=== PATIENT | female | born 1965 | race Caucasian/White ===

== ENCOUNTER 2016-07-17 13:00 | Inpatient (IN) | payer OTHER, MEDICAID ==
[~2016-07-17] VITALS: Ht 152.4 cm; Wt 67.9 kg
[~2016-07-17 13:00] MED LIST: DEXA6TAB PO; FOLI1TAB4 PO; HYDR-3111 PO; PRIL10CA PO
[2016-07-17 13:02] VITALS: BP 146/76; PULSE 90; RESP 18; TEMP 98.2; O2SAT 98
--- NOTE | 2016-07-17 14:09 | PD ---
HPI Chief Complaint: Respiratory Symptoms Time Seen by Provider: 14:06 Travel History International Travel<30 days: No Contact w/Intl Traveler<30days: No Traveled to known affect area: No History of Present Illness HPI Patient's 50-year-old female presenting to the emergency department on the advice of her oncologist Dr. Lomas due to an abnormal chest x-ray done as an outpatient. Per patient's report she's had increasing shortness of breath and more of a pleuritic chest pain for the last 10 weeks, getting progressively worse. She was diagnosed with lung cancer in May 2015. She states the chest pain is worse with breathing, yawning, she can't sleep on her left side. Her last chemotherapy treatment was 3 weeks ago. 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 Her primary doctor is Dr. Mckinney. Patient also reports neck and upper back pain. She denies any current fevers, chills, nausea, vomiting. She denies any other significant past medical history. PFSH Past Medical History Arthritis: Yes (hands) Asthma: No Autoimmune Disease: No Cancer: Yes (LUNG METS TO BRAIN) Cardiovascular Problems: No Chemotherapy: Yes COPD: No Cerebrovascular Accident: No Diabetes: No Diminished Hearing: No Endocrine: No GERD: No Genitourinary: No Hepatitis: No Hiatal Hernia: No Heparin Induced Thrombocytopen: No Immune Disorder: No Implanted Vascular Access Dvce: No Kidney Stones: Yes (2 years ago) Musculoskeletal: No Neurologic: No Psychiatric: Yes (SUICIDAL ATTEMPT , ) Reproductive: No Respiratory: Yes (LUNG CA) Migraines: No Radiation Therapy: Yes Renal Failure: No Seizures: No Sickle Cell Disease: No Sleep Apnea: No Thyroid Disease: No Ulcer: No ?: Not Past Surgical History Abdominal Surgery: No AICD: No Arteriovenous Shunt: No Cardiac Surgery: No Section: Yes Ear Surgery: No Endocrine Surgery: No Eye Surgery: No Genitourinary Surgery: No Gynecologic Surgery: Yes () Insulin Pump: No Joint Replacement: No Oral Surgery: No Pacemaker: No Thoracic Surgery: No Other Surgery: Yes (1989 WRIST REPAIR LFT ARM SUICIDE ATTEMPT, PORT TO L SUBCLAVIAN ) Social History Alcohol Use: No Tobacco Use: No (QUIT 06/01/2015) Substance Use: No Allergies-Medications (Allergen,Severity, Reaction): Coded Allergies: Lomotil (Verified Allergy, Severe, swollen lips, rash, 07/17/16) Reported Meds & Prescriptions Reported Meds & Active Scripts Active Reported Advil (Ibuprofen) 200 Mg Cap 200 Mg PO Q4H PRN Folate (Folic Acid) 1 Mg Tab 1 Mg PO DAILY Prilosec (Omeprazole) 20 Mg Cap 20 Mg PO DAILY Review of Systems Except as stated in HPI: all other systems reviewed are Neg General / Constitutional: No: Fever, Chills HENT: No: Headaches Cardiovascular: Positive: Chest Pain or Discomfort Respiratory: Positive: Shortness of Breath, Pleuritic Pain Gastrointestinal: No: Nausea, Vomiting, Abdominal Pain Musculoskeletal: Positive: Myalgias, Pain Physical Exam Narrative GENERAL: Well-developed, well-nourished, alert female. Resting comfortably in no acute distress. SKIN: Warm and dry. HEAD: Atraumatic. Normocephalic. EYES: Pupils equal and round. No scleral icterus. No injection or drainage. ENT: No nasal bleeding or discharge. Mucous membranes pink and moist. NECK: Trachea midline. No JVD. CARDIOVASCULAR: Regular rate and rhythm. No murmur appreciated. RESPIRATORY: No accessory muscle use. Significantly diminished/almost absent breath sounds in the left lobe. No wheezing, rhonchi, rales noted. GASTROINTESTINAL: Abdomen soft, non-tender, nondistended. Hepatic and splenic margins not palpable. MUSCULOSKELETAL: No obvious deformities. No clubbing. No cyanosis. No edema. NEUROLOGICAL: Awake and alert. No obvious cranial nerve deficits. Motor grossly within normal limits. Normal speech. PSYCHIATRIC: Appropriate mood and affect; insight and judgment normal. Data Data Last Documented VS Vital Signs Date Time Temp Pulse Resp B/P Pulse Ox O2 Delivery O2 Flow Rate FiO2 07/17/16 16:31 78 18 140/80 99 Room Air 07/17/16 13:02 98.2 Orders Complete Blood Count With Diff (07/17/16 14:04) Comprehensive Metabolic Panel (07/17/16 14:04) D-Dimer (07/17/16 14:04) Act Partial Throm Time (Ptt) (07/17/16 14:04) Prothrombin Time / Inr (Pt) (07/17/16 14:04) Magnesium (Mg) (07/17/16 14:04) Ckmb (Isoenzyme) Profile (07/17/16 14:04) Troponin I (07/17/16 14:04) Chest, Pa & Lat (07/17/16 14:04) Morphine Inj (Morphine Inj) (07/17/16 16:30) Ct Pulmonary Angiogram (07/17/16 ) Admit Order (Ed Use Only) (07/17/16 16:43) Vital Signs (Adult) Q4H (07/17/16 16:42) Activity Oob With Assistance (07/17/16 16:42) Fire Sprinkler Installer / Telemetry .CONTINUOUS (07/17/16 16:42) Intake + Output MEHNAZ.QSHIFT (07/17/16 16:42) Diet Heart Healthy (07/17/16 Dinner) Sodium Chloride 0.9% Flush (Ns Flush) (07/17/16 16:45) Sodium Chloride 0.9% Flush (Ns Flush) (07/17/16 21:00) Acetaminophen (Tylenol) (07/17/16 16:45) Ondansetron Inj (Zofran Inj) (07/17/16 16:45) Prochlorperazine Supp (Compazine Supp) (07/17/16 16:45) Bisacodyl Supp (Dulcolax Supp) (07/17/16 16:45) Magnesium Hydroxide Liq (Milk Of Magnesi (07/17/16 16:45) Sennosides (Senokot) (07/17/16 16:45) Temazepam (Restoril) (07/17/16 16:45) Basic Metabolic Panel (Bmp) (07/18/16 06:00) Comprehensive Metabolic Panel (07/18/16 06:00) Resp Oxygen Brandon C Titrat 1-4 L (07/17/16 ) Pt Request For Service (07/17/16 16:42) Ot Request For Service (07/17/16 16:42) Case Management Consult (07/17/16 16:42) Scd Bilateral/Knee High MEHNAZ.BID (07/17/16 16:42) Shaheen Bilateral/Knee High MEHNAZ.QSHIFT (07/17/16 16:42) Consult Medical Oncology (07/17/16 ) Labs Laboratory Tests Test 07/17/16 14:32 White Blood Count 4.7 TH/MM3 Red Blood Count 3.22 MIL/MM3 Hemoglobin 9.5 GM/DL Hematocrit 28.1 % Mean Corpuscular Volume 87.1 FL Mean Corpuscular Hemoglobin 29.6 PG Mean Corpuscular Hemoglobin 34.0 % Concent Red Cell Distribution Width 15.7 % Platelet Count 556 TH/MM3 Mean Platelet Volume 7.2 FL Neutrophils (%) (Auto) 65.3 % Lymphocytes (%) (Auto) 19.8 % Monocytes (%) (Auto) 11.9 % Eosinophils (%) (Auto) 2.1 % Basophils (%) (Auto) 0.9 % Neutrophils # (Auto) 3.0 TH/MM3 Lymphocytes # (Auto) 0.9 TH/MM3 Monocytes # (Auto) 0.6 TH/MM3 Eosinophils # (Auto) 0.1 TH/MM3 Basophils # (Auto) 0.0 TH/MM3 CBC Comment DIFF FINAL Differential Comment Prothrombin Time 10.9 SEC Prothromb Time International 1.0 RATIO Ratio Activated Partial 30.7 SEC Thromboplast Time D-Dimer Quantitative (PE/DVT) 7.63 MG/L FEU Sodium Level 140 MEQ/L Potassium Level 3.6 MEQ/L Chloride Level 107 MEQ/L Carbon Dioxide Level 23.9 MEQ/L Anion Gap 9 MEQ/L Blood Urea Nitrogen 8 MG/DL Creatinine 0.90 MG/DL Estimat Glomerular Filtration 66 ML/MIN Rate Random Glucose 82 MG/DL Calcium Level 9.3 MG/DL Magnesium Level 2.0 MG/DL Total Bilirubin 0.3 MG/DL Aspartate Amino Transf 14 U/L (AST/SGOT) Alanine Aminotransferase 11 U/L (ALT/SGPT) Alkaline Phosphatase 85 U/L Total Creatine Kinase 55 U/L Troponin I LESS THAN 0.02 NG/ML Total Protein 7.9 GM/DL Albumin 2.9 GM/DL MDM Medical Decision Making Medical Screen Exam Complete: Yes Emergency Medical Condition: Yes Interpretation(s) Vital Signs Date Time Temp Pulse Resp B/P Pulse Ox O2 Delivery O2 Flow Rate FiO2 07/17/16 13:02 98.2 90 18 146/76 98 Differential Diagnosis Pneumonia versus pneumothorax versus mass versus other Narrative Course Patient's 50-year-old female presenting to the emergency department on the advice of her oncologist due to an abnormal chest x-ray as outpatient. Patient has significantly diminished/absent breath sounds on the left. Workup initiated triage, care patient be transferred to provide her with a medical bed is available. Ashley Calderon Jul 17, 2016 14:09
[2016-07-17 14:26] VITALS: BP 121/71; PULSE 73; RESP 18; O2SAT 96
[2016-07-17] MEDS ORDERED: PRIL20CA9 PO (14:31)
[2016-07-17] MEDS ORDERED: FOLI1TAB4 PO (14:31)
[2016-07-17] MEDS ORDERED: ADVI200C5 PO (14:31)
--- NOTE | 2016-07-17 14:44 | PD ---
HPI Chief Complaint: Respiratory Symptoms Time Seen by Provider: 14:30 Travel History International Travel<30 days: No Contact w/Intl Traveler<30days: No Traveled to known affect area: No History of Present Illness HPI 50-year-old female came to the emergency room with history of shortness of breath and chest pain is progressively worsening over past 1 week to 10 days. Patient has history of lung cancer and was seen by her oncologist this morning. She had a CAT scan of her lungs done on June 26, 2016 which showed her left lung collapsed. She has cancer in her left lung. Her oncologist sent her to the emergency room to be evaluated. Vital signs were stable here. No history of fever or chills. Oxygen saturation was relatively good and no room air. [facility] Past Medical History Narrative Medical List of her past medical, surgical, social and family history is reviewed from the nursing note. Arthritis: Yes (hands) Asthma: No Autoimmune Disease: No Cancer: Yes (lung) Cardiovascular Problems: No Chemotherapy: Yes COPD: No Cerebrovascular Accident: No Diabetes: No Diminished Hearing: No Endocrine: No GERD: No Genitourinary: No Hepatitis: No Hiatal Hernia: No Heparin Induced Thrombocytopen: No Immune Disorder: No Implanted Vascular Access Dvce: No Kidney Stones: Yes (2 years ago) Musculoskeletal: No Neurologic: No Psychiatric: Yes (SUICIDAL ATTEMPT , ) Reproductive: No Respiratory: Yes (LUNG CA) Migraines: No Radiation Therapy: Yes Renal Failure: No Seizures: No Sickle Cell Disease: No Sleep Apnea: No Thyroid Disease: No Ulcer: No ?: Not Past Surgical History Abdominal Surgery: No AICD: No Arteriovenous Shunt: No Cardiac Surgery: No Section: Yes Ear Surgery: No Endocrine Surgery: No Eye Surgery: No Genitourinary Surgery: No Gynecologic Surgery: Yes () Insulin Pump: No Joint Replacement: No Oral Surgery: No Pacemaker: No Thoracic Surgery: No Other Surgery: Yes (1989 WRIST REPAIR LFT ARM SUICIDE ATTEMPT, PORT TO L SUBCLAVIAN ) Social History Alcohol Use: No Tobacco Use: No Substance Use: No Allergies-Medications (Allergen,Severity, Reaction): Coded Allergies: Lomotil (Verified Allergy, Severe, swollen lips, rash, 07/17/16) Comments List of her allergies reviewed from the nursing note. Reported Meds & Prescriptions Reported Meds & Active Scripts Active Reported Folate (Folic Acid) 1 Mg Tab 1 Mg PO DAILY Prilosec (Omeprazole) 20 Mg Cap 20 Mg PO DAILY Narrative Medication List of her home medications reviewed from the nursing note. Review of Systems Except as stated in HPI: all other systems reviewed are Neg Physical Exam Narrative GENERAL: Awake, alert, mild distress, he should SKIN: Warm and dry. HEAD: Atraumatic. Normocephalic. EYES: Pupils equal and round. No scleral icterus. No injection or drainage. ENT: No nasal bleeding or discharge. Mucous membranes pink and moist. NECK: Trachea midline. No JVD. CARDIOVASCULAR: Regular rate and rhythm. No murmur appreciated. RESPIRATORY: No accessory muscle use. Diminished air entry on the left base up to the middle of the lung field. Right side good air entry and no crackles GASTROINTESTINAL: Abdomen soft, non-tender, nondistended. Hepatic and splenic margins not palpable. MUSCULOSKELETAL: No obvious deformities. No clubbing. No cyanosis. No edema. NEUROLOGICAL: Awake and alert. No obvious cranial nerve deficits. Motor grossly within normal limits. Normal speech. PSYCHIATRIC: Appropriate mood and affect; insight and judgment normal. Data Data Last Documented VS Vital Signs Date Time Temp Pulse Resp B/P Pulse Ox O2 Delivery O2 Flow Rate FiO2 07/17/16 16:31 78 18 140/80 99 Room Air 07/17/16 13:02 98.2 Orders Complete Blood Count With Diff (07/17/16 14:04) Comprehensive Metabolic Panel (07/17/16 14:04) D-Dimer (07/17/16 14:04) Act Partial Throm Time (Ptt) (07/17/16 14:04) Prothrombin Time / Inr (Pt) (07/17/16 14:04) Magnesium (Mg) (07/17/16 14:04) Ckmb (Isoenzyme) Profile (07/17/16 14:04) Troponin I (07/17/16 14:04) Chest, Pa & Lat (07/17/16 14:04) Morphine Inj (Morphine Inj) (07/17/16 16:30) Ct Pulmonary Angiogram (07/17/16 ) Admit Order (Ed Use Only) (07/17/16 16:43) Vital Signs (Adult) Q4H (07/17/16 16:42) Activity Oob With Assistance (07/17/16 16:42) Hat Stock Laminating Machine Operator / Telemetry .CONTINUOUS (07/17/16 16:42) Intake + Output MEHNAZ.QSHIFT (07/17/16 16:42) Diet Heart Healthy (07/17/16 Dinner) Sodium Chloride 0.9% Flush (Ns Flush) (07/17/16 16:45) Sodium Chloride 0.9% Flush (Ns Flush) (07/17/16 21:00) Acetaminophen (Tylenol) (07/17/16 16:45) Ondansetron Inj (Zofran Inj) (07/17/16 16:45) Prochlorperazine Supp (Compazine Supp) (07/17/16 16:45) Bisacodyl Supp (Dulcolax Supp) (07/17/16 16:45) Magnesium Hydroxide Liq (Milk Of Magnesi (07/17/16 16:45) Sennosides (Senokot) (07/17/16 16:45) Temazepam (Restoril) (07/17/16 16:45) Basic Metabolic Panel (Bmp) (07/18/16 06:00) Comprehensive Metabolic Panel (07/18/16 06:00) Resp Oxygen Brandon C Titrat 1-4 L (07/17/16 ) Pt Request For Service (07/17/16 16:42) Ot Request For Service (07/17/16 16:42) Case Management Consult (07/17/16 16:42) Scd Bilateral/Knee High MEHNAZ.BID (07/17/16 16:42) Shaheen Bilateral/Knee High MEHNAZ.QSHIFT (07/17/16 16:42) Consult Medical Oncology (07/17/16 ) Labs Laboratory Tests Test 07/17/16 14:32 White Blood Count 4.7 TH/MM3 Red Blood Count 3.22 MIL/MM3 Hemoglobin 9.5 GM/DL Hematocrit 28.1 % Mean Corpuscular Volume 87.1 FL Mean Corpuscular Hemoglobin 29.6 PG Mean Corpuscular Hemoglobin 34.0 % Concent Red Cell Distribution Width 15.7 % Platelet Count 556 TH/MM3 Mean Platelet Volume 7.2 FL Neutrophils (%) (Auto) 65.3 % Lymphocytes (%) (Auto) 19.8 % Monocytes (%) (Auto) 11.9 % Eosinophils (%) (Auto) 2.1 % Basophils (%) (Auto) 0.9 % Neutrophils # (Auto) 3.0 TH/MM3 Lymphocytes # (Auto) 0.9 TH/MM3 Monocytes # (Auto) 0.6 TH/MM3 Eosinophils # (Auto) 0.1 TH/MM3 Basophils # (Auto) 0.0 TH/MM3 CBC Comment DIFF FINAL Differential Comment Prothrombin Time 10.9 SEC Prothromb Time International 1.0 RATIO Ratio Activated Partial 30.7 SEC Thromboplast Time D-Dimer Quantitative (PE/DVT) 7.63 MG/L FEU Sodium Level 140 MEQ/L Potassium Level 3.6 MEQ/L Chloride Level 107 MEQ/L Carbon Dioxide Level 23.9 MEQ/L Anion Gap 9 MEQ/L Blood Urea Nitrogen 8 MG/DL Creatinine 0.90 MG/DL Estimat Glomerular Filtration 66 ML/MIN Rate Random Glucose 82 MG/DL Calcium Level 9.3 MG/DL Magnesium Level 2.0 MG/DL Total Bilirubin 0.3 MG/DL Aspartate Amino Transf 14 U/L (AST/SGOT) Alanine Aminotransferase 11 U/L (ALT/SGPT) Alkaline Phosphatase 85 U/L Total Creatine Kinase 55 U/L Troponin I LESS THAN 0.02 NG/ML Total Protein 7.9 GM/DL Albumin 2.9 GM/DL MDM Medical Decision Making Medical Screen Exam Complete: Yes Emergency Medical Condition: Yes Medical Record Reviewed: Yes Differential Diagnosis Pneumonia, PE, lung mass, pleural effusion Narrative Course 4:49 PM blood test results are back and are within normal limits except for the d-dimer which is elevated. Chest x-ray shows moderate pleural effusion. I've ordered a pulmonary angiogram. Patient will require admission and I have admitted her to the hospitalist who has accepted the case. Patient requested something for pain which has been ordered. Procedures EKG Prior to Arrival: No Diagnosis Primary Impression: Respiratory distress Additional Impressions: Pleural effusion Lung mass Admitting Information Admitting Physician Requests: Admit Scripts Albuterol 18 GM Inh (Ventolin Hfa 18 GM Inh)90 Mcg/Act Aer2 Puff INH Q4-6H PRN ( SHORTNESS OF BREATH) #1 INHALER Ref 0 Prov:Brigitte Castaneda MD 07/19/16 Docusate Sodium (Colace)100 Mg [id number] Mg PO BID #60 CAP Ref 0 Prov:Brigitte Castaneda MD 07/19/16 Hydrocodone-Acetaminophen ([place])5-325 mg Tab1 Tab PO Q4H PRN (PAIN) #30 TAB Ref 0 Prov:Brigitte Castaneda MD 07/19/16 Mignon Yap MD Jul 17, 2016 14:44
[2016-07-17 14:59] LABS: BASOPHIL % 0.9 % (0.0-2.0); EOSINOPHIL # 0.1 TH/MM3 (0-0.4); EOSINOPHIL % 2.1 % (0.0-4.0); HEMATOCRIT 28.1 % (35.0-46.0); HEMO FLAGS DIFF FINAL; LYMPH % 19.8 % (9.0-44.0); LYMPHOCYTE # 0.9 TH/MM3 (1.0-4.8); MEAN CELL VOLUME 87.1 FL (80.0-100.0); MEAN CORPUSCULAR HEMOGLOBIN 29.6 PG (27.0-34.0); MONO % 11.9 % (0.0-8.0); NEUT % 65.3 % (16.0-70.0); PLATELET COUNT 556 TH/MM3 (150-450); RED BLOOD COUNT 3.22 MIL/MM3 (4.00-5.30); RED CELL DISTRIBUTION WIDTH 15.7 % (11.6-17.2); WHITE BLOOD COUNT 4.7 TH/MM3 (4.0-11.0)
--- NOTE | 2016-07-17 15:06 | RADRPT ---
EXAM DATE/TIME: 07/17/2016 14:58 [facility] COMPARISON: CT NEEDLE BIOPSY LUNG, LEFT, December 13, 2015, 8:36. CT THORAX W CONTRAST, June 26, 2016, 13:39. CHEST PA & LAT, June 02, 2015, 10:01. INDICATIONS : Patient has been short of breath. MEDICAL HISTORY : Carcinoma, lung. SURGICAL HISTORY : None. ENCOUNTER: Initial ACUITY: 1 day PAIN SCORE: 8/10 LOCATION: Left lung region. FINDINGS: There is a moderate left pleural effusion. [id number] is in good position on the right. Right celina ng is clear. Heart and pulmonary vascularity are normal. CONCLUSION: Moderate right consolidation and effusion. CT scan on 06/2016 had shown significant interval obstruct ion. The left lung may not re-expand following thoracentesis. Nain Bhatia MD FACR on July 17, 2016 at 15:00 Board Certified Radiologist. This report was verified electronically.
[2016-07-17 15:20] LABS: APTT (PATIENT) 30.7 SEC (24.3-30.1); PROTHROMBIN TIME - PATIENT 10.9 SEC (9.8-11.6)
[2016-07-17 15:23] LABS: ANION GAP 9 MEQ/L (5-15); AST (GOT) 14 U/L (15-37); BICARBONATE 23.9 MEQ/L (21.0-32.0); BLOOD UREA NITROGEN 8 MG/DL (7-18); CHLORIDE 107 MEQ/L (98-107); GLOMERULAR FILTRATION RATE 66 ML/MIN (>89); POTASSIUM 3.6 MEQ/L (3.5-5.1); SODIUM (NA) 140 MEQ/L (136-145)
[2016-07-17 15:28] LABS: ALKALINE PHOSPHATASE 85 U/L (45-117); ALT (GPT) 11 U/L (10-53); TOTAL BILIRUBIN ADULT 0.3 MG/DL (0.2-1.0)
[2016-07-17 15:40] LABS: CREATINE KINASE 55 U/L (26-192)
[2016-07-17] MEDS ORDERED: MORPHINE SULFATE 4 MG/ML INJ IV PUSH ONE (16:30)
[2016-07-17 16:31] VITALS: BP 140/80; PULSE 78; RESP 18; O2SAT 99
[2016-07-17] MEDS ORDERED: ACETAMINOPHEN 325 MG TAB PO PRN (16:45)
[2016-07-17] MEDS ORDERED: BISACODYL 10 MG SUPP PR PRN (16:45)
[2016-07-17] MEDS ORDERED: SODIUM CHLORIDE 0.9% FLUSH 5 ML FLUSH FLUSH PRN (16:45)
[2016-07-17] MEDS ORDERED: MAGNESIUM HYDROXIDE SUSP 30 ML CUP PO PRN (16:45)
[2016-07-17] MEDS ORDERED: SENNOSIDES 8.6 MG TAB PO PRN (16:45)
[2016-07-17] MEDS ORDERED: PROCHLORPERAZINE 25 MG SUPP PR PRN (16:45)
[2016-07-17] MEDS ORDERED: TEMAZEPAM 15 MG CAP PO PRN (16:45)
[2016-07-17] MEDS ORDERED: IOHEXOL 350 MG/ML 10 ML VIAL (for RAD DIAG) IV ONE (17:50)
--- NOTE | 2016-07-17 18:03 | RADRPT ---
EXAM DATE/TIME: 07/17/2016 17:49 [facility] COMPARISON: CHEST PA & LAT, July 17, 2016, 14:58. CT PULMONARY ANGIOGRAM, March 02, 2016, 8:16. INDICATIONS : Evaluate for embolism. IV CONTRAST: 74 cc Omnipaque 350 (iohexol) IV RADIATION DOSE: 23.17 CTDIvol (mGy) MEDICAL HISTORY : Carcinoma, lung. SURGICAL HISTORY : None. ENCOUNTER: Initial ACUITY: 1 day PAIN SCALE: 5/10 LOCATION: Bilateral chest TECHNIQUE: Volumetric scanning of the chest was performed using a pulmonary embolism protocol MIP images were re constructed. Using automated exposure control and adjustment of the mA and/or kV according to patien t size, radiation dose was kept as low as reasonably achievable to obtain optimal diagnostic quality images. FINDINGS: PULMONARY ARTERIES: No filling defects are seen in the pulmonary arteries through the segmental level. LUNGS: There continues to be parenchymal consolidation/mass in the left infrahilar area. This is mildly incr eased compared to prior study. The right lung remains clear and well-aerated. There is central lobar emphysema. There is evidence of previous granulomatous disease.. PLEURAE: There is a moderate left effusion. MEDIASTINUM: Few nonspecific lymph nodes are again seen. MUSCULOSKELETAL: Within normal limits for patient age. Stable MISCELLANEOUS: The visualized upper abdominal organs demonstrate no acute abnormality. CONCLUSION: 1. No evidence of pulmonary embolism. 2. Increasing consolidation/mass in the left infrahilar area. 3. Moderate left pleural effusion. Oliver Esquivel MD on July 17, 2016 at 17:57 Board Certified Radiologist. This report was verified electronically.
--- NOTE | 2016-07-17 18:39 | RADRPT ---
EXAM DATE/TIME: 07/17/2016 18:04 [facility] COMPARISON: No previous studies available for comparison. INDICATIONS : Plueral effusion. MEDICAL HISTORY : Renal calculi. Carcinoma, lung. Arthritis. Suicide attempt. SURGICAL HISTORY : section. Left wrist repair. Left subclavian port placement. ENCOUNTER: Initial ACUITY: 1 day PAIN SCORE: 3/10 LOCATION: Left chest MEASUREMENTS: SKIN TO PARIETAL PLEURA: 1.8 cm SKIN TO MAX SAFE DEPTH: 4.5 cm ESTIMATED FLUID VOLUME: 1052 cc FLUID COMPOSITION: simple FINDINGS: Pleural effusion as above. A dwayne was placed on the skin surface superficial to the pleural fluid col lection. CONCLUSION: Large Left-sided pleural effusion. Oliver Esquivel MD on July 17, 2016 at 18:38 Board Certified Radiologist. This report was verified electronically.
[2016-07-17 18:55] VITALS: BP 115/75; PULSE 80; RESP 20; TEMP 97.2; O2SAT 98
--- NOTE | 2016-07-17 19:22 | HHI.HP ---
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 Elizondo due to an abnormal chest x-ray done as an outpatient. Per patient' s report she's had increasing shortness of breath and more of a pleuritic chest pain for the last 10 weeks, getting progressively worse. She was diagnosed with lung cancer in May 2015. She states the chest pain is worse with breathing, yawning, she can't sleep on her left side. Her last chemotherapy treatment was 3 weeks ago. 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 Her primary doctor is Dr. Mckinney. Patient also reports neck and upper back pain. She denies any current fevers, chills, nausea, vomiting. She denies any other significant past medical history. 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 Oliver Esquivel MD Allergies: Coded Allergies: Lomotil (Verified Allergy, Severe, swollen lips, rash, 07/17/16) Family History Mother: Brain cancer Father: Prostate cancer Social History Quit smoking 05/2015 , used to smoke for 35 years 1PPD Denies EtOH use or illicit drug use Physical Exam Vital Signs Vital Signs Date Time Temp Pulse Resp B/P Pulse Ox O2 Delivery O2 Flow Rate FiO2 07/17/16 18:55 97.2 80 20 115/75 98 07/17/16 16:31 78 18 140/80 99 Room Air 07/17/16 14:26 73 18 121/71 96 Room Air 07/17/16 13:02 98.2 90 18 146/76 98 Physical Exam GENERAL: This is a pleasant 50 yo female, well-nourished, well-developed patient , in no apparent distress. SKIN: No rashes, ecchymoses or lesions. Cool and dry. HEAD: Atraumatic. Normocephalic. No temporal or scalp tenderness. EYES: Pupils equal round and reactive. Extraocular motions intact. No scleral icterus. No injection or drainage. ENT: Nose without bleeding, purulent drainage or septal hematoma. Throat without erythema, tonsillar hypertrophy or exudate. Uvula midline. Airway patent. NECK: Trachea midline. No JVD or lymphadenopathy. Supple, nontender, no meningeal signs. CARDIOVASCULAR: Regular rate and rhythm without murmurs, gallops, or rubs. RESPIRATORY: Clear to auscultation. Breath sounds equal bilaterally. No wheezes , rales, or rhonchi. GASTROINTESTINAL: Abdomen soft, non-tender, nondistended. No hepato-splenomegaly , or palpable masses. No guarding. MUSCULOSKELETAL: Extremities without clubbing, cyanosis, or edema. No joint tenderness, effusion, or edema noted. No calf tenderness. Negative Homans sign bilaterally. NEUROLOGICAL: Awake and alert. Cranial nerves II through XII intact. Motor and sensory grossly within normal limits. Five out of 5 muscle strength in all muscle groups. Normal speech. Laboratory Laboratory Tests Test 07/17/16 14:32 White Blood Count 4.7 Red Blood Count 3.22 Hemoglobin 9.5 Hematocrit 28.1 Mean Corpuscular Volume 87.1 Mean Corpuscular Hemoglobin 29.6 Mean Corpuscular Hemoglobin 34.0 Concent Red Cell Distribution Width 15.7 Platelet Count 556 Mean Platelet Volume 7.2 Neutrophils (%) (Auto) 65.3 Lymphocytes (%) (Auto) 19.8 Monocytes (%) (Auto) 11.9 Eosinophils (%) (Auto) 2.1 Basophils (%) (Auto) 0.9 Neutrophils # (Auto) 3.0 Lymphocytes # (Auto) 0.9 Monocytes # (Auto) 0.6 Eosinophils # (Auto) 0.1 Basophils # (Auto) 0.0 CBC Comment DIFF FINAL Differential Comment Prothrombin Time 10.9 Prothromb Time International 1.0 Ratio Activated Partial 30.7 Thromboplast Time D-Dimer Quantitative (PE/DVT) 7.63 Sodium Level 140 Potassium Level 3.6 Chloride Level 107 Carbon Dioxide Level 23.9 Anion Gap 9 Blood Urea Nitrogen 8 Creatinine 0.90 Estimat Glomerular Filtration 66 Rate Random Glucose 82 Calcium Level 9.3 Magnesium Level 2.0 Total Bilirubin 0.3 Aspartate Amino Transf 14 (AST/SGOT) Alanine Aminotransferase 11 (ALT/SGPT) Alkaline Phosphatase 85 Total Creatine Kinase 55 Troponin I LESS THAN 0.02 Total Protein 7.9 Albumin 2.9 Result Diagram: 07/17/16 1432 07/17/16 1432 Imaging Last Impressions Chest Ultrasound 07/17/16 0000 Signed Impressions: Service Date/Time: Sunday, July 17, 2016 18:04 - CONCLUSION: Large Left- sided pleural effusion. Oliver Esquivel MD Assessment and Plan Assessment and Plan Patient's 50-year-old female presenting to the emergency department on the advice of her oncologist due to an abnormal chest x-ray as outpatient. Patient has significantly diminished/absent breath sounds on the left. Small cell CA of lung stage IV with brain mets following with Dr Elizondo as OP. Received radiation and currently on chemo Left pleural effusion associated with pleuritic chest pain and sob Satting well on room air currently, use O2 supplement if need keep O2 sat > 94% US of left chest with large Left-sided pleural effusion. Plan for US guided thoracenthesis Consult pulm Consult Dr Elizondo DVT ppx with lovenox Discussed Condition With patient, family at bedside, ED physician Brigitte Castaneda MD Jul 17, 2016 19:21
[2016-07-17] MEDS: ACETAMINOPHEN/HYDROcodone 325 MG/10 MG TAB PO PRN (20:52)
[2016-07-17] MEDS: SODIUM CHLORIDE 0.9% FLUSH 5 ML FLUSH FLUSH SCH (21:00)
[2016-07-17 22:00] VITALS: BP 122/80; PULSE 85; RESP 18; TEMP 97.9; O2SAT 97
[2016-07-18] VITALS (11 sets, daily range): BP systolic 105–135; BP diastolic 63–85; PULSE 64–106; RESP 16–22; TEMP 96.6–99.2; O2SAT 94–100
[2016-07-18] MEDS: ACETAMINOPHEN/HYDROcodone 325 MG/5 MG TAB PO PRN ×2 (04:06→19:53)
[2016-07-18] MEDS: ONDANSETRON HCL 4 MG/2 ML VIAL IVP PRN ×2 (04:06→15:19)
--- NOTE | 2016-07-18 07:02 | MB ---
cc: LÓPEZ COWART MD, ABDUL J. M.D. DATE OF CONSULTATION 07/17/2016 REASON FOR CONSULTATION Consultation was requested by [facility] physician for evaluation of lung cancer. HISTORY OF PRESENT ILLNESS Juanita is a 50-year-old female. She was diagnosed with non-small cell lung cancer adenocarcinoma in May of last year when she presented with hemoptysis and a dry cough. The CT scan of the chest showed a 6 cm left perihilar mass encasing the left pulmonary artery and left main stem bronchus. She had a bronchoscopy which showed non-small cell lung cancer poorly differentiated adenocarcinoma. The MRI of the brain shows a solitary brain metastasis. She was treated with carboplatin and Taxol chemotherapy and stereotactic radiosurgery to the brain solitary metastasis. Subsequently, she had combined concurrent radiation and chemotherapy, carboplatin and Taxol completed in September of last year. The patient then had consolidative carboplatin and Taxol chemotherapy with excellent response. She was placed on maintenance Alimta last year in December. The patient was continued on maintenance Alimta. The patient recently had a restaging CT scan of the chest which showed progressive consolidation and volume loss and collapse of the left lower lobe with increasing left pleural effusion. The patient came to the clinic today for followup. The patient was complaining of shortness of breath and chest pains. She was also complaining of back pain especially in the neck and the upper back. I have advised her to go to the emergency room for further evaluation. In the emergency room, the patient had a chest x-ray which showed a left pleural effusion. The patient is now admitted to the hospital for further evaluation. I have been asked to see her. The patient is still having shortness of breath. Her GC just came back from CT angiogram of the chest which failed to reveal any pulmonary embolism. It showed the patient has a large left pleural effusion, as well as consolidation in the left lower lobe which is probably due to obstruction in the left hilar area. She is still complaining of pleuritic chest pain, as well as upper back pain. She denies any fevers. She has anxiety. The rest of the review of systems is negative. PAST MEDICAL HISTORY Non-small cell lung cancer diagnosed May 2015. PAST SURGICAL HISTORY 1. 2. [id number] placement 3. Breast augmentation 4. Lung biopsy ALLERGIES None MEDICATIONS Please see EMR. FAMILY HISTORY Noncontributory SOCIAL HISTORY The patient does not smoke cigarettes and does not drink alcohol. PHYSICAL EXAM This is a well-developed, well-nourished white female in no apparent distress in mild respiratory distress. VITAL SIGNS: Temperature 97.9, heart rate is 85, blood pressure 122/80. HEENT: PERRLA, EOMI, anicteric. No oral lesions noted. NECK: Supple. There is no cervical, supraclavicular or axillary lymphadenopathy noted. LUNGS: Decreased breath sounds on the left side, right side is clear. ABDOMEN: Soft, nontender. No hepatosplenomegaly. EXTREMITIES: No pedal edema. NEUROLOGIC: Awake, alert, and oriented times three. SKIN: No significant lesions noted. ASSESSMENT 1. Non-small cell lung cancer adenocarcinoma with brain metastasis status post brain radiation therapy, chemotherapy and currently she was on Alimta maintenance. 2. Large left pleural effusion with increasing left lower lobe consolidation, most likely due to progressive endobronchial lesion in the left hilar area. 3. Anxiety disorder. PLAN I have reviewed her available records and I have discussed with the patient regarding the recent CT scan findings. The patient was found to have progressive left lower lobe consolidation which I believe is due to the endobronchial lesion. She also has enlarging left pleural effusion. I will order the ultrasound of the chest to evaluate for the pleural effusion. If the patient has significant pleural effusion, then she will benefit from therapeutic thoracentesis. I will also consult pulmonary for bronchoscopy. The patient could have endobronchial lesion or mucus plug which could be causing the increased left lower lobe consolidation. If the patient is found to have progressive disease which clinically appears to be, then I will change her chemotherapy from Alimta to Opdivo. I will also get the bone scan to evaluate for the upper back pain which the patient has been complaining of. This patient has been getting narcotics while she is in the hospital. Further recommendations based on the hospital stay. Thank you for asking my opinion. MD GREG Varner/ARIANA /9:18 PM /5:49 AM FLORECITA
--- NOTE | 2016-07-18 08:08 | HHI.PR ---
Subjective Remarks Patient in bed, she is sattign well on room air. Pain is controlled by meds. She was nauseated, did not vomit. No fever or chills. No cough. Objective Vitals Vital Signs Date Time Temp Pulse Resp B/P Pulse Ox O2 Delivery O2 Flow Rate FiO2 07/18/16 06:06 16 07/18/16 04:12 97.8 84 16 120/77 94 07/18/16 01:15 97.5 76 16 118/67 97 07/17/16 22:21 16 07/17/16 22:00 97.9 85 18 122/80 97 07/17/16 18:55 97.2 80 20 115/75 98 07/17/16 16:31 78 18 140/80 99 Room Air 07/17/16 14:26 73 18 121/71 96 Room Air 07/17/16 13:02 98.2 90 18 146/76 98 Result Diagram: 07/17/16 1432 07/17/16 1432 Imaging Last Impressions Chest Ultrasound 07/17/16 0000 Signed Impressions: Service Date/Time: Sunday, July 17, 2016 18:04 - CONCLUSION: Large Left- sided pleural effusion. Oliver Esquivel MD Objective Remarks GENERAL: This is a pleasant 50 yo female, well-nourished, well-developed patient , in no apparent distress. SKIN: No rashes, ecchymoses or lesions. Cool and dry. HEAD: Atraumatic. Normocephalic. No temporal or scalp tenderness. EYES: Pupils equal round and reactive. Extraocular motions intact. No scleral icterus. No injection or drainage. ENT: Nose without bleeding, purulent drainage or septal hematoma. Throat without erythema, tonsillar hypertrophy or exudate. Uvula midline. Airway patent. NECK: Trachea midline. No JVD or lymphadenopathy. Supple, nontender, no meningeal signs. CARDIOVASCULAR: Regular rate and rhythm without murmurs, gallops, or rubs. RESPIRATORY: Clear to auscultation. decreased breath sounds left side. No wheezes, rales, or rhonchi. GASTROINTESTINAL: Abdomen soft, non-tender, nondistended. No hepato-splenomegaly , or palpable masses. No guarding. MUSCULOSKELETAL: Extremities without clubbing, cyanosis, or edema. No joint tenderness, effusion, or edema noted. No calf tenderness. Negative Homans sign bilaterally. NEUROLOGICAL: Awake and alert. Cranial nerves II through XII intact. Motor and sensory grossly within normal limits. Five out of 5 muscle strength in all muscle groups. Normal speech. A/P Assessment and Plan Patient's 50-year-old female presenting to the emergency department on the advice of her oncologist due to an abnormal chest x-ray as outpatient. Patient has significantly diminished/absent breath sounds on the left. Small cell CA of lung stage IV with brain mets following with Dr Elizondo as OP. Received radiation and currently on chemo. Poss patient has progressive disease. Left pleural effusion associated with pleuritic chest pain and sob Satting well on room air currently, use O2 supplement if need keep O2 sat > 94% US of left chest with large Left-sided pleural effusion. Plan for US guided thoracenthesis 07/18 Consult pulm for possible bronch Consult Dr Elizondo DVT ppx with lovenox Discussed Condition With patient, family at bedside, ED physician Brigitte Castaneda MD Jul 18, 2016 08:08
--- NOTE | 2016-07-18 08:10 | MB ---
cc: AURELIA IQBAL MD DATE OF CONSULTATION 07/17/[address] Laurie Mckinney REASON FOR CONSULTATION Evaluate for shortness breath and collapse of the lung. HISTORY OF PRESENT ILLNESS Ms. Lombardi is a 50-year-old female with metastatic non-small cell carcinoma of the lung. She has been treated with chemotherapy and radiation therapy and she is taking maintenance Alimta treatment by Dr. Elizondo. She recently had a CT scan of the chest done which shows left infrahilar mass with increasing collapse of the lung. Because of the worsening of the shortness of breath, she was advised to come to the hospital. She had a CTA of the chest done; it does not show any pulmonary embolism, it shows increasing consolidation or mass in the left infrahilar area, moderate left pleural effusion. Her CBC showed WBC count of 4.7, hemoglobin 9.5, hematocrit 28.1, MCV 87, platelet count 556. Her sodium is 140, potassium 3.6, chloride 107, CO2 24, BUN 8, creatinine 0.90. INR is 1.0. PAST MEDICAL HISTORY 1. History of non-small cell carcinoma of the lung status post chemotherapy and radiation therapy. Currently she is on Alimta. 2. History of breast augmentation. 3. . CURRENT MEDICATIONS 1. [place] for pain. 2. Temazepam 15 mg as needed. 3. Senokot p.r.n. ALLERGIES SHE IS ALLERGIC TO LOMOTIL. SOCIAL HISTORY She lives with her significant other. She was before. She worked as a soda fountain operator. She smoked for 35 years which she quit last year. No alcohol use. FAMILY HISTORY She has four children. REVIEW OF SYSTEMS Normally she is up all night. Denies any weight loss. No headache or dizziness. No DVT or pulmonary embolism. PHYSICAL EXAMINATION GENERAL: A well-built, well-nourished female, not in acute distress. VITAL SIGNS: Blood pressure 115/75, heart rate 80, respirations 20, temperature 98. HEENT EXAMINATION: Pupils are equal and reactive to light. Oral mucosa and nasal mucosa normal. NECK: Supple. JVP not raised. CHEST: She is dull to percussion. Decreased breath sounds at the left base. CV: S1 and S2 normal. ABDOMEN: Benign. EXTREMITIES: No edema. IMPRESSION 1. Left pleural effusion, moderate in size. 2. Mild dyspnea. 3. Neck pain. 4. Left infrahilar mass increasing in size. 5. Metastatic lung cancer. PLAN 1. I discussed with the patient that she will need thoracentesis which will be sent for protein, glucose, LDH, cultures and cytology. 2. After the thoracentesis we will review the studies to see if there is any concern for collapse of the lung and to consider bronchoscopy. 3. Further treatment will depend on her course in the hospital. Thank you Dr. Elizondo for this consult. MD ALESSANDRO Dixon/SSB /7:40 PM /6:59 AM
[2016-07-18] MEDS: SODIUM CHLORIDE 0.9% FLUSH 5 ML FLUSH FLUSH SCH ×2 (09:00→21:00)
[2016-07-18] MEDS: ACETAMINOPHEN/HYDROcodone 325 MG/10 MG TAB PO PRN (09:54)
--- NOTE | 2016-07-18 10:39 | PD.ONC.PN ---
Subjective Subjective Remarks Afebrile overnight. Had some pain in neck this AM, improved with [place]. Had 1 episode of vomiting this AM, which is typical for her. Objective Data Date Time Temp Pulse Resp B/P Pulse Ox O2 Delivery O2 Flow Rate FiO2 07/18/16 08:00 96.9 64 18 107/63 99 07/18/16 06:06 16 07/18/16 04:12 97.8 84 16 120/77 94 07/18/16 01:15 97.5 76 16 118/67 97 07/17/16 22:21 16 07/17/16 22:00 97.9 85 18 122/80 97 07/17/16 18:55 97.2 80 20 115/75 98 07/17/16 16:31 78 18 140/80 99 Room Air 07/17/16 14:26 73 18 121/71 96 Room Air 07/17/16 13:02 98.2 90 18 146/76 98 Result Diagram: 07/17/16 1432 07/17/16 1432 Laboratory Results Laboratory Tests Test 07/17/16 14:32 White Blood Count 4.7 TH/MM3 Red Blood Count 3.22 MIL/MM3 Hemoglobin 9.5 GM/DL Hematocrit 28.1 % Mean Corpuscular Volume 87.1 FL Mean Corpuscular Hemoglobin 29.6 PG Mean Corpuscular Hemoglobin 34.0 % Concent Red Cell Distribution Width 15.7 % Platelet Count 556 TH/MM3 Mean Platelet Volume 7.2 FL Neutrophils (%) (Auto) 65.3 % Lymphocytes (%) (Auto) 19.8 % Monocytes (%) (Auto) 11.9 % Eosinophils (%) (Auto) 2.1 % Basophils (%) (Auto) 0.9 % Neutrophils # (Auto) 3.0 TH/MM3 Lymphocytes # (Auto) 0.9 TH/MM3 Monocytes # (Auto) 0.6 TH/MM3 Eosinophils # (Auto) 0.1 TH/MM3 Basophils # (Auto) 0.0 TH/MM3 CBC Comment DIFF FINAL Differential Comment Prothrombin Time 10.9 SEC Prothromb Time International 1.0 RATIO Ratio Activated Partial 30.7 SEC Thromboplast Time D-Dimer Quantitative (PE/DVT) 7.63 MG/L FEU Sodium Level 140 MEQ/L Potassium Level 3.6 MEQ/L Chloride Level 107 MEQ/L Carbon Dioxide Level 23.9 MEQ/L Anion Gap 9 MEQ/L Blood Urea Nitrogen 8 MG/DL Creatinine 0.90 MG/DL Estimat Glomerular Filtration 66 ML/MIN Rate Random Glucose 82 MG/DL Calcium Level 9.3 MG/DL Magnesium Level 2.0 MG/DL Total Bilirubin 0.3 MG/DL Aspartate Amino Transf 14 U/L (AST/SGOT) Alanine Aminotransferase 11 U/L (ALT/SGPT) Alkaline Phosphatase 85 U/L Total Creatine Kinase 55 U/L Troponin I LESS THAN 0.02 NG/ML Total Protein 7.9 GM/DL Albumin 2.9 GM/DL Imaging Studies Last Impressions Chest Ultrasound 07/17/16 0000 Signed Impressions: Service Date/Time: Sunday, July 17, 2016 18:04 - CONCLUSION: Large Left- sided pleural effusion. Oliver Esquivel MD Administered Medications Medications (Trade) Dose Ordered Sig/Benji Route PRN Reason Start Time Stop Time Status Last Admin Dose Admin IV Flush (NS Flush) 2 ml BID FLUSH 07/17/16 21:00 07/18/16 09:00 Ondansetron HCl (Zofran Inj) 4 mg Q6H PRN IVP NAUSEA OR VOMITING 07/17/16 16:45 07/18/16 04:06 Acetaminophen/ Hydrocodone Bitart ([place] 5-325 Mg) 1 tab Q4H PRN PO PAIN SCALE 3 TO 6 07/17/16 19:45 07/18/16 04:06 Acetaminophen/ Hydrocodone Bitart ([place] 10-325 Mg) 1 tab Q4H PRN PO PAIN SCALE 7 TO 10 07/17/16 19:45 07/18/16 09:54 Objective Remarks GENERAL: Middle aged female, sitting up in bed in [facility]. SKIN: Warm and dry. HEAD: Normocephalic. EYES: No injection or drainage. NECK: Supple, trachea midline. CARDIOVASCULAR: +S1/S2 RESPIRATORY: diminished along left base. GASTROINTESTINAL: Abdomen soft, non-tender, nondistended. EXTREMITIES: No cyanosis, or edema. MUSCULOSKELETAL: Adequate muscle tone. NEUROLOGICAL: awake and alert, normal speech. Assessment/Plan Problem List: (1) Pleural effusion Status: Acute Plan: 07/18: consult IR for therapeutic thoracentesis. --Large left pleural effusion with increasing left lower lobe consolidation, --most likely due to progressive endobronchial lesion in the left hilar area. --patient could have endobronchial lesion or mucus plug which could be causing the increased left lower lobe consolidation. --bone scan pending --pulmonology following and will consider bronchoscopy after thoracentesis. (2) Non-small cell carcinoma of lung Status: Chronic Plan: 07/18: will add morphine for severe breakthrough pain. add Compazine for nausea. --If the patient is found to have progressive disease--will change her chemotherapy from Alimta to Opdivo. History: --diagnosed in 2015--presented with hemoptysis and dry cough --CT chest showed 6cm left perihilar mass encasing the left pulmonary artery left main stem bronchus. --MRI brain--shows solitary brain met. --had carbo/taxol chemotherapy and stereotactic radiosurgery to the brain met then combined concurrent radiation and chemotherapy and then consolidative carbo /taxol. --started on maintenance Alimta December 2015 --restaging CT chest showed progressive consolidation and volume loss and collapse of LLL with increasing left pleural effusion. Assessment 50y/o female with NSCLC admitted with dyspnea. Attending Statement c/o back pain and sob with anxiety. s/p Thoracentesis, 500 ML clear fliud removed. Bone scan is negative. Pt will need bronch to evaluate for mucous plug vs endobronchial lesion. Will d/ w Dr Rendon. The exam, history, and the medical decision-making described in the above note were completed with the assistance of the mid-level provider. I reviewed and agree with the findings presented. I attest that I had a [id number] encounter with the patient on the same day, and personally performed and documented my assessment and findings in the medical record. Namrata Rene Jul 18, 2016 10:38 Ita Elizondo MD Jul 18, 2016 18:01
[2016-07-18] MEDS ORDERED: PROCHLORPERAZINE MALEATE 5 MG TAB PO PRN ×2 (11:00→16:00)
[2016-07-18] MEDS ORDERED: MORPHINE SULFATE 4 MG/ML INJ IV PUSH PRN (11:00)
[2016-07-18 11:11] LABS: ANION GAP 9 MEQ/L (5-15); AST (GOT) 14 U/L (15-37); BICARBONATE 29.2 MEQ/L (21.0-32.0); BLOOD UREA NITROGEN 7 MG/DL (7-18); CHLORIDE 104 MEQ/L (98-107); GLOMERULAR FILTRATION RATE 49 ML/MIN (>89); SODIUM (NA) 142 MEQ/L (136-145)
[2016-07-18 11:14] LABS: ALKALINE PHOSPHATASE 89 U/L (45-117); ALT (GPT) 9 U/L (10-53); TOTAL BILIRUBIN ADULT 0.2 MG/DL (0.2-1.0)
--- NOTE | 2016-07-18 12:59 | RADRPT ---
EXAM DATE/TIME: 07/18/2016 12:06 [facility] COMPARISON: CT THORAX W CONTRAST, June 26, 2016, 13:39. PRIOR BONE SCANS: No correlative bone scan available for comparison. INDICATIONS : Non-small cell lung cancer for 1 year. Mass in left side of lung. DOSE: 31 mCi Tc99m MDP IV MEDICAL HISTORY : Hypertension. SURGICAL HISTORY : section. Breast augmentation, infuse a port and lung biopsy. ENCOUNTER: Initial ACUITY: 1 yr PAIN SCALE: 3/10 LOCATION: Left chest TECHNIQUE: Three hours post intravenous administration of radiotracer, whole body bone scan imaging was performe d. FINDINGS: Blood pool images demonstrate a homogeneous pattern of uptake in the soft tissues. No hyperemic area s are identified. Planar bone scan demonstrates a normal pattern of uptake. No intense focal areas of increased or decreased uptake are seen. There is a mild uptake within the lower thoracic spine whi ch corresponds with degenerative changes on CT chest. Minimal uptake is also seen at the lumbosacral junction and lower lumbar spine likely due to degenerative changes. CONCLUSION: 1. No evidence for metastatic disease. 2. Degenerative uptake within the lower thoracic spine 3. Minimal uptake in the lower lumbar spine/lumbosacral junction also likely degenerative. Moe Moon MD on July 18, 2016 at 12:53 Board Certified Radiologist. This report was verified electronically.
--- NOTE | 2016-07-18 14:04 | RADRPT ---
EXAM DATE/TIME: 07/18/2016 12:53 [facility] COMPARISON: No previous studies available for comparison. INDICATIONS : Post thoracentesis. MEDICAL HISTORY : None. SURGICAL HISTORY : Port placment. ENCOUNTER: Initial ACUITY: 1 day PAIN SCORE: 8/10 LOCATION: Left chest FINDINGS: A single frontal expiratory view of the chest was performed. Left basilar parenchymal density/mass. No evidence of pneumothorax. Mediastinal structures are in the midline. The cardio-mediastinal contours and bronchopulmonary markings are unremarkable for an expiratory exam . Osseous structures are intact. CONCLUSION: No pneumothorax status post thoracentesis. Moe Moon MD on July 18, 2016 at 14:02 Board Certified Radiologist. This report was verified electronically.
[2016-07-18 15:52] LABS: TOTAL PROTEIN,PLEURAL FLUID 4.5 GM/DL
--- NOTE | 2016-07-18 16:15 | RADRPT ---
EXAM DATE/TIME: 07/18/2016 13:09 [facility] COMPARISON: No previous studies available for comparison. INDICATIONS : Left pleural effusion. MEDICAL HISTORY : Arthritis. Renal calculi. Lung cancer. Dyspnea. SURGICAL HISTORY : section. Left wrist repair after suicide attempt. Left port placement. ENCOUNTER: Initial ACUITY: 1 day PAIN SCORE: 5/10 LOCATION: Left chest FLUID: Total volume of 500 cc of clear, yellow fluid was removed. Fluid was sent to lab for ordered studies. TECHNIQUE: 1. Ultrasound guidance for thoracentesis. 2. Thoracentesis. The risks, benefits, and alternatives to ultrasound guided thoracentesis were explained to the patien t in lay simple terms, including the risk of bleeding and infection. Written and verbal informed con sent was obtained. Appropriate area for thoracentesis was marked under ultrasound guidance with the patient in the uprig ht position. Overlying skin was prepped and draped in the usual sterile fashion and with local anest hetic, a dermatotomy was made with an 11 blade scalpel. A 6 Israeli thoracentesis catheter was placed in the pleural space and fluid was removed. Catheter was then removed and a sterile dressing applie d. There were no immediate complications. The patient tolerated the procedure well and the left the ultrasound suite in stable condition. Chest radiograph is to be obtained. CONCLUSION: Uncomplicated ultrasound guided thoracentesis. Moe Moon MD on July 18, 2016 at 16:11 Board Certified Radiologist. This report was verified electronically.
--- NOTE | 2016-07-18 16:52 | OTSOAPIP ---
TIME SESSION COMPLETED: 1623 TREATMENT TIME: 5 MINS. CHART REVIEWED. RECEIVED OCCUPATIONAL THERAPY ORDERS FROM DR. COWART, REVIEWED ELECTRONIC MEDICAL RECORD. ATTEMPTED INITIAL EVALUATION, HOWEVER PATIENT REPORTS SHE HAD A BUSY DAY AND US GUIDED THORACENTHESIS IN WHICH SHE RETURNED APPROXIMATELY 1 HOUR PRIOR. PATIENT STATES SHE IS TIRED AND IN PAIN, RECENTLY MEDICATED. PATIENT POLITELY REQUESTS TO COME BACK NEXT DAY TO COMPLETE EVALUATION SHE WANTS TO PERFORM WELL. WILL FOLLOW UP WITH PATIENT NEXT DAY. INTERDISCIPLINARY COMMUNICATION: REVIEWED ELECTRONIC MEDICAL RECORD Therapist: Asha Wood, OTR/L Signature on file
--- NOTE | 2016-07-18 19:55 | HHI.PR ---
Subjective Remarks 50 YOWF with metastatic lung ca, Pl effusion, neck pain had TC Feels much better Can take a deep breath Bone scan Neg Objective Vital Signs Vital Signs Date Time Temp Pulse Resp B/P Pulse Ox O2 Delivery O2 Flow Rate FiO2 07/18/16 16:00 99.2 103 18 116/85 98 07/18/16 14:40 96 07/18/16 14:20 98 07/18/16 14:01 98.0 91 18 129/85 100 07/18/16 13:46 98.0 104 22 123/80 100 07/18/16 13:18 98.2 96 16 105/75 96 07/18/16 09:30 98 21 07/18/16 08:00 96.9 64 18 107/63 99 07/18/16 06:06 16 07/18/16 04:12 97.8 84 16 120/77 94 07/18/16 01:15 97.5 76 16 118/67 97 07/17/16 22:21 16 07/17/16 22:00 97.9 85 18 122/80 97 I/O 07/17/16 07/17/16 07/17/16 07/18/16 07/18/16 07/18/16 07:00 15:00 23:00 07:00 15:00 23:00 Intake Total 480 ml 240 ml Balance 480 ml 240 ml Intake Oral 480 ml 240 ml # Voids 1 4 1 Result Diagram: 07/17/16 1432 07/18/16 1000 Objective Remarks GENERAL: WBWN WF,NAD SKIN: Warm and dry. HEAD: Normocephalic. EYES: No scleral icterus. No injection or drainage. NECK: Supple, trachea midline. No JVD or lymphadenopathy. CARDIOVASCULAR: Regular rate and rhythm without murmurs, gallops, or rubs. RESPIRATORY: Breath sounds equal bilaterally. No accessory muscle use. GASTROINTESTINAL: Abdomen soft, non-tender, nondistended. MUSCULOSKELETAL: No cyanosis, or edema. BACK: Nontender without obvious deformity. No CVA tenderness. A/P Assessment and Plan Pleural effusion, s/p TC Infrahilar lung mass Metastatic lung ca Dysnoea improved PLAN: Check pl fluid results Ambulate Stable on Dm Rosas MD Jul 18, 2016 19:55
[2016-07-19] VITALS: BP 109/68; PULSE 108; RESP 17; TEMP 97.8; O2SAT 98
[2016-07-19 04:00] VITALS: BP 105/47; PULSE 105; RESP 17; TEMP 98.9; O2SAT 96
[2016-07-19 05:29] VITALS: O2SAT 100
[2016-07-19] MEDS: ACETAMINOPHEN/HYDROcodone 325 MG/10 MG TAB PO PRN ×2 (07:22→16:18)
[2016-07-19 08:00] VITALS: BP 106/74; PULSE 101; RESP 18; TEMP 98.5; O2SAT 94
[2016-07-19] MEDS: SODIUM CHLORIDE 0.9% FLUSH 5 ML FLUSH FLUSH SCH (09:00)
[2016-07-19] MEDS ORDERED: NORC5TAB PO (09:16)
[2016-07-19] MEDS ORDERED: COLA100C3 PO (09:16)
[2016-07-19] MEDS ORDERED: VENTAER INH (09:16)
--- NOTE | 2016-07-19 09:17 | HHI.DCPOC ---
Discharge Care Plan Goals to Promote Your Health * To prevent worsening of your condition and complications * To maintain your health at the optimal level Directions to Meet Your Goals Take your medications as prescribed Follow your dietary instruction Follow activity as directed Keep your appointments as scheduled Take your immunizations and boosters as scheduled If your symptoms worsen call your PCP, if no PCP go to Urgent Care Center or Emergency Room Smoking is Dangerous to Your Health. Avoid second hand smoke Call the 24-hour hour crisis hotline for domestic abuse at Brigitte Castaneda MD Jul 19, 2016 09:17
--- NOTE | 2016-07-19 09:20 | HHI.DS ---
Discharge Summary Admission Date Jul 18, 2016 at 13:38 Discharge Date: Jul 19, 2016 Admitting Diagnosis shortness of breath, pleural effusion, lung cancer (1) Pleural effusion ICD Code: J90 Diagnosis: Principal (2) Brain metastases ICD Code: C79.31 Diagnosis: Secondary (3) Metastatic primary lung cancer ICD Code: C34.90 Diagnosis: Secondary (4) Non-small cell carcinoma of lung ICD Code: C34.90 Diagnosis: Secondary (5) Weight loss, unintentional ICD Code: R63.4 Diagnosis: Secondary (6) Bilateral hemianopia ICD Code: G25.3 Diagnosis: Secondary Procedures thoracentesis 07/18/16 Brief History - From Admission 50-year-old female with PMH of 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 Elizondo due to an abnormal chest x-ray done as an outpatient. Per patient' s report she's had increasing shortness of breath and more of a pleuritic chest pain for the last 10 weeks, getting progressively worse. She was diagnosed with lung cancer in May 2015. She states the chest pain is worse with breathing, yawning, she can't sleep on her left side. Her last chemotherapy treatment was 3 weeks ago. 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 Her primary doctor is Dr. Mckinney. Patient also reports neck and upper back pain. She denies any current fevers, chills, nausea, vomiting. She denies any other significant past medical history. CBC/BMP: 07/17/16 1432 07/18/16 1000 Significant Findings Laboratory Tests Test 07/17/16 07/18/16 14:32 10:00 Red Blood Count 3.22 MIL/MM3 (4.00-5.30) Hemoglobin 9.5 GM/DL (11.6-15.3) Hematocrit 28.1 % (35.0-46.0) Platelet Count 556 TH/MM3 (150-450) Monocytes (%) (Auto) 11.9 % (0.0-8.0) Lymphocytes # (Auto) 0.9 TH/MM3 (1.0-4.8) Activated Partial 30.7 SEC Thromboplast Time (24.3-30.1) D-Dimer Quantitative (PE/DVT) 7.63 MG/L FEU (0.00-0.50) Estimat Glomerular Filtration 66 ML/MIN (>89) 49 ML/MIN (>89) Rate Aspartate Amino Transf 14 U/L (15-37) 14 U/L (15-37) (AST/SGOT) Troponin I LESS THAN 0.02 NG/ML (0.02-0.05) Albumin 2.9 GM/DL 2.7 GM/DL (3.4-5.0) (3.4-5.0) Creatinine 1.16 MG/DL (0.50-1.00) Random Glucose 119 MG/DL (74-106) Alanine Aminotransferase 9 U/L (10-53) (ALT/SGPT) Imaging Last Impressions Thoracentesis Ultrasound 07/18/16 0000 Signed Impressions: Service Date/Time: Monday, July 18, 2016 13:09 - CONCLUSION: Uncomplicated ultrasound guided thoracentesis. Moe Moon MD Chest X-Ray 07/18/16 0000 Signed Impressions: Service Date/Time: Monday, July 18, 2016 12:53 - CONCLUSION: No pneumothorax status post thoracentesis. Moe Moon MD Bone Scan Nuclear Medicine 07/18/16 0000 Signed Impressions: Service Date/Time: Monday, July 18, 2016 12:06 - CONCLUSION: 1. No evidence for metastatic disease. 2. Degenerative uptake within the lower thoracic spine 3. Minimal uptake in the lower lumbar spine/lumbosacral junction also likely degenerative. Moe Moon MD Chest Ultrasound 07/17/16 0000 Signed Impressions: Service Date/Time: Sunday, July 17, 2016 18:04 - CONCLUSION: Large Left- sided pleural effusion. Oliver Esquivel MD CT Angiography 07/17/16 0000 Signed Impressions: Service Date/Time: Sunday, July 17, 2016 17:49 - CONCLUSION: 1. No evidence of pulmonary embolism. 2. Increasing consolidation/mass in the left infrahilar area. 3. Moderate left pleural effusion. Oliver Esquivel MD PE at Discharge GENERAL: This is a pleasant 50 yo female, well-nourished, well-developed patient , in no apparent distress. SKIN: No rashes, ecchymoses or lesions. Cool and dry. HEAD: Atraumatic. Normocephalic. No temporal or scalp tenderness. EYES: Pupils equal round and reactive. Extraocular motions intact. No scleral icterus. No injection or drainage. ENT: Nose without bleeding, purulent drainage or septal hematoma. Throat without erythema, tonsillar hypertrophy or exudate. Uvula midline. Airway patent. NECK: Trachea midline. No JVD or lymphadenopathy. Supple, nontender, no meningeal signs. CARDIOVASCULAR: Regular rate and rhythm without murmurs, gallops, or rubs. RESPIRATORY: Clear to auscultation. decreased breath sounds left side. No wheezes, rales, or rhonchi. GASTROINTESTINAL: Abdomen soft, non-tender, nondistended. No hepato-splenomegaly , or palpable masses. No guarding. MUSCULOSKELETAL: Extremities without clubbing, cyanosis, or edema. No joint tenderness, effusion, or edema noted. No calf tenderness. Negative Homans sign bilaterally. NEUROLOGICAL: Awake and alert. Cranial nerves II through XII intact. Motor and sensory grossly within normal limits. Five out of 5 muscle strength in all muscle groups. Normal speech. Pt update on day of discharge Patient in nad. Pain is controlled nby medications. No n/v/d/c. No efevr or chills. No sob, passed walking O2 test. Hospital Course Patient's 50-year-old female presenting to the emergency department on the advice of her oncologist due to an abnormal chest x-ray as outpatient. Patient has significantly diminished/absent breath sounds on the left. Small cell CA of lung stage IV with brain mets following with Dr Elizondo as OP. Received radiation and currently on chemo. Poss patient has progressive disease. Left pleural effusion associated with pleuritic chest pain and sob Satting well on room air currently, use O2 supplement if need keep O2 sat > 94% US of left chest with large Left-sided pleural effusion. S/P US guided thoracenthesis 07/18 Consult pulm for possible bronch. Patient s/p thoracentesis 07/18, sattign well on room air,. passed walking test. Discussed with Dr Rendon will hold on bronch , to foolow up as Op with Dr Rendon Consult Dr Elizondo, recommends scan neck, imageing reviewed and findings discused with the patient, there is no metastatic disease to the neck, patient has degenerative changes. To follow up with Dr Elizondo. Improved, discharged home in failry stable condition, to follow up as OP with PCP and consultants. Pt Condition on Discharge: Stable Discharge Disposition: Disch w/ Home Health Serv Discharge Time: > 30 minutes Discharge Instructions DIET: Follow Instructions for: As Tolerated, No Restrictions Activities you can perform: Regular-No Restrictions Follow up Referrals: Oncology - 3-5 Days with Ita Elizondo MD PCP Follow-up - 3-5 Days Pulmonology - 1 Week with Dm Rendon MD New Medications: Albuterol 18 GM Inh (Ventolin Hfa 18 GM Inh) 90 Mcg/Act Aer 2 PUFF INH Q4-6H PRN SHORTNESS OF BREATH #1 Ref 0 INHALER Docusate Sodium (Colace) 100 Mg Cap 100 MG PO BID Constipation #60 Ref 0 CAP Hydrocodone-Acetaminophen ([place]enac) 5-325 mg Tab 1 TAB PO Q4H PRN PAIN #30 Ref 0 TAB Continued Medications: Folic Acid (Folate) 1 Mg Tab 1 MG PO DAILY Nutritional Supplement Ref 0 TAB Omeprazole (Prilosec) 20 Mg Cap 20 MG PO DAILY #30 Ref 0 CAP Discontinued Medications: Ibuprofen (Advil) 200 Mg Cap 200 MG PO Q4H PRN Ref 0 CAP Brigitte Castaneda MD Jul 19, 2016 09:20
--- NOTE | 2016-07-19 09:20 | HHI.FF ---
Face to Face Verification Diagnosis: (1) Weight loss, unintentional (2) Tobacco abuse (3) Mass of left lung (4) Pleural effusion (5) Chest pain (6) Brain metastases (7) Metastatic primary lung cancer (8) Non-small cell carcinoma of lung (9) Bilateral hemianopia Physical Therapy Order: Evaluate and Treat Home Health Nursing Order: Medical education Signs/symptoms of disease process Medication education-adverse effect Nursing assessment with vital signs I have seen patient Juanita Lombardi on 07/19/16. My clinical findings support the need for the requested home health care services because: Ltd mobility - disease progression Patient has SOB I certify that my clinical findings support that this patient is homebound because: Post-op weakness Brigitte Castaneda MD Jul 19, 2016 09:20
[2016-07-19 12:00] VITALS: BP 98/61; PULSE 88; RESP 18; TEMP 97.6; O2SAT 97
--- NOTE | 2016-07-19 17:49 | PD.ONC.PN ---
Subjective Subjective Remarks less SOB anxious to go home Objective Data Date Time Temp Pulse Resp B/P Pulse Ox O2 Delivery O2 Flow Rate FiO2 07/19/16 12:00 97.6 88 18 98/61 97 07/19/16 08:00 98.5 101 18 106/74 94 07/19/16 05:29 100 07/19/16 04:00 98.9 105 17 105/47 96 07/19/16 00:00 97.8 108 17 109/68 98 07/18/16 20:00 97.7 106 18 114/71 95 07/19/16 07/19/16 07/19/16 07:00 15:00 23:00 Intake Total 240 ml 2640 ml 500 ml Balance 240 ml 2640 ml 500 ml Result Diagram: 07/17/16 1432 07/18/16 1000 Culture Results Microbiology Date/Time Procedure Status Source Growth 07/18/16 13:33 Gram Stain - Final Resulted Fluid Pleural Fluid 07/18/16 13:33 Body Fluid Culture - Preliminary Resulted Fluid Pleural Fluid NO GROWTH IN 24 HOURS. Objective Remarks GENERAL: Well-nourished, well-developed patient. SKIN: Warm and dry. HEAD: Normocephalic. EYES: No scleral icterus. No injection or drainage. NECK: Supple, trachea midline. No JVD or lymphadenopathy. LYMPHATIC: No adenopathy. CARDIOVASCULAR: Regular rate and rhythm without murmurs. RESPIRATORY: Breath sounds equal bilaterally. GASTROINTESTINAL: Abdomen soft, non-tender, nondistended. EXTREMITIES: No cyanosis, or edema. NEUROLOGICAL: No obvious focal deficit. Awake, alert, and oriented x3. PSYCHIATRIC: Appropriate mood and affect; insight and judgment normal. Assessment/Plan Problem List: (1) Pleural effusion Status: Acute Plan: 07/19 : s/p thoracentesis. pt improves. Dr Rendon input noted. Ok to d/c , fu as outpt 07/18: consult IR for therapeutic thoracentesis. --Large left pleural effusion with increasing left lower lobe consolidation, --most likely due to progressive endobronchial lesion in the left hilar area. --patient could have endobronchial lesion or mucus plug which could be causing the increased left lower lobe consolidation. --bone scan pending --pulmonology following and will consider bronchoscopy after thoracentesis. (2) Non-small cell carcinoma of lung Status: Chronic Plan: 07/18: will add morphine for severe breakthrough pain. add Compazine for nausea. --If the patient is found to have progressive disease--will change her chemotherapy from Alimta to Opdivo. History: --diagnosed in 2015--presented with hemoptysis and dry cough --CT chest showed 6cm left perihilar mass encasing the left pulmonary artery left main stem bronchus. --MRI brain--shows solitary brain met. --had carbo/taxol chemotherapy and stereotactic radiosurgery to the brain met then combined concurrent radiation and chemotherapy and then consolidative carbo /taxol. --started on maintenance Alimta December 2015 --restaging CT chest showed progressive consolidation and volume loss and collapse of LLL with increasing left pleural effusion. Assessment 50y/o female with NSCLC admitted with dyspnea. Ita Elizondo MD Jul 19, 2016 17:49
== END 2016-07-19 17:06 | disposition home or self-care (01) | DRG 181 ==
LOC: NEPA 13:00 → INTOOBSV 16:44 → NEDA 16:44 → HOCB 18:32 → OBSVTOIN 07-18 13:38
PROVIDERS: ADMIT Hospitalist; ATTEND Hospitalist
PROC: 0W9B3ZX Drainage of Left Pleural Cavity, Percutaneous Approach, Diagnostic (ICD-10-PCS; principal; 2016-07-18)
DX: C34.92 Malignant neoplasm of unspecified part of left bronchus or lung (principal); J91.8 Pleural effusion in other conditions classified elsewhere; C79.31 Secondary malignant neoplasm of brain; M19.042 Primary osteoarthritis, left hand; Z87.891 Personal history of nicotine dependence; M19.041 Primary osteoarthritis, right hand; F41.9 Anxiety disorder, unspecified
CPT/HCPCS: 32555; 71010; 71020; 71275; 76604; 78306; 80053; 82550; 82945; 83615; 83735; 84157; 84484; 85025; 85379; 85610; 85730; 87070; 87205; 88112; 88305; 96374; A9503; C1729; G0378; J2270; J2405; Q9967

== ENCOUNTER 2016-08-01 08:36 | Emergency (ER) | payer OTHER, MEDICAID ==
[~2016-08-01] VITALS: Ht 152.4 cm; Wt 68.0 kg
[~2016-08-01 08:36] MED LIST changes: +COLA100C3 PO; -DEXA6TAB PO; -HYDR-3111 PO; +NORC5TAB PO; -PRIL10CA PO; +PRIL20CA9 PO; +VENTAER INH
[2016-08-01 09:02] VITALS: BP 119/80; PULSE 87; RESP 18; TEMP 98.8; O2SAT 100
[2016-08-01] MEDS ORDERED: SODIUM CHLOR 0.9% 1000 ML INJ 1,000 ML IV SCH (09:02)
[2016-08-01 09:06] VITALS: O2SAT 100
[2016-08-01] MEDS ORDERED: ONDA1TAB17 PO (09:10)
[2016-08-01] MEDS ORDERED: PROC10TA PO (09:10)
[2016-08-01] MEDS ORDERED: NIVO4INJ IV (09:10)
[2016-08-01] MEDS ORDERED: OMEP40CA2 PO (09:10)
[2016-08-01] MEDS ORDERED: SODIUM CHLORIDE 0.9% FLUSH 10 ML FLUSH IVF PRN (09:15)
[2016-08-01] MEDS ORDERED: MORPHINE SULFATE 4 MG/ML INJ IV PUSH ONE (09:15)
[2016-08-01] MEDS ORDERED: ONDANSETRON HCL 4 MG/2 ML VIAL IVP ONE (09:15)
--- NOTE | 2016-08-01 09:39 | RADHPO ---
EXAM DATE/TIME: 08/01/2016 09:10 [facility] COMPARISON: CHEST PA & LAT, July 17, 2016, 14:58. INDICATIONS : Chest pain. MEDICAL HISTORY : Carcinoma, lung. chemo SURGICAL HISTORY : infusaport ENCOUNTER: Initial ACUITY: 2 weeks PAIN SCORE: 6/10 LOCATION: Bilateral chest FINDINGS: PA and lateral views of the chest. Right-sided [id number] remains in place. Moderate-sized left pl eural effusion and pulmonary consolidation unchanged. Right sided calcified granuloma in the midlung unchanged. Right lung otherwise clear. No evidence of pneumothorax. CONCLUSION: No change in moderate sized left pleural effusion and lower lung zone consolidation. Gordon Reinoso MD on August 01, 2016 at 9:36 Board Certified Radiologist. This report was verified electronically.
[2016-08-01 09:42] LABS: AUTOMATED NEUTROPHIL # 3.8 TH/MM3 (1.8-7.7); BASOPHIL % 0.7 % (0.0-2.0); EOSINOPHIL # 0.1 TH/MM3 (0-0.4); EOSINOPHIL % 2.5 % (0.0-4.0); HEMATOCRIT 29.7 % (35.0-46.0); HEMO FLAGS DIFF FINAL; LYMPH % 14.7 % (9.0-44.0); LYMPHOCYTE # 0.7 TH/MM3 (1.0-4.8); MEAN CELL VOLUME 85.3 FL (80.0-100.0); MEAN CORPUSCULAR HGB CONC 32.9 % (32.0-36.0); MONO % 10.5 % (0.0-8.0); NEUT % 71.6 % (16.0-70.0); PLATELET COUNT 625 TH/MM3 (150-450); RED BLOOD COUNT 3.48 MIL/MM3 (4.00-5.30); RED CELL DISTRIBUTION WIDTH 14.4 % (11.6-17.2); WHITE BLOOD COUNT 5.1 TH/MM3 (4.0-11.0)
[2016-08-01 09:43] LABS: BLOOD, URINE NEG (NEG); GLUCOSE,URINE NEG (NEG); KETONE, URINE NEG (NEG); NITRITE,URINE NEG (NEG)
[2016-08-01 09:45] LABS: METHOD OF COLLECTION CLEAN CATCH; URINE COLOR STRAW (YELLW/STRAW)
[2016-08-01 09:51] LABS: RBC, URINE 0-3 /hpf (0-3)
[2016-08-01 09:52] LABS: BACTERIA, URINE RARE /hpf; COMMENT (UR) CULTURE INDICATED; CULTURE IF INDICATED CULTURE INDICATED
[2016-08-01 09:54] LABS: CHLORIDE 103 MEQ/L (98-107); POTASSIUM 4.1 MEQ/L (3.5-5.1); SODIUM (NA) 142 MEQ/L (136-145)
[2016-08-01 09:55] LABS: ANION GAP 11 MEQ/L (5-15); BICARBONATE 28.4 MEQ/L (21.0-32.0); BLOOD UREA NITROGEN 13 MG/DL (7-18); MAGNESIUM 2.2 MG/DL (1.5-2.5)
[2016-08-01 09:56] LABS: APTT (PATIENT) 29.7 SEC (24.3-30.1); PROTHROMBIN TIME - PATIENT 10.8 SEC (9.8-11.6)
[2016-08-01 09:58] LABS: ALT (GPT) 10 U/L (10-53); AST (GOT) 20 U/L (15-37); GLOMERULAR FILTRATION RATE 47 ML/MIN (>89)
[2016-08-01 09:59] LABS: TOTAL BILIRUBIN ADULT 0.2 MG/DL (0.2-1.0)
[2016-08-01 10:01] LABS: ALKALINE PHOSPHATASE 85 U/L (45-117)
[2016-08-01 10:03] VITALS: BP 128/71; PULSE 85; RESP 16; O2SAT 96
--- NOTE | 2016-08-01 10:03 | PD ---
HPI Chief Complaint: Pain: Acute or Chronic Time Seen by Provider: 08:48 Travel History International Travel<30 days: No Contact w/Intl Traveler<30days: No Traveled to known affect area: No History of Present Illness HPI Patient is a 50-year-old female with history of stage IV non-small cell lung cancer with metastatic disease to brain, who returns to emergency room for evaluation of shortness of breath. Patient reports that she does see Dr. Elizondo as her oncologist in the office and reports that she has been feeling very short of breath for a while now. Patient reports that she was admitted to the hospital earlier this month (07/17/16) for evaluation of shortness of breath. Reports that she was admitted to the hospital at the request of her oncologist for workup by pulmonology including a bronchoscopy. Patient reports that she never had a bronchoscopy her lungs as the bellmaker did not believe this was medically necessary. Reports that she was admitted to the hospital as she had of pleural effusion on her CAT scan as well as collapsed lung versus increased consolidation to the left infrahilar area. Ultimately, patient did have a thoracentesis on July 18, 2016 by and was discharged to home on July 19, 2016. Patient reports that since she was discharged home, she has continued to feel short of breath and has continued to have pleuritic chest pain. Patient reports that she has pain throughout her chest with sharp and stabbing in nature , reports pain to her back and pain to her neck. Reports that she is short of breath at rest as well as short of breath on exertion. Patient reports that her symptoms have not gone any better since she was discharged the last time. Reports that her symptoms feel exactly the same as when she was last admitted to the hospital. She is currently on Opdivo and had her last treatment on Sunday of last week. Overall, reports decreased by mouth intake with nausea and vomiting. Reports that she is prescribed Zofran which does not help with her symptoms. Denies fevers or chills, denies abdominal pain at this time. PFSH Past Medical History Arthritis: Yes (hands) Asthma: No Autoimmune Disease: No Cancer: Yes (lung) Cardiovascular Problems: No Chemotherapy: Yes COPD: No Cerebrovascular Accident: No Diabetes: No Diminished Hearing: No Endocrine: No Gastrointestinal Disorders: No GERD: No Genitourinary: No Headaches: No Hepatitis: No Hiatal Hernia: No Heparin Induced Thrombocytopen: No Immune Disorder: No Implanted Vascular Access Dvce: No Kidney Stones: Yes (2 years ago) Medical other: No Musculoskeletal: No Neurologic: No Psychiatric: Yes (SUICIDAL ATTEMPT , ) Reproductive: No Respiratory: Yes (LUNG CA) Migraines: No Radiation Therapy: Yes Renal Failure: No Seizures: No Sickle Cell Disease: No Sleep Apnea: No Thyroid Disease: No Ulcer: No ?: Not Past Surgical History Abdominal Surgery: No AICD: No Arteriovenous Shunt: No Cardiac Surgery: No Section: Yes Ear Surgery: No Endocrine Surgery: No Eye Surgery: No Genitourinary Surgery: No Gynecologic Surgery: Yes () Insulin Pump: No Joint Replacement: No Neurologic Surgery: No Oral Surgery: No Pacemaker: No Thoracic Surgery: No Other Surgery: Yes (1989 WRIST REPAIR LFT ARM SUICIDE ATTEMPT, PORT TO L SUBCLAVIAN ) Social History Alcohol Use: No Tobacco Use: No Substance Use: No Allergies-Medications (Allergen,Severity, Reaction): Coded Allergies: Lomotil (Verified Allergy, Severe, swollen lips, rash, 07/17/16) Reported Meds & Prescriptions Reported Meds & Active Scripts Active Zofran Odt (Ondansetron Odt) 8 Mg Tab 8 Mg SL Q8H PRN Percocet (Oxycodone-Acetaminophen) 5-325 mg Tab 1-2 Tab PO Q6H PRN Macrobid (Nitrofurantoin Monoh/Nitrofur Macro) 100 Mg Cap 100 Mg PO BID 10 Days Reported Ondansetron (Ondansetron HCl) 8 Mg Tab 8 Mg PO TID Prochlorperazine Maleate 10 Mg Tab 10 Mg PO Q6H PRN Omeprazole 40 Mg Cap 40 Mg PO DAILY Opdivo (Nivolumab) 100 Mg/10 Ml Inj 1 Injection IV EVERY OTHER WED Review of Systems General / Constitutional: No: Fever, Chills Eyes: No: Visual changes HENT: No: Headaches Cardiovascular: Positive: Chest Pain or Discomfort, Palpitations, Dyspnea on exertion, No: Diaphoresis, Syncope Respiratory: Positive: Shortness of Breath Gastrointestinal: Positive: Nausea, Vomiting, No: Diarrhea, Abdominal Pain Genitourinary: No: Dysuria Musculoskeletal: No: Pain Skin: No Rash Neurologic: No: Weakness Psychiatric: No: Depression Endocrine: No: Polydipsia Hematologic/Lymphatic: No: Easy Bruising Physical Exam Narrative GENERAL: No acute distress, nontoxic SKIN: Warm and dry. HEAD: Atraumatic. Normocephalic. EYES: Pupils equal and round. No scleral icterus. No injection or drainage. ENT: No nasal bleeding or discharge. Mucous membranes pink and moist. NECK: Trachea midline. No JVD. CARDIOVASCULAR: Regular rate and rhythm. No murmur appreciated. RESPIRATORY: No accessory muscle use. Clear to auscultation. Breath sounds equal bilaterally. GASTROINTESTINAL: Abdomen soft, non-tender, nondistended. Hepatic and splenic margins not palpable. MUSCULOSKELETAL: No obvious deformities. No clubbing. No cyanosis. No edema. NEUROLOGICAL: Awake and alert. No obvious cranial nerve deficits. Motor grossly within normal limits. Normal speech. PSYCHIATRIC: Appropriate mood and affect; insight and judgment normal. Data Data Last Documented VS Vital Signs Date Time Temp Pulse Resp B/P Pulse Ox O2 Delivery O2 Flow Rate FiO2 08/01/16 10:03 85 16 128/71 96 Room Air 08/01/16 09:02 98.8 Orders Complete Blood Count With Diff (08/01/16 09:02) Comprehensive Metabolic Panel (08/01/16 09:02) B-Type Natriuretic Peptide (08/01/16 09:02) Act Partial Throm Time (Ptt) (08/01/16 09:02) Prothrombin Time / Inr (Pt) (08/01/16 09:02) Magnesium (Mg) (08/01/16 09:02) Ckmb (Isoenzyme) Profile (08/01/16 09:02) Troponin I (08/01/16 09:02) Urinalysis - C+S If Indicated (08/01/16 09:02) Iv Access Insert/Monitor (08/01/16 09:02) Ecg Monitoring (08/01/16 09:02) Oximetry (08/01/16 09:02) Chest, Pa & Lat (08/01/16 09:02) Ct Pulmonary Angiogram (08/01/16 09:02) Sodium Chloride 0.9% Flush (Ns Flush) (08/01/16 09:15) Morphine Inj (Morphine Inj) (08/01/16 09:15) Ondansetron Inj (Zofran Inj) (08/01/16 09:15) Sodium Chlor 0.9% 1000 Ml Inj (Ns 1000 M (08/01/16 09:02) Urine Culture (08/01/16 09:30) Ceftriaxone Inj (Rocephin Inj) (08/01/16 10:15) Iohexol 350 Inj (Omnipaque 350 Inj) (08/01/16 10:31) Diazepam (Valium) (08/01/16 11:00) Labs Laboratory Tests Test 08/01/16 08/01/16 09:30 09:33 Urine Collection Type CLEAN CATCH Urine Color STRAW Urine Turbidity CLEAR Urine pH 6.0 Urine Specific [place] 1.005 Urine Protein NEG mg/dL Urine Glucose (UA) NEG mg/dL Urine Ketones NEG mg/dL Urine Occult Blood NEG Urine Nitrite NEG Urine Bilirubin NEG Urine Leukocyte Esterase MOD Urine RBC 0-3 /hpf Urine WBC 9-14 /hpf Urine WBC Clumps FEW Urine Squamous Epithelial 6-8 /hpf Cells Urine Bacteria RARE /hpf Microscopic Urinalysis Comment CULTURE INDICATED White Blood Count 5.1 TH/MM3 Red Blood Count 3.48 MIL/MM3 Hemoglobin 9.8 GM/DL Hematocrit 29.7 % Mean Corpuscular Volume 85.3 FL Mean Corpuscular Hemoglobin 28.0 PG Mean Corpuscular Hemoglobin 32.9 % Concent Red Cell Distribution Width 14.4 % Platelet Count 625 TH/MM3 Mean Platelet Volume 7.5 FL Neutrophils (%) (Auto) 71.6 % Lymphocytes (%) (Auto) 14.7 % Monocytes (%) (Auto) 10.5 % Eosinophils (%) (Auto) 2.5 % Basophils (%) (Auto) 0.7 % Neutrophils # (Auto) 3.8 TH/MM3 Lymphocytes # (Auto) 0.7 TH/MM3 Monocytes # (Auto) 0.5 TH/MM3 Eosinophils # (Auto) 0.1 TH/MM3 Basophils # (Auto) 0.0 TH/MM3 CBC Comment DIFF FINAL Differential Comment Prothrombin Time 10.8 SEC Prothromb Time International 1.0 RATIO Ratio Activated Partial 29.7 SEC Thromboplast Time Sodium Level 142 MEQ/L Potassium Level 4.1 MEQ/L Chloride Level 103 MEQ/L Carbon Dioxide Level 28.4 MEQ/L Anion Gap 11 MEQ/L Blood Urea Nitrogen 13 MG/DL Creatinine 1.20 MG/DL Estimat Glomerular Filtration 47 ML/MIN Rate Random Glucose 87 MG/DL Calcium Level 10.2 MG/DL Magnesium Level 2.2 MG/DL Total Bilirubin 0.2 MG/DL Aspartate Amino Transf 20 U/L (AST/SGOT) Alanine Aminotransferase 10 U/L (ALT/SGPT) Alkaline Phosphatase 85 U/L Total Creatine Kinase 61 U/L Troponin I LESS THAN 0.02 NG/ML B-Type Natriuretic Peptide 49 PG/ML Total Protein 8.6 GM/DL Albumin 2.9 GM/DL MDM Medical Decision Making Medical Screen Exam Complete: Yes Emergency Medical Condition: Yes Interpretation(s) EKG at 0844: Normal sinus rhythm at 88 bpm, QT/QTc 366/415, no acute ST changes , nonspecific T-wave changes, EKG similar when compared to previous EKG Vital Signs Date Time Temp Pulse Resp B/P Pulse Ox O2 Delivery O2 Flow Rate FiO2 08/01/16 09:06 100 Room Air 08/01/16 09:04 87 16 08/01/16 09:02 98.8 87 18 119/80 100 Differential Diagnosis Pneumothorax, metastatic lung disease, ACS, pleural effusion, pneumonia, arrhythmia, chemotherapy reaction Narrative Course Patient is a 50-year-old female with history of metastatic stage IV non-small cell lung cancer who presents to emergency room for evaluation of shortness of breath. Patient has been having increased shortness of breath that she was less limited to the hospital earlier this month on July 18, 2016. Patient reports that she was hoping that she would have a bronchoscopy during her admission, reports that her bellmaker did not think it was medically necessary and instead had a thoracentesis for treatment of pleural effusion. Patient reports that the thoracentesis did not help with her shortness of breath at all, reports that she still felt shortness of breath after her discharge from hospital. Reports that she did recently start Opdivo last week and had a treatment on last Sunday. Overall, patient does appear nontoxic. Vital signs are stable. EKG obtained, patient was placed on a athletic monitor. Labs as well as x-ray of the chest ordered. CT angiogram of the lungs ordered to rule out pulmonary embolism. We'll give patient medications for pain control, will give her medications for antinausea as well as IV fluids at this patient reports that she cannot tolerate fluids at this time. 1006: patient re-evaluated, patient reports that she is feeling much better at this time and pain is controlled with morphine Last Impressions Chest X-Ray 08/01/16 0902 Signed Impressions: Service Date/Time: Monday, August 01, 2016 09:10 - CONCLUSION: No change in moderate sized left pleural effusion and lower lung zone consolidation. Gordon Reinoso MD CT of the chest shows no evidence of pulmonary loss, no change in left perihilar pulmonary consolidation and left pleural effusion, old granulomatous disease, pulmonary emphysema call made to Dr. Elizondo to review case Patient did report relief of symptoms with morphine 4mg, she did report return of symptoms as the morphine did "wear off." Will give oral dose of valium to see if this helps her muscle tightness. Case reviewed with Dr. Elizondo, reports that her symptoms are similar to previous episodes and reports that her shortness of breath is secondary to post obstruction and patient will require radiation treatment which she ultimately refused. He has also given her script for narcotics which patient did not tolerate. He is comfortable with patient receive script for percocet at this time. Reports that patient will need to see Dr. Douglass: radiation Oncologist for further workup for her symptoms as radiation will most likely help with her symptoms. Patient is to follow up with him in the office as scheduled. reviewed all labs and studies with patient in detail, discussed my conversation with her oncologist. Patient will follow up with her radiation oncologist as well as her oncologist as outpatient and return to emergency room as needed. A copy patient's labs as well as CT report was given to her at discharge. Patient was given a prescription for Percocet, understands that there is Tylenol in the Percocet. As per patient, she was not prescribed a prescription for narcotic pain medications by her oncologist. She did tolerate Percocet as this is what was prescribed to her after her last discharge from the hospital. Patient also given a prescription for Zofran ODTreports that sometimes she cannot swallow Zofran pills. Patient thankful for care. Patient will follow up with cultures from today Diagnosis Primary Impression: Shortness of breath Additional Impressions: Chest pain of uncertain etiology left perihilar pulmonary consolidation Recurrent left pleural effusion UTI (urinary tract infection) Qualified Code: N30.01 - Acute cystitis with hematuria Patient Instructions: General Instructions Additional Instructions: Please give patient a copy of her lab work at discharge Please follow-up with your primary care doctor as well as your oncologist and bellmaker Please follow-up with Dr. douglass in the office Return to the emergency room as needed Return to the emergency room if symptoms progress or worsen Please bring your test and studies from today to your doctor's office for follow up Please follow-up with cultures from today Scripts Ondansetron Odt (Zofran Odt)8 Mg Tab8 Mg SL Q8H PRN (NAUSEA OR VOMITING) #30 TAB Ref 0 Prov:Alka Haq DO 08/01/16 Oxycodone-Acetaminophen (Percocet)5-325 mg Tab1-2 Tab PO Q6H PRN (PAIN) #30 TAB Ref 0 Prov:Alka Haq DO 08/01/16 Nitrofurantoin Monohydrate Macrocrystals (Macrobid)100 Mg Umb495 Mg PO BID 10 Days Ref 0 Prov:Alka Haq DO 08/01/16 Disposition: 01 DISCHARGE HOME Condition: Stable Alka Haq DO Aug 01, 2016 10:03
[2016-08-01 10:04] LABS: CREATINE KINASE 61 U/L (26-192)
[2016-08-01] MEDS ORDERED: cefTRIAXone INJ 1,000 MG in SODIUM CHLORIDE 0.9% INJ 100 ML IV ONE (10:15)
[2016-08-01] MEDS ORDERED: IOHEXOL 350 MG/ML 10 ML VIAL (for RAD DIAG) IV ONE (10:31)
--- NOTE | 2016-08-01 10:56 | RADHPO ---
EXAM DATE/TIME: 08/01/2016 10:10 [facility] COMPARISON: CT PULMONARY ANGIOGRAM, July 17, 2016, 17:49. INDICATIONS : Back pain radiating anteriorly. IV CONTRAST: 75 cc Omnipaque 350 (iohexol) IV RADIATION DOSE: 9.30 CTDIvol (mGy) MEDICAL HISTORY : Carcinoma, lung. Chemotherapy. SURGICAL HISTORY : section. ENCOUNTER: Initial ACUITY: 1 day PAIN SCALE: 5/10 LOCATION: chest TECHNIQUE: Volumetric scanning of the chest was performed using a pulmonary embolism protocol MIP images were re constructed. Using automated exposure control and adjustment of the mA and/or kV according to patien t size, radiation dose was kept as low as reasonably achievable to obtain optimal diagnostic quality images. FINDINGS: PULMONARY ARTERIES: No filling defects are seen in the pulmonary arteries through the segmental level. LUNGS: Left lower lobe low density consolidation containing multiple calcifications and with associated volu me loss is again seen. Findings are unchanged from the prior study of 07/17/2016. Mild pulmonary paren chymal emphysema again seen. Scarring at the left lung apex again seen. PLEURAE: Left pleural effusion unchanged. MEDIASTINUM: No grossly enlarged lymph nodes. Thoracic aortic diameter within normal limits. MUSCULOSKELETAL: Within normal limits for patient age. MISCELLANEOUS: The visualized upper abdominal organs demonstrate no acute abnormality. CONCLUSION: 1. No evidence of pulmonary loss. 2. No change in left perihilar pulmonary consolidation and left pleural effusion. 3. Old granulomatous disease. 4. Pulmonary emphysema again seen. Gordon Reinoso MD on August 01, 2016 at 10:46 Board Certified Radiologist. This report was verified electronically.
[2016-08-01] MEDS ORDERED: DIAZEPAM 5 MG TAB PO ONE (11:00)
[2016-08-01] MEDS ORDERED: PERC5TAB12 PO (11:35)
[2016-08-01] MEDS ORDERED: ZOFR8TAB4 SL (11:35)
[2016-08-01] MEDS ORDERED: MACR100C2 PO (11:35)
[2016-08-01 11:44] VITALS: BP 137/72
--- NOTE | 2016-08-01 22:44 | EKG ---
Date Performed: 08/01/2016 Time Performed: 08:44:28 PTAGE: 50 years EKG: Sinus rhythm Poor R wave progression - probable normal variant Anterior T wave changes are nonspecific Borderline ECG PREVIOUS TRACING : 03/30/2016 17.06 Compared to prior tracing no significant change DOCTOR: Hannah Hernandez Interpretating Date/Time 08/01/2016 22:43:24
[2016-08-02] MEDS ORDERED: PROM25TA5 PO (13:55)
== END 2016-08-01 12:03 | disposition home or self-care (01) ==
LOC: PHED 08:36
DX: J90 Pleural effusion, not elsewhere classified (principal); R91.8 Other nonspecific abnormal finding of lung field; N39.0 Urinary tract infection, site not specified; C79.31 Secondary malignant neoplasm of brain; C34.90 Malignant neoplasm of unspecified part of unspecified bronchus or lung; B96.89 Other specified bacterial agents as the cause of diseases classified elsewhere; Z79.899 Other long term (current) drug therapy
CPT/HCPCS: 71020; 71275; 80053; 81001; 82550; 83735; 83880; 84484; 85025; 85610; 85730; 87086; 93005; 96361; 96365; 96375; 99285; J0696; J2270; J2405; J7030; Q9967

== ENCOUNTER 2016-08-02 10:50 | Emergency (ER) | payer OTHER, MEDICAID ==
[~2016-08-02] VITALS: Ht 154.9 cm; Wt 67.0 kg
[~2016-08-02 10:50] MED LIST changes: -COLA100C3 PO; -FOLI1TAB4 PO; +MACR100C2 PO; +NIVO4INJ IV; -NORC5TAB PO; +OMEP40CA2 PO; +ONDA1TAB17 PO; +PERC5TAB12 PO; -PRIL20CA9 PO; +PROC10TA PO; -VENTAER INH; +ZOFR8TAB4 SL
[2016-08-02 11:00] VITALS: BP 129/82; PULSE 99; RESP 15; TEMP 99; O2SAT 97
[2016-08-02] MEDS ORDERED: ONDANSETRON HCL 4 MG/2 ML VIAL IV PUSH ONE (12:00)
[2016-08-02] MEDS ORDERED: MORPHINE SULFATE 4 MG/ML INJ IV PUSH ONE ×2 (12:00→14:15)
[2016-08-02] MEDS ORDERED: SODIUM CHLOR 0.9% 1000 ML INJ 1,000 ML IV ONE (12:00)
--- NOTE | 2016-08-02 12:00 | PD ---
HPI Chief Complaint: GI Complaint Time Seen by Provider: 11:47 Travel History International Travel<30 days: No Contact w/Intl Traveler<30days: No Traveled to known affect area: No History of Present Illness HPI 50 y/o female notes nonbloody emesis and unable to keep meds down since he recently. She states she has been trying Zofran at home. She states she has had Phenergan in the past. She denies other concurrent complaints other than generalized pain from not keeping her pain medications down. Quality is nonbloody. Severity is multiple episodes. Duration is since discharge yesterday. PFSH Past Medical History Arthritis: Yes (hands) Asthma: No Autoimmune Disease: No Cancer: Yes (lung) Cardiovascular Problems: No Chemotherapy: Yes COPD: No Cerebrovascular Accident: No Diabetes: No Diminished Hearing: No Endocrine: No Gastrointestinal Disorders: No GERD: No Genitourinary: No Headaches: No Hepatitis: No Hiatal Hernia: No Heparin Induced Thrombocytopen: No Immune Disorder: No Implanted Vascular Access Dvce: No Kidney Stones: Yes (2 years ago) Musculoskeletal: No Neurologic: No Psychiatric: Yes (SUICIDAL ATTEMPT , ) Reproductive: No Respiratory: Yes (LUNG CA) Migraines: No Radiation Therapy: Yes Renal Failure: No Seizures: No Sickle Cell Disease: No Sleep Apnea: No Thyroid Disease: No Ulcer: No Past Surgical History Abdominal Surgery: No AICD: No Arteriovenous Shunt: No Cardiac Surgery: No Section: Yes Ear Surgery: No Endocrine Surgery: No Eye Surgery: No Genitourinary Surgery: No Gynecologic Surgery: Yes () Insulin Pump: No Joint Replacement: No Neurologic Surgery: No Oral Surgery: No Pacemaker: No Thoracic Surgery: No Other Surgery: Yes (1990 WRIST REPAIR LFT ARM SUICIDE ATTEMPT, PORT TO L SUBCLAVIAN ) Social History Alcohol Use: No Tobacco Use: No Substance Use: No Allergies-Medications (Allergen,Severity, Reaction): Coded Allergies: Lomotil (Verified Allergy, Severe, swollen lips, rash, 08/02/16) Reported Meds & Prescriptions Reported Meds & Active Scripts Active Phenergan (Promethazine HCl) 25 Mg Tab 25 Mg PO Q6H PRN Zofran Odt (Ondansetron Odt) 8 Mg Tab 8 Mg SL Q8H PRN Percocet (Oxycodone-Acetaminophen) 5-325 mg Tab 1-2 Tab PO Q6H PRN Macrobid (Nitrofurantoin Monoh/Nitrofur Macro) 100 Mg Cap 100 Mg PO BID 10 Days Reported Ondansetron (Ondansetron HCl) 8 Mg Tab 8 Mg PO TID Prochlorperazine Maleate 10 Mg Tab 10 Mg PO Q6H PRN Omeprazole 40 Mg Cap 40 Mg PO DAILY Opdivo (Nivolumab) 100 Mg/10 Ml Inj 1 Injection IV EVERY OTHER WED Review of Systems Except as stated in HPI: all other systems reviewed are Neg Physical Exam Narrative GENERAL: Well-nourished, well-developed patient.Well-appearing SKIN: Warm and dry. HEAD: Normocephalic and atraumatic. EYES: No injection or drainage. ENT: No nasal drainage noted. NECK: Supple, trachea midline. CARDIOVASCULAR: Regular rate and rhythm RESPIRATORY: Breath sounds equal bilaterally. No accessory muscle use. GASTROINTESTINAL: Abdomen soft, non-tender, nondistended. EXTREMITIES: No edema. NEUROLOGICAL: Awake and alert. Moves all extremities. Normal speech. Data Data Last Documented VS Vital Signs Date Time Temp Pulse Resp B/P Pulse Ox O2 Delivery O2 Flow Rate FiO2 08/02/16 14:29 94 18 129/79 98 Room Air 08/02/16 11:00 99.0 Orders Complete Blood Count With Diff (08/02/16 11:55) Basic Metabolic Panel (Bmp) (08/02/16 11:55) Iv Access Insert/Monitor (08/02/16 11:55) Ecg Monitoring (08/02/16 11:55) Oximetry (08/02/16 11:55) Ondansetron Inj (Zofran Inj) (08/02/16 12:00) Morphine Inj (Morphine Inj) (08/02/16 12:00) Sodium Chlor 0.9% 1000 Ml Inj (Ns 1000 M (08/02/16 12:00) Morphine Inj (Morphine Inj) (08/02/16 14:15) Heparin Central Flush (Heparin Central F (08/02/16 14:30) Sodium Chloride 0.9% Flush (Ns Flush) (08/02/16 14:30) Labs Laboratory Tests Test 08/02/16 12:28 White Blood Count 5.0 TH/MM3 Red Blood Count 3.25 MIL/MM3 Hemoglobin 9.4 GM/DL Hematocrit 27.6 % Mean Corpuscular Volume 85.0 FL Mean Corpuscular Hemoglobin 28.8 PG Mean Corpuscular Hemoglobin 33.8 % Concent Red Cell Distribution Width 14.5 % Platelet Count 627 TH/MM3 Mean Platelet Volume 6.9 FL Neutrophils (%) (Auto) 68.3 % Lymphocytes (%) (Auto) 14.1 % Monocytes (%) (Auto) 13.2 % Eosinophils (%) (Auto) 3.9 % Basophils (%) (Auto) 0.5 % Neutrophils # (Auto) 3.4 TH/MM3 Lymphocytes # (Auto) 0.7 TH/MM3 Monocytes # (Auto) 0.7 TH/MM3 Eosinophils # (Auto) 0.2 TH/MM3 Basophils # (Auto) 0.0 TH/MM3 CBC Comment DIFF FINAL Differential Comment Sodium Level 144 MEQ/L Potassium Level 3.6 MEQ/L Chloride Level 108 MEQ/L Carbon Dioxide Level 27.3 MEQ/L Anion Gap 9 MEQ/L Blood Urea Nitrogen 10 MG/DL Creatinine 1.30 MG/DL Estimat Glomerular Filtration 43 ML/MIN Rate Random Glucose 86 MG/DL Calcium Level 9.4 MG/DL MDM Medical Decision Making Medical Screen Exam Complete: Yes Emergency Medical Condition: Yes Medical Record Reviewed: Yes (past history confirmed, recent ER visit reviewed) Interpretation(s) CBC & BMP Diagram 08/02/16 12:28 Differential Diagnosis Renal failure, electrolyte abnormality, medication effect Narrative Course Will check blood work and dose with IV fluid and antiemetics no emesis here, Patient denies any new complaints, agreed to one more dose of pain medication before discharge and close outpatient follow up, all questions answered. Patient knows that follow up is incumbent on them and to return to the emergency room immediately if new or worsening symptoms develop. Patient given strict return precautions, vitals reviewed and are normal, agrees to further workup as an outpatient. Diagnosis Primary Impression: Vomiting Qualified Code: R11.2 - Non-intractable vomiting with nausea, unspecified vomiting type Additional Impression: Metastatic lung cancer (metastasis from lung to other site) Qualified Code: C34.90 - Metastatic lung cancer (metastasis from lung to other site), unspecified laterality Patient Instructions: General Instructions Additional Instructions: return as needed, zofran and phenergan as needed, follow with primary and oncologist this week Med/Other Pt SpecificInfo: Prescription(s) given Scripts Promethazine (Phenergan)25 Mg Tab25 Mg PO Q6H PRN (NAUSEA OR VOMITING) #15 TAB Prov:Lilly Tang MD 08/02/16 Disposition: 01 DISCHARGE HOME Condition: Stable Lilly Tang MD Aug 02, 2016 12:00
[2016-08-02 12:10] VITALS: BP 119/76; PULSE 92; RESP 18; O2SAT 98
[2016-08-02 12:35] LABS: AUTOMATED NEUTROPHIL # 3.4 TH/MM3 (1.8-7.7); BASOPHIL % 0.5 % (0.0-2.0); EOSINOPHIL # 0.2 TH/MM3 (0-0.4); EOSINOPHIL % 3.9 % (0.0-4.0); HEMATOCRIT 27.6 % (35.0-46.0); HEMO FLAGS DIFF FINAL; LYMPH % 14.1 % (9.0-44.0); LYMPHOCYTE # 0.7 TH/MM3 (1.0-4.8); MEAN CORPUSCULAR HEMOGLOBIN 28.8 PG (27.0-34.0); MEAN CORPUSCULAR HGB CONC 33.8 % (32.0-36.0); MONO % 13.2 % (0.0-8.0); NEUT % 68.3 % (16.0-70.0); PLATELET COUNT 627 TH/MM3 (150-450); RED BLOOD COUNT 3.25 MIL/MM3 (4.00-5.30); RED CELL DISTRIBUTION WIDTH 14.5 % (11.6-17.2)
[2016-08-02 12:40] VITALS: O2SAT 98
[2016-08-02 12:52] LABS: POTASSIUM 3.6 MEQ/L (3.5-5.1)
[2016-08-02 12:55] LABS: BICARBONATE 27.3 MEQ/L (21.0-32.0)
[2016-08-02 13:10] VITALS: BP 136/75; PULSE 88; RESP 18; O2SAT 98
[2016-08-02] MEDS ORDERED: PROM25TA5 PO (13:55)
[2016-08-02 14:29] VITALS: BP 129/79; PULSE 94; RESP 18; O2SAT 98
[2016-08-02] MEDS ORDERED: SODIUM CHLORIDE 0.9% FLUSH 10 ML FLUSH IVF PRN (14:30)
== END 2016-08-02 14:47 | disposition home or self-care (01) ==
LOC: PHED 10:50
DX: R11.2 Nausea with vomiting, unspecified (principal); C34.90 Malignant neoplasm of unspecified part of unspecified bronchus or lung; C79.9 Secondary malignant neoplasm of unspecified site; R52 Pain, unspecified; M19.042 Primary osteoarthritis, left hand; M19.041 Primary osteoarthritis, right hand; Z79.899 Other long term (current) drug therapy; Z88.8 Allergy status to other drugs, medicaments and biological substances
CPT/HCPCS: 80048; 85025; 96361; 96374; 96375; 96376; 99284; J1642; J2270; J2405; J7030

== ENCOUNTER 2016-08-09 08:32 | Inpatient (IN) | payer OTHER, MEDICAID ==
[2016-08-09] VITALS (7 sets, daily range): BP systolic 122–159; BP diastolic 73–96; PULSE 96–140; RESP 16–26; TEMP 98.1–99.4; O2SAT 97–100
[~2016-08-09] VITALS: Ht 152.4 cm; Wt 67.8 kg
[~2016-08-09 08:32] MED LIST changes: +PROM25TA5 PO
[2016-08-09] MEDS ORDERED: SODIUM CHLOR 0.9% 1000 ML INJ 1,000 ML IV ONE ×3 (09:15→12:15)
[2016-08-09] MEDS ORDERED: HYDROmorphone HCL PF 2 MG/ML VIAL IV PUSH ONE ×2 (09:15→14:00)
[2016-08-09] MEDS ORDERED: ONDANSETRON HCL 4 MG/2 ML VIAL IV PUSH ONE (09:15)
--- NOTE | 2016-08-09 10:06 | PD ---
HPI . Inability to eat or drink Chief Complaint: Chest Pain Time Seen by Provider: 09:10 Travel History International Travel<30 days: No Contact w/Intl Traveler<30days: No Traveled to known affect area: No History of Present Illness HPI This patient is a cancer patient. 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 She reports that she has basically not been able to eat or drink or keep down foods or medications for the last 3 weeks. She is also having chest pain. She states that her got feels like it's on fire. She reports decreased urinary output. She states that she has most recently been prescribed oxycodone for her pain that it does not really work so she is taking Tylenol. She states that she is currently undergoing chemotherapy only. She states that she has recently had radiation therapy to her brain. It has been a while since she had any radiation therapy done to the chest. Her cancer was not operable. She is followed by Dr. Elizondo. [facility] Past Medical History Arthritis: Yes (hands) Asthma: No Autoimmune Disease: No Cancer: Yes (lung) Cardiovascular Problems: No Chemotherapy: Yes COPD: No Cerebrovascular Accident: No Diabetes: No Diminished Hearing: No Endocrine: No Gastrointestinal Disorders: No GERD: No Genitourinary: No Headaches: No Hepatitis: No Hiatal Hernia: No Heparin Induced Thrombocytopen: No Immune Disorder: No Implanted Vascular Access Dvce: Yes (PORT RT CHEST ) Kidney Stones: Yes Musculoskeletal: No Neurologic: No Psychiatric: Yes (SUICIDAL ATTEMPT , ) Reproductive: No Respiratory: Yes (LUNG CA) Migraines: No Radiation Therapy: Yes Renal Failure: No Seizures: No Sickle Cell Disease: No Sleep Apnea: No Thyroid Disease: No Ulcer: No Tetanus Vaccination: > 5 Years Influenza Vaccination: No ?: Not LMP: 03/2015 : 5 Para: 4 Miscarriage: 1 : 0 Past Surgical History Abdominal Surgery: No AICD: No Arteriovenous Shunt: No Cardiac Surgery: No Section: Yes Ear Surgery: No Endocrine Surgery: No Eye Surgery: No Genitourinary Surgery: No Gynecologic Surgery: Yes () Insulin Pump: No Joint Replacement: No Neurologic Surgery: No Oral Surgery: No Pacemaker: No Thoracic Surgery: Yes (BREAST AUGMENTATION) Other Surgery: Yes (1989 WRIST REPAIR LFT ARM SUICIDE ATTEMPT, PORT TO R SUBCLAVIAN, ) Social History Alcohol Use: No Tobacco Use: No Substance Use: No Allergies-Medications (Allergen,Severity, Reaction): Coded Allergies: Lomotil (Verified Allergy, Severe, swollen lips, rash, 08/09/16) Reported Meds & Prescriptions Reported Meds & Active Scripts Active Phenergan (Promethazine HCl) 25 Mg Tab 25 Mg PO Q6H PRN Zofran Odt (Ondansetron Odt) 8 Mg Tab 8 Mg SL Q8H PRN Percocet (Oxycodone-Acetaminophen) 5-325 mg Tab 1-2 Tab PO Q6H PRN Macrobid (Nitrofurantoin Monoh/Nitrofur Macro) 100 Mg Cap 100 Mg PO BID 10 Days Reported Ondansetron (Ondansetron HCl) 8 Mg Tab 8 Mg PO TID Prochlorperazine Maleate 10 Mg Tab 10 Mg PO Q6H PRN Omeprazole 40 Mg Cap 40 Mg PO DAILY Opdivo (Nivolumab) 100 Mg/10 Ml Inj 1 Injection IV EVERY OTHER WED Review of Systems Except as stated in HPI: all other systems reviewed are Neg General / Constitutional: No: Fever, Chills HENT: Positive: Headaches Cardiovascular: Positive: Chest Pain or Discomfort Respiratory: Positive: Shortness of Breath Gastrointestinal: Positive: Nausea, Vomiting, Abdominal Pain Genitourinary: Positive: Decreased Urinary Output Psychiatric: Positive: Anxiety Physical Exam Narrative GENERAL: Anxious and tearful. SKIN: Warm and dry. HEAD: Atraumatic. Normocephalic. EYES: Pupils equal and round. She is making tears. ENT: No nasal bleeding or discharge. Mucous membranes pink and moist. NECK: Trachea midline. Neck is supple. CARDIOVASCULAR: Tachycardic rate, regular rhythm. RESPIRATORY: No accessory muscle use. She is tachypneic. Her lungs are clear with full air movement throughout. GASTROINTESTINAL: Abdomen soft, non-tender, nondistended. MUSCULOSKELETAL: No obvious deformities. No edema. NEUROLOGICAL: Awake and alert. No obvious cranial nerve deficits. Motor grossly within normal limits. Normal speech. PSYCHIATRIC: Tearful and frustrated; insight and judgment normal. Data Data Last Documented VS Vital Signs Date Time Temp Pulse Resp B/P Pulse Ox O2 Delivery O2 Flow Rate FiO2 08/09/16 14:49 20 08/09/16 12:47 96 149/91 100 Nasal Cannula 2 08/09/16 08:41 98.1 Orders Sodium Chlor 0.9% 1000 Ml Inj (Ns 1000 M (08/09/16 09:15) Hydromorphone Pf Inj (Dilaudid Pf Inj) (08/09/16 09:15) Ondansetron Inj (Zofran Inj) (08/09/16 09:15) Complete Blood Count With Diff (08/09/16 09:50) Comprehensive Metabolic Panel (08/09/16 09:50) Urinalysis - C+S If Indicated (08/09/16 09:50) Iv Access Insert/Monitor (08/09/16 09:50) Sodium Chlor 0.9% 1000 Ml Inj (Ns 1000 M (08/09/16 09:50) Sodium Chloride 0.9% Flush (Ns Flush) (08/09/16 10:00) Prochlorperazine Inj (Compazine Inj) (08/09/16 11:00) Diphenhydramine Inj (Benadryl Inj) (08/09/16 11:00) Electrocardiogram (08/09/16 08:42) Sodium Chlor 0.9% 1000 Ml Inj (Ns 1000 M (08/09/16 12:15) Cath For Specimen (08/09/16 12:52) Hydromorphone Pf Inj (Dilaudid Pf Inj) (08/09/16 14:00) Place In Observation (08/09/16 ) Diet Npo Except Meds (08/09/16 Dinner) Swallow Eval W/ St (08/09/16 14:46) Vital Signs (Adult) MEHNAZ.Q4H (08/09/16 14:46) Activity Oob With Assistance (08/09/16 14:46) Admit Order (Ed Use Only) (08/09/16 14:54) Labs Laboratory Tests Test 08/09/16 08/09/16 10:40 13:30 White Blood Count 9.6 TH/MM3 Red Blood Count 3.70 MIL/MM3 Hemoglobin 10.1 GM/DL Hematocrit 31.2 % Mean Corpuscular Volume 84.2 FL Mean Corpuscular Hemoglobin 27.3 PG Mean Corpuscular Hemoglobin 32.4 % Concent Red Cell Distribution Width 15.9 % Platelet Count 592 TH/MM3 Mean Platelet Volume 8.0 FL Neutrophils (%) (Auto) 75.1 % Lymphocytes (%) (Auto) 13.8 % Monocytes (%) (Auto) 8.0 % Eosinophils (%) (Auto) 2.2 % Basophils (%) (Auto) 0.9 % Neutrophils # (Auto) 7.2 TH/MM3 Lymphocytes # (Auto) 1.3 TH/MM3 Monocytes # (Auto) 0.8 TH/MM3 Eosinophils # (Auto) 0.2 TH/MM3 Basophils # (Auto) 0.1 TH/MM3 CBC Comment DIFF FINAL Differential Comment Sodium Level 135 MEQ/L Potassium Level 3.6 MEQ/L Chloride Level 101 MEQ/L Carbon Dioxide Level 20.8 MEQ/L Anion Gap 13 MEQ/L Blood Urea Nitrogen 12 MG/DL Creatinine 0.92 MG/DL Estimat Glomerular Filtration 64 ML/MIN Rate Random Glucose 85 MG/DL Calcium Level 9.6 MG/DL Total Bilirubin 0.2 MG/DL Aspartate Amino Transf 19 U/L (AST/SGOT) Alanine Aminotransferase 7 U/L (ALT/SGPT) Alkaline Phosphatase 111 U/L Total Protein 8.4 GM/DL Albumin 2.8 GM/DL Urine Color COLORLESS Urine Turbidity CLEAR Urine pH 5.0 Urine Specific [place] 1.002 Urine Protein NEG mg/dL Urine Glucose (UA) NEG mg/dL Urine Ketones TRACE mg/dL Urine Occult Blood NEG Urine Nitrite NEG Urine Bilirubin NEG Urine Urobilinogen LESS THAN 2.0 MG/DL Urine Leukocyte Esterase SMALL Urine RBC 2 /hpf Urine WBC 2 /hpf Urine Squamous Epithelial 1 /hpf Cells Urine Calcium Oxalate Crystals RARE /hpf Urine Bacteria RARE /hpf Urine Mucus FEW /lpf Microscopic Urinalysis Comment CULT NOT INDICATED MDM Medical Decision Making Medical Screen Exam Complete: Yes Emergency Medical Condition: Yes Medical Record Reviewed: Yes (patient is followed by Dr. Elizondo with oncology. She underwent a thoracentesis on 07/18.) Interpretation(s) EKG shows sinus tachycardia with a ventricular rate of 122. No ST segment elevation or depression. Differential Diagnosis Differential diagnosis includes but is not limited to viral gastritis, food poisoning, pancreatitis, pneumonia, hepatitis, acute coronary syndrome, Narrative Course Patient presents with nausea and vomiting for 3 weeks. She is a cancer patient. CBC & BMP Diagram 08/09/16 10:40 UA shows no sign of infection. The patient has received 3 L of IV fluid here. She has had 2 doses of Dilaudid , 2 mg each. Physician Communication Physician Communication Dr. Yeung will admit to 23 hr OBS and will probably try to involve hospice. Diagnosis Primary Impression: Cancer related pain Additional Impression: Failure to thrive in adult Admitting Information Admitting Physician Requests: Observation Condition: Stable Elida Doty MD Aug 09, 2016 10:06
[2016-08-09 10:49] LABS: AUTOMATED NEUTROPHIL # 7.2 TH/MM3 (1.8-7.7); BASOPHIL # 0.1 TH/MM3 (0-0.2); BASOPHIL % 0.9 % (0.0-2.0); EOSINOPHIL # 0.2 TH/MM3 (0-0.4); EOSINOPHIL % 2.2 % (0.0-4.0); HEMATOCRIT 31.2 % (35.0-46.0); HEMO FLAGS DIFF FINAL; LYMPH % 13.8 % (9.0-44.0); LYMPHOCYTE # 1.3 TH/MM3 (1.0-4.8); MEAN CELL VOLUME 84.2 FL (80.0-100.0); MEAN CORPUSCULAR HEMOGLOBIN 27.3 PG (27.0-34.0); MEAN CORPUSCULAR HGB CONC 32.4 % (32.0-36.0); NEUT % 75.1 % (16.0-70.0); PLATELET COUNT 592 TH/MM3 (150-450); RED CELL DISTRIBUTION WIDTH 15.9 % (11.6-17.2); WHITE BLOOD COUNT 9.6 TH/MM3 (4.0-11.0)
[2016-08-09] MEDS ORDERED: diphenhydrAMINE HCL 50 MG/ML VIAL IV PUSH ONE (11:00)
[2016-08-09] MEDS ORDERED: PROCHLORPERAZINE INJ 10 MG/2 ML VIAL IV PUSH ONE (11:00)
[2016-08-09 11:18] LABS: ALT (GPT) 7 U/L (10-53); ANION GAP 13 MEQ/L (5-15); AST (GOT) 19 U/L (15-37); BICARBONATE 20.8 MEQ/L (21.0-32.0); BLOOD UREA NITROGEN 12 MG/DL (7-18); CHLORIDE 101 MEQ/L (98-107); GLOMERULAR FILTRATION RATE 64 ML/MIN (>89); POTASSIUM 3.6 MEQ/L (3.5-5.1); SODIUM (NA) 135 MEQ/L (136-145)
[2016-08-09 11:21] LABS: ALKALINE PHOSPHATASE 111 U/L (45-117); TOTAL BILIRUBIN ADULT 0.2 MG/DL (0.2-1.0)
[2016-08-09 13:57] LABS: BACTERIA, URINE RARE /hpf; BLOOD, URINE NEG (NEG); CALCIUM OXALATE CRYSTALS,URINE RARE /hpf; COMMENT (UR) CULT NOT INDICATED; CULTURE IF INDICATED CULT NOT INDICATED; GLUCOSE,URINE NEG (NEG); KETONE, URINE TRACE mg/dL (NEG); MUCUS URINE FEW /lpf (OCC); NITRITE,URINE NEG (NEG); SQUAMOUS EPITHELIAL CELL URINE 1 /hpf (0-5); URINE COLOR COLORLESS (YELLW/STRAW)
--- NOTE | 2016-08-09 17:51 | HHI.HP ---
[facility] Service [facility] Primary Care Physician Laurie Mckinney MD Admission Diagnosis CANCER WITH PAIN N/V AND ANOREXIA Diagnoses: Chief Complaint: Nausea vomiting generalized weakness Travel History International Travel<30 Days: No Contact w/Intl Traveler <30 Da: No Traveled to Known Affected Are: No History of Present Illness Patient is a very pleasant 50-year-old female diagnosed with non-small cell lung carcinoma in May 2015 stage IV with pleural effusion and brain metastases. Patient is followed closely by our oncologist Dr. Elizondo and radiation oncology Dr. Acevedo. Patient underwent radiation treatment as well as chemotherapy with Alimta. Patient states that she just had chemotherapy about 3 weeks ago and was due for another session this Sunday. Patient had thoracentesis done at one point 1 and had 500 cc out. Since then patient has been complaining of rib cage pain and some abdominal discomfort. Patient has been complaining of poor by mouth intake constant nausea" I'm unable to hold down any food" . Patient for the past 2 weeks now complained of pain during swallowing and occasionally when she can swallow food comes up hours later. With easy fatigability, and shortness of breath.with moderate exertion Persistence of above signs and symptoms and weakness and prompted consult to ER and was admitted for further evaluation. Review of Systems Constitutional: COMPLAINS OF: Fatigue, Weight loss Endocrine: DENIES: Abnorml menstrual pattern, Heat/cold intolerance, Polydipsia , Polyuria, Polyphagia Eyes: DENIES: Blurred vision, Diplopia, Eye inflammation, Eye pain, Vision loss , Photosensitivity, Double Vision Ears, nose, mouth, throat: COMPLAINS OF: Odynophagia Respiratory: DENIES: Apneas, Cough, Snoring, Wheezing, Hemoptysis, Sputum production, Shortness of breath Cardiovascular: COMPLAINS OF: Dyspnea on Exertion, DENIES: Chest pain, Palpitations, Syncope, PND, Lower Extremity Edema, Orthopnea, Claudication Genitourinary: DENIES: Abnormal vaginal bleeding, Dysmenorrhea, Dyspareunia, Sexual dysfunction, Urinary frequency, Urinary incontinence, Urgency, Hematuria , Dysuria, Nocturia, Vaginal discharge Musculoskeletal: DENIES: Joint pain, Muscle aches, Stiffness, Joint Swelling, Back pain, Neck pain Integumentary: DENIES: Abnormal pigmentation, Pruritus, Rash, Nail changes, Breast masses, Breast skin changes, Nipple discharge Hematologic/lymphatic: DENIES: Bruising, Lymphadenopathy Immunologic/allergic: DENIES: Eczema, Urticaria Neurologic: COMPLAINS OF: Headache, DENIES: Abnormal gait, Localized weakness , Paresthesias, Seizures, Speech Problems, Tremor, Poor Balance Psychiatric: DENIES: Anxiety, Confusion, Mood changes, Depression, Hallucinations, Agitation, Suicidal Ideation, Homicidal Ideation, Delusions Past Family Social History Past Medical History Non-small cell lung carcinoma Chronic pain from malignancy Past Surgical History section Right port placement chest wall Left wrist surgery Bilateral breast augmentation Reported Medications Alimta Oxycodone when necessary for pain Phenergan/Compazine when necessary for nausea Allergies: Coded Allergies: Lomotil (Verified Allergy, Severe, swollen lips, rash, 08/09/16) Family History Noncontributory Social History Quit smoking last May 2015 Denies alcohol or substance abuse Physical Exam Vital Signs Vital Signs Date Time Temp Pulse Resp B/P Pulse Ox O2 Delivery O2 Flow Rate FiO2 08/09/16 17:15 98.6 107 18 159/82 98 08/09/16 16:38 98 16 142/87 Nasal Cannula 2 08/09/16 14:49 20 08/09/16 12:47 96 20 149/91 100 Nasal Cannula 2 08/09/16 09:52 28 08/09/16 08:55 109 22 100 Nasal Cannula 2 08/09/16 08:41 98.1 120 22 138/96 100 08/09/16 08:38 140 26 122/88 100 Room Air Physical Exam GENERAL: in no apparent distress. SKIN: No rashes, ecchymoses or lesions. Cool and dry. HEAD: Atraumatic. Normocephalic. No temporal or scalp tenderness. EYES: Pupils equal round and reactive. Extraocular motions intact. No scleral icterus. No injection or drainage. ENT: Nose without bleeding, purulent drainage or septal hematoma. Throat without erythema, tonsillar hypertrophy or exudate. Dry oral mucosa Airway patent. NECK: Trachea midline. No JVD or lymphadenopathy. Supple, nontender, no meningeal signs. CARDIOVASCULAR: Regular rate and rhythm without murmurs, gallops, or rubs. RESPIRATORY: Decreased breath sounds and decreased vocal fremitus I from left base to mid lung field GASTROINTESTINAL: Abdomen soft, non-tender, nondistended. No hepato-splenomegaly , or palpable masses. No guarding. MUSCULOSKELETAL: Extremities without clubbing, cyanosis, or edema. No joint tenderness, effusion, or edema noted. No calf tenderness. Negative Homans sign bilaterally. NEUROLOGICAL: Awake and alert. Cranial nerves II through XII intact. Motor and sensory grossly within normal limits. Five out of 5 muscle strength in all muscle groups. Normal speech. Laboratory Laboratory Tests Test 08/09/16 08/09/16 10:40 13:30 White Blood Count 9.6 Red Blood Count 3.70 Hemoglobin 10.1 Hematocrit 31.2 Mean Corpuscular Volume 84.2 Mean Corpuscular Hemoglobin 27.3 Mean Corpuscular Hemoglobin 32.4 Concent Red Cell Distribution Width 15.9 Platelet Count 592 Mean Platelet Volume 8.0 Neutrophils (%) (Auto) 75.1 Lymphocytes (%) (Auto) 13.8 Monocytes (%) (Auto) 8.0 Eosinophils (%) (Auto) 2.2 Basophils (%) (Auto) 0.9 Neutrophils # (Auto) 7.2 Lymphocytes # (Auto) 1.3 Monocytes # (Auto) 0.8 Eosinophils # (Auto) 0.2 Basophils # (Auto) 0.1 CBC Comment DIFF FINAL Differential Comment Sodium Level 135 Potassium Level 3.6 Chloride Level 101 Carbon Dioxide Level 20.8 Anion Gap 13 Blood Urea Nitrogen 12 Creatinine 0.92 Estimat Glomerular Filtration 64 Rate Random Glucose 85 Calcium Level 9.6 Total Bilirubin 0.2 Aspartate Amino Transf 19 (AST/SGOT) Alanine Aminotransferase 7 (ALT/SGPT) Alkaline Phosphatase 111 Total Protein 8.4 Albumin 2.8 Urine Color COLORLESS Urine Turbidity CLEAR Urine pH 5.0 Urine Specific [place] 1.002 Urine Protein NEG Urine Glucose (UA) NEG Urine Ketones TRACE Urine Occult Blood NEG Urine Nitrite NEG Urine Bilirubin NEG Urine Urobilinogen LESS THAN 2.0 Urine Leukocyte Esterase SMALL Urine RBC 2 Urine WBC 2 Urine Squamous Epithelial 1 Cells Urine Calcium Oxalate Crystals RARE Urine Bacteria RARE Urine Mucus FEW Microscopic Urinalysis Comment CULT NOT INDICATED Result Diagram: 08/09/16 1040 08/09/16 1040 Assessment and Plan Assessment and Plan 50-year-old female presenting with non-small cell lung carcinoma stage IV with lung metastases and brain metastases Persistent nausea or vomiting with dehydration signs of Symptoms of dysphagia or odynophagia get GI consult for evaluation - rule out radiation induced esophagitis/ stricture - ? need for EGD start patient on IV fluid D5 normal saline with potassium Zofran IV when necessary Protonix 40 mg IV every 12 We'll get a head CT just to rule out for any signs of edema with brain metastases Dilaudid IV when necessary for pain We will consult Dr. Elizondo history of lung cancer undergoing radiation therapy chemotherapy Left pleural effusion clinically on exam Patient appears comfortable We'll check a chest x-ray to see if there increase in effusion Discussed with patient they are interested to learn more about hospice Discussed Condition With Patient Sherry Yeung MD Aug 09, 2016 17:51
[2016-08-09] MEDS: HYDROmorphone HCL PF 1 MG/ML VIAL IV PUSH PRN (17:58)
--- NOTE | 2016-08-09 18:18 | RADRPT ---
EXAM DATE/TIME: 08/09/2016 17:58 [facility] COMPARISON: CHEST PA & LAT, August 01, 2016, 9:10. INDICATIONS : Chest pain, shortness of breath MEDICAL HISTORY : Carcinoma, lung. SURGICAL HISTORY : infusaport ENCOUNTER: Subsequent ACUITY: 3 weeks PAIN SCORE: 5/10 LOCATION: Bilateral chest FINDINGS: Right chest port is stable in good position. There is persistent moderate left effusion with parenchy mal opacity at the left lung base. Minimal atelectasis or infiltrate is present the right base. Visua lized cardiac contours are stable. CONCLUSION: Stable moderate left base parenchymal opacity and pleural effusion. Slight developing parenchymal opa city at the right lung base. Michael Chaudhari MD on August 09, 2016 at 18:15 Board Certified Radiologist. This report was verified electronically.
--- NOTE | 2016-08-09 18:29 | RADRPT ---
EXAM DATE/TIME: 08/09/2016 18:20 [facility] COMPARISON: MRI BRAIN W & W/O CONTRAST, March 27, 2016, 15:17. CT BRAIN W/O CONTRAST, March 02, 2016, 8:12 . INDICATIONS : Evaluate for cerebral edema. Stage 4 lung cancer. RADIATION DOSE: 36.96 CTDIvol (mGy) MEDICAL HISTORY : Carcinoma, lung. Brain mets SURGICAL HISTORY : None. ENCOUNTER: Initial ACUITY: 1 day PAIN SCALE: 4/10 LOCATION: cranial TECHNIQUE: Multiple contiguous axial images were obtained of the head. Using automated exposure control and adj ustment of the mA and/or kV according to patient size, radiation dose was kept as low as reasonably a chievable to obtain optimal diagnostic quality images. FINDINGS: There has been interval complete or near complete disappearance of a sellar mass. The brain is elsewh ere symmetric and grossly unremarkable with no evidence of hemorrhage, mass or edema. Ventricles are symmetric and normal. There is nothing to suggest acute infarction. The extracranial structures are b enign and intact. CONCLUSION: No acute intracranial findings Michael Chaudhari MD on August 09, 2016 at 18:26 Board Certified Radiologist. This report was verified electronically.
[2016-08-09] MEDS ORDERED: HYDROmorphone HCL PF 1 MG/ML VIAL IV PUSH ONE (20:15)
[2016-08-09] MEDS: PANTOPRAZOLE SODIUM 40 MG VIAL IV PUSH SCH (20:43)
[2016-08-09] MEDS: POTASSIUM CHLORIDE INJ 10 MEQ in DEXT 5%-NACL 0.9% 1000 ML INJ 1,000 ML IV SCH (21:26)
[2016-08-10] MEDS: HYDROmorphone HCL PF 1 MG/ML VIAL IV PUSH PRN ×5 (00:12→23:16)
[2016-08-10 04:03] VITALS: BP 142/85; PULSE 105; RESP 22; TEMP 98.7; O2SAT 100
[2016-08-10] MEDS ORDERED: HYDROmorphone HCL PF 1 MG/ML VIAL IV ONE (05:00)
[2016-08-10] MEDS ORDERED: HYDROmorphone HCL PF 1 MG/ML VIAL IV PUSH PRN (05:30)
[2016-08-10] MEDS: POTASSIUM CHLORIDE INJ 10 MEQ in DEXT 5%-NACL 0.9% 1000 ML INJ 1,000 ML IV SCH ×2 (08:33→23:15)
[2016-08-10 08:37] VITALS: BP 161/86; PULSE 101; RESP 17; TEMP 98; O2SAT 98
--- NOTE | 2016-08-10 09:00 | HHI.PR ---
Subjective Remarks no complains of nausea or vomiting, tolerated po fluids overnight now complains of back discomfort Objective Vitals Vital Signs Date Time Temp Pulse Resp B/P Pulse Ox O2 Delivery O2 Flow Rate FiO2 08/10/16 08:37 98.0 101 17 161/86 98 08/10/16 04:03 98.7 105 22 142/85 100 08/09/16 23:36 99.0 106 18 137/73 97 08/09/16 20:02 99.4 120 20 147/84 99 08/09/16 17:15 98.6 107 18 159/82 98 08/09/16 16:38 98 16 142/87 Nasal Cannula 2 08/09/16 14:49 20 08/09/16 12:47 96 20 149/91 100 Nasal Cannula 2 08/09/16 09:52 28 08/09/16 08:55 109 22 100 Nasal Cannula 2 Result Diagram: 08/09/16 1040 08/09/16 1040 Imaging Last Impressions Chest X-Ray 08/09/16 173 Signed Impressions: Service Date/Time: Tuesday, August 09, 2016 17:58 - CONCLUSION: Stable moderate left base parenchymal opacity and pleural effusion. Slight developing parenchymal opacity at the right lung base. Michael Chaudhari MD Head CT 08/09/16 0000 Signed Impressions: Service Date/Time: Tuesday, August 09, 2016 18:20 - CONCLUSION: No acute intracranial findings Michael Chaudhari MD Objective Remarks awake and alert, oriented x 3anicteric lungs decrease breath sounds, left base regular rhythm abdomen soft, good bowel sounds extremities no edema negative SLR Procedures Last Impressions Chest X-Ray 08/09/161730 Signed Impressions: Service Date/Time: Tuesday, August 09, 2016 17:58 - CONCLUSION: Stable moderate left base parenchymal opacity and pleural effusion. Slight developing parenchymal opacity at the right lung base. Michael Chaudhari MD Head CT 08/09/16 0000 Signed Impressions: Service Date/Time: Tuesday, August 09, 2016 18:20 - CONCLUSION: No acute intracranial findings Michael Chaudhari MD A/P Assessment and Plan 50-year-old female presenting with non-small cell lung carcinoma stage IV with lung metastases and brain metastases Persistent nausea or vomiting with dehydration signs of Symptoms of dysphagia or odynophagia- symptoms better this am get GI consult for evaluation - rule out radiation induced esophagitis/ stricture - ? need for EGD start patient on IV fluid D5 normal saline with potassium Zofran IV when necessary Protonix 40 mg IV every [address] negative Dilaudid IV when necessary for pain Onco- ordere for CT abdomen/thorax Stage IV Lung caner with meds history of lung cancer undergoing radiation therapy chemotherapy Left pleural effusion- stable Patient appears comfortable Discussed with patient they are interested to learn more about hospice Sherry Yeung MD Aug 10, 2016 09:00
[2016-08-10] MEDS ORDERED: DIATRIZOATE MEGLUM/DIATRIZOATE SOD 9 ML CUP PO ONE (09:15)
[2016-08-10] MEDS ORDERED: NALOXONE HCL 0.4 MG/ML AMP ONE (09:37)
[2016-08-10] MEDS: ONDANSETRON HCL 4 MG/2 ML VIAL IV PUSH PRN (10:30)
[2016-08-10] MEDS: ACETAMINOPHEN/HYDROcodone 325 MG/7.5 MG TAB PO PRN ×2 (11:40→16:37)
[2016-08-10 11:52] VITALS: BP 137/77; PULSE 119; RESP 19; TEMP 97.7; O2SAT 100
--- NOTE | 2016-08-10 11:52 | PD.CONS ---
HPI History of Present Illness This is a 51 year old [lady] complaining of epigastric burning, nausea and vomiting for the last 2 weeks. She has been unable to eat or drink anything since it started. On 2 occasions she noticed pink tinged vomit. The syptoms started after she stopped taking her prilosec b/c she ran out. She tried drinking milk to help with the pain and get some nurtition and she would then vomit 3 hours later. She was taking advil for the pain and that made it worse. She was diagnosed with stage 4 lung cancer and brain mets. She has noted worse acid reflux since having radiation, she last had radiation to her brain 5 months ago. She is due for her next chemo treatment next week. Her last chemo tx was 2 weeks ago and her treatment regimen did change at that time as well. Prior she had only had mild nausea with chemo. She did have a thoracentesis 3 months ago and said since then her ribs hurt. No coffee ground emesis or gi blood in emesis, diarrhea, weight loss, trouble swallowing. She has never had an EGD. 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 Past Surgical History section Right port placement chest wall Left wrist surgery Bilateral breast augmentation (Kim Camara) Coded Allergies: Lomotil (Verified Allergy, Severe, swollen lips, rash, 08/09/16) Medications Current Medications Medications (Trade) Dose Ordered Sig/Benji Route PRN Reason Start Time Stop Time Status Last Admin Dose Admin Sodium Chloride 2 ml 2 ml UNSCH PRN IVF FLUSH AFTER USING IV ACCESS 08/09/16 10:00 Potassium Chloride/Dextrose/ Sodium Chloride (KCl Inj/D5W-NS 1000 ml Inj) 1,005 ml @ 70 mls/hr [id number] IV 08/09/16 18:00 08/10/16 08:33 Pantoprazole Sodium (Protonix Inj) 40 mg Q24H IV PUSH 08/09/16 18:00 08/09/16 20:43 Ondansetron HCl (Zofran Inj) 4 mg Q6HR PRN IV PUSH NAUSEA OR VOMITING 08/09/16 17:30 08/10/16 10:30 Hydromorphone HCl (Dilaudid Pf Inj) 0.5 mg Q4H PRN IV PUSH PAIN SCALE 4 TO 10 08/10/16 13:30 Acetaminophen/ Hydrocodone Bitart ([place] 7.5-325 Mg) 1 tab Q4H PRN PO PAIN SCALE 5 TO 7 08/10/16 11:00 Family History prostate cancer Social History Quit smoking last May 2015 Denies alcohol or substance abuse (Kim Camara) Review of Systems Constitutional: DENIES: Fever, Weight loss, Change in appetite Eyes: DENIES: Blurred vision Ears, nose, mouth, throat: DENIES: Hearing loss Respiratory: DENIES: Hemoptysis Cardiovascular: DENIES: Chest pain Gastrointestinal: COMPLAINS OF: Abdominal pain, Nausea, Vomiting, DENIES: Bloody stools, Constipation, Diarrhea, Difficulty Swallowing, Hematemesis Musculoskeletal: DENIES: Joint pain Integumentary: DENIES: Abnormal pigmentation Hematologic/lymphatic: DENIES: Bruising (Kim Camara) GI Exam Vitals I&O Vital Signs Date Time Temp Pulse Resp B/P Pulse Ox O2 Delivery O2 Flow Rate FiO2 08/10/16 08:37 98.0 101 17 161/86 98 08/10/16 04:03 98.7 105 22 142/85 100 08/09/16 23:36 99.0 106 18 137/73 97 08/09/16 20:02 99.4 120 20 147/84 99 08/09/16 17:15 98.6 107 18 159/82 98 08/09/16 16:38 98 16 142/87 Nasal Cannula 2 08/09/16 14:49 20 08/09/16 12:47 96 20 149/91 100 Nasal Cannula 2 Imaging Last Impressions Chest X-Ray 08/09/16 1731 Signed Impressions: Service Date/Time: Tuesday, August 09, 2016 17:58 - CONCLUSION: Stable moderate left base parenchymal opacity and pleural effusion. Slight developing parenchymal opacity at the right lung base. Michael Chaudhari MD Head CT 08/09/16 0000 Signed Impressions: Service Date/Time: Tuesday, August 09, 2016 18:20 - CONCLUSION: No acute intracranial findings Michael Chaudhari MD Laboratory Test 08/09/16 13:30 Urine Color COLORLESS Urine Turbidity CLEAR Urine pH 5.0 Urine Specific Flora 1.002 Urine Protein NEG mg/dL Urine Glucose (UA) NEG mg/dL Urine Ketones TRACE mg/dL Urine Occult Blood NEG Urine Nitrite NEG Urine Bilirubin NEG Urine Urobilinogen LESS THAN 2.0 MG/DL Urine Leukocyte Esterase SMALL Urine RBC 2 /hpf Urine WBC 2 /hpf Urine Squamous Epithelial 1 /hpf Cells Urine Calcium Oxalate Crystals RARE /hpf Urine Bacteria RARE /hpf Urine Mucus FEW /lpf Microscopic Urinalysis Comment CULT NOT INDICATED Physical Examination HEENT: EOMI; normocephalic; atraumatic; no jaundice. NECK: Neck is supple, no JVD, CHEST: Chest is clear to auscultation and percussion, tachypnea.Port right side. CARDIAC: Regular rate and rhythm with no murmur gallop or rubs. ABDOMEN: Soft, nondistended, TTP across upper abd; no hepatosplenomegaly; bowel sounds are present in all four quadrants. EXTREMITIES: No clubbing, cyanosis, or edema. SKIN: Normal; no rash; no jaundice. 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 (Kim Camara) Assessment and Plan Plan ASSESSMENT: - epigastric pain. Burning epigastric pain with onset 2 weeks ago coinciding with stopping PPI. PUD vs gastritis, will do EGD. - nausea vomiting. chemo s/e vs severe GERD vs PUD PLAN - will do EGD - NPO - obtain consents - proceed based on results of above - await results CT abd - continue PPI This pt was seen and examined by myself and Dr Macias and this note is written on his behalf (Kim Camara) Physician Comments Seen and examined with SRIRAM, egd planned for tomorrow. Await CT abd/pelvis. Thank you (Kehinde Macias MD) Kim Camara Aug 10, 2016 11:52 Kehinde Macias MD Aug 10, 2016 19:08
[2016-08-10] MEDS ORDERED: IOHEXOL 350 MG/ML 10 ML VIAL (for RAD DIAG) IV ONE (12:21)
--- NOTE | 2016-08-10 12:30 | RADRPT ---
EXAM DATE/TIME: 08/10/2016 12:10 [facility] COMPARISON: CT BRAIN W/O CONTRAST, August 09, 2016, 18:20. INDICATIONS : Abdominal pain, nausea and vomiting. IV CONTRAST: 96 cc Omnipaque 350 (iohexol) IV ; Cumulative dose for multiple exams. ORAL CONTRAST: Prescribed oral contrast ingested. RADIATION DOSE: 10.88 CTDIvol (mGy) ; Combined studies - Thorax/Abdomen/Pelvis MEDICAL HISTORY : Carcinoma, lung. Cardiovascular disease SURGICAL HISTORY : Pacemaker. section.Breast augmentation. ENCOUNTER: Initial ACUITY: 2 days PAIN SCALE: 7/10 LOCATION: Bilateral lower quadrant TECHNIQUE: Volumetric scanning of the abdomen and pelvis was performed. Using automated exposure control and ad justment of the mA and/or kV according to patient size, radiation dose was kept as low as reasonably achievable to obtain optimal diagnostic quality images. FINDINGS: The limited portion of lung bases lies demonstrates a small left basilar effusion. There is a left in frahilar mass. There are changes suggesting previous radiation therapy to the left lung base. The appearance of the liver, spleen, pancreas, adrenal glands and kidneys is within normal limits. There is no retroperitoneal adenopathy. No free air or free fluid is seen. The visualized loops of sm all and large bowel are unremarkable. The abdominal aorta is normal in caliber. There is no free fluid within the pelvis. No iliac or inguinal adenopathy is present. The visualized loops of small and large bowel within the pelvis are unremarkable. The visualized bony structures demonstrate mild degenerative changes but are otherwise intact. CONCLUSION: 1. There are changes consistent with radiation therapy at the left lung base. These are only partiall y visualized. There is a small left basilar effusion. 2. CT scan of the abdomen and pelvis is within normal limits. Rajesh Bhatia MD on August 10, 2016 at 12:24 Board Certified Radiologist. This report was verified electronically.
--- NOTE | 2016-08-10 12:36 | RADRPT ---
EXAM DATE/TIME: 08/10/2016 12:10 [facility] COMPARISON: BONE SCAN (WHOLE BODY), July 18, 2016, 12:06. US GUIDED THORACENTESIS LEFT, July 18, 2016, 13:09. CT PULMONARY ANGIOGRAM, August 01, 2016, 10:10. INDICATIONS : Chest pain. IV CONTRAST: 96 cc Omnipaque 350 (iohexol) IV ; Cumulative dose for multiple exams. RADIATION DOSE: 10.88 CTDIvol (mGy) ; Combined studies - Thorax/Abdomen/Pelvis MEDICAL HISTORY : Carcinoma, lung. Cardiovascular disease SURGICAL HISTORY : Pacemaker. section.Breast augmentation. ENCOUNTER: Initial ACUITY: 2 days PAIN SCALE: 3/10 LOCATION: Bilateral chest TECHNIQUE: Volumetric scanning of the chest was performed. Using automated exposure control and adjustment of t he mA and/or kV according to patient size, radiation dose was kept as low as reasonably achievable to obtain optimal diagnostic quality images. FINDINGS: LUNGS: Left infrahilar consolidative density/mass is again noted, grossly unchanged in size and appearance. Mild probable atelectasis is present the contralateral right lung base. There are scattered granuloma tous calcifications present. PLEURA: Moderately large loculated left effusion is grossly stable in size MEDIASTINUM: The heart and great vessels demonstrate no acute abnormality. There is no mediastinal or hilar lymph adenopathy. AXILLAE: Within normal limits. No lymphadenopathy. SKELETAL: Within normal limits for patient age. MISCELLANEOUS: The visualized upper abdominal organs demonstrate no acute abnormality. CONCLUSION: Stable chest appearance Michael Chaudhari MD on August 10, 2016 at 12:27 Board Certified Radiologist. This report was verified electronically.
--- NOTE | 2016-08-10 13:13 | EKG ---
Date Performed: 08/09/2016 Time Performed: 14:10:37 PTAGE: 50 years EKG: SINUS TACHYCARDIA NONSPECIFIC T-WAVE ABNORMALITY ABNORMAL RHYTHM ECG PREVIOUS TRACING : 08/09/2016 08.42 Compared to prior tracing no significant change DOCTOR: Josesito Easley Interpretating Date/Time 08/10/2016 13:12:03
--- NOTE | 2016-08-10 13:36 | EKG ---
Date Performed: 08/09/2016 Time Performed: 08:42:16 PTAGE: 50 years EKG: SINUS TACHYCARDIA ST DEVIATION AND MODERATE T-WAVE ABNORMALITY, CONSIDER INFERIOR ISCHEMIA ABNORMAL ECG NO PREVIOUS TRACING DOCTOR: Josesito Easley Interpretating Date/Time 08/10/2016 13:35:13
[2016-08-10] MEDS ORDERED: GADODIAMIDE PF 287 MG/ML 5 ML VIAL (for RAD MRI) IV ONE (15:16)
--- NOTE | 2016-08-10 16:57 | RADRPT ---
EXAM DATE/TIME: 08/10/2016 15:05 [facility] COMPARISON: MRI BRAIN W & W/O CONTRAST, March 27, 2016, 15:17. INDICATIONS : Metastatic disease. CONTRAST: 13 cc Omniscan (gadodiamide) IV MEDICAL HISTORY : Carcinoma, lung. SURGICAL HISTORY : section. Port placement. Breast. Wrist. ENCOUNTER: Subsequent ACUITY: 1 day PAIN SCORE: 5/10 LOCATION: cranial TECHNIQUE: Multiplanar, multisequence MRI of the brain was performed both prior to and following the administrat ion of paramagnetic contrast. FINDINGS: Prior MRI had demonstrated an enhancing mass in the suprasellar cistern measuring 1.5 cm and a 4 mm e nhancing nodule in the left paracentral cerebellar vermis. On today's examination, the suprasellar mass has totally resolved and there is no residual opacity or enhancement. The optic chiasm is normal in configuration and the pituitary stalk is in the midline. The 4 mm area of enhancement in the left cerebellar vermis is stable in size and appearance when co mpared to prior examination. There is one new enhancing lesion which is present in the quadrigeminal plate. This is located infer ior to the internal cerebral veins and inferior to the pineal gland. This mass demonstrates peripher al enhancement, and measures 8 x 9 x 10 mm. There is a small central area that does not enhance. No evidence of hydrocephalus. On the T2 weighted images, there is T2 prolongation surrounding the aque duct of Sylvius and extending into the junction of the mesencephalon and telencephalon. There is als o some mild T2 prolongation in the superior quadrigeminal plate. The aqueduct is narrowed. CONCLUSION: 1. 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 This appears to narrow the aqueduct of Sylvius, but there is no evidence of hydrocephalus. 2. The left cerebellar vermis enhancing nodule is stable in size at 4 mm. 3. The enhancing mass in the suprasellar cistern has resolved. No mass effect on the chiasm. Eusebio Meraz MD on August 10, 2016 at 16:36 Board Certified Radiologist. This report was verified electronically.
[2016-08-10 17:39] VITALS: BP 146/70; PULSE 91; RESP 19; TEMP 97.7; O2SAT 96
[2016-08-10] MEDS: PANTOPRAZOLE SODIUM 40 MG VIAL IV PUSH SCH (18:11)
[2016-08-10 19:18] VITALS: BP 145/70; PULSE 95; RESP 19; TEMP 97.9; O2SAT 97
[2016-08-10 23:11] VITALS: BP 133/71; PULSE 105; RESP 19; TEMP 98.2; O2SAT 96
[2016-08-11] VITALS (10 sets, daily range): BP systolic 135–174; BP diastolic 69–93; PULSE 66–123; RESP 18–22; TEMP 98.2–99.3; O2SAT 96–100
[2016-08-11] MEDS: HYDROmorphone HCL PF 1 MG/ML VIAL IV PUSH PRN ×4 (03:47→18:35)
[2016-08-11] MEDS ORDERED: MIDAZOLAM HCL 2 MG/2 ML VIAL IV ONE (09:14)
[2016-08-11] MEDS ORDERED: PROPOFOL 200 MG/20 ML AMP IV ONE (09:14)
--- NOTE | 2016-08-11 09:24 | GIPROC ---
[facility] [address] [facility]. [facility], [address] EGD PROCEDURE REPORT EXAM DATE: 08/11/2016 PATIENT NAME: Juanita Lombardi MR #: [id number] BIRTHDATE: 1965 ATTENDING: Kehinde Macias MD ORDER #: [id number] INSPECTOR MACHINED PARTS: Jyoti Long and Sinan Logan STATUS: inpatient INDICATIONS: The patient is a 51 yr old female here for an EGD due to history of esophageal reflux and epigastric abdominal pain PROCEDURE PERFORMED: EGD w/ biopsy MEDICATIONS: None and Per Anesthesia. TOPICAL ANESTHETIC: CONSENT: The patient understands the risks and benefits of the procedure and understands that these risks include, but are not limited to: sedation, allergic reaction, infection, perforation and/or bleeding. Alternative means of evaluation and treatment include, among others: physical exam, x-rays, and/or surgical intervention. The patient elects to proceed with this endoscopic procedure. medical equipment was checked for proper function. Hand hygiene and appropriate measures for infection prevention was taken. After the risks, benefits and alternatives of the procedure were thoroughly explained, Informed consent was verified, confirmed and timeout was successfully executed by the treatment team. The patient was anesthetized with topical anesthesia and the Pentax EG-[id number] endoscope was introduced through the mouth and advanced to the second portion of the duodenum. Retroflexed views revealed no abnormalities The gastroscope was then slowly withdrawn and removed. STOMACH: There was erythematous moderate gastritis in the gastric antrum. A biopsy was performed. DUODENUM: The duodenal mucosa appeared normal. ESOPHAGUS: The mucosa of the esophagus appeared normal. ADVERSE EVENTS: There were no complications. IMPRESSIONS: 1. There was erythematous gastritis in the gastric antrum; biopsy was performed 2. Normal duodenal mucosa 3. Retroflexed views revealed no abnormalities RECOMMENDATIONS: 1. Await biopsy results. Biopsy results will not be ready for 7-10 days. If you don't hear from us in two weeks, call our office for biopsy results. 2. Anti-reflux regimen 3. Continue PPI 4. Carafate liquid 1 gm po tid PATIENT CONDITION: stable DISPOSITION: Inpatient REPEAT EXAM: Return 1 year EGD pending biopsy results Kehinde Macias MD eSigned: Kehinde Macias MD 08/11/2016 9:24 AM cc: PATIENT NAME: Juanita Lombardi MR#: [id number]
--- NOTE | 2016-08-11 09:46 | PD.ONC.PN ---
Subjective Subjective Remarks Afebrile overnight. Just back from endoscopy. She complains of having pain down her spine from neck to tailbone radiating into her left leg and weakness in both legs present for the past week or so. Objective Data Date Time Temp Pulse Resp B/P Pulse Ox O2 Delivery O2 Flow Rate FiO2 08/11/16 08:45 98.2 110 19 135/69 99 08/11/16 08:00 99.3 123 18 138/80 96 08/11/16 03:37 98.2 110 19 135/69 99 08/10/16 23:11 98.2 105 19 133/71 96 08/10/16 19:18 97.9 95 19 145/70 97 08/10/16 17:39 97.7 91 19 146/70 96 08/10/16 11:52 97.7 119 19 137/77 100 Result Diagram: 08/09/16 1040 08/09/16 1040 Imaging Studies Last Impressions Chest CT 08/10/16 0000 Signed Impressions: Service Date/Time: August 12:10 - CONCLUSION: Stable chest appearance Michael Chaudhari MD Brain MRI 08/10/16 0000 Signed Impressions: Service Date/Time: August 15:05 - CONCLUSION: 1. 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 This appears to narrow the aqueduct of Sylvius, but there is no evidence of hydrocephalus. 2. The left cerebellar vermis enhancing nodule is stable in size at 4 mm. 3. The enhancing mass in the suprasellar cistern has resolved. No mass effect on the chiasm. Eusebio Meraz MD Abdomen/Pelvis CT 08/10/16 0000 Signed Impressions: Service Date/Time: August 12:10 - CONCLUSION: 1. There are changes consistent with radiation therapy at the left lung base. These are only partially visualized. There is a small left basilar effusion. 2. CT scan of the abdomen and pelvis is within normal limits. Rajesh Bhatia MD Chest X-Ray 08/09/16 1731 Signed Impressions: Service Date/Time: Tuesday, August 09, 2016 17:58 - CONCLUSION: Stable moderate left base parenchymal opacity and pleural effusion. Slight developing parenchymal opacity at the right lung base. Michael Chaudhari MD Head CT 08/09/16 0000 Signed Impressions: Service Date/Time: Tuesday, August 09, 2016 18:20 - CONCLUSION: No acute intracranial findings Michael Chaudhari MD Administered Medications Medications (Trade) Dose Ordered Sig/Benji Route PRN Reason Start Time Stop Time Status Last Admin Dose Admin Potassium Chloride/Dextrose/ Sodium Chloride (KCl Inj/D5W-NS 1000 ml Inj) 1,005 ml @ 70 mls/hr [id number] IV 08/09/16 18:00 08/10/16 23:15 Pantoprazole Sodium (Protonix Inj) 40 mg Q24H IV PUSH 08/09/16 18:00 08/10/16 18:11 Ondansetron HCl (Zofran Inj) 4 mg Q6HR PRN IV PUSH NAUSEA OR VOMITING 08/09/16 17:30 08/10/16 10:30 Hydromorphone HCl (Dilaudid Pf Inj) 0.5 mg Q4H PRN IV PUSH PAIN SCALE 4 TO 10 08/10/16 13:30 08/11/16 08:12 Acetaminophen/ Hydrocodone Bitart ([place] 7.5-325 Mg) 1 tab Q4H PRN PO PAIN SCALE 5 TO 7 08/10/16 11:00 08/10/16 16:37 Objective Remarks GENERAL: middle aged female, sitting up in bed, anxious SKIN: Warm and dry. HEAD: Normocephalic. EYES:No injection or drainage. NECK: Supple, trachea midline. CARDIOVASCULAR: Regular rate and rhythm without murmurs. RESPIRATORY: Breath sounds equal bilaterally. No accessory muscle use. GASTROINTESTINAL: Abdomen soft, non-tender, nondistended. EXTREMITIES: No cyanosis, or edema. MUSCULOSKELETAL: Adequate muscle tone. NEUROLOGICAL: awake alert and oriented, normal speech. facial movements symmetric. bilateral lower extremity weakness. Assessment/Plan Problem List: (1) Non-small cell carcinoma of lung Status: Chronic Plan: 08/11: back pain + lower extremity weakness, will order MRI C/T/L spine to evaluate for spine mets. will start decadron 4mg PO BID. reviewed scans with patient, showed MRI brain images and discussed. patient was, understandably upset that there is a new brain lesion. emotional support provided. d/w Dr. Acevedo as well who will see the patient today and plans to start XRT outpatient. 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 --started on maintenance Alimta December 2015 --restaging CT chest showed progressive consolidation and volume loss and collapse of LLL with increasing left pleural effusion. --July 2016: started on ?Opdivo --met with [facility] in 07/2016, wanted to try Opdivo before pursuing further radiation (2) Vomiting Status: Acute Plan: --joseph-endoscopy on 08/11 showed erythematous gastritis in the gastric antrum --on clear liquid diet Assessment 51y/o female with non-small cell lung cancer, admitted with nausea and vomiting , MRI showed new brain mets. Attending Statement c/o weakness of right side body with severe GUERRERO. CT C/A/P = stable ca. MRI brain = new lesion. Dr Acevedo consulted. Will do SRS . MRI spine consult neurology. The exam, history, and the medical decision-making described in the above note were completed with the assistance of the mid-level provider. I reviewed and agree with the findings presented. I attest that I had a gbof-[id number] encounter with the patient on the same day, and personally performed and documented my assessment and findings in the medical record. Namrata Rene Aug 11, 2016 09:46 Ita Elizondo MD Aug 11, 2016 17:17
--- NOTE | 2016-08-11 09:57 | MB ---
cc: NIKIK ELIZONDO M.D. DATE OF CONSULTATION 08/10/2016 REASON FOR CONSULTATION Consult requested by hospitalist for followup of non-small cell lung cancer. HISTORY OF PRESENT ILLNESS Juanita is a 51-year-old female. She was diagnosed with non-small cell lung cancer with brain metastasis in May of 2015. She had a bronchoscopy which showed poorly differentiated adenocarcinoma. This CT scan of the chest showed a 6 cm left perihilar mass encasing the left pulmonary artery and left mainstem bronchus. She was also found to have a solitary brain metastasis at the time of diagnosis. She was treated with stereotactic radiosurgery to the isolated brain metastasis. She was treated with concurrent radiation and chemotherapy, with Carboplatin and Taxol which she completed in September of 2015. After that, she had consolidative, carboplatin and Taxol chemotherapy which was stopped in October of last year due to the side effects. The patient was complaining of fatigue, diarrhea and neuropathy. The patient then was placed on maintenance Alimta in December of 2015. This was continued on and during that period, the patient was found to have new brain metastasis in March of last year. She was again treated with radiation therapy by Dr. Acevedo. She recently had a CT scan of the chest which showed progressive consolidation and volume loss with increasing left pleural effusion. This was consistent with the progressive disease. The patient was started on Opdivo chemotherapy on July 26. She had tolerated the treatment well. The patient came into the emergency room complaining of intractable nausea and vomiting. She cannot keep anything down. She is unable to take her medications due to that. She does not feel good. She is losing weight. Her appetite is poor. She feels miserable. The rest of the review of systems is negative. PAST MEDICAL HISTORY 1. Non-small cell lung cancer 2. COPD PAST SURGICAL HISTORY 1. Exslrh-T-Rame placement 2. Thoracentesis ALLERGIES LOMOTIL MEDICATIONS 1. Folic acid 2. Lortab 3. Prilosec 4. Opdivo which was started two weeks ago. FAMILY HISTORY Mother from breast cancer. Father from prostate cancer. She is two sons and two daughters. She has three sisters and no brothers. 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 She used to smoke cigarettes one pack a day for 30 years, quit recently. She drinks alcohol socially. PHYSICAL EXAM This is a well-developed, well-nourished white female in no apparent distress. VITAL SIGNS: Temperature 98, heart rate is 101, blood pressure 161/86. HEENT: PERRLA, EOMI, anicteric. No oral lesions are noted. NECK: Supple. There is no cervical, supraclavicular or axillary lymphadenopathy noted. LUNGS: Clear. No wheezing, rhonchi or rales. HEART: Regular rate and rhythm. ABDOMEN: Soft and nontender. No hepatosplenomegaly. EXTREMITIES: No pedal edema. NEUROLOGIC: Awake, alert, oriented times three. SKIN: No significant lesions are noted. ASSESSMENT 1. Non-small cell lung cancer with brain metastasis status post chemotherapy, radiation treatment and recently was found to have progressive disease and was treated with Opdivo just two weeks ago. 2. Intractable nausea and vomiting so the etiology of this could be due to gastritis or peptic ulcer disease or new brain metastasis. PLAN I have reviewed her available records and I have discussed with the patient regarding her condition. She has intractable nausea and vomiting. She cannot keep anything down including the medications. She is losing weight. She has a poor appetite. She feels miserable. I have discussed with her regarding Hospice versus continuation of palliative chemotherapy. She does not want Hospice. She wants to be treated. She has intractable nausea and vomiting. GI has been consulted. I will get the CT scan of the chest, abdomen and pelvis to restage her lung cancer. I will get the MRI of the brain to evaluate for any new brain metastasis which certainly sometimes can cause intractable nausea or vomiting. If she is found to have new brain metastasis, we will consult Dr. Acevedo for radiation treatment. The patient was just started on Opdivo on July 26. I do not think her present symptoms are due to the Opdivo. Further recommendations once we get the results of the CT scan and the MRI of the brain. Thank you for asking my opinion. Perlita Elizondo MD /ARIANA /6:42 PM /9:41 AM
[2016-08-11] MEDS: DEXAMETHASONE 4 MG TAB PO SCH ×3 (10:30→20:16)
[2016-08-11] MEDS ORDERED: CYCLOBENZAPRINE HCL 10 MG TAB PO SCH (11:00)
[2016-08-11] MEDS: SUCRALFATE 1 GM/10 ML CUP PO SCH ×3 (11:20→20:16)
[2016-08-11 11:47] LABS: BLOOD GAS BASE EXCESS 0.5 mmol/L (-2-2); BLOOD GAS CARBOXYHEMOGLOBIN 1.2 % (0-4); BLOOD GAS HCO3 24 mmol/L (22-26); BLOOD GAS METHEMOGLOBIN 0.1 % (0-2); BLOOD GAS O2 HGB SATURATION 91 % (90-100); BLOOD GAS OXYGEN CONTENT 13.4 Vol % (12.0-20.0); BLOOD GAS PCO2 34 mmHg (38-42); BLOOD GAS PO2 60 mmHG (61-120); BLOOD GAS TOTAL HGB 10.5 G/DL (12.0-16.0); CRITICAL VALUE NO; TEMP CORR TO 98.6
[2016-08-11 11:48] LABS: DRAW SITE RT RADIAL; FIO2 21 %; NUMBER OF ARTERIAL PUNCTURES 1; STAT YES; ULNAR PULSE PRESENT
--- NOTE | 2016-08-11 11:59 | HHI.PR ---
Subjective Remarks back from EGD- tolerated procedure well complains of low back pain this am - while holding a cup staff described focal seizures involving right UE - cup fell- - involving the right upper extremity with hyperextension of the neck and body then went flaccid now seen post-ictal- starting to talk- denies any pain- oriented x 3, speech soft but clear seen with boyfriend at bedside Objective Vitals Vital Signs Date Time Temp Pulse Resp B/P Pulse Ox O2 Delivery O2 Flow Rate FiO2 08/11/16 09:42 105 16 109/74 100 08/11/16 09:32 104 16 104/75 100 08/11/16 09:22 99.1 104 16 104/69 100 08/11/16 08:45 98.2 110 19 135/69 99 08/11/16 08:00 99.3 123 18 138/80 96 08/11/16 03:37 98.2 110 19 135/69 99 08/10/16 23:11 98.2 105 19 133/71 96 08/10/16 19:18 97.9 95 19 145/70 97 08/10/16 17:39 97.7 91 19 146/70 96 I/O 08/10/16 08/10/16 08/10/16 08/11/16 08/11/16 08/11/16 07:00 15:00 23:00 07:00 15:00 23:00 Intake Total 150 ml Balance 150 ml Intake Other 150 ml # Voids 1 4 Result Diagram: 08/09/16 1040 08/09/16 1040 Imaging Last Impressions Chest CT 08/10/16 0000 Signed Impressions: Service Date/Time: August 12:10 - CONCLUSION: Stable chest appearance Michael Chaudhari MD Brain MRI 08/10/16 0000 Signed Impressions: Service Date/Time: August 15:05 - CONCLUSION: 1. 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 This appears to narrow the aqueduct of Sylvius, but there is no evidence of hydrocephalus. 2. The left cerebellar vermis enhancing nodule is stable in size at 4 mm. 3. The enhancing mass in the suprasellar cistern has resolved. No mass effect on the chiasm. Eusebio Meraz MD Abdomen/Pelvis CT 08/10/16 0000 Signed Impressions: Service Date/Time: August 12:10 - CONCLUSION: 1. There are changes consistent with radiation therapy at the left lung base. These are only partially visualized. There is a small left basilar effusion. 2. CT scan of the abdomen and pelvis is within normal limits. Rajesh Bhatia MD Chest X-Ray 08/09/16 1731 Signed Impressions: Service Date/Time: Tuesday, August 09, 2016 17:58 - CONCLUSION: Stable moderate left base parenchymal opacity and pleural effusion. Slight developing parenchymal opacity at the right lung base. Michael Chaudhari MD Head CT 08/09/16 0000 Signed Impressions: Service Date/Time: Tuesday, August 09, 2016 18:20 - CONCLUSION: No acute intracranial findings Michael Chaudhari MD Objective Remarks awake and alert, oriented x 3, speech soft but clear- seen post-ictal anicteric lungs decrease breath sounds, no rales or wheezes regular rhythm abdomen soft, good bowel sounds extremities no edema cranial nerves- pupils equally reactive, no facial asymmetry, + gag reflex moves all extremities spontaneously, generalized weakness Procedures Last Impressions Chest X-Ray 08/09/161 Signed Impressions: Service Date/Time: Tuesday, August 09, 2016 17:58 - CONCLUSION: Stable moderate left base parenchymal opacity and pleural effusion. Slight developing parenchymal opacity at the right lung base. 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 need for EGD start patient on IV fluid D5 normal saline with potassium Zofran IV when necessary Protonix 40 mg IV every [address] negative Dilaudid IV when necessary for pain Onco- ordere for CT abdomen/thorax Stage IV Lung caner with meds history of lung cancer undergoing radiation therapy chemotherapy Left pleural effusion- stable Patient appears comfortable Discussed with patient they are interested to learn more about hospice Sherry Yeung MD Aug 11, 2016 11:59
[2016-08-11] MEDS ORDERED: PHENYTOIN INJ 1,000 MG in SODIUM CHLORIDE 0.9% INJ 100 ML IV ONE (12:00)
[2016-08-11] MEDS ORDERED: ONDANSETRON HCL 4 MG/2 ML VIAL IV PUSH ONE (12:00)
[2016-08-11 12:16] LABS: AUTOMATED NEUTROPHIL # 4.9 TH/MM3 (1.8-7.7); BASOPHIL # 0.1 TH/MM3 (0-0.2); BASOPHIL % 0.8 % (0.0-2.0); EOSINOPHIL # 0.4 TH/MM3 (0-0.4); EOSINOPHIL % 5.6 % (0.0-4.0); HEMATOCRIT 27.2 % (35.0-46.0); HEMO FLAGS DIFF FINAL; LYMPH % 12.1 % (9.0-44.0); LYMPHOCYTE # 0.8 TH/MM3 (1.0-4.8); MEAN CELL VOLUME 83.3 FL (80.0-100.0); MEAN CORPUSCULAR HEMOGLOBIN 28.1 PG (27.0-34.0); MEAN CORPUSCULAR HGB CONC 33.8 % (32.0-36.0); NEUT % 71.5 % (16.0-70.0); PLATELET COUNT 561 TH/MM3 (150-450); RED BLOOD COUNT 3.26 MIL/MM3 (4.00-5.30); WHITE BLOOD COUNT 6.8 TH/MM3 (4.0-11.0)
[2016-08-11 12:40] LABS: ALKALINE PHOSPHATASE 99 U/L (45-117); ALT (GPT) 8 U/L (10-53); ANION GAP 8 MEQ/L (5-15); AST (GOT) 16 U/L (15-37); BICARBONATE 25.9 MEQ/L (21.0-32.0); BLOOD UREA NITROGEN 3 MG/DL (7-18); CHLORIDE 105 MEQ/L (98-107); GLOMERULAR FILTRATION RATE 74 ML/MIN (>89); POTASSIUM 3.3 MEQ/L (3.5-5.1); SODIUM (NA) 139 MEQ/L (136-145); TOTAL BILIRUBIN ADULT 0.2 MG/DL (0.2-1.0)
[2016-08-11] MEDS: ONDANSETRON HCL 4 MG/2 ML VIAL IV PUSH PRN (15:07)
[2016-08-11] MEDS ORDERED: DO NOT ADM ANY ANTICOAGULANT DRUGS PRN ×2 (15:15)
[2016-08-11] MEDS: PANTOPRAZOLE SODIUM 40 MG VIAL IV PUSH SCH (18:35)
--- NOTE | 2016-08-11 19:05 | MB ---
cc: KIMBERLY WALKER M.D. DATE OF 1965 AGE [id number]. REASON FOR CONSULTATION Seizure. HISTORY OF PRESENT ILLNESS The patient is a pleasant 51-year-old woman diagnosed with non-small cell carcinoma of the lung in May 2015, stage IV with pleural effusion, brain mets, followed closely by oncology, Dr. Elizondo and radiation oncology, Dr. Acevedo. Underwent radiation treatment and chemotherapy. States she had chemotherapy at 3 weeks ago I believe with ___, had thoracentesis done at one point. Some ribcage pain, abdominal discomfort, has been having very poor intake for a few weeks now. Some weight loss. This morning while holding a cup of coffee she had what was described as focal seizure, right upper extremity, hyperextending of the neck and body went flaccid. She was postictal when the hospital doctor saw her. Now she just had an EEG. She still complains of pain in her hips, lower buttock region as well as the sensation of restlessness in her legs. Family is at bedside. She had an EGD as well that confirmed basically erythematous gastritis of the antrum. Recommendations were PPI and Carafate. The patient post seizure was loaded with Dilantin and maintained on a maintenance dose of 100 mg q. 8. She has a past medical history as stated. HOME MEDICATIONS 1. ____. 2. Oxycodone p.r.n. 3. Phenergan when needed as well as Compazine. ALLERGIES LOMOTIL. FAMILY HISTORY Noncontributory. SOCIAL HISTORY Quit smoking in May. Denies alcohol or substance abuse. PHYSICAL EXAMINATION VITAL SIGNS: Temperature is 98.7, pulse 89, respiratory rate 22, blood pressure 174/93 at noon, satting at 96% room air. NEURO: She is awake and alert. She is oriented, fluent. Pupils reactive. Face symmetrical. Tongue midline. Motor: There is no drift or leg lag. Toes withdraws. DTRs are brisk. Sensory is normal. Cerebellar testing is intact. Gait is withheld at this time. LABORATORY DATA Hemoglobin 9.2, platelets of 561,000. Chemistries potassium 3.3, glucose 115, albumin 2.5, blood gas CO2 was 34. O2 was 60, pH 7.46. Urine culture was not indicated. IMAGING STUDIES Abdomen and pelvis CT consistent with radiation therapy in the left lung base, only partially visualized, small left basilar effusion, otherwise normal. MRI brain shows new metastatic lesion in the quadrigeminal plate which measures up to 10 mm in size. This appears to narrow the aqueduct of Sylvius but no evidence of hydrocephalus. Left cerebellar vermis enhancing nodules stable at 4 mm. The enhancing mass in the suprasellar cistern has resolved. No mass effect in the chiasm. Chest CT stable appearance noted. The left infrahilar ____ density mass noted, unchanged in size. I partially viewed her EEG while they were doing it at bedside and I did not see any signs of seizures, maybe some mild slowing. Full report will come. IMPRESSION Seizure. Patient metastatic lung cancer with brain mets. Recommend continuing her Dilantin 100 milligrams q. 8, that can be changed to p.o. when she is stable. Get a level. Keep her level between 10 and 15, adjusted for albumin. Watch for seizures. Maintain seizure precautions. Ativan p.r.n. if indicated. Continue care per Dr. Elizondo and Dr. Macias. Thank you for consulting neurology. Kimberly Walker MD DF/NELSY /1:45 PM /6:51 PM
[2016-08-11] MEDS: POTASSIUM CHLORIDE INJ 10 MEQ in DEXT 5%-NACL 0.9% 1000 ML INJ 1,000 ML IV SCH (20:17)
[2016-08-11] MEDS: PHENYTOIN INJ 100 MG/2 ML VIAL IV SCH (21:42)
[2016-08-12] VITALS: BP 132/69; PULSE 101; RESP 19; TEMP 97.8; O2SAT 99
[2016-08-12] MEDS: HYDROmorphone HCL PF 1 MG/ML VIAL IV PUSH PRN ×2 (01:17→05:25)
[2016-08-12] MEDS: ONDANSETRON HCL 4 MG/2 ML VIAL IV PUSH PRN ×2 (01:18→08:15)
[2016-08-12 04:00] VITALS: BP 143/82; PULSE 119; RESP 19; TEMP 98.5; O2SAT 98
[2016-08-12] MEDS: PHENYTOIN INJ 100 MG/2 ML VIAL IV SCH ×3 (05:26→21:11)
[2016-08-12] MEDS: SUCRALFATE 1 GM/10 ML CUP PO SCH ×4 (05:32→21:11)
--- NOTE | 2016-08-12 06:29 | MG ---
cc: SHANA LEAL M.D. Lab No:[id number] Date: 08/11/2016 Age: 51 Sex: F Race: DATE OF : 08/10/1955, 51 years old. Electroencephalogram REFERRING PHYSICIAN: Anjana. ROOM H89 With photic stimulation, awake, drowsy MRI with new metastatic lesions plate, left cerebellar node stable. 51-year-old woman with a focal seizure involving the right upper extremity hyperextension, history of lung cancer with mets to the brain on chemotherapy and radiation. MEDICATIONS Carafate Dilaudid Dilantin Potassium DESCRIPTION OF RECORD: Quite a bit of muscle artifact noted but overall there is some mild slowing 6 Hz. No evidence of any epileptic form features. The EKG looks like a sinus tachycardia. Photic stimulation, there is a driving response. IMPRESSION Mild slowing may be due to mild encephalopathic state postictal state but no evidence of any active seizure-like activity. Clinical correlation. MD IZABELA Dent/guerline /7:26 PM /6:19 AM
[2016-08-12] MEDS: DEXAMETHASONE 4 MG TAB PO SCH ×2 (08:15→21:11)
[2016-08-12] MEDS: ACETAMINOPHEN/HYDROcodone 325 MG/7.5 MG TAB PO PRN ×2 (08:15→15:10)
[2016-08-12 08:45] VITALS: BP 139/86; PULSE 106; RESP 18; TEMP 98.2; O2SAT 98
[2016-08-12] MEDS ORDERED: GADODIAMIDE PF 287 MG/ML 10 ML VIAL (for RAD MRI) IV ONE (12:22)
--- NOTE | 2016-08-12 13:01 | RADRPT ---
EXAM DATE/TIME: 08/11/2016 13:40 [facility] COMPARISON: CT THORAX W CONTRAST, August 10, 2016, 12:10. BONE SCAN (WHOLE BODY), July 18, 2016, 12:06. INDICATIONS : Metastatic disease. CONTRAST: 10 cc Omniscan (gadodiamide) IV MEDICAL HISTORY : Carcinoma, lung. SURGICAL HISTORY : section. Right port placement. ENCOUNTER: Initial ACUITY: 1 day PAIN SCORE: 5/10 LOCATION: Paraspinal TECHNIQUE: Screening MRI of the entire spinal axis was performed in the sagittal and axial planes. FINDINGS: The spine demonstrates normal alignment and normal marrow signal. There is fatty marrow identified wi thin the sixth, seventh, eighth and ninth vertebral bodies. There is an area of low signal involving the anterior aspect of the T10 and T11 vertebral bodies at the site of sclerosis seen on prior CT. Th ere is no evidence of abnormal enhancement. No evidence of paravertebral soft tissue abnormality. CONCLUSION: No evidence of metastatic disease. Jen Parry MD on August 12, 2016 at 12:54 Board Certified Radiologist. This report was verified electronically.
[2016-08-12 13:15] VITALS: BP 137/88; PULSE 110; RESP 16; TEMP 99; O2SAT 100
[2016-08-12] MEDS: POTASSIUM CHLORIDE INJ 10 MEQ in DEXT 5%-NACL 0.9% 1000 ML INJ 1,000 ML IV SCH (13:22)
--- NOTE | 2016-08-12 14:04 | HHI.GIFU ---
Subjective Remarks Pt sitting up in bed. Says she feels better. Nausea has improved and she hasnt need nausea meds today. She has eaten solid food today. Her stomach pain has improved as well. She had a BM yesterday. Objective Vitals I&O Vital Signs Date Time Temp Pulse Resp B/P Pulse Ox O2 Delivery O2 Flow Rate FiO2 08/12/16 13:15 99.0 110 16 137/88 100 08/12/16 08:45 98.2 106 18 139/86 98 08/12/16 04:00 98.5 119 19 143/82 98 08/12/16 00:00 97.8 101 19 132/69 99 08/11/16 20:00 99.3 115 18 139/83 97 08/11/16 18:08 96 21 08/11/16 17:25 110 96 08/11/16 16:48 110 08/11/16 15:40 98.7 66 19 142/85 100 I/O 08/11/16 08/11/16 08/11/16 08/12/16 08/12/16 08/12/16 07:00 15:00 23:00 07:00 15:00 23:00 Intake Total 150 ml 790 ml 2480 ml Balance 150 ml 790 ml 2480 ml Intake Oral 720 ml 2480 ml IV Total 70 ml Other 150 ml # Voids 4 3 3 Imaging Last Impressions Entire Spine MRI 08/12/16 0000 Signed Impressions: Service Date/Time: Thursday, August 11, 2016 13:40 - CONCLUSION: No evidence of metastatic disease. Jen Parry MD Chest CT 08/10/16 0000 Signed Impressions: Service Date/Time: August 12:10 - CONCLUSION: Stable chest appearance Michael Chaudhari MD Brain MRI 08/10/16 0000 Signed Impressions: Service Date/Time: August 15:05 - CONCLUSION: 1. 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 This appears to narrow the aqueduct of Sylvius, but there is no evidence of hydrocephalus. 2. The left cerebellar vermis enhancing nodule is stable in size at 4 mm. 3. The enhancing mass in the suprasellar cistern has resolved. No mass effect on the chiasm. Eusebio Meraz MD Abdomen/Pelvis CT 08/10/16 0000 Signed Impressions: Service Date/Time: August 12:10 - CONCLUSION: 1. There are changes consistent with radiation therapy at the left lung base. These are only partially visualized. There is a small left basilar effusion. 2. CT scan of the abdomen and pelvis is within normal limits. Rajesh Bhatia MD Chest X-Ray 08/09/16 1731 Signed Impressions: Service Date/Time: Tuesday, August 09, 2016 17:58 - CONCLUSION: Stable moderate left base parenchymal opacity and pleural effusion. Slight developing parenchymal opacity at the right lung base. Michael Chaudhari MD Head CT 08/09/16 0000 Signed Impressions: Service Date/Time: Tuesday, August 09, 2016 18:20 - CONCLUSION: No acute intracranial findings Michael Chaudhari MD Physical Exam HEENT: EOMI; normocephalic; atraumatic; no jaundice. NECK: Neck is supple CHEST: Chest is clear to auscultation and percussion. CARDIAC: Regular rate and rhythm with no murmur gallop or rubs. ABDOMEN: Soft, nondistended, nontender; no hepatosplenomegaly; bowel sounds are present in all four quadrants. EXTREMITIES: No clubbing, cyanosis, or edema. SKIN: Normal; no rash; no jaundice. RADIOLOGY ASSISTANT: No focal deficits; alert and oriented times three. Assessment and Plan Plan ASSESSMENT: - epigastric pain. Improved. Hx Burning epigastric pain with onset 2 weeks ago coinciding with stopping PPI. CT abdomen and pelvis WNL. s/p EGD found erythematous gastritis, normal duodenal mucosa. Per EGD recommendations she has been started on carafate and PPI continued and she is feeling better. - nausea vomiting. Improved, see above. PLAN - continue PPI - DAMIEN - continue carafate - repeat EGD in 1 year - GI will sign off, please reconsult as needed This pt was seen and examined by myself and Dr Turner and this note is written on his behalf Kim Camara Aug 12, 2016 14:04
[2016-08-12] MEDS: LORazepam 0.5 MG TAB PO PRN (14:28)
[2016-08-12 15:54] LABS: AUTOMATED NEUTROPHIL # 6.8 TH/MM3 (1.8-7.7); BASOPHIL % 0.3 % (0.0-2.0); EOSINOPHIL % 0.1 % (0.0-4.0); HEMO FLAGS DIFF FINAL; LYMPH % 7.6 % (9.0-44.0); LYMPHOCYTE # 0.6 TH/MM3 (1.0-4.8); MEAN CORPUSCULAR HEMOGLOBIN 28.2 PG (27.0-34.0); MEAN CORPUSCULAR HGB CONC 33.5 % (32.0-36.0); MONO % 3.5 % (0.0-8.0); NEUT % 88.5 % (16.0-70.0); PLATELET COUNT 541 TH/MM3 (150-450); RED BLOOD COUNT 3.09 MIL/MM3 (4.00-5.30); RED CELL DISTRIBUTION WIDTH 16.2 % (11.6-17.2); WHITE BLOOD COUNT 7.7 TH/MM3 (4.0-11.0)
[2016-08-12 16:00] VITALS: BP 111/74; PULSE 106; RESP 18; TEMP 98.2; O2SAT 98
--- NOTE | 2016-08-12 16:50 | HHI.PR ---
Subjective Remarks No distress when seen. Seizure occured yesterday. Complaints of intermitant anxiety. No complaints of nausea. Objective Vital Signs Date Time Temp Pulse Resp B/P Pulse Ox O2 Delivery O2 Flow Rate FiO2 08/12/16 13:15 99.0 110 16 137/88 100 08/12/16 08:45 98.2 106 18 139/86 98 08/12/16 04:00 98.5 119 19 143/82 98 08/12/16 00:00 97.8 101 19 132/69 99 08/11/16 20:00 99.3 115 18 139/83 97 08/11/16 18:08 96 21 08/11/16 17:25 110 96 08/11/16 16:48 110 I/O 08/11/16 08/11/16 08/11/16 08/12/16 08/12/16 08/12/16 07:00 15:00 23:00 07:00 15:00 23:00 Intake Total 150 ml 790 ml 2480 ml 1400 ml Balance 150 ml 790 ml 2480 ml 1400 ml Intake Oral 720 ml 2480 ml IV Total 70 ml 1400 ml Other 150 ml # Voids 4 3 3 Result Diagram: 08/12/16 1030 08/11/16 1146 Imaging Last Impressions Entire Spine MRI 08/12/16 0000 Signed Impressions: Service Date/Time: Thursday, August 11, 2016 13:40 - CONCLUSION: No evidence of metastatic disease. Jen Parry MD Chest CT 08/10/16 0000 Signed Impressions: Service Date/Time: August 12:10 - CONCLUSION: Stable chest appearance Michael Chaudhari MD Brain MRI 08/10/16 0000 Signed Impressions: Service Date/Time: August 15:05 - CONCLUSION: 1. 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 This appears to narrow the aqueduct of Sylvius, but there is no evidence of hydrocephalus. 2. The left cerebellar vermis enhancing nodule is stable in size at 4 mm. 3. The enhancing mass in the suprasellar cistern has resolved. No mass effect on the chiasm. Eusebio Meraz MD Abdomen/Pelvis CT 08/10/16 0000 Signed Impressions: Service Date/Time: August 12:10 - CONCLUSION: 1. There are changes consistent with radiation therapy at the left lung base. These are only partially visualized. There is a small left basilar effusion. 2. CT scan of the abdomen and pelvis is within normal limits. Rajesh Bhatia MD Chest X-Ray 08/09/16 1731 Signed Impressions: Service Date/Time: Tuesday, August 09, 2016 17:58 - CONCLUSION: Stable moderate left base parenchymal opacity and pleural effusion. Slight developing parenchymal opacity at the right lung base. Michael Chaudhari MD Head CT 08/09/16 0000 Signed Impressions: Service Date/Time: Tuesday, August 09, 2016 18:20 - CONCLUSION: No acute intracranial findings Michael Chaudhari MD Objective Remarks GENERAL: No Distress. A&Ox3 SKIN: Warm and dry. HEAD: Atraumatic. Normocephalic. EYES: Pupils equal and round. No scleral icterus. No injection or drainage. ENT: No nasal bleeding or discharge. Mucous membranes pink and moist. NECK: Trachea midline. No JVD. CARDIOVASCULAR: Regular rate and rhythm. RESPIRATORY: No accessory muscle use. Clear to auscultation. Breath sounds equal bilaterally. GASTROINTESTINAL: Abdomen soft, non-tender, nondistended. Hepatic and splenic margins not palpable. MUSCULOSKELETAL: Extremities without clubbing, cyanosis, or edema. No obvious deformities. NEUROLOGICAL: Awake and alert. No obvious cranial nerve deficits. Motor grossly within normal limits. Five out of 5 muscle strength in the arms and legs. Normal speech. PSYCHIATRIC: Appropriate mood and affect; insight and judgment normal. Medications and IVs Current Medications Sodium Chloride (NS 1000 ml Inj) 1,000 ml @ 999 mls/hr BOLUS ONCE IV Last administered on 08/09/16 09:22; Start 08/09/16 at 09:15; Stop 08/09/16 at 10:15; Status DC Hydromorphone HCl (Dilaudid Pf Inj) 2 mg ONCE ONCE IV PUSH Last administered on 08/09/16 09:22; Start 08/09/16 at 09:15; Stop 08/09/16 at 09:16; Status DC Ondansetron HCl 4 mg 4 mg ONCE ONCE IV PUSH Last administered on 08/09/16 09: 22; Start 08/09/16 at 09:15; Stop 08/09/16 at 09:16; Status DC Sodium Chloride (NS 1000 ml Inj) 1,000 ml @ 1,000 mls/hr Q1H ONCE IV Last administered on 08/09/16 10:22; Start 08/09/16 at 09:50; Stop 08/09/16 at 10:49; Status DC Sodium Chloride (NS Flush) 2 ml UNSCH PRN IVF FLUSH AFTER USING IV ACCESS; Start 08/09/16 at 10:00 Prochlorperazine Edisylate (Compazine Inj) 10 mg ONCE ONCE IV PUSH Last administered on 08/09/16 11:06; Start 08/09/16 at 11:00; Stop 08/09/16 at 11:01; Status DC Diphenhydramine HCl 25 mg 25 mg ONCE ONCE IV PUSH Last administered on 11:04; Start 08/09/16 at 11:00; Stop 08/09/16 at 11:01; Status DC Sodium Chloride (NS 1000 ml Inj) 1,000 ml @ 999 mls/hr BOLUS ONCE IV Last administered on 08/09/16 13:02; Start 08/09/16 at 12:15; Stop 08/09/16 at 13:15; Status DC Hydromorphone HCl 2 mg 2 mg ONCE ONCE IV PUSH Last administered on 08/09/16 14 :03; Start 08/09/16 at 14:00; Stop 08/09/16 at 14:01; Status DC Potassium Chloride/Dextrose/ Sodium Chloride (KCl Inj/D5W-NS 1000 ml Inj) 1,005 ml @ 70 mls/hr [id number] IV Last administered on 08/12/16 13:22; Start 08/09/16 at 18:00 Pantoprazole Sodium (Protonix Inj) 40 mg Q24H IV PUSH Last administered on 18:35; Start 08/09/16 at 18:00 Ondansetron HCl (Zofran Inj) 4 mg Q6HR PRN IV PUSH NAUSEA OR VOMITING Last administered on 08/12/16 08:15; Start 08/09/16 at 17:30 Hydromorphone HCl (Dilaudid Pf Inj) 0.5 mg Q4H PRN IV PUSH PAIN SCALE 4 TO 10 Last administered on 08/10/16 04:10; Start 08/09/16 at 17:30; Stop 08/10/16 at 04: 26; Status DC Hydromorphone HCl (Dilaudid Pf Inj) 0.5 mg ONCE ONCE IV PUSH Last administered on 08/09/16 21:01; Start 08/09/16 at 20:15; Stop 08/09/16 at 20:19; Status DC Hydromorphone HCl (Dilaudid Pf Inj) 1 mg Q4H PRN IV PUSH PAIN SCALE 4 TO 10 Last administered on 08/10/16 09:25; Start 08/10/16 at 05:30; Stop 08/10/16 at 10: 47; Status DC Hydromorphone HCl (Dilaudid Pf Inj) 0.5 mg NOW ONCE IV Last administered on 05:13; Start 08/10/16 at 05:00; Stop 08/10/16 at 05:01; Status DC Diatrizoate Meglum/ Diatrizoate Sod ( Gastroview Liq) 18 ml ONCE ONCE PO Last administered on 08/10/16 09:57; Start 08/10/16 at 09:15; Stop 08/10/16 at 09: 16; Status DC Naloxone HCl (Narcan Inj) 0.4 mg STK-MED ONCE .ROUTE Last administered on 09:42; Start 08/10/16 at 09:37; Stop 08/10/16 at 09:38; Status DC Hydromorphone HCl (Dilaudid Pf Inj) 0.5 mg Q4H PRN IV PUSH PAIN SCALE 4 TO 10 Last administered on 08/12/16 05:25; Start 08/10/16 at 13:30 Acetaminophen/ Hydrocodone Bitart (Riggins 7.5-325 Mg) 1 tab Q4H PRN PO PAIN SCALE 5 TO 7 Last administered on 08/12/16 15:10; Start 08/10/16 at 11:00 Iohexol (Omnipaque 350 Inj) 96 ml STK-MED ONCE IV Last administered on 12:21; Start 08/10/16 at 12:21; Stop 08/10/16 at 12:22; Status DC Heparin Sodium (Porcine) (Heparin Central Flush) 250 units STK-MED ONCE IV FLUSH Last administered on 08/10/16 12:22; Start 08/10/16 at 12:22; Stop at 14:15; Status DC Gadodiamide (Omniscan Pf Inj) 13 ml STK-MED ONCE IV Last administered on 15:16; Start 08/10/16 at 15:16; Stop 08/10/16 at 15:17; Status DC Sucralfate (Carafate Liq) 1 gm ACHS PO Last administered on 08/12/16 16:00; Start 08/11/16 at 11:00 Dexamethasone (Decadron) 4 mg Q12HR PO Last administered on 08/12/16 08:15; Start 08/11/16 at 10:30 Cyclobenzaprine HCl 10 mg 10 mg Q8HR PO ; Start 08/11/16 at 11:00; Stop 08/11/16 at 11:53; Status DC Phenytoin Sodium/ Sodium Chloride (Dilantin Inj/NS Inj) 120 ml @ 288 mls/hr ONCE ONCE IV Last administered on 08/11/16 12:45; Start 08/11/16 at 12:00; Stop 08/11/16 at 12:24; Status DC Phenytoin Sodium (Dilantin Inj) 100 mg Q8HR IV Last administered on 08/12/16 13 :14; Start 08/11/16 at 22:00 Miscellaneous Information ALL NURSING DEPARTME... UNSCH PRN .XX SEE LABEL COMMENTS; Start 08/11/16 at 15:15; Stop 08/12/16 at 15:14; Status DC Miscellaneous Information ALL NURSING DEPARTME... UNSCH PRN .XX SEE LABEL COMMENTS; Start 08/11/16 at 15:15; Stop 08/12/16 at 15:14; Status DC Propofol (Diprivan 200 Mg/20 ml Inj) 100 mg STK-MED ONCE IV ; Start 08/11/16 at 09:14; Stop 08/11/16 at 17:41; Status DC Midazolam HCl (Versed Inj) 2 mg STK-MED ONCE IV ; Start 08/11/16 at 09:14; Stop 08/11/16 at 17:41; Status DC Fentanyl Citrate (fentaNYL INJ) 100 mcg STK-MED ONCE IV ; Start 08/11/16 at 09:14 ; Stop 08/11/16 at 17:41; Status DC Gadodiamide (Omniscan Pf Inj) 10 ml STK-MED ONCE IV Last administered on 12:22; Start 08/12/16 at 12:22; Stop 08/12/16 at 12:23; Status DC Lorazepam (Ativan) 0.5 mg Q8HR PRN PO Anxiety Last administered on 08/12/16 14: 28; Start 08/12/16 at 14:00 A/P Problem List: (1) Brain mass ICD Code: G93.9 (2) Metastatic lung cancer (metastasis from lung to other site) ICD Code: C34.90 (3) Seizure ICD Code: R56.9 Assessment and Plan A/P Brain Masses Progressive Metastatic Lung Cancer Oncology following Radiation planned Brain mets are the likely etiology of her recent seizures Seizure Not yet stable Treatment initiated yesterday Continue Dilantin Monitor for recurrent seizures Monitor for pre-seizure symptoms (ascending neuropathic pains) Anxiety Reactive PRN Ativan Rajesh Chiu MD Aug 12, 2016 16:50
[2016-08-12] MEDS: PANTOPRAZOLE SODIUM 40 MG VIAL IV PUSH SCH (17:40)
[2016-08-12 20:00] VITALS: BP 108/62; PULSE 111; RESP 18; TEMP 98.6; O2SAT 97
[2016-08-13] VITALS (7 sets, daily range): BP systolic 114–145; BP diastolic 65–96; PULSE 96–117; RESP 16–19; TEMP 97.7–98.6; O2SAT 96–99
[2016-08-13] MEDS: HYDROmorphone HCL PF 1 MG/ML VIAL IV PUSH PRN ×3 (00:13→11:01)
[2016-08-13] MEDS: POTASSIUM CHLORIDE INJ 10 MEQ in DEXT 5%-NACL 0.9% 1000 ML INJ 1,000 ML IV SCH ×2 (03:15→22:34)
[2016-08-13 05:33] LABS: ALKALINE PHOSPHATASE 86 U/L (45-117); ALT (GPT) 9 U/L (10-53); ANION GAP 7 MEQ/L (5-15); AST (GOT) 18 U/L (15-37); BICARBONATE 27.8 MEQ/L (21.0-32.0); BLOOD UREA NITROGEN 7 MG/DL (7-18); CHLORIDE 107 MEQ/L (98-107); GLOMERULAR FILTRATION RATE 65 ML/MIN (>89); POTASSIUM 4.4 MEQ/L (3.5-5.1); SODIUM (NA) 142 MEQ/L (136-145); TOTAL BILIRUBIN ADULT 0.1 MG/DL (0.2-1.0)
[2016-08-13 05:47] LABS: AUTOMATED NEUTROPHIL # 7.5 TH/MM3 (1.8-7.7); BASOPHIL % 0.2 % (0.0-2.0); EOSINOPHIL # 0.1 TH/MM3 (0-0.4); EOSINOPHIL % 0.6 % (0.0-4.0); HEMATOCRIT 27.3 % (35.0-46.0); HEMO FLAGS DIFF FINAL; LYMPH % 8.4 % (9.0-44.0); LYMPHOCYTE # 0.7 TH/MM3 (1.0-4.8); MEAN CORPUSCULAR HEMOGLOBIN 27.4 PG (27.0-34.0); MEAN CORPUSCULAR HGB CONC 32.6 % (32.0-36.0); MONO % 5.1 % (0.0-8.0); NEUT % 85.7 % (16.0-70.0); PLATELET COUNT 597 TH/MM3 (150-450); RED BLOOD COUNT 3.25 MIL/MM3 (4.00-5.30); RED CELL DISTRIBUTION WIDTH 16.4 % (11.6-17.2); WHITE BLOOD COUNT 8.7 TH/MM3 (4.0-11.0)
[2016-08-13] MEDS: PHENYTOIN INJ 100 MG/2 ML VIAL IV SCH ×3 (05:48→20:57)
[2016-08-13] MEDS: SUCRALFATE 1 GM/10 ML CUP PO SCH ×4 (05:49→20:56)
[2016-08-13] MEDS: LORazepam 0.5 MG TAB PO PRN (05:51)
[2016-08-13] MEDS: ACETAMINOPHEN/HYDROcodone 325 MG/7.5 MG TAB PO PRN ×2 (09:34→23:30)
[2016-08-13] MEDS: DEXAMETHASONE 4 MG TAB PO SCH ×2 (09:34→20:56)
--- NOTE | 2016-08-13 09:37 | HHI.PR ---
Subjective Remarks No distress when seen. Last seizure occured 08/11/16. Complaints of intermitant anxiety remains today, she doesn't feel ativan has helped. Chronic pain has been an issue for three weeks, likely related to her cancer and unlikely to improve. No complaints of nausea. Objective Vital Signs Date Time Temp Pulse Resp B/P Pulse Ox O2 Delivery O2 Flow Rate FiO2 08/13/16 04:00 98.3 104 19 114/65 97 08/13/16 00:00 97.9 114 18 120/67 96 08/12/16 20:00 98.6 111 18 108/62 97 08/12/16 16:00 98.2 106 18 111/74 98 08/12/16 13:15 99.0 110 16 137/88 100 I/O 08/12/16 08/12/16 08/12/16 08/13/16 08/13/16 08/13/16 07:00 15:00 23:00 07:00 15:00 23:00 Intake Total 2480 ml 1440 ml 3120 ml 2363 ml Balance 2480 ml 1440 ml 3120 ml 2363 ml Intake Oral 2480 ml 1440 ml 1720 ml 1240 ml IV Total 1400 ml 1123 ml # Voids 3 6 4 3 # Bowel Movements 1 Result Diagram: 08/13/16 0430 08/13/16 0430 Imaging Last Impressions Entire Spine MRI 08/12/16 0000 Signed Impressions: Service Date/Time: Thursday, August 11, 2016 13:40 - CONCLUSION: No evidence of metastatic disease. Jen Parry MD Chest CT 08/10/16 0000 Signed Impressions: Service Date/Time: August 12:10 - CONCLUSION: Stable chest appearance Michael Chaudhari MD Brain MRI 08/10/16 0000 Signed Impressions: Service Date/Time: August 15:05 - CONCLUSION: 1. 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 This appears to narrow the aqueduct of Sylvius, but there is no evidence of hydrocephalus. 2. The left cerebellar vermis enhancing nodule is stable in size at 4 mm. 3. The enhancing mass in the suprasellar cistern has resolved. No mass effect on the chiasm. Eusebio Meraz MD Abdomen/Pelvis CT 08/10/16 0000 Signed Impressions: Service Date/Time: August 12:10 - CONCLUSION: 1. There are changes consistent with radiation therapy at the left lung base. These are only partially visualized. There is a small left basilar effusion. 2. CT scan of the abdomen and pelvis is within normal limits. Rajesh Bhatia MD Chest X-Ray 08/09/16 1731 Signed Impressions: Service Date/Time: Tuesday, August 09, 2016 17:58 - CONCLUSION: Stable moderate left base parenchymal opacity and pleural effusion. Slight developing parenchymal opacity at the right lung base. Michael Chaudhari MD Head CT 08/09/16 0000 Signed Impressions: Service Date/Time: Tuesday, August 09, 2016 18:20 - CONCLUSION: No acute intracranial findings Michael Chaudhari MD Objective Remarks GENERAL: No Distress. A&Ox3 SKIN: Warm and dry. HEAD: Atraumatic. Normocephalic. EYES: Pupils equal and round. No scleral icterus. No injection or drainage. ENT: No nasal bleeding or discharge. Mucous membranes pink and moist. NECK: Trachea midline. No JVD. CARDIOVASCULAR: Regular rate and rhythm. RESPIRATORY: No accessory muscle use. Clear to auscultation. Breath sounds equal bilaterally. GASTROINTESTINAL: Abdomen soft, non-tender, nondistended. Hepatic and splenic margins not palpable. MUSCULOSKELETAL: Extremities without clubbing, cyanosis, or edema. No obvious deformities. NEUROLOGICAL: Awake and alert. No obvious cranial nerve deficits. Motor grossly within normal limits. Five out of 5 muscle strength in the arms and legs. Normal speech. PSYCHIATRIC: Appropriate mood and affect; insight and judgment normal. Medications and IVs Administered Medications Medications (Trade) Dose Ordered Sig/Benji Route PRN Reason Start Time Stop Time Status Last Admin Dose Admin Potassium Chloride/Dextrose/ Sodium Chloride (KCl Inj/D5W-NS 1000 ml Inj) 1,005 ml @ 70 mls/hr [id number] IV 08/09/16 18:00 08/13/16 03:15 Pantoprazole Sodium (Protonix Inj) 40 mg Q24H IV PUSH 08/09/16 18:00 08/12/16 17:40 Ondansetron HCl (Zofran Inj) 4 mg Q6HR PRN IV PUSH NAUSEA OR VOMITING 08/09/16 17:30 08/12/16 08:15 Hydromorphone HCl (Dilaudid Pf Inj) 0.5 mg Q4H PRN IV PUSH PAIN SCALE 4 TO 10 08/10/16 13:30 08/13/16 06:57 Acetaminophen/ Hydrocodone Bitart ([place] 7.5-325 Mg) 1 tab Q4H PRN PO PAIN SCALE 5 TO 7 08/10/16 11:00 08/12/16 15:10 Sucralfate (Carafate Liq) 1 gm ACHS PO 08/11/16 11:00 08/13/16 05:49 Dexamethasone (Decadron) 4 mg Q12HR PO 08/11/16 10:30 08/12/16 21:11 Phenytoin Sodium (Dilantin Inj) 100 mg Q8HR IV 08/11/16 22:00 08/13/16 05:48 Lorazepam (Ativan) 0.5 mg Q8HR PRN PO Anxiety 08/12/16 14:00 08/13/16 05:51 A/P Problem List: (1) Brain mass ICD Code: G93.9 (2) Metastatic lung cancer (metastasis from lung to other site) ICD Code: C34.90 (3) Seizure ICD Code: R56.9 Assessment and Plan A/P Lung Cancer with Metastasis Brain Masses Chronic Pain Progressive Metastatic Lung Cancer Oncology following Radiation planned Brain mets are the likely etiology of her recent seizures MS Contin 15mg Q12h initiated for improved outpatient pain control, to be continued with home dosings of PRN Percocet Seizure No seizures overnight Continue Dilantin Monitor for recurrent seizures Monitor for pre-seizure symptoms (ascending neuropathic pains) Anxiety Reactive PRN Valium started Ativan discontinued Rajesh Chiu MD Aug 13, 2016 09:37
[2016-08-13] MEDS: MORPHINE SULFATE 15 MG CONTROLLED RELEASE TAB PO SCH ×2 (11:00→20:57)
[2016-08-13] MEDS: PANTOPRAZOLE SODIUM 40 MG VIAL IV PUSH SCH (18:28)
[2016-08-14] VITALS: BP 132/89; PULSE 102; RESP 19; TEMP 96.5; O2SAT 99
[2016-08-14 04:00] VITALS: BP 130/67; PULSE 99; RESP 18; TEMP 98.3; O2SAT 96
[2016-08-14] MEDS: SUCRALFATE 1 GM/10 ML CUP PO SCH ×4 (05:51→20:10)
[2016-08-14] MEDS: PHENYTOIN INJ 100 MG/2 ML VIAL IV SCH ×3 (05:52→22:39)
[2016-08-14] MEDS: ACETAMINOPHEN/HYDROcodone 325 MG/7.5 MG TAB PO PRN ×3 (05:57→20:12)
[2016-08-14 08:00] VITALS: BP 120/82; PULSE 72; RESP 18; TEMP 98.4; O2SAT 97
--- NOTE | 2016-08-14 08:20 | HHI.PR ---
Subjective Remarks resting comfortably with no distress. has mild lower back pain. no headache or seizures. Objective Vitals Vital Signs Date Time Temp Pulse Resp B/P Pulse Ox O2 Delivery O2 Flow Rate FiO2 08/14/16 04:00 98.3 99 18 130/67 96 08/14/16 00:00 96.5 102 19 132/89 99 08/13/16 22:40 21 08/13/16 20:00 98.6 103 18 145/96 98 08/13/16 16:00 98.0 97 18 127/78 99 08/13/16 13:50 98.2 107 18 140/87 99 08/13/16 12:00 97.8 117 16 135/81 98 08/13/16 09:30 97.7 96 16 134/81 98 I/O 08/13/16 08/13/16 08/13/16 08/14/16 08/14/16 08/14/16 07:00 15:00 23:00 07:00 15:00 23:00 Intake Total 2363 ml 960 ml 1360 ml 2016 ml Balance 2363 ml 960 ml 1360 ml 2016 ml Intake Oral 1240 ml 960 ml 1360 ml 1240 ml IV Total 1123 ml 776 ml # Voids 3 4 4 4 # Bowel Movements 0 Result Diagram: 08/13/16 0430 08/13/16 0430 Imaging Last Impressions Entire Spine MRI 08/12/16 0000 Signed Impressions: Service Date/Time: Thursday, August 11, 2016 13:40 - CONCLUSION: No evidence of metastatic disease. Jen Parry MD Chest CT 08/10/16 0000 Signed Impressions: Service Date/Time: August 12:10 - CONCLUSION: Stable chest appearance Michael Chaudhari MD Brain MRI 08/10/16 0000 Signed Impressions: Service Date/Time: August 15:05 - CONCLUSION: 1. 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 This appears to narrow the aqueduct of Sylvius, but there is no evidence of hydrocephalus. 2. The left cerebellar vermis enhancing nodule is stable in size at 4 mm. 3. The enhancing mass in the suprasellar cistern has resolved. No mass effect on the chiasm. Eusebio Meraz MD Abdomen/Pelvis CT 08/10/16 0000 Signed Impressions: Service Date/Time: August 12:10 - CONCLUSION: 1. There are changes consistent with radiation therapy at the left lung base. These are only partially visualized. There is a small left basilar effusion. 2. CT scan of the abdomen and pelvis is within normal limits. Rajesh Bhatia MD Chest X-Ray 08/09/16 1731 Signed Impressions: Service Date/Time: Tuesday, August 09, 2016 17:58 - CONCLUSION: Stable moderate left base parenchymal opacity and pleural effusion. Slight developing parenchymal opacity at the right lung base. Michael Chaudhari MD Head CT 08/09/16 0000 Signed Impressions: Service Date/Time: Tuesday, August 09, 2016 18:20 - CONCLUSION: No acute intracranial findings Michael Chaudhari MD Objective Remarks GENERAL: This is a well-nourished, well-developed patient, in no apparent distress. CARDIOVASCULAR: Regular rate and regular rhythm without murmurs, gallops, or rubs. RESPIRATORY: Clear to auscultation. Breath sounds equal bilaterally. No wheezes , rales, or rhonchi. GASTROINTESTINAL: Abdomen soft, non-tender, nondistended. Normal, active bowel sounds MUSCULOSKELETAL: Extremities without clubbing, cyanosis, or edema. NEURO: Alert & Oriented x4 to person, place, time, situation. Moves all ext x4 Procedures EGD Medications and IVs Current Medications Sodium Chloride (NS 1000 ml Inj) 1,000 ml @ 999 mls/hr BOLUS ONCE IV Last administered on 08/09/16 09:22; Start 08/09/16 at 09:15; Stop 08/09/16 at 10:15; Status DC Hydromorphone HCl (Dilaudid Pf Inj) 2 mg ONCE ONCE IV PUSH Last administered on 08/09/16 09:22; Start 08/09/16 at 09:15; Stop 08/09/16 at 09:16; Status DC Ondansetron HCl 4 mg 4 mg ONCE ONCE IV PUSH Last administered on 08/09/16 09: 22; Start 08/09/16 at 09:15; Stop 08/09/16 at 09:16; Status DC Sodium Chloride (NS 1000 ml Inj) 1,000 ml @ 1,000 mls/hr Q1H ONCE IV Last administered on 08/09/16 10:22; Start 08/09/16 at 09:50; Stop 08/09/16 at 10:49; Status DC Sodium Chloride (NS Flush) 2 ml UNSCH PRN IVF FLUSH AFTER USING IV ACCESS; Start 08/09/16 at 10:00 Prochlorperazine Edisylate (Compazine Inj) 10 mg ONCE ONCE IV PUSH Last administered on 08/09/16 11:06; Start 08/09/16 at 11:00; Stop 08/09/16 at 11:01; Status DC Diphenhydramine HCl 25 mg 25 mg ONCE ONCE IV PUSH Last administered on 11:04; Start 08/09/16 at 11:00; Stop 08/09/16 at 11:01; Status DC Sodium Chloride (NS 1000 ml Inj) 1,000 ml @ 999 mls/hr BOLUS ONCE IV Last administered on 08/09/16 13:02; Start 08/09/16 at 12:15; Stop 08/09/16 at 13:15; Status DC Hydromorphone HCl 2 mg 2 mg ONCE ONCE IV PUSH Last administered on 08/09/16 14 :03; Start 08/09/16 at 14:00; Stop 08/09/16 at 14:01; Status DC Potassium Chloride/Dextrose/ Sodium Chloride (KCl Inj/D5W-NS 1000 ml Inj) 1,005 ml @ 70 mls/hr [id number] IV Last administered on 08/13/16 22:34; Start 08/09/16 at 18:00 Pantoprazole Sodium (Protonix Inj) 40 mg Q24H IV PUSH Last administered on 18:28; Start 08/09/16 at 18:00 Ondansetron HCl (Zofran Inj) 4 mg Q6HR PRN IV PUSH NAUSEA OR VOMITING Last administered on 08/12/16 08:15; Start 08/09/16 at 17:30 Hydromorphone HCl (Dilaudid Pf Inj) 0.5 mg Q4H PRN IV PUSH PAIN SCALE 4 TO 10 Last administered on 08/10/16 04:10; Start 08/09/16 at 17:30; Stop 08/10/16 at 04: 26; Status DC Hydromorphone HCl (Dilaudid Pf Inj) 0.5 mg ONCE ONCE IV PUSH Last administered on 08/09/16 21:01; Start 08/09/16 at 20:15; Stop 08/09/16 at 20:19; Status DC Hydromorphone HCl (Dilaudid Pf Inj) 1 mg Q4H PRN IV PUSH PAIN SCALE 4 TO 10 Last administered on 08/10/16 09:25; Start 08/10/16 at 05:30; Stop 08/10/16 at 10: 47; Status DC Hydromorphone HCl (Dilaudid Pf Inj) 0.5 mg NOW ONCE IV Last administered on 05:13; Start 08/10/16 at 05:00; Stop 08/10/16 at 05:01; Status DC Diatrizoate Meglum/ Diatrizoate Sod ( Gastroview Liq) 18 ml ONCE ONCE PO Last administered on 08/10/16 09:57; Start 08/10/16 at 09:15; Stop 08/10/16 at 09: 16; Status DC Naloxone HCl (Narcan Inj) 0.4 mg STK-MED ONCE .ROUTE Last administered on 09:42; Start 08/10/16 at 09:37; Stop 08/10/16 at 09:38; Status DC Hydromorphone HCl (Dilaudid Pf Inj) 0.5 mg Q4H PRN IV PUSH PAIN SCALE 4 TO 10 Last administered on 08/13/16 11:01; Start 08/10/16 at 13:30 Acetaminophen/ Hydrocodone Bitart ([place] 7.5-325 Mg) 1 tab Q4H PRN PO PAIN SCALE 5 TO 7 Last administered on 08/14/16 05:57; Start 08/10/16 at 11:00 Iohexol (Omnipaque 350 Inj) 96 ml STK-MED ONCE IV Last administered on 12:21; Start 08/10/16 at 12:21; Stop 08/10/16 at 12:22; Status DC Heparin Sodium (Porcine) (Heparin Central Flush) 250 units STK-MED ONCE IV FLUSH Last administered on 08/10/16 12:22; Start 08/10/16 at 12:22; Stop at 14:15; Status DC Gadodiamide (Omniscan Pf Inj) 13 ml STK-MED ONCE IV Last administered on 15:16; Start 08/10/16 at 15:16; Stop 08/10/16 at 15:17; Status DC Sucralfate (Carafate Liq) 1 gm ACHS PO Last administered on 08/14/16 05:51; Start 08/11/16 at 11:00 Dexamethasone (Decadron) 4 mg Q12HR PO Last administered on 08/13/16 20:56; Start 08/11/16 at 10:30 Cyclobenzaprine HCl 10 mg 10 mg Q8HR PO ; Start 08/11/16 at 11:00; Stop 08/11/16 at 11:53; Status DC Phenytoin Sodium/ Sodium Chloride (Dilantin Inj/NS Inj) 120 ml @ 288 mls/hr ONCE ONCE IV Last administered on 08/11/16 12:45; Start 08/11/16 at 12:00; Stop 08/11/16 at 12:24; Status DC Phenytoin Sodium (Dilantin Inj) 100 mg Q8HR IV Last administered on 08/14/16 05:52; Start 08/11/16 at 22:00 Miscellaneous Information ALL NURSING DEPARTME... UNSCH PRN .XX SEE LABEL COMMENTS; Start 08/11/16 at 15:15; Stop 08/12/16 at 15:14; Status DC Miscellaneous Information ALL NURSING DEPARTME... UNSCH PRN .XX SEE LABEL COMMENTS; Start 08/11/16 at 15:15; Stop 08/12/16 at 15:14; Status DC Propofol (Diprivan 200 Mg/20 ml Inj) 100 mg STK-MED ONCE IV ; Start 08/11/16 at 09:14; Stop 08/11/16 at 17:41; Status DC Midazolam HCl (Versed Inj) 2 mg STK-MED ONCE IV ; Start 08/11/16 at 09:14; Stop 08/11/16 at 17:41; Status DC Fentanyl Citrate (fentaNYL INJ) 100 mcg STK-MED ONCE IV ; Start 08/11/16 at 09:14 ; Stop 08/11/16 at 17:41; Status DC Gadodiamide (Omniscan Pf Inj) 10 ml STK-MED ONCE IV Last administered on 12:22; Start 08/12/16 at 12:22; Stop 08/12/16 at 12:23; Status DC Lorazepam (Ativan) 0.5 mg Q8HR PRN PO Anxiety Last administered on 08/13/16 05: 51; Start 08/12/16 at 14:00; Stop 08/13/16 at 09:33; Status DC Morphine Sulfate (Oramorph Sr) 15 mg Q12HR PO Last administered on 08/13/16 20: 57; Start 08/13/16 at 11:00 Diazepam (Valium) 5 mg Q8H PRN PO anxiety; Start 08/13/16 at 09:30 A/P Assessment and Plan A/P Lung Cancer with Metastasis Brain Masses Chronic Pain Progressive Metastatic Lung Cancer Oncology and radiation oncology following Radiation planned Brain mets are the likely etiology of her recent seizures continue with pain control and Decadron Seizure No seizures overnight Continue Dilantin Monitor for recurrent seizures abdominal pain s/p EGD with gastritis continue PPI Anxiety Reactive PRN Valium started Ativan discontinued Lindsey Ferrer MD Aug 14, 2016 08:20
[2016-08-14] MEDS: DEXAMETHASONE 4 MG TAB PO SCH ×2 (09:46→20:10)
[2016-08-14] MEDS: MORPHINE SULFATE 15 MG CONTROLLED RELEASE TAB PO SCH ×2 (09:47→20:11)
[2016-08-14 10:01] VITALS: O2SAT 98
[2016-08-14] MEDS: SENNOSIDES 8.6 MG TAB PO SCH ×2 (12:24→20:10)
[2016-08-14] MEDS: POTASSIUM CHLORIDE INJ 10 MEQ in DEXT 5%-NACL 0.9% 1000 ML INJ 1,000 ML IV SCH (12:25)
--- NOTE | 2016-08-14 15:07 | PD.ONC.PN ---
Subjective Subjective Remarks Afebrile overnight. Patient had another seizure yesterday. No seizure today. She is tired of being in the hospital but afraid to go home. Objective Data Date Time Temp Pulse Resp B/P Pulse Ox O2 Delivery O2 Flow Rate FiO2 08/14/16 10:01 98 21 08/14/16 08:00 98.4 72 18 120/82 97 08/14/16 04:00 98.3 99 18 130/67 96 08/14/16 00:00 96.5 102 19 132/89 99 08/13/16 22:40 21 08/13/16 20:00 98.6 103 18 145/96 98 08/13/16 16:00 98.0 97 18 127/78 99 08/14/16 08/14/16 08/14/16 07:00 15:00 23:00 Intake Total 2015 ml Balance 2016 ml Result Diagram: 08/13/16 0430 08/13/16 043 Laboratory Results Laboratory Tests Test 08/14/16 04:25 Phenytoin (Dilantin) Level 14.3 MCG/ML Administered Medications Medications (Trade) Dose Ordered Sig/Benji Route PRN Reason Start Time Stop Time Status Last Admin Dose Admin Potassium Chloride/Dextrose/ Sodium Chloride (KCl Inj/D5W-NS 1000 ml Inj) 1,005 ml @ 70 mls/hr [id number] IV 08/09/16 18:00 08/14/16 12:25 Pantoprazole Sodium (Protonix Inj) 40 mg Q24H IV PUSH 08/09/16 18:00 08/13/16 18:28 Ondansetron HCl (Zofran Inj) 4 mg Q6HR PRN IV PUSH NAUSEA OR VOMITING 08/09/16 17:30 08/12/16 08:15 Hydromorphone HCl (Dilaudid Pf Inj) 0.5 mg Q4H PRN IV PUSH PAIN SCALE 4 TO 10 08/10/16 13:30 08/13/16 11:01 Acetaminophen/ Hydrocodone Bitart ([place] 7.5-325 Mg) 1 tab Q4H PRN PO PAIN SCALE 5 TO 7 08/10/16 11:00 08/14/16 12:25 Sucralfate (Carafate Liq) 1 gm ACHS PO 08/11/16 11:00 08/14/16 12:25 Dexamethasone (Decadron) 4 mg Q12HR PO 08/11/16 10:30 08/14/16 09:46 Phenytoin Sodium (Dilantin Inj) 100 mg Q8HR IV 08/11/16 22:00 08/14/16 14:35 Morphine Sulfate (Oramorph Sr) 15 mg Q12HR PO 08/13/16 11:00 08/14/16 09:47 Sennosides (Senokot) 8.6 mg BID PO 08/14/16 12:00 08/14/16 12:24 Objective Remarks GENERAL: middle aged female, sitting up in bed, anxious SKIN: Warm and dry. HEAD: Normocephalic. EYES:No injection or drainage. NECK: Supple, trachea midline. CARDIOVASCULAR: Regular rate and rhythm RESPIRATORY: Breath sounds equal bilaterally. No accessory muscle use. GASTROINTESTINAL: Abdomen soft, non-tender, nondistended. EXTREMITIES: No cyanosis, or edema. NEUROLOGICAL: awake and alert, normal speech. moving all extremities. Assessment/Plan Problem List: (1) Non-small cell carcinoma of lung Status: Chronic Plan: 08/14: MRI spine shows no mets. continuing to have seizure. continue Dilantin. d/w Dr. Acevedo he plans to start XRT by next Sunday, will do simulation likely tomorrow 08/11: back pain + lower extremity weakness, will order MRI C/T/L spine to evaluate for spine mets. will start decadron 4mg PO BID. reviewed scans with patient, showed MRI brain images and discussed. patient was, understandably upset that there is a new brain lesion. emotional support provided. d/w Dr. Acevedo as well who will see the patient today and plans to start XRT outpatient. 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 --started on maintenance Alimta December 2015 --restaging CT chest showed progressive consolidation and volume loss and collapse of LLL with increasing left pleural effusion. --July 2016: started on ?Opdivo --met with [facility] in 07/2016, wanted to try Opdivo before pursuing further radiation Assessment 51y/o female with non-small cell lung cancer, admitted with nausea and vomiting , MRI showed new brain mets. Attending Statement N/V has improved. Had another sz yesterday. pain seems to be under control. D/W pt regarding radiological studies DR Factor to start XRT again. pt will resume opdivo as outpt The exam, history, and the medical decision-making described in the above note were completed with the assistance of the mid-level provider. I reviewed and agree with the findings presented. I attest that I had a [id number] encounter with the patient on the same day, and personally performed and documented my assessment and findings in the medical record... Namrata Rene Aug 14, 2016 15:07 Ita Elizondo MD Aug 14, 2016 18:05
[2016-08-14] MEDS: ONDANSETRON HCL 4 MG/2 ML VIAL IV PUSH PRN (16:27)
[2016-08-14 16:39] VITALS: BP 138/90; PULSE 105; RESP 16; TEMP 97; O2SAT 99
[2016-08-14] MEDS: PANTOPRAZOLE SODIUM 40 MG VIAL IV PUSH SCH (17:58)
[2016-08-14 20:00] VITALS: BP 152/89; PULSE 106; RESP 18; TEMP 98.9; O2SAT 97
[2016-08-14] MEDS: DIAZEPAM 5 MG TAB PO PRN (20:11)
[2016-08-14] MEDS: SODIUM CHLORIDE 0.9% FLUSH 10 ML FLUSH IVF PRN (20:12)
[2016-08-15] VITALS: BP 146/82; PULSE 91; RESP 16; TEMP 97.5; O2SAT 100
[2016-08-15] MEDS: ACETAMINOPHEN/HYDROcodone 325 MG/7.5 MG TAB PO PRN ×4 (00:03→14:34)
[2016-08-15] MEDS: POTASSIUM CHLORIDE INJ 10 MEQ in DEXT 5%-NACL 0.9% 1000 ML INJ 1,000 ML IV SCH ×2 (00:03→18:01)
[2016-08-15] MEDS: ONDANSETRON HCL 4 MG/2 ML VIAL IV PUSH PRN ×2 (00:12→17:39)
[2016-08-15] MEDS: HYDROmorphone HCL PF 1 MG/ML VIAL IV PUSH PRN ×3 (00:13→22:22)
[2016-08-15] MEDS: SODIUM CHLORIDE 0.9% FLUSH 10 ML FLUSH IVF PRN ×2 (00:13→06:34)
[2016-08-15 04:00] VITALS: BP 140/84; PULSE 98; RESP 18; TEMP 96.5; O2SAT 97
[2016-08-15] MEDS: SUCRALFATE 1 GM/10 ML CUP PO SCH ×4 (06:34→20:30)
[2016-08-15] MEDS: PHENYTOIN INJ 100 MG/2 ML VIAL IV SCH ×3 (06:34→21:42)
[2016-08-15 08:00] VITALS: BP 136/74; PULSE 90; RESP 16; TEMP 98.4; O2SAT 98
[2016-08-15] MEDS: DEXAMETHASONE 4 MG TAB PO SCH ×2 (08:06→20:30)
[2016-08-15] MEDS: MORPHINE SULFATE 15 MG CONTROLLED RELEASE TAB PO SCH ×2 (08:06→20:30)
[2016-08-15] MEDS: SENNOSIDES 8.6 MG TAB PO SCH ×2 (08:06→20:30)
--- NOTE | 2016-08-15 08:49 | HHI.PR ---
Subjective Remarks overall feeling fine. no seizures over night. Objective Vitals Vital Signs Date Time Temp Pulse Resp B/P Pulse Ox O2 Delivery O2 Flow Rate FiO2 08/15/16 07:40 18 08/15/16 04:00 96.5 98 18 140/84 97 08/15/16 01:03 18 08/15/16 00:00 97.5 91 16 146/82 100 08/14/16 21:12 18 08/14/16 20:00 98.9 106 18 152/89 97 08/14/16 16:39 97.0 105 16 138/90 99 08/14/16 10:01 98 21 I/O 08/14/16 08/14/16 08/14/16 08/15/16 08/15/16 08/15/16 07:00 15:00 23:00 07:00 15:00 23:00 Intake Total 2016 ml 1160 ml 1140 ml Balance 2015 ml 1160 ml 1140 ml Intake Oral 1240 ml 600 ml IV Total 776 ml 1160 ml 540 ml # Voids 4 2 Result Diagram: 08/13/16 0430 08/13/16 0430 Imaging Last Impressions Entire Spine MRI 08/12/16 0000 Signed Impressions: Service Date/Time: Thursday, August 11, 2016 13:40 - CONCLUSION: No evidence of metastatic disease. Jen Parry MD Chest CT 08/10/16 0000 Signed Impressions: Service Date/Time: August 12:10 - CONCLUSION: Stable chest appearance Michael Chaudhari MD Brain MRI 08/10/16 0000 Signed Impressions: Service Date/Time: August 15:05 - CONCLUSION: 1. 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 This appears to narrow the aqueduct of Sylvius, but there is no evidence of hydrocephalus. 2. The left cerebellar vermis enhancing nodule is stable in size at 4 mm. 3. The enhancing mass in the suprasellar cistern has resolved. No mass effect on the chiasm. Eusebio Meraz MD Abdomen/Pelvis CT 08/10/16 0000 Signed Impressions: Service Date/Time: August 12:10 - CONCLUSION: 1. There are changes consistent with radiation therapy at the left lung base. These are only partially visualized. There is a small left basilar effusion. 2. CT scan of the abdomen and pelvis is within normal limits. Rajesh Bhatia MD Chest X-Ray 08/09/16 1731 Signed Impressions: Service Date/Time: Tuesday, August 09, 2016 17:58 - CONCLUSION: Stable moderate left base parenchymal opacity and pleural effusion. Slight developing parenchymal opacity at the right lung base. Michael Chaudhari MD Head CT 08/09/16 0000 Signed Impressions: Service Date/Time: Tuesday, August 09, 2016 18:20 - CONCLUSION: No acute intracranial findings Michael Chaudhari MD Objective Remarks GENERAL: This is a well-nourished, well-developed patient, in no apparent distress. CARDIOVASCULAR: Regular rate and regular rhythm without murmurs, gallops, or rubs. RESPIRATORY: Clear to auscultation. Breath sounds equal bilaterally. No wheezes , rales, or rhonchi. GASTROINTESTINAL: Abdomen soft, non-tender, nondistended. Normal, active bowel sounds MUSCULOSKELETAL: Extremities without clubbing, cyanosis, or edema. NEURO: Alert & Oriented x4 to person, place, time, situation. Moves all ext x4 Procedures EGD Medications and IVs Current Medications Sodium Chloride (NS 1000 ml Inj) 1,000 ml @ 999 mls/hr BOLUS ONCE IV Last administered on 08/09/16 09:22; Start 08/09/16 at 09:15; Stop 08/09/16 at 10:15; Status DC Hydromorphone HCl (Dilaudid Pf Inj) 2 mg ONCE ONCE IV PUSH Last administered on 08/09/16 09:22; Start 08/09/16 at 09:15; Stop 08/09/16 at 09:16; Status DC Ondansetron HCl 4 mg 4 mg ONCE ONCE IV PUSH Last administered on 08/09/16 09: 22; Start 08/09/16 at 09:15; Stop 08/09/16 at 09:16; Status DC Sodium Chloride (NS 1000 ml Inj) 1,000 ml @ 1,000 mls/hr Q1H ONCE IV Last administered on 08/09/16 10:22; Start 08/09/16 at 09:50; Stop 08/09/16 at 10:49; Status DC Sodium Chloride (NS Flush) 2 ml UNSCH PRN IVF FLUSH AFTER USING IV ACCESS Last administered on 08/15/16 06:34; Start 08/09/16 at 10:00 Prochlorperazine Edisylate (Compazine Inj) 10 mg ONCE ONCE IV PUSH Last administered on 08/09/16 11:06; Start 08/09/16 at 11:00; Stop 08/09/16 at 11:01; Status DC Diphenhydramine HCl 25 mg 25 mg ONCE ONCE IV PUSH Last administered on 11:04; Start 08/09/16 at 11:00; Stop 08/09/16 at 11:01; Status DC Sodium Chloride (NS 1000 ml Inj) 1,000 ml @ 999 mls/hr BOLUS ONCE IV Last administered on 08/09/16 13:02; Start 08/09/16 at 12:15; Stop 08/09/16 at 13:15; Status DC Hydromorphone HCl 2 mg 2 mg ONCE ONCE IV PUSH Last administered on 08/09/16 14 :03; Start 08/09/16 at 14:00; Stop 08/09/16 at 14:01; Status DC Potassium Chloride/Dextrose/ Sodium Chloride (KCl Inj/D5W-NS 1000 ml Inj) 1,005 ml @ 70 mls/hr [id number] IV Last administered on 08/15/16 00:03; Start 08/09/16 at 18:00 Pantoprazole Sodium (Protonix Inj) 40 mg Q24H IV PUSH Last administered on 08/14 17:58; Start 08/09/16 at 18:00 Ondansetron HCl (Zofran Inj) 4 mg Q6HR PRN IV PUSH NAUSEA OR VOMITING Last administered on 08/15/16 00:12; Start 08/09/16 at 17:30 Hydromorphone HCl (Dilaudid Pf Inj) 0.5 mg Q4H PRN IV PUSH PAIN SCALE 4 TO 10 Last administered on 08/10/16 04:10; Start 08/09/16 at 17:30; Stop 08/10/16 at 04: 26; Status DC Hydromorphone HCl (Dilaudid Pf Inj) 0.5 mg ONCE ONCE IV PUSH Last administered on 08/09/16 21:01; Start 08/09/16 at 20:15; Stop 08/09/16 at 20:19; Status DC Hydromorphone HCl (Dilaudid Pf Inj) 1 mg Q4H PRN IV PUSH PAIN SCALE 4 TO 10 Last administered on 08/10/16 09:25; Start 08/10/16 at 05:30; Stop 08/10/16 at 10: 47; Status DC Hydromorphone HCl (Dilaudid Pf Inj) 0.5 mg NOW ONCE IV Last administered on 05:13; Start 08/10/16 at 05:00; Stop 08/10/16 at 05:01; Status DC Diatrizoate Meglum/ Diatrizoate Sod ( Gastroview Liq) 18 ml ONCE ONCE PO Last administered on 08/10/16 09:57; Start 08/10/16 at 09:15; Stop 08/10/16 at 09: 16; Status DC Naloxone HCl (Narcan Inj) 0.4 mg STK-MED ONCE .ROUTE Last administered on 09:42; Start 08/10/16 at 09:37; Stop 08/10/16 at 09:38; Status DC Hydromorphone HCl (Dilaudid Pf Inj) 0.5 mg Q4H PRN IV PUSH PAIN SCALE 4 TO 10 Last administered on 08/15/16 00:13; Start 08/10/16 at 13:30 Acetaminophen/ Hydrocodone Bitart ([place] 7.5-325 Mg) 1 tab Q4H PRN PO PAIN SCALE 5 TO 7 Last administered on 08/15/16 06:40; Start 08/10/16 at 11:00 Iohexol (Omnipaque 350 Inj) 96 ml STK-MED ONCE IV Last administered on 12:21; Start 08/10/16 at 12:21; Stop 08/10/16 at 12:22; Status DC Heparin Sodium (Porcine) (Heparin Central Flush) 250 units STK-MED ONCE IV FLUSH Last administered on 08/10/16 12:22; Start 08/10/16 at 12:22; Stop at 14:15; Status DC Gadodiamide (Omniscan Pf Inj) 13 ml STK-MED ONCE IV Last administered on 15:16; Start 08/10/16 at 15:16; Stop 08/10/16 at 15:17; Status DC Sucralfate (Carafate Liq) 1 gm ACHS PO Last administered on 08/15/16 06:34; Start 08/11/16 at 11:00 Dexamethasone (Decadron) 4 mg Q12HR PO Last administered on 08/15/16 08:06; Start 08/11/16 at 10:30 Cyclobenzaprine HCl 10 mg 10 mg Q8HR PO ; Start 08/11/16 at 11:00; Stop 08/11/16 at 11:53; Status DC Phenytoin Sodium/ Sodium Chloride (Dilantin Inj/NS Inj) 120 ml @ 288 mls/hr ONCE ONCE IV Last administered on 08/11/16 12:45; Start 08/11/16 at 12:00; Stop 08/11/16 at 12:24; Status DC Phenytoin Sodium (Dilantin Inj) 100 mg Q8HR IV Last administered on 08/15/16 06:34; Start 08/11/16 at 22:00 Miscellaneous Information ALL NURSING DEPARTME... UNSCH PRN .XX SEE LABEL COMMENTS; Start 08/11/16 at 15:15; Stop 08/12/16 at 15:14; Status DC Miscellaneous Information ALL NURSING DEPARTME... UNSCH PRN .XX SEE LABEL COMMENTS; Start 08/11/16 at 15:15; Stop 08/12/16 at 15:14; Status DC Propofol (Diprivan 200 Mg/20 ml Inj) 100 mg STK-MED ONCE IV ; Start 08/11/16 at 09:14; Stop 08/11/16 at 17:41; Status DC Midazolam HCl (Versed Inj) 2 mg STK-MED ONCE IV ; Start 08/11/16 at 09:14; Stop 08/11/16 at 17:41; Status DC Fentanyl Citrate (fentaNYL INJ) 100 mcg STK-MED ONCE IV ; Start 08/11/16 at 09:14 ; Stop 08/11/16 at 17:41; Status DC Gadodiamide (Omniscan Pf Inj) 10 ml STK-MED ONCE IV Last administered on 12:22; Start 08/12/16 at 12:22; Stop 08/12/16 at 12:23; Status DC Lorazepam (Ativan) 0.5 mg Q8HR PRN PO Anxiety Last administered on 08/13/16 05: 51; Start 08/12/16 at 14:00; Stop 08/13/16 at 09:33; Status DC Morphine Sulfate (Oramorph Sr) 15 mg Q12HR PO Last administered on 08/15/16 08 :06; Start 08/13/16 at 11:00 Diazepam (Valium) 5 mg Q8H PRN PO anxiety Last administered on 08/14/16 20:11 ; Start 08/13/16 at 09:30 Sennosides (Senokot) 8.6 mg BID PO Last administered on 08/15/16 08:06; Start 08/14/16 at 12:00 A/P Assessment and Plan A/P Lung Cancer with Metastasis Brain Masses Chronic Pain Progressive Metastatic Lung Cancer Oncology and radiation oncology following Radiation planned Brain mets are the likely etiology of her recent seizures continue with pain control and Decadron Seizure No seizures overnight Continue Dilantin Monitor for recurrent seizures abdominal pain s/p EGD with gastritis continue PPI Anxiety Reactive PRN Valium started Ativan discontinued Discharge Planning when cleared by oncology. Lindsey Ferrer MD Aug 15, 2016 08:49
--- NOTE | 2016-08-15 10:52 | RF ---
cc: TIMBO ACEVEDO MD, ABDUL J. M.D. F o l l o w u p R e p o r t DATE OF SERVICE: 08/11/2016 AGE: 31 SEX: F Ms. Lombardi is a 31-year-old female with a history of [id number] lung cancer. We have been involved in treatments in the past for her treatment in both the left lower lung and brain areas. She presents with nausea, some back discomfort. She reports there may be an episode of weakness, not progressive weakness, but some of her legs. She was able to participate in household activities most of the day yesterday. She does have significant back pain, as well. We discussed her case with Dr. Elizondo and SRIRAM Mancuso. We discussed the potential role of radiation to the left lower lung region. This is stable on recent CT imaging. We discussed stereotactic radiosurgery to the single brain metastasis that seems to be new in the quadrageminal area. We discussed potential radiation therapy to the spinous if she does have metastatic disease there. She is undergoing workup to assess for any metastases to the spine, I believe MRI or CT images will be done and we will follow up on this. We discussed Hospice as well. We discussed potential role of Hospice. We discussed potential goals of Hospice as well. We discussed potential risks and benefits of radiation therapy to site specific areas as well. PLAN Ms. Lombardi chose hospice care. Timbo Acevedo MD Radiation Oncologist ADDI/ARIANA /11:06 AM /10:43 AM [facility] HOSPITALDemarcus
[2016-08-15 11:23] LABS: AUTOMATED NEUTROPHIL # 8.2 TH/MM3 (1.8-7.7); BASOPHIL % 0.5 % (0.0-2.0); EOSINOPHIL # 0.2 TH/MM3 (0-0.4); EOSINOPHIL % 1.8 % (0.0-4.0); HEMATOCRIT 28.3 % (35.0-46.0); HEMO FLAGS DIFF FINAL; LYMPH % 7.2 % (9.0-44.0); LYMPHOCYTE # 0.7 TH/MM3 (1.0-4.8); MEAN CELL VOLUME 85.6 FL (80.0-100.0); MEAN CORPUSCULAR HEMOGLOBIN 27.1 PG (27.0-34.0); MEAN CORPUSCULAR HGB CONC 31.6 % (32.0-36.0); MONO % 6.7 % (0.0-8.0); NEUT % 83.8 % (16.0-70.0); PLATELET COUNT 554 TH/MM3 (150-450); RED BLOOD COUNT 3.31 MIL/MM3 (4.00-5.30); RED CELL DISTRIBUTION WIDTH 16.8 % (11.6-17.2); WHITE BLOOD COUNT 9.7 TH/MM3 (4.0-11.0)
[2016-08-15 11:53] LABS: ALKALINE PHOSPHATASE 89 U/L (45-117); ALT (GPT) 22 U/L (10-53); ANION GAP 8 MEQ/L (5-15); AST (GOT) 35 U/L (15-37); BICARBONATE 29.9 MEQ/L (21.0-32.0); BLOOD UREA NITROGEN 7 MG/DL (7-18); CHLORIDE 100 MEQ/L (98-107); GLOMERULAR FILTRATION RATE 75 ML/MIN (>89); SODIUM (NA) 138 MEQ/L (136-145); TOTAL BILIRUBIN ADULT LESS THAN 0.1 MG/DL (0.2-1.0)
[2016-08-15 12:00] VITALS: BP 129/78; PULSE 103; RESP 16; TEMP 98.7; O2SAT 97
--- NOTE | 2016-08-15 12:18 | PD.ONC.PN ---
Subjective Subjective Remarks Afebrile overnight. Patient feeling fatigued today. She feels dizzy when she sits up for too long. Objective Data Date Time Temp Pulse Resp B/P Pulse Ox O2 Delivery O2 Flow Rate FiO2 08/15/16 08:00 98.4 90 16 136/74 98 08/15/16 07:40 18 08/15/16 04:00 96.5 98 18 140/84 97 08/15/16 01:03 18 08/15/16 00:00 97.5 91 16 146/82 100 08/14/16 21:12 18 08/14/16 20:00 98.9 106 18 152/89 97 08/14/16 16:39 97.0 105 16 138/90 99 08/15/16 08/15/16 08/15/16 07:00 15:00 23:00 Intake Total 1140 ml Balance 1140 ml Result Diagram: 08/15/16 1050 08/15/16 1050 Laboratory Results Laboratory Tests Test 08/15/16 10:50 White Blood Count 9.7 TH/MM3 Red Blood Count 3.31 MIL/MM3 Hemoglobin 9.0 GM/DL Hematocrit 28.3 % Mean Corpuscular Volume 85.6 FL Mean Corpuscular Hemoglobin 27.1 PG Mean Corpuscular Hemoglobin 31.6 % Concent Red Cell Distribution Width 16.8 % Platelet Count 554 TH/MM3 Mean Platelet Volume 7.2 FL Neutrophils (%) (Auto) 83.8 % Lymphocytes (%) (Auto) 7.2 % Monocytes (%) (Auto) 6.7 % Eosinophils (%) (Auto) 1.8 % Basophils (%) (Auto) 0.5 % Neutrophils # (Auto) 8.2 TH/MM3 Lymphocytes # (Auto) 0.7 TH/MM3 Monocytes # (Auto) 0.7 TH/MM3 Eosinophils # (Auto) 0.2 TH/MM3 Basophils # (Auto) 0.0 TH/MM3 CBC Comment DIFF FINAL Differential Comment Sodium Level 138 MEQ/L Potassium Level 4.0 MEQ/L Chloride Level 100 MEQ/L Carbon Dioxide Level 29.9 MEQ/L Anion Gap 8 MEQ/L Blood Urea Nitrogen 7 MG/DL Creatinine 0.80 MG/DL Estimat Glomerular Filtration 75 ML/MIN Rate Random Glucose 108 MG/DL Calcium Level 9.0 MG/DL Total Bilirubin LESS THAN 0.1 MG/DL Aspartate Amino Transf 35 U/L (AST/SGOT) Alanine Aminotransferase 22 U/L (ALT/SGPT) Alkaline Phosphatase 89 U/L Total Protein 7.6 GM/DL Albumin 2.5 GM/DL Administered Medications Medications (Trade) Dose Ordered Sig/Benji Route PRN Reason Start Time Stop Time Status Last Admin Dose Admin Sodium Chloride 2 ml 2 ml UNSCH PRN IVF FLUSH AFTER USING IV ACCESS 08/09/16 10:00 08/15/16 06:34 Potassium Chloride/Dextrose/ Sodium Chloride (KCl Inj/D5W-NS 1000 ml Inj) 1,005 ml @ 70 mls/hr [id number] IV 08/09/16 18:00 08/15/16 00:03 Pantoprazole Sodium (Protonix Inj) 40 mg Q24H IV PUSH 08/09/16 18:00 08/14/16 17:58 Ondansetron HCl (Zofran Inj) 4 mg Q6HR PRN IV PUSH NAUSEA OR VOMITING 08/09/16 17:30 08/15/16 00:12 Hydromorphone HCl (Dilaudid Pf Inj) 0.5 mg Q4H PRN IV PUSH PAIN SCALE 4 TO 10 08/10/16 13:30 08/15/16 11:26 Acetaminophen/ Hydrocodone Bitart ([place] 7.5-325 Mg) 1 tab Q4H PRN PO PAIN SCALE 5 TO 7 08/10/16 11:00 08/15/16 10:23 Sucralfate (Carafate Liq) 1 gm ACHS PO 08/11/16 11:00 08/15/16 11:26 Dexamethasone (Decadron) 4 mg Q12HR PO 08/11/16 10:30 08/15/16 08:06 Phenytoin Sodium (Dilantin Inj) 100 mg Q8HR IV 08/11/16 22:00 08/15/16 06:34 Morphine Sulfate (Oramorph Sr) 15 mg Q12HR PO 08/13/16 11:00 08/15/16 08:06 Diazepam (Valium) 5 mg Q8H PRN PO anxiety 08/13/16 09:30 08/14/16 20:11 Sennosides (Senokot) 8.6 mg BID PO 08/14/16 12:00 08/15/16 08:06 Objective Remarks GENERAL: middle aged female, sitting up on the side of bed. in nad. SKIN: Warm and dry. HEAD: Normocephalic. EYES:No injection or drainage. NECK: Supple, trachea midline. CARDIOVASCULAR: Regular rate and rhythm RESPIRATORY: Breath sounds equal bilaterally. No accessory muscle use. GASTROINTESTINAL: Abdomen soft, non-tender, nondistended. EXTREMITIES: No cyanosis, or edema. NEUROLOGICAL: awake and alert, moving all extremities. normal speech. Assessment/Plan Problem List: (1) Non-small cell carcinoma of lung Status: Chronic Plan: 08/15: XRT simulation tomorrow. hopefully seizures will improve when XRT starts. continue dilantin, decadron 08/14: MRI spine shows no mets. continuing to have seizure. continue Dilantin. d/w Dr. Acevedo he plans to start XRT by next Sunday, will do simulation likely tomorrow 08/11: back pain + lower extremity weakness, will order MRI C/T/L spine to evaluate for spine mets. will start decadron 4mg PO BID. reviewed scans with patient, showed MRI brain images and discussed. patient was, understandably upset that there is a new brain lesion. emotional support provided. d/w Dr. Acevedo as well who will see the patient today and plans to start XRT outpatient. 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 --started on maintenance Alimta December 2015 --restaging CT chest showed progressive consolidation and volume loss and collapse of LLL with increasing left pleural effusion. --July 2016: started on ?Opdivo --met with [facility] in 07/2016, wanted to try Opdivo before pursuing further radiation Assessment 51y/o female with non-small cell lung cancer, admitted with nausea and vomiting , MRI showed new brain mets. Attending Statement c/o GUERRERO and dizziness. C/O fatigue. D/W Dr Acevedo. Simulation tomorrow and XRT on sunday. Namrata Rene Aug 15, 2016 12:18 Ita Elizondo MD Aug 15, 2016 20:20
[2016-08-15 16:00] VITALS: BP_SYST 138; BP_SYST 140; BP_DIAS 68; BP_DIAS 83; PULSE 76; PULSE 96; RESP 16; RESP 20; TEMP 98.2; TEMP 98.4; O2SAT 96; O2SAT 99
[2016-08-15] MEDS ORDERED: HOSP BED2 (16:00)
[2016-08-15] MEDS: PANTOPRAZOLE SODIUM 40 MG VIAL IV PUSH SCH (17:39)
[2016-08-15] MEDS: DIAZEPAM 5 MG TAB PO PRN (18:03)
[2016-08-15 20:00] VITALS: BP 138/91; PULSE 105; RESP 18; TEMP 98.3; O2SAT 99
[2016-08-15] MEDS ORDERED: LACTULOSE SYRUP 20 GM/30 ML CUP PO ONE (23:00)
[2016-08-15] MEDS ORDERED: BISACODYL 10 MG SUPP RECTAL ONE (23:00)
[2016-08-16] VITALS: BP 135/78; PULSE 95; RESP 16; TEMP 97.6; O2SAT 98
[2016-08-16] MEDS: ACETAMINOPHEN/HYDROcodone 325 MG/7.5 MG TAB PO PRN ×4 (03:22→17:06)
[2016-08-16 04:00] VITALS: BP 164/83; PULSE 110; RESP 18; TEMP 98.8; O2SAT 96
[2016-08-16] MEDS: PHENYTOIN INJ 100 MG/2 ML VIAL IV SCH ×3 (05:47→21:45)
[2016-08-16] MEDS: ONDANSETRON HCL 4 MG/2 ML VIAL IV PUSH PRN ×2 (05:52→14:07)
[2016-08-16] MEDS: SUCRALFATE 1 GM/10 ML CUP PO SCH ×4 (05:55→21:45)
[2016-08-16 07:50] VITALS: BP 145/85; PULSE 98; RESP 20; TEMP 97.1; O2SAT 99
[2016-08-16] MEDS: DEXAMETHASONE 4 MG TAB PO SCH ×2 (07:52→21:44)
[2016-08-16] MEDS: MORPHINE SULFATE 15 MG CONTROLLED RELEASE TAB PO SCH ×2 (07:52→21:45)
[2016-08-16] MEDS: DIAZEPAM 5 MG TAB PO PRN ×2 (07:52→17:54)
--- NOTE | 2016-08-16 09:43 | PD.ONC.PN ---
Subjective Subjective Remarks c/o severe GUERRERO and vomiting still has fatigue no more sz. Objective Data Date Time Temp Pulse Resp B/P Pulse Ox O2 Delivery O2 Flow Rate FiO2 08/16/16 04:00 98.8 110 18 164/83 96 08/16/16 00:00 97.6 95 16 135/78 98 08/15/16 20:00 98.3 105 18 138/91 99 08/15/16 16:00 98.2 96 16 140/83 96 08/15/16 12:00 98.7 103 16 129/78 97 Result Diagram: 08/15/16 1050 08/15/16 1050 Laboratory Results Laboratory Tests Test 08/15/16 10:50 White Blood Count 9.7 TH/MM3 Red Blood Count 3.31 MIL/MM3 Hemoglobin 9.0 GM/DL Hematocrit 28.3 % Mean Corpuscular Volume 85.6 FL Mean Corpuscular Hemoglobin 27.1 PG Mean Corpuscular Hemoglobin 31.6 % Concent Red Cell Distribution Width 16.8 % Platelet Count 554 TH/MM3 Mean Platelet Volume 7.2 FL Neutrophils (%) (Auto) 83.8 % Lymphocytes (%) (Auto) 7.2 % Monocytes (%) (Auto) 6.7 % Eosinophils (%) (Auto) 1.8 % Basophils (%) (Auto) 0.5 % Neutrophils # (Auto) 8.2 TH/MM3 Lymphocytes # (Auto) 0.7 TH/MM3 Monocytes # (Auto) 0.7 TH/MM3 Eosinophils # (Auto) 0.2 TH/MM3 Basophils # (Auto) 0.0 TH/MM3 CBC Comment DIFF FINAL Differential Comment Sodium Level 138 MEQ/L Potassium Level 4.0 MEQ/L Chloride Level 100 MEQ/L Carbon Dioxide Level 29.9 MEQ/L Anion Gap 8 MEQ/L Blood Urea Nitrogen 7 MG/DL Creatinine 0.80 MG/DL Estimat Glomerular Filtration 75 ML/MIN Rate Random Glucose 108 MG/DL Calcium Level 9.0 MG/DL Total Bilirubin LESS THAN 0.1 MG/DL Aspartate Amino Transf 35 U/L (AST/SGOT) Alanine Aminotransferase 22 U/L (ALT/SGPT) Alkaline Phosphatase 89 U/L Total Protein 7.6 GM/DL Albumin 2.5 GM/DL Administered Medications Medications (Trade) Dose Ordered Sig/Benji Route PRN Reason Start Time Stop Time Status Last Admin Dose Admin Sodium Chloride 2 ml 2 ml UNSCH PRN IVF FLUSH AFTER USING IV ACCESS 08/09/16 10:00 08/15/16 06:34 Potassium Chloride/Dextrose/ Sodium Chloride (KCl Inj/D5W-NS 1000 ml Inj) 1,005 ml @ 70 mls/hr [id number] IV 08/09/16 18:00 08/15/16 18:01 Pantoprazole Sodium (Protonix Inj) 40 mg Q24H IV PUSH 08/09/16 18:00 08/15/16 17:39 Ondansetron HCl (Zofran Inj) 4 mg Q6HR PRN IV PUSH NAUSEA OR VOMITING 08/09/16 17:30 08/16/16 05:52 Hydromorphone HCl (Dilaudid Pf Inj) 0.5 mg Q4H PRN IV PUSH PAIN SCALE 4 TO 10 08/10/16 13:30 08/15/16 22:22 Acetaminophen/ Hydrocodone Bitart ([place] 7.5-325 Mg) 1 tab Q4H PRN PO PAIN SCALE 5 TO 7 08/10/16 11:00 08/16/16 07:52 Sucralfate (Carafate Liq) 1 gm ACHS PO 08/11/16 11:00 08/16/16 05:55 Dexamethasone (Decadron) 4 mg Q12HR PO 08/11/16 10:30 08/16/16 07:52 Phenytoin Sodium (Dilantin Inj) 100 mg Q8HR IV 08/11/16 22:00 08/16/16 05:47 Morphine Sulfate (Oramorph Sr) 15 mg Q12HR PO 08/13/16 11:00 08/16/16 07:52 Diazepam (Valium) 5 mg Q8H PRN PO anxiety 08/13/16 09:30 08/16/16 07:52 Sennosides (Senokot) 8.6 mg BID PO 08/14/16 12:00 08/15/16 20:30 Objective Remarks GENERAL: middle aged female, sitting up on the side of bed. in nad. SKIN: Warm and dry. HEAD: Normocephalic. EYES:No injection or drainage. NECK: Supple, trachea midline. CARDIOVASCULAR: Regular rate and rhythm RESPIRATORY: Breath sounds equal bilaterally. No accessory muscle use. GASTROINTESTINAL: Abdomen soft, non-tender, nondistended. EXTREMITIES: No cyanosis, or edema. NEUROLOGICAL: awake and alert, moving all extremities. normal speech. Assessment/Plan Problem List: (1) Non-small cell carcinoma of lung Status: Chronic Plan: 08/16 for simulation today. SRS on sunday. ok to d/c from my standpoint. fu as outpt on sunday. sign off available prn 08/15: XRT simulation tomorrow. hopefully seizures will improve when XRT starts. continue dilantin, decadron 08/14: MRI spine shows no mets. continuing to have seizure. continue Dilantin. d/w Dr. Acevedo he plans to start XRT by next Sunday, will do simulation likely tomorrow 08/11: back pain + lower extremity weakness, will order MRI C/T/L spine to evaluate for spine mets. will start decadron 4mg PO BID. reviewed scans with patient, showed MRI brain images and discussed. patient was, understandably upset that there is a new brain lesion. emotional support provided. d/w Dr. Acevedo as well who will see the patient today and plans to start XRT outpatient. 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 --started on maintenance Alimta December 2015 --restaging CT chest showed progressive consolidation and volume loss and collapse of LLL with increasing left pleural effusion. --July 2016: started on ?Opdivo --met with [facility] in 07/2016, wanted to try Opdivo before pursuing further radiation Assessment 51y/o female with non-small cell lung cancer, admitted with nausea and vomiting , MRI showed new brain mets. Ita Elizondo MD Aug 16, 2016 09:43
--- NOTE | 2016-08-16 10:10 | MB ---
cc: NEVILLE ACEVEDO MD DATE OF CONSULTATION: 08/14/2016 Ms. Lombardi is currently inpatient. Followup seeing her. Did have a recent seizure. Could be from the intracranial lesion. We discussed stereotactic radiosurgery. Discussed potential toxicities of treatment as well. I met with her today. We will schedule her for stereotactic radiosurgery this Sunday. Anticipate treatment the following week. Neville Acevedo MD BAF/TLL /7:06 PM /9:55 AM
[2016-08-16 11:50] VITALS: BP 133/79; PULSE 90; RESP 20; TEMP 98.2; O2SAT 99
--- NOTE | 2016-08-16 12:20 | HHI.PR ---
Subjective Remarks had radiation simulation today. has slight headache. had some nausea earlier. no seizures over night. d/w the RN. Objective Vitals Vital Signs Date Time Temp Pulse Resp B/P Pulse Ox O2 Delivery O2 Flow Rate FiO2 08/16/16 07:50 97.1 98 20 145/85 99 08/16/16 04:00 98.8 110 18 164/83 96 08/16/16 00:00 97.6 95 16 135/78 98 08/15/16 20:00 98.3 105 18 138/91 99 08/15/16 16:00 98.2 96 16 140/83 96 I/O 08/15/16 08/15/16 08/15/16 08/16/16 08/16/16 08/16/16 07:00 15:00 23:00 07:00 15:00 23:00 Intake Total 1140 ml 840 ml 1680 ml 1030 ml Balance 1140 ml 840 ml 1680 ml 1030 ml Intake Oral 600 ml 840 ml 960 ml 480 ml IV Total 540 ml 720 ml 550 ml # Voids 2 6 3 2 Result Diagram: 08/15/16 1050 08/15/16 1050 Imaging Last Impressions Entire Spine MRI 08/12/16 0000 Signed Impressions: Service Date/Time: Thursday, August 11, 2016 13:40 - CONCLUSION: No evidence of metastatic disease. Jen Parry MD Chest CT 08/10/16 0000 Signed Impressions: Service Date/Time: August 12:10 - CONCLUSION: Stable chest appearance Michael Chaudhari MD Brain MRI 08/10/16 0000 Signed Impressions: Service Date/Time: August 15:05 - CONCLUSION: 1. 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 This appears to narrow the aqueduct of Sylvius, but there is no evidence of hydrocephalus. 2. The left cerebellar vermis enhancing nodule is stable in size at 4 mm. 3. The enhancing mass in the suprasellar cistern has resolved. No mass effect on the chiasm. Eusebio Meraz MD Abdomen/Pelvis CT 08/10/16 0000 Signed Impressions: Service Date/Time: August 12:10 - CONCLUSION: 1. There are changes consistent with radiation therapy at the left lung base. These are only partially visualized. There is a small left basilar effusion. 2. CT scan of the abdomen and pelvis is within normal limits. Rajesh Bhatia MD Chest X-Ray 08/09/16 1731 Signed Impressions: Service Date/Time: Tuesday, August 09, 2016 17:58 - CONCLUSION: Stable moderate left base parenchymal opacity and pleural effusion. Slight developing parenchymal opacity at the right lung base. Michael Chaudhari MD Head CT 08/09/16 0000 Signed Impressions: Service Date/Time: Tuesday, August 09, 2016 18:20 - CONCLUSION: No acute intracranial findings Michael Chaudhari MD Objective Remarks GENERAL: This is a well-nourished, well-developed patient, in no apparent distress. CARDIOVASCULAR: Regular rate and regular rhythm without murmurs, gallops, or rubs. RESPIRATORY: Clear to auscultation. Breath sounds equal bilaterally. No wheezes , rales, or rhonchi. GASTROINTESTINAL: Abdomen soft, non-tender, nondistended. Normal, active bowel sounds MUSCULOSKELETAL: Extremities without clubbing, cyanosis, or edema. NEURO: Alert & Oriented x4 to person, place, time, situation. Moves all ext x4 Procedures EGD Medications and IVs Current Medications Sodium Chloride (NS 1000 ml Inj) 1,000 ml @ 999 mls/hr BOLUS ONCE IV Last administered on 08/09/16 09:22; Start 08/09/16 at 09:15; Stop 08/09/16 at 10:15; Status DC Hydromorphone HCl (Dilaudid Pf Inj) 2 mg ONCE ONCE IV PUSH Last administered on 08/09/16 09:22; Start 08/09/16 at 09:15; Stop 08/09/16 at 09:16; Status DC Ondansetron HCl 4 mg 4 mg ONCE ONCE IV PUSH Last administered on 08/09/16 09: 22; Start 08/09/16 at 09:15; Stop 08/09/16 at 09:16; Status DC Sodium Chloride (NS 1000 ml Inj) 1,000 ml @ 1,000 mls/hr Q1H ONCE IV Last administered on 08/09/16 10:22; Start 08/09/16 at 09:50; Stop 08/09/16 at 10:49; Status DC Sodium Chloride (NS Flush) 2 ml UNSCH PRN IVF FLUSH AFTER USING IV ACCESS Last administered on 08/15/16 06:34; Start 08/09/16 at 10:00 Prochlorperazine Edisylate (Compazine Inj) 10 mg ONCE ONCE IV PUSH Last administered on 08/09/16 11:06; Start 08/09/16 at 11:00; Stop 08/09/16 at 11:01; Status DC Diphenhydramine HCl 25 mg 25 mg ONCE ONCE IV PUSH Last administered on 11:04; Start 08/09/16 at 11:00; Stop 08/09/16 at 11:01; Status DC Sodium Chloride (NS 1000 ml Inj) 1,000 ml @ 999 mls/hr BOLUS ONCE IV Last administered on 08/09/16 13:02; Start 08/09/16 at 12:15; Stop 08/09/16 at 13:15; Status DC Hydromorphone HCl 2 mg 2 mg ONCE ONCE IV PUSH Last administered on 08/09/16 14 :03; Start 08/09/16 at 14:00; Stop 08/09/16 at 14:01; Status DC Potassium Chloride/Dextrose/ Sodium Chloride (KCl Inj/D5W-NS 1000 ml Inj) 1,005 ml @ 70 mls/hr [id number] IV Last administered on 08/15/16 18:01; Start 08/09/16 at 18:00 Pantoprazole Sodium (Protonix Inj) 40 mg Q24H IV PUSH Last administered on 08/15 17:39; Start 08/09/16 at 18:00 Ondansetron HCl (Zofran Inj) 4 mg Q6HR PRN IV PUSH NAUSEA OR VOMITING Last administered on 08/16/16 05:52; Start 08/09/16 at 17:30 Hydromorphone HCl (Dilaudid Pf Inj) 0.5 mg Q4H PRN IV PUSH PAIN SCALE 4 TO 10 Last administered on 08/10/16 04:10; Start 08/09/16 at 17:30; Stop 08/10/16 at 04: 26; Status DC Hydromorphone HCl (Dilaudid Pf Inj) 0.5 mg ONCE ONCE IV PUSH Last administered on 08/09/16 21:01; Start 08/09/16 at 20:15; Stop 08/09/16 at 20:19; Status DC Hydromorphone HCl (Dilaudid Pf Inj) 1 mg Q4H PRN IV PUSH PAIN SCALE 4 TO 10 Last administered on 08/10/16 09:25; Start 08/10/16 at 05:30; Stop 08/10/16 at 10: 47; Status DC Hydromorphone HCl (Dilaudid Pf Inj) 0.5 mg NOW ONCE IV Last administered on 05:13; Start 08/10/16 at 05:00; Stop 08/10/16 at 05:01; Status DC Diatrizoate Meglum/ Diatrizoate Sod ( Gastrojanes Liq) 18 ml ONCE ONCE PO Last administered on 08/10/16 09:57; Start 08/10/16 at 09:15; Stop 08/10/16 at 09: 16; Status DC Naloxone HCl (Narcan Inj) 0.4 mg STK-MED ONCE .ROUTE Last administered on 09:42; Start 08/10/16 at 09:37; Stop 08/10/16 at 09:38; Status DC Hydromorphone HCl (Dilaudid Pf Inj) 0.5 mg Q4H PRN IV PUSH PAIN SCALE 4 TO 10 Last administered on 08/15/16 22:22; Start 08/10/16 at 13:30 Acetaminophen/ Hydrocodone Bitart ([place] 7.5-325 Mg) 1 tab Q4H PRN PO PAIN SCALE 5 TO 7 Last administered on 08/16/16 07:52; Start 08/10/16 at 11:00 Iohexol (Omnipaque 350 Inj) 96 ml STK-MED ONCE IV Last administered on 12:21; Start 08/10/16 at 12:21; Stop 08/10/16 at 12:22; Status DC Heparin Sodium (Porcine) (Heparin Central Flush) 250 units STK-MED ONCE IV FLUSH Last administered on 08/10/16 12:22; Start 08/10/16 at 12:22; Stop at 14:15; Status DC Gadodiamide (Omniscan Pf Inj) 13 ml STK-MED ONCE IV Last administered on 15:16; Start 08/10/16 at 15:16; Stop 08/10/16 at 15:17; Status DC Sucralfate (Carafate Liq) 1 gm ACHS PO Last administered on 08/16/16 05:55; Start 08/11/16 at 11:00 Dexamethasone (Decadron) 4 mg Q12HR PO Last administered on 08/16/16 07:52; Start 08/11/16 at 10:30 Cyclobenzaprine HCl 10 mg 10 mg Q8HR PO ; Start 08/11/16 at 11:00; Stop 08/11/16 at 11:53; Status DC Phenytoin Sodium/ Sodium Chloride (Dilantin Inj/NS Inj) 120 ml @ 288 mls/hr ONCE ONCE IV Last administered on 08/11/16 12:45; Start 08/11/16 at 12:00; Stop 08/11/16 at 12:24; Status DC Phenytoin Sodium (Dilantin Inj) 100 mg Q8HR IV Last administered on 08/16/16 05:47; Start 08/11/16 at 22:00 Miscellaneous Information ALL NURSING DEPARTME... UNSCH PRN .XX SEE LABEL COMMENTS; Start 08/11/16 at 15:15; Stop 08/12/16 at 15:14; Status DC Miscellaneous Information ALL NURSING DEPARTME... UNSCH PRN .XX SEE LABEL COMMENTS; Start 08/11/16 at 15:15; Stop 08/12/16 at 15:14; Status DC Propofol (Diprivan 200 Mg/20 ml Inj) 100 mg STK-MED ONCE IV ; Start 08/11/16 at 09:14; Stop 08/11/16 at 17:41; Status DC Midazolam HCl (Versed Inj) 2 mg STK-MED ONCE IV ; Start 08/11/16 at 09:14; Stop 08/11/16 at 17:41; Status DC Fentanyl Citrate (fentaNYL INJ) 100 mcg STK-MED ONCE IV ; Start 08/11/16 at 09:14 ; Stop 08/11/16 at 17:41; Status DC Gadodiamide (Omniscan Pf Inj) 10 ml STK-MED ONCE IV Last administered on 12:22; Start 08/12/16 at 12:22; Stop 08/12/16 at 12:23; Status DC Lorazepam (Ativan) 0.5 mg Q8HR PRN PO Anxiety Last administered on 08/13/16 05: 51; Start 08/12/16 at 14:00; Stop 08/13/16 at 09:33; Status DC Morphine Sulfate (Oramorph Sr) 15 mg Q12HR PO Last administered on 08/16/16 07 :52; Start 08/13/16 at 11:00 Diazepam (Valium) 5 mg Q8H PRN PO anxiety Last administered on 08/16/16 07:52 ; Start 08/13/16 at 09:30 Sennosides (Senokot) 8.6 mg BID PO Last administered on 08/15/16 20:30; Start 08/14/16 at 12:00 Ondansetron HCl (Zofran Inj) 4 mg STK-MED ONCE IV PUSH ; Start 08/11/16 at 12:00 ; Stop 08/15/16 at 09:46; Status DC Bisacodyl (Dulcolax Supp) 10 mg ONCE ONCE RECTAL Last administered on 23:22; Start 08/15/16 at 23:00; Stop 08/15/16 at 23:03; Status DC Lactulose (Lactulose Liq) 30 ml ONCE ONCE PO Last administered on 08/16/16 00 :14; Start 08/15/16 at 23:00; Stop 08/15/16 at 23:03; Status DC A/P Assessment and Plan A/P Lung Cancer with Metastasis Brain Masses Chronic Pain Oncology and radiation oncology following Radiation planned; had radiation simulation today. Brain mets are the likely etiology of her recent seizures continue with pain control and Decadron Seizure No seizures overnight Continue Dilantin and Decadron Monitor for recurrent seizures abdominal pain s/p EGD with gastritis continue PPI Anxiety Reactive PRN Valium started Ativan discontinued Discharge Planning when cleared by oncology. Lindsey Ferrer MD Aug 16, 2016 12:20
[2016-08-16] MEDS: SENNOSIDES 8.6 MG TAB PO SCH ×2 (12:29→21:44)
[2016-08-16 15:50] VITALS: BP 110/68; PULSE 111; RESP 20; TEMP 98.3; O2SAT 97
[2016-08-16] MEDS: PANTOPRAZOLE SODIUM 40 MG VIAL IV PUSH SCH (17:06)
[2016-08-16] MEDS: POTASSIUM CHLORIDE INJ 10 MEQ in DEXT 5%-NACL 0.9% 1000 ML INJ 1,000 ML IV SCH (17:56)
[2016-08-16] MEDS ORDERED: HYDROmorphone HCL PF 2 MG/ML VIAL IV ONE (18:45)
[2016-08-16 20:00] VITALS: BP 147/88; PULSE 105; RESP 18; TEMP 97.3; O2SAT 99
[2016-08-16] MEDS: HYDROmorphone HCL PF 1 MG/ML VIAL IV PUSH PRN (21:55)
[2016-08-17] VITALS (8 sets, daily range): BP systolic 144–176; BP diastolic 86–100; PULSE 99–103; RESP 18–20; TEMP 96.6–98.2; O2SAT 97–100
[2016-08-17] MEDS: ONDANSETRON HCL 4 MG/2 ML VIAL IV PUSH PRN ×3 (00:06→17:40)
--- NOTE | 2016-08-17 01:35 | RADRPT ---
EXAM DATE/TIME: 08/17/2016 01:01 [facility] COMPARISON: No previous studies available for comparison. INDICATIONS : Abdominal pain, nausea, vomiting for 24 hours MEDICAL HISTORY : Carcinoma, lung. SURGICAL HISTORY : section. Right port placement. ENCOUNTER: Initial ACUITY: 1 day PAIN SCORE: 8/10 LOCATION: Bilateral upper quadrant FINDINGS: Supine view of the abdomen was performed. Residual contrast throughout the large bowel. The abdomina l bowel gas pattern is normal. No abnormal masses, calcifications, or organomegaly is seen. The oss eous structures are unremarkable. Left lower lobe density. CONCLUSION: No bowel obstruction. Moe Moon MD on August 17, 2016 at 1:32 Board Certified Radiologist. This report was verified electronically.
[2016-08-17] MEDS ORDERED: MAGNESIUM CITRATE SOLN 300 ML BTL PO ONE (02:00)
[2016-08-17] MEDS: HYDROmorphone HCL PF 1 MG/ML VIAL IV PUSH PRN ×2 (02:03→09:32)
[2016-08-17] MEDS: PHENYTOIN INJ 100 MG/2 ML VIAL IV SCH ×3 (05:26→22:08)
[2016-08-17] MEDS: SUCRALFATE 1 GM/10 ML CUP PO SCH ×4 (05:26→19:41)
[2016-08-17] MEDS: ACETAMINOPHEN/HYDROcodone 325 MG/7.5 MG TAB PO PRN ×4 (05:27→23:52)
[2016-08-17] MEDS: DEXAMETHASONE 4 MG TAB PO SCH ×2 (09:31→19:41)
[2016-08-17] MEDS: DOCUSATE SODIUM 50 MG/SENNA 8.6 MG TAB PO SCH ×2 (09:31→19:41)
[2016-08-17] MEDS: MORPHINE SULFATE 15 MG CONTROLLED RELEASE TAB PO SCH ×2 (09:31→19:41)
[2016-08-17] MEDS: POLYETHYLENE GLYCOL 17 GM PKG PO SCH (09:31)
[2016-08-17] MEDS: POTASSIUM CHLORIDE INJ 10 MEQ in DEXT 5%-NACL 0.9% 1000 ML INJ 1,000 ML IV SCH ×3 (09:39→22:09)
--- NOTE | 2016-08-17 10:37 | HHI.PR ---
Subjective Remarks in no acute distress. complaining of constipation and abdominal bloating. d/w the RN and no acute issues over night; no seizures. Objective Vitals Vital Signs Date Time Temp Pulse Resp B/P Pulse Ox O2 Delivery O2 Flow Rate FiO2 08/17/16 07:50 97.3 102 20 144/86 97 08/17/16 04:30 96.7 103 18 176/88 100 08/17/16 00:00 98.2 101 18 156/94 100 08/16/16 20:00 97.3 105 18 147/88 99 08/16/16 15:50 98.3 111 20 110/68 97 08/16/16 11:50 98.2 90 20 133/79 99 I/O 08/16/16 08/16/16 08/16/16 08/17/16 08/17/16 08/17/16 07:00 15:00 23:00 07:00 15:00 23:00 Intake Total 1030 ml 1886 ml 900 ml 480 ml 1151 ml Balance 1030 ml 1886 ml 900 ml 480 ml 1151 ml Intake Oral 480 ml 1620 ml 900 ml 480 ml IV Total 550 ml 266 ml 1151 ml # Voids 2 6 3 3 # Bowel Movements 0 Result Diagram: 08/15/16 1050 08/15/16 1050 Imaging Last Impressions Abdomen X-Ray 08/17/16 0000 Signed Impressions: Service Date/Time: August 01:01 - CONCLUSION: No bowel obstruction. Moe Moon MD Entire Spine MRI 08/12/16 0000 Signed Impressions: Service Date/Time: Thursday, August 11, 2016 13:40 - CONCLUSION: No evidence of metastatic disease. Jen Parry MD Chest CT 08/10/16 0000 Signed Impressions: Service Date/Time: August 12:10 - CONCLUSION: Stable chest appearance Michael Chaudhari MD Brain MRI 08/10/16 0000 Signed Impressions: Service Date/Time: August 15:05 - CONCLUSION: 1. 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 This appears to narrow the aqueduct of Sylvius, but there is no evidence of hydrocephalus. 2. The left cerebellar vermis enhancing nodule is stable in size at 4 mm. 3. The enhancing mass in the suprasellar cistern has resolved. No mass effect on the chiasm. Eusebio Meraz MD Abdomen/Pelvis CT 08/10/16 0000 Signed Impressions: Service Date/Time: August 12:10 - CONCLUSION: 1. There are changes consistent with radiation therapy at the left lung base. These are only partially visualized. There is a small left basilar effusion. 2. CT scan of the abdomen and pelvis is within normal limits. Rajesh Bhatia MD Chest X-Ray 08/09/16 1731 Signed Impressions: Service Date/Time: Tuesday, August 09, 2016 17:58 - CONCLUSION: Stable moderate left base parenchymal opacity and pleural effusion. Slight developing parenchymal opacity at the right lung base. Michael Chaudhari MD Head CT 08/09/16 0000 Signed Impressions: Service Date/Time: Tuesday, August 09, 2016 18:20 - CONCLUSION: No acute intracranial findings Michael Chaudhari MD Objective Remarks GENERAL: This is a well-nourished, well-developed patient, in no apparent distress. CARDIOVASCULAR: Regular rate and regular rhythm without murmurs, gallops, or rubs. RESPIRATORY: Clear to auscultation. Breath sounds equal bilaterally. No wheezes , rales, or rhonchi. GASTROINTESTINAL: Abdomen soft, non-tender, nondistended. Normal, active bowel sounds MUSCULOSKELETAL: Extremities without clubbing, cyanosis, or edema. NEURO: Alert & Oriented x4 to person, place, time, situation. Moves all ext x4 Procedures EGD Medications and IVs Current Medications Sodium Chloride (NS 1000 ml Inj) 1,000 ml @ 999 mls/hr BOLUS ONCE IV Last administered on 08/09/16 09:22; Start 08/09/16 at 09:15; Stop 08/09/16 at 10:15; Status DC Hydromorphone HCl (Dilaudid Pf Inj) 2 mg ONCE ONCE IV PUSH Last administered on 08/09/16 09:22; Start 08/09/16 at 09:15; Stop 08/09/16 at 09:16; Status DC Ondansetron HCl 4 mg 4 mg ONCE ONCE IV PUSH Last administered on 08/09/16 09: 22; Start 08/09/16 at 09:15; Stop 08/09/16 at 09:16; Status DC Sodium Chloride (NS 1000 ml Inj) 1,000 ml @ 1,000 mls/hr Q1H ONCE IV Last administered on 08/09/16 10:22; Start 08/09/16 at 09:50; Stop 08/09/16 at 10:49; Status DC Sodium Chloride (NS Flush) 2 ml UNSCH PRN IVF FLUSH AFTER USING IV ACCESS Last administered on 08/15/16 06:34; Start 08/09/16 at 10:00 Prochlorperazine Edisylate (Compazine Inj) 10 mg ONCE ONCE IV PUSH Last administered on 08/09/16 11:06; Start 08/09/16 at 11:00; Stop 08/09/16 at 11:01; Status DC Diphenhydramine HCl 25 mg 25 mg ONCE ONCE IV PUSH Last administered on 11:04; Start 08/09/16 at 11:00; Stop 08/09/16 at 11:01; Status DC Sodium Chloride (NS 1000 ml Inj) 1,000 ml @ 999 mls/hr BOLUS ONCE IV Last administered on 08/09/16 13:02; Start 08/09/16 at 12:15; Stop 08/09/16 at 13:15; Status DC Hydromorphone HCl 2 mg 2 mg ONCE ONCE IV PUSH Last administered on 08/09/16 14 :03; Start 08/09/16 at 14:00; Stop 08/09/16 at 14:01; Status DC Potassium Chloride/Dextrose/ Sodium Chloride (KCl Inj/D5W-NS 1000 ml Inj) 1,005 ml @ 70 mls/hr [id number] IV Last administered on 08/17/16 09:39; Start 08/09/16 at 18:00 Pantoprazole Sodium (Protonix Inj) 40 mg Q24H IV PUSH Last administered on 08/16 17:06; Start 08/09/16 at 18:00 Ondansetron HCl (Zofran Inj) 4 mg Q6HR PRN IV PUSH NAUSEA OR VOMITING Last administered on 08/17/16 09:33; Start 08/09/16 at 17:30 Hydromorphone HCl (Dilaudid Pf Inj) 0.5 mg Q4H PRN IV PUSH PAIN SCALE 4 TO 10 Last administered on 08/10/16 04:10; Start 08/09/16 at 17:30; Stop 08/10/16 at 04: 26; Status DC Hydromorphone HCl (Dilaudid Pf Inj) 0.5 mg ONCE ONCE IV PUSH Last administered on 08/09/16 21:01; Start 08/09/16 at 20:15; Stop 08/09/16 at 20:19; Status DC Hydromorphone HCl (Dilaudid Pf Inj) 1 mg Q4H PRN IV PUSH PAIN SCALE 4 TO 10 Last administered on 08/10/16 09:25; Start 08/10/16 at 05:30; Stop 08/10/16 at 10: 47; Status DC Hydromorphone HCl (Dilaudid Pf Inj) 0.5 mg NOW ONCE IV Last administered on 05:13; Start 08/10/16 at 05:00; Stop 08/10/16 at 05:01; Status DC Diatrizoate Meglum/ Diatrizoate Sod ( Gastroview Liq) 18 ml ONCE ONCE PO Last administered on 08/10/16 09:57; Start 08/10/16 at 09:15; Stop 08/10/16 at 09: 16; Status DC Naloxone HCl (Narcan Inj) 0.4 mg STK-MED ONCE .ROUTE Last administered on 09:42; Start 08/10/16 at 09:37; Stop 08/10/16 at 09:38; Status DC Hydromorphone HCl (Dilaudid Pf Inj) 0.5 mg Q4H PRN IV PUSH PAIN SCALE 4 TO 10 Last administered on 08/17/16 09:32; Start 08/10/16 at 13:30 Acetaminophen/ Hydrocodone Bitart ([place] 7.5-325 Mg) 1 tab Q4H PRN PO PAIN SCALE 5 TO 7 Last administered on 08/17/16 05:27; Start 08/10/16 at 11:00 Iohexol (Omnipaque 350 Inj) 96 ml STK-MED ONCE IV Last administered on 12:21; Start 08/10/16 at 12:21; Stop 08/10/16 at 12:22; Status DC Heparin Sodium (Porcine) (Heparin Central Flush) 250 units STK-MED ONCE IV FLUSH Last administered on 08/10/16 12:22; Start 08/10/16 at 12:22; Stop at 14:15; Status DC Gadodiamide (Omniscan Pf Inj) 13 ml STK-MED ONCE IV Last administered on 15:16; Start 08/10/16 at 15:16; Stop 08/10/16 at 15:17; Status DC Sucralfate (Carafate Liq) 1 gm ACHS PO Last administered on 08/17/16 05:26; Start 08/11/16 at 11:00 Dexamethasone (Decadron) 4 mg Q12HR PO Last administered on 08/17/16 09:31; Start 08/11/16 at 10:30 Cyclobenzaprine HCl 10 mg 10 mg Q8HR PO ; Start 08/11/16 at 11:00; Stop 08/11/16 at 11:53; Status DC Phenytoin Sodium/ Sodium Chloride (Dilantin Inj/NS Inj) 120 ml @ 288 mls/hr ONCE ONCE IV Last administered on 08/11/16 12:45; Start 08/11/16 at 12:00; Stop 08/11/16 at 12:24; Status DC Phenytoin Sodium (Dilantin Inj) 100 mg Q8HR IV Last administered on 08/17/16 05:26; Start 08/11/16 at 22:00 Miscellaneous Information ALL NURSING DEPARTME... UNSCH PRN .XX SEE LABEL COMMENTS; Start 08/11/16 at 15:15; Stop 08/12/16 at 15:14; Status DC Miscellaneous Information ALL NURSING DEPARTME... UNSCH PRN .XX SEE LABEL COMMENTS; Start 08/11/16 at 15:15; Stop 08/12/16 at 15:14; Status DC Propofol (Diprivan 200 Mg/20 ml Inj) 100 mg STK-MED ONCE IV ; Start 08/11/16 at 09:14; Stop 08/11/16 at 17:41; Status DC Midazolam HCl (Versed Inj) 2 mg STK-MED ONCE IV ; Start 08/11/16 at 09:14; Stop 08/11/16 at 17:41; Status DC Fentanyl Citrate (fentaNYL INJ) 100 mcg STK-MED ONCE IV ; Start 08/11/16 at 09:14 ; Stop 08/11/16 at 17:41; Status DC Gadodiamide (Omniscan Pf Inj) 10 ml STK-MED ONCE IV Last administered on 12:22; Start 08/12/16 at 12:22; Stop 08/12/16 at 12:23; Status DC Lorazepam (Ativan) 0.5 mg Q8HR PRN PO Anxiety Last administered on 08/13/16 05: 51; Start 08/12/16 at 14:00; Stop 08/13/16 at 09:33; Status DC Morphine Sulfate (Oramorph Sr) 15 mg Q12HR PO Last administered on 08/17/16 09 :31; Start 08/13/16 at 11:00 Diazepam (Valium) 5 mg Q8H PRN PO anxiety Last administered on 08/16/16 17:54 ; Start 08/13/16 at 09:30 Sennosides (Senokot) 8.6 mg BID PO Last administered on 08/16/16 21:44; Start 08/14/16 at 12:00; Stop 08/17/16 at 01:49; Status DC Ondansetron HCl (Zofran Inj) 4 mg STK-MED ONCE IV PUSH ; Start 08/11/16 at 12:00 ; Stop 08/15/16 at 09:46; Status DC Bisacodyl (Dulcolax Supp) 10 mg ONCE ONCE RECTAL Last administered on 23:22; Start 08/15/16 at 23:00; Stop 08/15/16 at 23:03; Status DC Lactulose (Lactulose Liq) 30 ml ONCE ONCE PO Last administered on 08/16/16 00 :14; Start 08/15/16 at 23:00; Stop 08/15/16 at 23:03; Status DC Hydromorphone HCl (Dilaudid Pf Inj) 0.2 mg ONCE ONCE IV Last administered on 18:48; Start 08/16/16 at 18:45; Stop 08/16/16 at 18:46; Status DC Magnesium Citrate (Citroma Liq) 150 ml ONCE ONCE PO Last administered on 01:57; Start 08/17/16 at 02:00; Stop 08/17/16 at 02:01; Status DC Polyethylene Glycol (Miralax) 17 gm DAILY PO Last administered on 08/17/16 09: 31; Start 08/17/16 at 09:00 Senna/Docusate Sodium (Ellen-Colace) 2 tab BID PO Last administered on 09:31; Start 08/17/16 at 09:00 A/P Assessment and Plan A/P Lung Cancer with Metastasis Brain Masses Chronic Pain Oncology and radiation oncology following Radiation planned; had radiation simulation . Brain mets are the likely etiology of her recent seizures continue with pain control and Decadron Seizure No seizures overnight Continue Dilantin and Decadron Monitor for recurrent seizures abdominal pain s/p EGD with gastritis continue PPI Anxiety Reactive PRN Valium started Ativan discontinued constipation; laxatives as needed. Discharge Planning when cleared by oncology. Lindsey Ferrer MD Aug 17, 2016 10:37
[2016-08-17] MEDS ORDERED: SOD PHOSPHATE/SOD BIPHOSPHATE (ADULT) ENEMA 133ML RECTAL PRN (10:45)
--- NOTE | 2016-08-17 14:49 | EKG ---
Date Performed: 08/17/2016 Time Performed: 13:27:33 PTAGE: 51 years EKG: SINUS TACHYCARDIA NONSPECIFIC T-WAVE ABNORMALITY ABNORMAL RHYTHM ECG PREVIOUS TRACING : 08/09/2016 14.10 No significant change from previous tracing noted. DOCTOR: Juan Burciaga Interpretating Date/Time 08/17/2016 14:48:36
[2016-08-17] MEDS: DIAZEPAM 5 MG TAB PO PRN ×2 (15:56→23:52)
--- NOTE | 2016-08-17 17:34 | MG ---
cc: POLO CHUN MD Lab No: [id number] Date:08/17/2016 Age: 51 Sex: F Race: DATE OF : 1965 HISTORY: 51-year-old with some loss of consciousness. PROCEDURE: 6 to 8 hertz posterior rhythm, alternating 2-3 Hz delta activity 20-50 microvolts, followed by generalized slowing bursts of 1-2 Hz delta, suggestive of drowsy state. Good EEG variability reactivity. Reduced driving with photic stimulation. Single lead EKG showing sinus rhythm. INTERPRETATION Minimal encephalopathy in sleep state. Clinical correlation. Polo Chun MD MG/ /5:06 PM /5:30 PM
[2016-08-17] MEDS: PANTOPRAZOLE SODIUM 40 MG VIAL IV PUSH SCH (17:40)
[2016-08-18] VITALS (10 sets, daily range): BP systolic 112–166; BP diastolic 77–96; PULSE 95–113; RESP 16–28; TEMP 96.2–97.9; O2SAT 94–100
[2016-08-18] MEDS: POTASSIUM CHLORIDE INJ 10 MEQ in DEXT 5%-NACL 0.9% 1000 ML INJ 1,000 ML IV SCH ×2 (02:26→17:30)
[2016-08-18] MEDS: PHENYTOIN INJ 100 MG/2 ML VIAL IV SCH ×3 (05:11→20:34)
[2016-08-18] MEDS: SUCRALFATE 1 GM/10 ML CUP PO SCH ×4 (05:11→20:34)
[2016-08-18] MEDS: ACETAMINOPHEN/HYDROcodone 325 MG/7.5 MG TAB PO PRN ×2 (05:11→21:33)
[2016-08-18] MEDS: ONDANSETRON HCL 4 MG/2 ML VIAL IV PUSH PRN ×3 (05:20→23:56)
[2016-08-18 06:43] LABS: AUTOMATED NEUTROPHIL # 4.8 TH/MM3 (1.8-7.7); BASOPHIL % 0.5 % (0.0-2.0); EOSINOPHIL # 0.2 TH/MM3 (0-0.4); EOSINOPHIL % 2.7 % (0.0-4.0); HEMATOCRIT 29.3 % (35.0-46.0); HEMO FLAGS DIFF FINAL; LYMPH % 15.4 % (9.0-44.0); MEAN CELL VOLUME 84.9 FL (80.0-100.0); MEAN CORPUSCULAR HEMOGLOBIN 27.3 PG (27.0-34.0); MEAN CORPUSCULAR HGB CONC 32.1 % (32.0-36.0); MONO % 8.1 % (0.0-8.0); NEUT % 73.3 % (16.0-70.0); PLATELET COUNT 582 TH/MM3 (150-450); RED BLOOD COUNT 3.45 MIL/MM3 (4.00-5.30); RED CELL DISTRIBUTION WIDTH 17.3 % (11.6-17.2); WHITE BLOOD COUNT 6.6 TH/MM3 (4.0-11.0)
--- NOTE | 2016-08-18 08:47 | HHI.PR ---
Subjective Remarks in no distress. says that she had another seizure yesterday. Objective Vitals Vital Signs Date Time Temp Pulse Resp B/P Pulse Ox O2 Delivery O2 Flow Rate FiO2 08/18/16 04:00 97.2 95 16 134/85 100 08/18/16 00:00 96.2 95 18 151/96 95 08/17/16 20:23 99 170/95 08/17/16 20:00 97.3 101 18 161/100 98 08/17/16 15:10 97.4 102 20 153/87 100 08/17/16 13:11 100 2.00 08/17/16 11:50 96.6 101 20 158/87 100 I/O 08/17/16 08/17/16 08/17/16 08/18/16 08/18/16 08/18/16 07:00 15:00 23:00 07:00 15:00 23:00 Intake Total 480 ml 2665 ml 1 ml 1492 ml Balance 480 ml 2665 ml 1 ml 1492 ml Intake Oral 480 ml 1080 ml 1 ml 480 ml IV Total 1585 ml 1012 ml # Voids 3 4 1 1 # Bowel Movements 0 0 0 Result Diagram: 08/18/16 0512 08/15/16 1050 Imaging Last Impressions Abdomen X-Ray 08/17/16 0000 Signed Impressions: Service Date/Time: August 01:01 - CONCLUSION: No bowel obstruction. Moe Moon MD Entire Spine MRI 08/12/16 0000 Signed Impressions: Service Date/Time: Thursday, August 11, 2016 13:40 - CONCLUSION: No evidence of metastatic disease. Jen Parry MD Chest CT 08/10/16 0000 Signed Impressions: Service Date/Time: August 12:10 - CONCLUSION: Stable chest appearance Michael Chaudhari MD Brain MRI 08/10/16 0000 Signed Impressions: Service Date/Time: August 15:05 - CONCLUSION: 1. 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 This appears to narrow the aqueduct of Sylvius, but there is no evidence of hydrocephalus. 2. The left cerebellar vermis enhancing nodule is stable in size at 4 mm. 3. The enhancing mass in the suprasellar cistern has resolved. No mass effect on the chiasm. Eusebio Meraz MD Abdomen/Pelvis CT 08/10/16 0000 Signed Impressions: Service Date/Time: August 12:10 - CONCLUSION: 1. There are changes consistent with radiation therapy at the left lung base. These are only partially visualized. There is a small left basilar effusion. 2. CT scan of the abdomen and pelvis is within normal limits. Rajesh Bhatia MD Chest X-Ray 08/09/16 1731 Signed Impressions: Service Date/Time: Tuesday, August 09, 2016 17:58 - CONCLUSION: Stable moderate left base parenchymal opacity and pleural effusion. Slight developing parenchymal opacity at the right lung base. Michael Chaudhari MD Head CT 08/09/16 0000 Signed Impressions: Service Date/Time: Tuesday, August 09, 2016 18:20 - CONCLUSION: No acute intracranial findings Michael Chaudhari MD Objective Remarks GENERAL: This is a well-nourished, well-developed patient, in no apparent distress. CARDIOVASCULAR: Regular rate and regular rhythm without murmurs, gallops, or rubs. RESPIRATORY: Clear to auscultation. Breath sounds equal bilaterally. No wheezes , rales, or rhonchi. GASTROINTESTINAL: Abdomen soft, non-tender, nondistended. Normal, active bowel sounds MUSCULOSKELETAL: Extremities without clubbing, cyanosis, or edema. NEURO: Alert & Oriented x4 to person, place, time, situation. Moves all ext x4 Procedures EGD Medications and IVs Current Medications Sodium Chloride (NS 1000 ml Inj) 1,000 ml @ 999 mls/hr BOLUS ONCE IV Last administered on 08/09/16 09:22; Start 08/09/16 at 09:15; Stop 08/09/16 at 10:15; Status DC Hydromorphone HCl (Dilaudid Pf Inj) 2 mg ONCE ONCE IV PUSH Last administered on 08/09/16 09:22; Start 08/09/16 at 09:15; Stop 08/09/16 at 09:16; Status DC Ondansetron HCl 4 mg 4 mg ONCE ONCE IV PUSH Last administered on 08/09/16 09: 22; Start 08/09/16 at 09:15; Stop 08/09/16 at 09:16; Status DC Sodium Chloride (NS 1000 ml Inj) 1,000 ml @ 1,000 mls/hr Q1H ONCE IV Last administered on 08/09/16 10:22; Start 08/09/16 at 09:50; Stop 08/09/16 at 10:49; Status DC Sodium Chloride (NS Flush) 2 ml UNSCH PRN IVF FLUSH AFTER USING IV ACCESS Last administered on 08/15/16 06:34; Start 08/09/16 at 10:00 Prochlorperazine Edisylate (Compazine Inj) 10 mg ONCE ONCE IV PUSH Last administered on 08/09/16 11:06; Start 08/09/16 at 11:00; Stop 08/09/16 at 11:01; Status DC Diphenhydramine HCl 25 mg 25 mg ONCE ONCE IV PUSH Last administered on 11:04; Start 08/09/16 at 11:00; Stop 08/09/16 at 11:01; Status DC Sodium Chloride (NS 1000 ml Inj) 1,000 ml @ 999 mls/hr BOLUS ONCE IV Last administered on 08/09/16 13:02; Start 08/09/16 at 12:15; Stop 08/09/16 at 13:15; Status DC Hydromorphone HCl 2 mg 2 mg ONCE ONCE IV PUSH Last administered on 08/09/16 14 :03; Start 08/09/16 at 14:00; Stop 08/09/16 at 14:01; Status DC Potassium Chloride/Dextrose/ Sodium Chloride (KCl Inj/D5W-NS 1000 ml Inj) 1,005 ml @ 70 mls/hr [id number] IV Last administered on 08/17/16 22:09; Start 08/09/16 at 18:00 Pantoprazole Sodium (Protonix Inj) 40 mg Q24H IV PUSH Last administered on 08/17 17:40; Start 08/09/16 at 18:00 Ondansetron HCl (Zofran Inj) 4 mg Q6HR PRN IV PUSH NAUSEA OR VOMITING Last administered on 08/18/16 05:20; Start 08/09/16 at 17:30 Hydromorphone HCl (Dilaudid Pf Inj) 0.5 mg Q4H PRN IV PUSH PAIN SCALE 4 TO 10 Last administered on 08/10/16 04:10; Start 08/09/16 at 17:30; Stop 08/10/16 at 04: 26; Status DC Hydromorphone HCl (Dilaudid Pf Inj) 0.5 mg ONCE ONCE IV PUSH Last administered on 08/09/16 21:01; Start 08/09/16 at 20:15; Stop 08/09/16 at 20:19; Status DC Hydromorphone HCl (Dilaudid Pf Inj) 1 mg Q4H PRN IV PUSH PAIN SCALE 4 TO 10 Last administered on 08/10/16 09:25; Start 08/10/16 at 05:30; Stop 08/10/16 at 10: 47; Status DC Hydromorphone HCl (Dilaudid Pf Inj) 0.5 mg NOW ONCE IV Last administered on 05:13; Start 08/10/16 at 05:00; Stop 08/10/16 at 05:01; Status DC Diatrizoate Meglum/ Diatrizoate Sod ( Gastroview Liq) 18 ml ONCE ONCE PO Last administered on 08/10/16 09:57; Start 08/10/16 at 09:15; Stop 08/10/16 at 09: 16; Status DC Naloxone HCl (Narcan Inj) 0.4 mg STK-MED ONCE .ROUTE Last administered on 09:42; Start 08/10/16 at 09:37; Stop 08/10/16 at 09:38; Status DC Hydromorphone HCl (Dilaudid Pf Inj) 0.5 mg Q4H PRN IV PUSH PAIN SCALE 4 TO 10 Last administered on 08/17/16 09:32; Start 08/10/16 at 13:30 Acetaminophen/ Hydrocodone Bitart ([place] 7.5-325 Mg) 1 tab Q4H PRN PO PAIN SCALE 5 TO 7 Last administered on 08/18/16 05:11; Start 08/10/16 at 11:00 Iohexol (Omnipaque 350 Inj) 96 ml STK-MED ONCE IV Last administered on 12:21; Start 08/10/16 at 12:21; Stop 08/10/16 at 12:22; Status DC Heparin Sodium (Porcine) (Heparin Central Flush) 250 units STK-MED ONCE IV FLUSH Last administered on 08/10/16 12:22; Start 08/10/16 at 12:22; Stop at 14:15; Status DC Gadodiamide (Omniscan Pf Inj) 13 ml STK-MED ONCE IV Last administered on 15:16; Start 08/10/16 at 15:16; Stop 08/10/16 at 15:17; Status DC Sucralfate (Carafate Liq) 1 gm ACHS PO Last administered on 08/18/16 05:11; Start 08/11/16 at 11:00 Dexamethasone (Decadron) 4 mg Q12HR PO Last administered on 08/17/16 19:41; Start 08/11/16 at 10:30 Cyclobenzaprine HCl 10 mg 10 mg Q8HR PO ; Start 08/11/16 at 11:00; Stop 08/11/16 at 11:53; Status DC Phenytoin Sodium/ Sodium Chloride (Dilantin Inj/NS Inj) 120 ml @ 288 mls/hr ONCE ONCE IV Last administered on 08/11/16 12:45; Start 08/11/16 at 12:00; Stop 08/11/16 at 12:24; Status DC Phenytoin Sodium (Dilantin Inj) 100 mg Q8HR IV Last administered on 08/18/16 05:11; Start 08/11/16 at 22:00 Miscellaneous Information ALL NURSING DEPARTME... UNSCH PRN .XX SEE LABEL COMMENTS; Start 08/11/16 at 15:15; Stop 08/12/16 at 15:14; Status DC Miscellaneous Information ALL NURSING DEPARTME... UNSCH PRN .XX SEE LABEL COMMENTS; Start 08/11/16 at 15:15; Stop 08/12/16 at 15:14; Status DC Propofol (Diprivan 200 Mg/20 ml Inj) 100 mg STK-MED ONCE IV ; Start 08/11/16 at 09:14; Stop 08/11/16 at 17:41; Status DC Midazolam HCl (Versed Inj) 2 mg STK-MED ONCE IV ; Start 08/11/16 at 09:14; Stop 08/11/16 at 17:41; Status DC Fentanyl Citrate (fentaNYL INJ) 100 mcg STK-MED ONCE IV ; Start 08/11/16 at 09:14 ; Stop 08/11/16 at 17:41; Status DC Gadodiamide (Omniscan Pf Inj) 10 ml STK-MED ONCE IV Last administered on 12:22; Start 08/12/16 at 12:22; Stop 08/12/16 at 12:23; Status DC Lorazepam (Ativan) 0.5 mg Q8HR PRN PO Anxiety Last administered on 08/13/16 05: 51; Start 08/12/16 at 14:00; Stop 08/13/16 at 09:33; Status DC Morphine Sulfate (Oramorph Sr) 15 mg Q12HR PO Last administered on 08/17/16 19 :41; Start 08/13/16 at 11:00 Diazepam (Valium) 5 mg Q8H PRN PO anxiety Last administered on 08/17/16 23:52 ; Start 08/13/16 at 09:30 Sennosides (Senokot) 8.6 mg BID PO Last administered on 08/16/16 21:44; Start 08/14/16 at 12:00; Stop 08/17/16 at 01:49; Status DC Ondansetron HCl (Zofran Inj) 4 mg STK-MED ONCE IV PUSH ; Start 08/11/16 at 12:00 ; Stop 08/15/16 at 09:46; Status DC Bisacodyl (Dulcolax Supp) 10 mg ONCE ONCE RECTAL Last administered on 23:22; Start 08/15/16 at 23:00; Stop 08/15/16 at 23:03; Status DC Lactulose (Lactulose Liq) 30 ml ONCE ONCE PO Last administered on 08/16/16 00 :14; Start 08/15/16 at 23:00; Stop 08/15/16 at 23:03; Status DC Hydromorphone HCl (Dilaudid Pf Inj) 0.2 mg ONCE ONCE IV Last administered on 18:48; Start 08/16/16 at 18:45; Stop 08/16/16 at 18:46; Status DC Magnesium Citrate (Citroma Liq) 150 ml ONCE ONCE PO Last administered on 01:57; Start 08/17/16 at 02:00; Stop 08/17/16 at 02:01; Status DC Polyethylene Glycol (Miralax) 17 gm DAILY PO Last administered on 08/17/16 09: 31; Start 08/17/16 at 09:00 Senna/Docusate Sodium (Ellen-Colace) 2 tab BID PO Last administered on 19:41; Start 08/17/16 at 09:00 Sodium Biphosphate/ Sodium Phosphate (Fleets Enema (Adult)) 133 ml EVERY OTHER DAY PRN RECTAL CONSTIPATION; Start 08/17/16 at 10:45 Heparin Sodium (Porcine) (Heparin Central Flush) 500 units STK-MED ONCE IV FLUSH ; Start 08/17/16 at 13:25; Stop 08/17/16 at 13:26; Status DC A/P Assessment and Plan A/P Lung Cancer with Metastasis Brain Masses Chronic Pain Oncology and radiation oncology following Radiation planned; had radiation simulation . Brain mets are the likely etiology of her recent seizures continue with pain control and Decadron Seizure No seizures overnight Continue Dilantin and Decadron Monitor for recurrent seizures abdominal pain s/p EGD with gastritis continue PPI Anxiety Reactive PRN Valium started Ativan discontinued constipation; laxatives as needed. Discharge Planning d/w the patient; she's concerned that she'll be alone at home- at least for part of the day. spoke with the case management; will consider short-term rehab vs [facility]. dc planning within the next 2-3 days if stable with no further seizures and when ok with oncology. Lindsey Ferrer MD Aug 18, 2016 08:47
[2016-08-18] MEDS: POLYETHYLENE GLYCOL 17 GM PKG PO SCH (09:06)
[2016-08-18] MEDS: MORPHINE SULFATE 15 MG CONTROLLED RELEASE TAB PO SCH ×2 (09:06→20:33)
[2016-08-18] MEDS: DEXAMETHASONE 4 MG TAB PO SCH ×2 (09:06→20:33)
[2016-08-18] MEDS: DOCUSATE SODIUM 50 MG/SENNA 8.6 MG TAB PO SCH ×2 (09:06→20:33)
[2016-08-18] MEDS: HYDROmorphone HCL PF 1 MG/ML VIAL IV PUSH PRN ×4 (09:25→23:56)
[2016-08-18] MEDS ORDERED: MAGNESIUM HYDROXIDE SUSP 30 ML CUP PO PRN (09:30)
[2016-08-18] MEDS ORDERED: METHYLNALTREXONE BROMIDE 12 MG/0.6 ML VIAL SQ ONE (13:00)
[2016-08-18] MEDS: DIAZEPAM 5 MG TAB PO PRN ×2 (15:37→23:55)
[2016-08-18] MEDS: PANTOPRAZOLE SODIUM 40 MG VIAL IV PUSH SCH (18:00)
[2016-08-18] MEDS: SODIUM CHLORIDE 0.9% FLUSH 10 ML FLUSH IVF PRN (23:58)
[2016-08-19] VITALS (13 sets, daily range): BP systolic 137–172; BP diastolic 68–93; PULSE 88–113; RESP 11–18; TEMP 97.5–98.2; O2SAT 96–98
[2016-08-19] MEDS: ACETAMINOPHEN/HYDROcodone 325 MG/7.5 MG TAB PO PRN ×3 (02:32→21:10)
[2016-08-19] MEDS: HYDROmorphone HCL PF 1 MG/ML VIAL IV PUSH PRN ×3 (05:32→18:02)
[2016-08-19] MEDS: POTASSIUM CHLORIDE INJ 10 MEQ in DEXT 5%-NACL 0.9% 1000 ML INJ 1,000 ML IV SCH (05:32)
[2016-08-19] MEDS: ONDANSETRON HCL 4 MG/2 ML VIAL IV PUSH PRN ×2 (05:33→13:32)
[2016-08-19] MEDS: PHENYTOIN INJ 100 MG/2 ML VIAL IV SCH (05:33)
[2016-08-19] MEDS: SUCRALFATE 1 GM/10 ML CUP PO SCH ×4 (05:33→21:09)
[2016-08-19] MEDS ORDERED: CHLORHEXIDINE GLUCONATE 2 % 1 PACK (2 CLOTHS)(extra cloths) TOPICAL PRN (06:30)
[2016-08-19] MEDS: DOCUSATE SODIUM 50 MG/SENNA 8.6 MG TAB PO SCH ×2 (09:00→21:00)
[2016-08-19] MEDS: MORPHINE SULFATE 15 MG CONTROLLED RELEASE TAB PO SCH ×2 (09:00→21:09)
[2016-08-19] MEDS: DEXAMETHASONE 4 MG TAB PO SCH ×2 (09:00→21:09)
[2016-08-19] MEDS: POLYETHYLENE GLYCOL 17 GM PKG PO SCH (09:00)
[2016-08-19] MEDS ORDERED: LORazepam 2 MG/ML VIAL IV PUSH PRN (09:30)
--- NOTE | 2016-08-19 09:39 | HHI.PR ---
Subjective Remarks had another episode of seizure yesterday and was transferred to ICU. now resting comfortably with no distress. no seizures over night. d/w the RN and no other acute issues reported. Objective Vitals Vital Signs Date Time Temp Pulse Resp B/P Pulse Ox O2 Delivery O2 Flow Rate FiO2 08/19/16 06:00 88 08/19/16 04:00 97.8 91 14 137/68 96 08/19/16 04:00 91 08/19/16 02:00 99 08/19/16 00:00 97.5 102 18 145/80 96 08/19/16 00:00 102 08/18/16 22:00 102 08/18/16 20:00 109 08/18/16 20:00 97.5 109 28 143/91 98 08/18/16 17:15 112 161/95 08/18/16 17:00 111 164/86 08/18/16 16:50 113 162/92 08/18/16 16:00 96.8 103 19 161/85 97 08/18/16 12:00 96.2 100 19 165/95 100 I/O 08/18/16 08/18/16 08/18/16 08/19/16 08/19/16 08/19/16 07:00 15:00 23:00 07:00 15:00 23:00 Intake Total 1492 ml 2368 ml Balance 1492 ml 2368 ml Intake Oral 480 ml 900 ml IV Total 1012 ml 1468 ml # Voids 1 5 # Bowel Movements 0 0 Result Diagram: 08/18/16 0512 08/15/16 1050 Imaging Last Impressions Abdomen X-Ray 08/17/16 0000 Signed Impressions: Service Date/Time: August 01:01 - CONCLUSION: No bowel obstruction. Moe Moon MD Entire Spine MRI 08/12/16 0000 Signed Impressions: Service Date/Time: Thursday, August 11, 2016 13:40 - CONCLUSION: No evidence of metastatic disease. Jen Parry MD Chest CT 08/10/16 0000 Signed Impressions: Service Date/Time: August 12:10 - CONCLUSION: Stable chest appearance Michael Chaudhari MD Brain MRI 08/10/16 0000 Signed Impressions: Service Date/Time: August 15:05 - CONCLUSION: 1. 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 This appears to narrow the aqueduct of Sylvius, but there is no evidence of hydrocephalus. 2. The left cerebellar vermis enhancing nodule is stable in size at 4 mm. 3. The enhancing mass in the suprasellar cistern has resolved. No mass effect on the chiasm. Eusebio Meraz MD Abdomen/Pelvis CT 08/10/16 0000 Signed Impressions: Service Date/Time: August 12:10 - CONCLUSION: 1. There are changes consistent with radiation therapy at the left lung base. These are only partially visualized. There is a small left basilar effusion. 2. CT scan of the abdomen and pelvis is within normal limits. Rajesh Bhatia MD Chest X-Ray 08/09/16 1731 Signed Impressions: Service Date/Time: Tuesday, August 09, 2016 17:58 - CONCLUSION: Stable moderate left base parenchymal opacity and pleural effusion. Slight developing parenchymal opacity at the right lung base. Michael Chaudhari MD Head CT 08/09/16 0000 Signed Impressions: Service Date/Time: Tuesday, August 09, 2016 18:20 - CONCLUSION: No acute intracranial findings Michael Chaudhari MD Objective Remarks GENERAL: This is a well-nourished, well-developed patient, in no apparent distress. CARDIOVASCULAR: Regular rate and regular rhythm without murmurs, gallops, or rubs. RESPIRATORY: Clear to auscultation. Breath sounds equal bilaterally. No wheezes , rales, or rhonchi. GASTROINTESTINAL: Abdomen soft, non-tender, nondistended. Normal, active bowel sounds MUSCULOSKELETAL: Extremities without clubbing, cyanosis, or edema. NEURO: Alert & Oriented x4 to person, place, time, situation. Moves all ext x4 Procedures EGD Medications and IVs Current Medications Sodium Chloride (NS 1000 ml Inj) 1,000 ml @ 999 mls/hr BOLUS ONCE IV Last administered on 08/09/16t 09:22; Start 08/09/16 at 09:15; Stop 08/09/16 at 10:15; Status DC Hydromorphone HCl (Dilaudid Pf Inj) 2 mg ONCE ONCE IV PUSH Last administered on 08/09/16 09:22; Start 08/09/16 at 09:15; Stop 08/09/16 at 09:16; Status DC Ondansetron HCl 4 mg 4 mg ONCE ONCE IV PUSH Last administered on 08/09/16 09: 22; Start 08/09/16 at 09:15; Stop 08/09/16 at 09:16; Status DC Sodium Chloride (NS 1000 ml Inj) 1,000 ml @ 1,000 mls/hr Q1H ONCE IV Last administered on 08/09/16 10:22; Start 08/09/16 at 09:50; Stop 08/09/16 at 10:49; Status DC Sodium Chloride (NS Flush) 2 ml UNSCH PRN IVF FLUSH AFTER USING IV ACCESS Last administered on 08/18/16 23:58; Start 08/09/16 at 10:00 Prochlorperazine Edisylate (Compazine Inj) 10 mg ONCE ONCE IV PUSH Last administered on 08/09/16 11:06; Start 08/09/16 at 11:00; Stop 08/09/16 at 11:01; Status DC Diphenhydramine HCl 25 mg 25 mg ONCE ONCE IV PUSH Last administered on 11:04; Start 08/09/16 at 11:00; Stop 08/09/16 at 11:01; Status DC Sodium Chloride (NS 1000 ml Inj) 1,000 ml @ 999 mls/hr BOLUS ONCE IV Last administered on 08/09/16 13:02; Start 08/09/16 at 12:15; Stop 08/09/16 at 13:15; Status DC Hydromorphone HCl 2 mg 2 mg ONCE ONCE IV PUSH Last administered on 08/09/16 14 :03; Start 08/09/16 at 14:00; Stop 08/09/16 at 14:01; Status DC Potassium Chloride/Dextrose/ Sodium Chloride (KCl Inj/D5W-NS 1000 ml Inj) 1,005 ml @ 70 mls/hr [id number] IV Last administered on 08/19/16 05:32; Start 08/09/16 at 18:00 Pantoprazole Sodium (Protonix Inj) 40 mg Q24H IV PUSH Last administered on 08/18 18:00; Start 08/09/16 at 18:00 Ondansetron HCl (Zofran Inj) 4 mg Q6HR PRN IV PUSH NAUSEA OR VOMITING Last administered on 08/19/16 05:33; Start 08/09/16 at 17:30 Hydromorphone HCl (Dilaudid Pf Inj) 0.5 mg Q4H PRN IV PUSH PAIN SCALE 4 TO 10 Last administered on 08/10/16 04:10; Start 08/09/16 at 17:30; Stop 08/10/16 at 04: 26; Status DC Hydromorphone HCl (Dilaudid Pf Inj) 0.5 mg ONCE ONCE IV PUSH Last administered on 08/09/16 21:01; Start 08/09/16 at 20:15; Stop 08/09/16 at 20:19; Status DC Hydromorphone HCl (Dilaudid Pf Inj) 1 mg Q4H PRN IV PUSH PAIN SCALE 4 TO 10 Last administered on 08/10/16 09:25; Start 08/10/16 at 05:30; Stop 08/10/16 at 10: 47; Status DC Hydromorphone HCl (Dilaudid Pf Inj) 0.5 mg NOW ONCE IV Last administered on 05:13; Start 08/10/16 at 05:00; Stop 08/10/16 at 05:01; Status DC Diatrizoate Meglum/ Diatrizoate Sod ( Gastroview Liq) 18 ml ONCE ONCE PO Last administered on 08/10/16 09:57; Start 08/10/16 at 09:15; Stop 08/10/16 at 09: 16; Status DC Naloxone HCl (Narcan Inj) 0.4 mg STK-MED ONCE .ROUTE Last administered on 09:42; Start 08/10/16 at 09:37; Stop 08/10/16 at 09:38; Status DC Hydromorphone HCl (Dilaudid Pf Inj) 0.5 mg Q4H PRN IV PUSH PAIN SCALE 4 TO 10 Last administered on 08/19/16 05:32; Start 08/10/16 at 13:30 Acetaminophen/ Hydrocodone Bitart ([place] 7.5-325 Mg) 1 tab Q4H PRN PO PAIN SCALE 5 TO 7 Last administered on 08/19/16 02:32; Start 08/10/16 at 11:00 Iohexol (Omnipaque 350 Inj) 96 ml STK-MED ONCE IV Last administered on 12:21; Start 08/10/16 at 12:21; Stop 08/10/16 at 12:22; Status DC Heparin Sodium (Porcine) (Heparin Central Flush) 250 units STK-MED ONCE IV FLUSH Last administered on 08/10/16 12:22; Start 08/10/16 at 12:22; Stop at 14:15; Status DC Gadodiamide (Omniscan Pf Inj) 13 ml STK-MED ONCE IV Last administered on 15:16; Start 08/10/16 at 15:16; Stop 08/10/16 at 15:17; Status DC Sucralfate (Carafate Liq) 1 gm ACHS PO Last administered on 08/19/16 05:33; Start 08/11/16 at 11:00 Dexamethasone (Decadron) 4 mg Q12HR PO Last administered on 08/18/16 20:33; Start 08/11/16 at 10:30 Cyclobenzaprine HCl 10 mg 10 mg Q8HR PO ; Start 08/11/16 at 11:00; Stop 08/11/16 at 11:53; Status DC Phenytoin Sodium/ Sodium Chloride (Dilantin Inj/NS Inj) 120 ml @ 288 mls/hr ONCE ONCE IV Last administered on 08/11/16 12:45; Start 08/11/16 at 12:00; Stop 08/11/16 at 12:24; Status DC Phenytoin Sodium (Dilantin Inj) 100 mg Q8HR IV Last administered on 08/19/16 05:33; Start 08/11/16 at 22:00 Miscellaneous Information ALL NURSING DEPARTME... UNSCH PRN .XX SEE LABEL COMMENTS; Start 08/11/16 at 15:15; Stop 08/12/16 at 15:14; Status DC Miscellaneous Information ALL NURSING DEPARTME... UNSCH PRN .XX SEE LABEL COMMENTS; Start 08/11/16 at 15:15; Stop 08/12/16 at 15:14; Status DC Propofol (Diprivan 200 Mg/20 ml Inj) 100 mg STK-MED ONCE IV ; Start 08/11/16 at 09:14; Stop 08/11/16 at 17:41; Status DC Midazolam HCl (Versed Inj) 2 mg STK-MED ONCE IV ; Start 08/11/16 at 09:14; Stop 08/11/16 at 17:41; Status DC Fentanyl Citrate (fentaNYL INJ) 100 mcg STK-MED ONCE IV ; Start 08/11/16 at 09:14 ; Stop 08/11/16 at 17:41; Status DC Gadodiamide (Omniscan Pf Inj) 10 ml STK-MED ONCE IV Last administered on 12:22; Start 08/12/16 at 12:22; Stop 08/12/16 at 12:23; Status DC Lorazepam (Ativan) 0.5 mg Q8HR PRN PO Anxiety Last administered on 08/13/16 05: 51; Start 08/12/16 at 14:00; Stop 08/13/16 at 09:33; Status DC Morphine Sulfate (Oramorph Sr) 15 mg Q12HR PO Last administered on 08/18/16 20 :33; Start 08/13/16 at 11:00 Diazepam (Valium) 5 mg Q8H PRN PO anxiety Last administered on 08/18/16 23:55 ; Start 08/13/16 at 09:30 Sennosides (Senokot) 8.6 mg BID PO Last administered on 08/16/16 21:44; Start 08/14/16 at 12:00; Stop 08/17/16 at 01:49; Status DC Ondansetron HCl (Zofran Inj) 4 mg STK-MED ONCE IV PUSH ; Start 08/11/16 at 12:00 ; Stop 08/15/16 at 09:46; Status DC Bisacodyl (Dulcolax Supp) 10 mg ONCE ONCE RECTAL Last administered on 23:22; Start 08/15/16 at 23:00; Stop 08/15/16 at 23:03; Status DC Lactulose (Lactulose Liq) 30 ml ONCE ONCE PO Last administered on 08/16/16 00 :14; Start 08/15/16 at 23:00; Stop 08/15/16 at 23:03; Status DC Hydromorphone HCl (Dilaudid Pf Inj) 0.2 mg ONCE ONCE IV Last administered on 18:48; Start 08/16/16 at 18:45; Stop 08/16/16 at 18:46; Status DC Magnesium Citrate (Citroma Liq) 150 ml ONCE ONCE PO Last administered on 01:57; Start 08/17/16 at 02:00; Stop 08/17/16 at 02:01; Status DC Polyethylene Glycol (Miralax) 17 gm DAILY PO Last administered on 08/18/16 09: 06; Start 08/17/16 at 09:00 Senna/Docusate Sodium (Ellen-Colace) 2 tab BID PO Last administered on 20:33; Start 08/17/16 at 09:00 Sodium Biphosphate/ Sodium Phosphate (Fleets Enema (Adult)) 133 ml EVERY OTHER DAY PRN RECTAL CONSTIPATION; Start 08/17/16 at 10:45 Heparin Sodium (Porcine) (Heparin Central Flush) 500 units STK-MED ONCE IV FLUSH ; Start 08/17/16 at 13:25; Stop 08/17/16 at 13:26; Status DC Magnesium Hydroxide (Milk Of Magnesia Liq) 30 ml DAILY PRN PO CONSTIPATION Last administered on 08/18/16 12:25; Start 08/18/16 at 09:30 Methylnaltrexone [place] (Relistor Inj) 12 mg ONCE ONCE SQ Last administered on 08/18/16 15:36; Start 08/18/16 at 13:00; Stop 08/18/16 at 13:01; Status DC Miscellaneous Information Patient in critical care unit? Ass... [id number] .XX ; Start 08/19/16 at 06:30 Chlorhexidine Gluconate (Chlorhexidine 2% Cloth) 3 pack DAILY@04 TOPICAL ; Start 08/20/16 at 04:00; Stop 08/24/16 at 04:01 Chlorhexidine Gluconate (Chlorhexidine 2% Cloth) 3 pack UNSCH PRN TOPICAL HYGIENIC CARE; Start 08/19/16 at 06:30; Stop 08/24/16 at 06:20 A/P Assessment and Plan A/P Lung Cancer with Metastasis Brain Masses Chronic Pain Oncology and radiation oncology following Radiation planned; had radiation simulation . Brain mets are the likely etiology of her recent seizures continue with pain control and Decadron Seizure - had another episode of seizure on 08/18/16 Continue Dilantin and Decadron repeat the dilantin level today will reconsult neurology Monitor for recurrent seizures abdominal pain s/p EGD with gastritis continue PPI Anxiety Reactive PRN Valium started Ativan discontinued constipation; laxatives as needed. transfer back to floor soon- if no further seizure and after seen by neurology. d/w the RN. Discharge Planning d/w the patient; she's concerned that she'll be alone at home- at least for part of the day. spoke with the case management; will consider short-term rehab vs [facility]. dc planning within the next 2-3 days if stable with no further seizures and when ok with oncology. Lindsey Ferrer MD Aug 19, 2016 09:39
--- NOTE | 2016-08-19 11:21 | PD.ONC.PN ---
Subjective Subjective Remarks Afebrile overnight. yesterday evening patient's family member reported they witnessed seizure activity, but the time staff arrived to the room the patient was not exhibiting seizure activity. The patient was transferred to [facility] for the possible seizure. She states she feels fine today. No further seizure activity. Denies headache. Objective Data Date Time Temp Pulse Resp B/P Pulse Ox O2 Delivery O2 Flow Rate FiO2 08/19/16 08:00 88 08/19/16 06:00 88 08/19/16 04:00 97.8 91 14 137/68 96 08/19/16 04:00 91 08/19/16 02:00 99 08/19/16 00:00 97.5 102 18 145/80 96 08/19/16 00:00 102 08/18/16 22:00 102 08/18/16 20:00 109 08/18/16 20:00 97.5 109 28 143/91 98 08/18/16 17:15 112 161/95 08/18/16 17:00 111 164/86 08/18/16 16:50 113 162/92 08/18/16 16:00 96.8 103 19 161/85 97 08/18/16 12:00 96.2 100 19 165/95 100 08/19/16 08/19/16 08/19/16 07:00 15:00 23:00 Intake Total 2368 ml Balance 2368 ml Result Diagram: 08/18/16 0512 08/15/16 1050 Laboratory Results Laboratory Tests Test 08/19/16 06:00 Nasal Screen MRSA (PCR) NEGATIVE Administered Medications Medications (Trade) Dose Ordered Sig/Benji Route PRN Reason Start Time Stop Time Status Last Admin Dose Admin Sodium Chloride 2 ml 2 ml UNSCH PRN IVF FLUSH AFTER USING IV ACCESS 08/09/16 10:00 08/18/16 23:58 Potassium Chloride/Dextrose/ Sodium Chloride (KCl Inj/D5W-NS 1000 ml Inj) 1,005 ml @ 70 mls/hr [id number] IV 08/09/16 18:00 08/19/16 05:32 Pantoprazole Sodium (Protonix Inj) 40 mg Q24H IV PUSH 08/09/16 18:00 08/18/16 18:00 Ondansetron HCl (Zofran Inj) 4 mg Q6HR PRN IV PUSH NAUSEA OR VOMITING 08/09/16 17:30 08/19/16 05:33 Hydromorphone HCl (Dilaudid Pf Inj) 0.5 mg Q4H PRN IV PUSH PAIN SCALE 4 TO 10 08/10/16 13:30 08/19/16 05:32 Acetaminophen/ Hydrocodone Bitart ([place] 7.5-325 Mg) 1 tab Q4H PRN PO PAIN SCALE 5 TO 7 08/10/16 11:00 08/19/16 08:00 Sucralfate (Carafate Liq) 1 gm ACHS PO 08/11/16 11:00 08/19/16 05:33 Dexamethasone (Decadron) 4 mg Q12HR PO 08/11/16 10:30 08/19/16 09:00 Phenytoin Sodium (Dilantin Inj) 100 mg Q8HR IV 08/11/16 22:00 08/19/16 05:33 Morphine Sulfate (Oramorph Sr) 15 mg Q12HR PO 08/13/16 11:00 08/19/16 09:00 Diazepam (Valium) 5 mg Q8H PRN PO anxiety 08/13/16 09:30 08/18/16 23:55 Polyethylene Glycol (Miralax) 17 gm DAILY PO 08/17/16 09:00 08/19/16 09:00 Senna/Docusate Sodium (Ellen-Colace) 2 tab BID PO 08/17/16 09:00 08/19/16 09:00 Magnesium Hydroxide (Milk Of Magnesia Liq) 30 ml DAILY PRN PO CONSTIPATION 08/18/16 09:30 08/18/16 12:25 Objective Remarks GENERAL: Middle aged female, lying in bed in nad SKIN: Warm and dry. HEAD: Normocephalic. EYES:No injection or drainage. NECK: Supple, trachea midline. CARDIOVASCULAR: Regular rate and rhythm RESPIRATORY: Breath sounds equal bilaterally. No accessory muscle use. GASTROINTESTINAL: Abdomen soft, non-tender, nondistended. EXTREMITIES: No cyanosis, or edema. NEUROLOGICAL: aox3. normal speech. no obvious focal deficit Assessment/Plan Problem List: (1) Non-small cell carcinoma of lung Status: Chronic Plan: 08/19: await SRS Sunday. 08/16 for simulation today. SRS on sunday. ok to d/c from my standpoint. fu as outpt on sunday. sign off available prn 08/15: XRT simulation tomorrow. hopefully seizures will improve when XRT starts. continue dilantin, decadron 08/14: MRI spine shows no mets. continuing to have seizure. continue Dilantin. d/w Dr. Acevedo he plans to start XRT by next Sunday, will do simulation likely tomorrow 08/11: back pain + lower extremity weakness, will order MRI C/T/L spine to evaluate for spine mets. will start decadron 4mg PO BID. reviewed scans with patient, showed MRI brain images and discussed. patient was, understandably upset that there is a new brain lesion. emotional support provided. d/w Dr. Acevdeo as well who will see the patient today and plans to start XRT outpatient. 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 --started on maintenance Alimta December 2015 --restaging CT chest showed progressive consolidation and volume loss and collapse of LLL with increasing left pleural effusion. --July 2016: started on ?Opdivo --met with [facility] in 07/2016, wanted to try Opdivo before pursuing further radiation Assessment 51y/o female with non-small cell lung cancer, admitted with nausea and vomiting , MRI showed new brain mets. Plan 1. await start of XRT Sunday. 2. agree with re-eval by Neurology 3. continue Decadron Attending Statement The exam, history, and the medical decision-making described in the above note were completed with the assistance of the mid-level provider. I reviewed and agree with the findings presented. I attest that I had a [id number] encounter with the patient on the same day, and personally performed and documented my assessment and findings in the medical record. Namrata Rene Aug 19, 2016 11:21 Rodolfo Fitzpatrick MD Aug 19, 2016 23:58
[2016-08-19] MEDS ORDERED: VALPROATE INJ 500 MG in SODIUM CHLORIDE 0.9% INJ 100 ML IV SCH ×2 (12:00→15:00)
--- NOTE | 2016-08-19 14:17 | HHI.PR ---
Review/Management Diagnosis/Plan: (1) Seizure Plan: will add depakote; s/b d/w pt may help [facility] as well can change to po once tolerating f/u eeg/ct brain Dr. Walker to resume care on sunday (2) Brain metastases Plan: on dexa onc following (3) Metastatic lung cancer (metastasis from lung to other site) Plan: onc following Subjective Subjective Comments xcover had a sz; back to icu + headache No chest pain No dyspnea Active Medications Current Medications Medications (Trade) Dose Ordered Sig/Benji Route Start Time Stop Time Status Last Admin Sodium Chloride 2 ml 2 ml UNSCH PRN IVF 08/09/16 10:00 08/18/16 23:58 (KCl Inj/D5W-NS 1000 ml Inj) 1,005 ml @ 70 mls/hr [id number] IV 08/09/16 18:00 08/19/16 05:32 (Protonix Inj) 40 mg Q24H IV PUSH 08/09/16 18:00 08/18/16 18:00 (Zofran Inj) 4 mg Q6HR PRN IV PUSH 08/09/16 17:30 08/19/16 13:32 (Dilaudid Pf Inj) 0.5 mg Q4H PRN IV PUSH 08/10/16 13:30 08/19/16 13:32 ([place] 7.5-325 Mg) 1 tab Q4H PRN PO 08/10/16 11:00 08/19/16 08:00 (Carafate Liq) 1 gm ACHS PO 08/11/16 11:00 08/19/16 11:00 (Decadron) 4 mg Q12HR PO 08/11/16 10:30 08/19/16 09:00 (Dilantin Inj) 100 mg Q8HR IV 08/11/16 22:00 08/19/16 05:33 (Oramorph Sr) 15 mg Q12HR PO 08/13/16 11:00 08/19/16 09:00 (Valium) 5 mg Q8H PRN PO 08/13/16 09:30 08/18/16 23:55 (Miralax) 17 gm DAILY PO 08/17/16 09:00 08/19/16 09:00 (Ellen-Colace) 2 tab BID PO 08/17/16 09:00 08/19/16 09:00 (Milk Of [place]chita Liq) 30 ml DAILY PRN PO 08/18/16 09:30 08/18/16 12:25 Miscellaneous Information Patient in critical care unit? Ass... Q361D .XX 08/19/16 06:30 (Chlorhexidine 2% Cloth) 3 pack DAILY@04 TOPICAL 08/20/16 04:00 08/24/16 04:01 (Chlorhexidine 2% Cloth) 3 pack UNSCH PRN TOPICAL 08/19/16 06:30 08/24/16 06:20 Lorazepam 1 mg 1 mg Q15M PRN IV PUSH 08/19/16 09:30 08/19/16 14:09 (Depacon Inj/NS Inj) 105 ml @ 105 mls/hr Q8H IV 08/19/16 12:00 08/19/16 12:00 Allergies Allergies Coded Allergies Lomotil (Verified Allergy, Severe, swollen lips, rash, 08/09/16) Review of Systems All other ROS: ROS reviewed as documented in chart Exam I&O / VS 08/18/16 08/18/16 08/19/16 15:00 23:00 07:00 Intake Total 2368 ml Balance 2368 ml Intake Oral 900 ml IV Total 1468 ml # Voids 5 # Bowel Movements 0 Vital Signs Date Time Temp Pulse Resp B/P Pulse Ox O2 Delivery O2 Flow Rate FiO2 08/19/16 10:00 14 08/19/16 09:00 14 08/19/16 08:00 88 08/19/16 06:00 88 08/19/16 04:00 97.8 91 14 137/68 96 08/19/16 04:00 91 08/19/16 02:00 99 08/19/16 00:00 97.5 102 18 145/80 96 08/19/16 00:00 102 08/18/16 22:00 102 08/18/16 20:00 109 08/18/16 20:00 97.5 109 28 143/91 98 08/18/16 17:15 112 161/95 08/18/16 17:00 111 164/86 08/18/16 16:50 113 162/92 08/18/16 16:00 96.8 103 19 161/85 97 General: Alert and Oriented, No acute distress Eye: EOMI Neurologic: Alert, Oriented, No focal defects, CN II-XII intact Psychiatric: Cooperative, Appropriate mood & affect Objective Micro and Labs Laboratory Tests Test 08/19/16 06:00 Nasal Screen MRSA (PCR) NEGATIVE Problem Qualifiers (1) Metastatic lung cancer (metastasis from lung to other site): Qualified Code: C34.90 - Metastatic lung cancer (metastasis from lung to other site), unspecified laterality Anibal Cassidy MD Aug 19, 2016 14:17
[2016-08-19] MEDS: SODIUM CHLOR 0.9% 1000 ML INJ 1,000 ML IV SCH (14:30)
[2016-08-19] MEDS ORDERED: IOHEXOL 350 MG/ML 10 ML VIAL (for RAD DIAG) IV ONE (15:46)
[2016-08-19] MEDS: levETIRAcetam INJ 500 MG in SODIUM CHLORIDE 0.9% INJ 100 ML IV SCH (16:00)
--- NOTE | 2016-08-19 16:16 | RADRPT ---
EXAM DATE/TIME: 08/19/2016 15:19 [place] COMPARISON: No previous studies available for comparison. INDICATIONS : Evaluate for mass. IV CONTRAST: 90 cc Omnipaque 350 (iohexol) IV RADIATION DOSE: 38.56 CTDIvol (mGy) MEDICAL HISTORY : Carcinoma, lung. SURGICAL HISTORY : None. ENCOUNTER: Initial ACUITY: 1 day PAIN SCALE: Non-responsive LOCATION: Left head TECHNIQUE: Multiple contiguous axial images were obtained of the head. Using automated exposure control and adj ustment of the mA and/or kV according to patient size, radiation dose was kept as low as reasonably a chievable to obtain optimal diagnostic quality images. FINDINGS: A CT dated approximately 8mm enhancing mass at the posterior aspect of the third ventricle possibly e manating off the quadrigeminal plate as noted on recent MRI. Lesions seen on recent MRI the cerebella r vermis is not appreciated on CT exam. No other brain lesions are identified. There is a reported hi story of lung carcinoma. No acute bony abnormalities. CONCLUSION: 8mm lesion enhancing at the area of the posterior third ventricle/quadrigeminal plate as seen on rece nt MRI on August 10. No significant change in size. No hydrocephalus. No other lesion seen on CT. Cereb ellar vermis and lesion seen on MRI not definitely identified on CT. Erick Clifton MD on August 19, 2016 at 16:06 Board Certified Radiologist. This report was verified electronically.
[2016-08-19] MEDS: PANTOPRAZOLE SODIUM 40 MG VIAL IV PUSH SCH (18:00)
[2016-08-19] MEDS: VALPROATE INJ 500 MG in SODIUM CHLORIDE 0.9% INJ 100 ML IV SCH (20:00)
[2016-08-20] VITALS (14 sets, daily range): BP systolic 128–153; BP diastolic 70–99; PULSE 74–120; RESP 12–22; TEMP 97.5–99.3; O2SAT 95–100
[2016-08-20] MEDS: ONDANSETRON HCL 4 MG/2 ML VIAL IV PUSH PRN ×4 (02:15→19:33)
[2016-08-20] MEDS: levETIRAcetam INJ 500 MG in SODIUM CHLORIDE 0.9% INJ 100 ML IV SCH ×2 (02:31→16:00)
[2016-08-20] MEDS: VALPROATE INJ 500 MG in SODIUM CHLORIDE 0.9% INJ 100 ML IV SCH ×4 (02:32→21:39)
[2016-08-20] MEDS: ACETAMINOPHEN/HYDROcodone 325 MG/7.5 MG TAB PO PRN ×2 (02:32→06:20)
[2016-08-20] MEDS: CHLORHEXIDINE GLUCONATE 2 % 1 PACK (2 CLOTHS)(taper/protocol) TOPICAL SCH (02:34)
[2016-08-20] MEDS: SODIUM CHLOR 0.9% 1000 ML INJ 1,000 ML IV SCH ×2 (06:20→17:10)
[2016-08-20] MEDS: SUCRALFATE 1 GM/10 ML CUP PO SCH ×4 (06:20→22:30)
[2016-08-20] MEDS: MORPHINE SULFATE 15 MG CONTROLLED RELEASE TAB PO SCH ×2 (08:14→21:26)
[2016-08-20] MEDS: DOCUSATE SODIUM 50 MG/SENNA 8.6 MG TAB PO SCH ×2 (08:14→21:27)
[2016-08-20] MEDS: DEXAMETHASONE 4 MG TAB PO SCH ×2 (08:15→21:26)
[2016-08-20] MEDS: HYDROmorphone HCL PF 1 MG/ML VIAL IV PUSH PRN ×4 (08:20→21:21)
[2016-08-20] MEDS: POLYETHYLENE GLYCOL 17 GM PKG PO SCH (09:00)
--- NOTE | 2016-08-20 09:28 | HHI.PR ---
Subjective Remarks resting comfortably with no distress. no seizures over night. had one emesis last night. has slight headache. d/w the RN and no other acute issues over night. Objective Vitals Vital Signs Date Time Temp Pulse Resp B/P Pulse Ox O2 Delivery O2 Flow Rate FiO2 08/20/16 08:12 98.7 96 20 128/75 97 08/20/16 08:10 99 08/20/16 07:20 18 08/20/16 06:00 101 08/20/16 04:00 98.4 105 18 128/74 96 08/20/16 04:00 105 08/20/16 02:00 120 08/20/16 00:00 104 08/20/16 00:00 98.8 104 12 134/75 95 08/19/16 22:00 113 08/19/16 20:39 96 08/19/16 20:00 98.2 103 11 160/93 98 08/19/16 20:00 103 08/19/16 16:00 90 08/19/16 14:30 98.0 103 14 143/79 98 08/19/16 14:00 92 08/19/16 14:00 98.0 100 14 172/79 98 08/19/16 12:00 90 08/19/16 10:00 88 08/19/16 10:00 14 I/O 08/19/16 08/19/16 08/19/16 08/20/16 08/20/16 08/20/16 07:00 15:00 23:00 07:00 15:00 23:00 Intake Total 2368 ml 1136 ml 1614 ml 931 ml Output Total 1400 ml 2000 ml 1150 ml Balance 2368 ml -264 ml -386 ml -219 ml Intake Oral 900 ml 680 ml 480 ml 480 ml IV Total 1468 ml 456 ml 1134 ml 451 ml Output Urine Total 1400 ml 2000 ml 1150 ml # Voids 5 # Bowel Movements 0 0 0 0 Result Diagram: 08/18/16 0512 Imaging Last Impressions Head CT 08/19/16 0000 Signed Impressions: Service Date/Time: Friday, August 19, 2016 15:19 - CONCLUSION: 8mm lesion enhancing at the area of the posterior third ventricle/quadrigeminal plate as seen on recent MRI on August 10. No significant change in size. No hydrocephalus. No other lesion seen on CT. Cerebellar vermis and lesion seen on MRI not definitely identified on CT. Erick Clifton MD Abdomen X-Ray 08/17/16 0000 Signed Impressions: Service Date/Time: August 01:01 - CONCLUSION: No bowel obstruction. Moe Moon MD Entire Spine MRI 08/12/16 0000 Signed Impressions: Service Date/Time: Thursday, August 11, 2016 13:40 - CONCLUSION: No evidence of metastatic disease. Jen Parry MD Chest CT 08/10/16 0000 Signed Impressions: Service Date/Time: August 12:10 - CONCLUSION: Stable chest appearance Michael Chaudhari MD Brain MRI 08/10/16 0000 Signed Impressions: Service Date/Time: August 15:05 - CONCLUSION: 1. 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 This appears to narrow the aqueduct of Sylvius, but there is no evidence of hydrocephalus. 2. The left cerebellar vermis enhancing nodule is stable in size at 4 mm. 3. The enhancing mass in the suprasellar cistern has resolved. No mass effect on the chiasm. Eusebio Meraz MD Abdomen/Pelvis CT 08/10/16 Signed Impressions: Service Date/Time: August 12:10 - CONCLUSION: 1. There are changes consistent with radiation therapy at the left lung base. These are only partially visualized. There is a small left basilar effusion. 2. CT scan of the abdomen and pelvis is within normal limits. Rajesh Bhatia MD Chest X-Ray 08/09/16 173 Signed Impressions: Service Date/Time: Tuesday, August 09, 2016 17:58 - CONCLUSION: Stable moderate left base parenchymal opacity and pleural effusion. Slight developing parenchymal opacity at the right lung base. Michael Chaudhari MD Objective Remarks GENERAL: This is a well-nourished, well-developed patient, in no apparent distress. CARDIOVASCULAR: Regular rate and regular rhythm without murmurs, gallops, or rubs. RESPIRATORY: Clear to auscultation. Breath sounds equal bilaterally. No wheezes , rales, or rhonchi. GASTROINTESTINAL: Abdomen soft, non-tender, nondistended. Normal, active bowel sounds MUSCULOSKELETAL: Extremities without clubbing, cyanosis, or edema. NEURO: Alert & Oriented x4 to person, place, time, situation. Moves all ext x4 Procedures EGD Medications and IVs Current Medications Sodium Chloride (NS 1000 ml Inj) 1,000 ml @ 999 mls/hr BOLUS ONCE IV Last administered on 08/09/16 09:22; Start 08/09/16 at 09:15; Stop 08/09/16 at 10:15; Status DC Hydromorphone HCl (Dilaudid Pf Inj) 2 mg ONCE ONCE IV PUSH Last administered on 08/09/16 09:22; Start 08/09/16 at 09:15; Stop 08/09/16 at 09:16; Status DC Ondansetron HCl 4 mg 4 mg ONCE ONCE IV PUSH Last administered on 08/09/16 09: 22; Start 08/09/16 at 09:15; Stop 08/09/16 at 09:16; Status DC Sodium Chloride (NS 1000 ml Inj) 1,000 ml @ 1,000 mls/hr Q1H ONCE IV Last administered on 08/09/16 10:22; Start 08/09/16 at 09:50; Stop 08/09/16 at 10:49; Status DC Sodium Chloride (NS Flush) 2 ml UNSCH PRN IVF FLUSH AFTER USING IV ACCESS Last administered on 08/18/16 23:58; Start 08/09/16 at 10:00 Prochlorperazine Edisylate (Compazine Inj) 10 mg ONCE ONCE IV PUSH Last administered on 08/09/16 11:06; Start 08/09/16 at 11:00; Stop 08/09/16 at 11:01; Status DC Diphenhydramine HCl 25 mg 25 mg ONCE ONCE IV PUSH Last administered on 11:04; Start 08/09/16 at 11:00; Stop 08/09/16 at 11:01; Status DC Sodium Chloride (NS 1000 ml Inj) 1,000 ml @ 999 mls/hr BOLUS ONCE IV Last administered on 08/09/16 13:02; Start 08/09/16 at 12:15; Stop 08/09/16 at 13:15; Status DC Hydromorphone HCl 2 mg 2 mg ONCE ONCE IV PUSH Last administered on 08/09/16 14 :03; Start 08/09/16 at 14:00; Stop 08/09/16 at 14:01; Status DC Potassium Chloride/Dextrose/ Sodium Chloride (KCl Inj/D5W-NS 1000 ml Inj) 1,005 ml @ 70 mls/hr [id number] IV Last administered on 08/19/16 05:32; Start 08/09/16 at 18:00; Stop 08/19/16 at 23:52; Status DC Pantoprazole Sodium (Protonix Inj) 40 mg Q24H IV PUSH Last administered on 08/19 18:00; Start 08/09/16 at 18:00 Ondansetron HCl (Zofran Inj) 4 mg Q6HR PRN IV PUSH NAUSEA OR VOMITING Last administered on 08/20/16 02:15; Start 08/09/16 at 17:30 Hydromorphone HCl (Dilaudid Pf Inj) 0.5 mg Q4H PRN IV PUSH PAIN SCALE 4 TO 10 Last administered on 08/10/16 04:10; Start 08/09/16 at 17:30; Stop 08/10/16 at 04: 26; Status DC Hydromorphone HCl (Dilaudid Pf Inj) 0.5 mg ONCE ONCE IV PUSH Last administered on 08/09/16 21:01; Start 08/09/16 at 20:15; Stop 08/09/16 at 20:19; Status DC Hydromorphone HCl (Dilaudid Pf Inj) 1 mg Q4H PRN IV PUSH PAIN SCALE 4 TO 10 Last administered on 08/10/16 09:25; Start 08/10/16 at 05:30; Stop 08/10/16 at 10: 47; Status DC Hydromorphone HCl (Dilaudid Pf Inj) 0.5 mg NOW ONCE IV Last administered on 05:13; Start 08/10/16 at 05:00; Stop 08/10/16 at 05:01; Status DC Diatrizoate Meglum/ Diatrizoate Sod ( Gastroview Liq) 18 ml ONCE ONCE PO Last administered on 08/10/16 09:57; Start 08/10/16 at 09:15; Stop 08/10/16 at 09: 16; Status DC Naloxone HCl (Narcan Inj) 0.4 mg STK-MED ONCE .ROUTE Last administered on 09:42; Start 08/10/16 at 09:37; Stop 08/10/16 at 09:38; Status DC Hydromorphone HCl (Dilaudid Pf Inj) 0.5 mg Q4H PRN IV PUSH PAIN SCALE 4 TO 10 Last administered on 08/19/16 18:02; Start 08/10/16 at 13:30 Acetaminophen/ Hydrocodone Bitart ([place] 7.5-325 Mg) 1 tab Q4H PRN PO PAIN SCALE 5 TO 7 Last administered on 08/20/16 06:20; Start 08/10/16 at 11:00 Iohexol (Omnipaque 350 Inj) 96 ml STK-MED ONCE IV Last administered on 12:21; Start 08/10/16 at 12:21; Stop 08/10/16 at 12:22; Status DC Heparin Sodium (Porcine) (Heparin Central Flush) 250 units STK-MED ONCE IV FLUSH Last administered on 08/10/16 12:22; Start 08/10/16 at 12:22; Stop at 14:15; Status DC Gadodiamide (Omniscan Pf Inj) 13 ml STK-MED ONCE IV Last administered on 15:16; Start 08/10/16 at 15:16; Stop 08/10/16 at 15:17; Status DC Sucralfate (Carafate Liq) 1 gm ACHS PO Last administered on 08/20/16 06:20; Start 08/11/16 at 11:00 Dexamethasone (Decadron) 4 mg Q12HR PO Last administered on 08/20/16 08:15; Start 08/11/16 at 10:30 Cyclobenzaprine HCl 10 mg 10 mg Q8HR PO ; Start 08/11/16 at 11:00; Stop 08/11/16 at 11:53; Status DC Phenytoin Sodium/ Sodium Chloride (Dilantin Inj/NS Inj) 120 ml @ 288 mls/hr ONCE ONCE IV Last administered on 08/11/16 12:45; Start 08/11/16 at 12:00; Stop 08/11/16 at 12:24; Status DC Phenytoin Sodium (Dilantin Inj) 100 mg Q8HR IV Last administered on 08/19/16 05:33; Start 08/11/16 at 22:00; Stop 08/19/16 at 14:13; Status DC Miscellaneous Information ALL NURSING DEPARTME... UNSCH PRN .XX SEE LABEL COMMENTS; Start 08/11/16 at 15:15; Stop 08/12/16 at 15:14; Status DC Miscellaneous Information ALL NURSING DEPARTME... UNSCH PRN .XX SEE LABEL COMMENTS; Start 08/11/16 at 15:15; Stop 08/12/16 at 15:14; Status DC Propofol (Diprivan 200 Mg/20 ml Inj) 100 mg STK-MED ONCE IV ; Start 08/11/16 at 09:14; Stop 08/11/16 at 17:41; Status DC Midazolam HCl (Versed Inj) 2 mg STK-MED ONCE IV ; Start 08/11/16 at 09:14; Stop 08/11/16 at 17:41; Status DC Fentanyl Citrate (fentaNYL INJ) 100 mcg STK-MED ONCE IV ; Start 08/11/16 at 09:14 ; Stop 08/11/16 at 17:41; Status DC Gadodiamide (Omniscan Pf Inj) 10 ml STK-MED ONCE IV Last administered on 12:22; Start 08/12/16 at 12:22; Stop 08/12/16 at 12:23; Status DC Lorazepam (Ativan) 0.5 mg Q8HR PRN PO Anxiety Last administered on 08/13/16 05: 51; Start 08/12/16 at 14:00; Stop 08/13/16 at 09:33; Status DC Morphine Sulfate (Oramorph Sr) 15 mg Q12HR PO Last administered on 08/20/16 08 :14; Start 08/13/16 at 11:00 Diazepam (Valium) 5 mg Q8H PRN PO anxiety Last administered on 08/18/16 23:55 ; Start 08/13/16 at 09:30 Sennosides (Senokot) 8.6 mg BID PO Last administered on 08/16/16 21:44; Start 08/14/16 at 12:00; Stop 08/17/16 at 01:49; Status DC Ondansetron HCl (Zofran Inj) 4 mg STK-MED ONCE IV PUSH ; Start 08/11/16 at 12:00 ; Stop 08/15/16 at 09:46; Status DC Bisacodyl (Dulcolax Supp) 10 mg ONCE ONCE RECTAL Last administered on 23:22; Start 08/15/16 at 23:00; Stop 08/15/16 at 23:03; Status DC Lactulose (Lactulose Liq) 30 ml ONCE ONCE PO Last administered on 08/16/16 00 :14; Start 08/15/16 at 23:00; Stop 08/15/16 at 23:03; Status DC Hydromorphone HCl (Dilaudid Pf Inj) 0.2 mg ONCE ONCE IV Last administered on 18:48; Start 08/16/16 at 18:45; Stop 08/16/16 at 18:46; Status DC Magnesium Citrate (Citroma Liq) 150 ml ONCE ONCE PO Last administered on 01:57; Start 08/17/16 at 02:00; Stop 08/17/16 at 02:01; Status DC Polyethylene Glycol (Miralax) 17 gm DAILY PO Last administered on 08/19/16 09: 00; Start 08/17/16 at 09:00 Senna/Docusate Sodium (Ellen-Colace) 2 tab BID PO Last administered on 08:14; Start 08/17/16 at 09:00 Sodium Biphosphate/ Sodium Phosphate (Fleets Enema (Adult)) 133 ml EVERY OTHER DAY PRN RECTAL CONSTIPATION; Start 08/17/16 at 10:45 Heparin Sodium (Porcine) (Heparin Central Flush) 500 units STK-MED ONCE IV FLUSH ; Start 08/17/16 at 13:25; Stop 08/17/16 at 13:26; Status DC Magnesium Hydroxide (Milk Of Magnesia Liq) 30 ml DAILY PRN PO CONSTIPATION Last administered on 08/18/16 12:25; Start 08/18/16 at 09:30 Methylnaltrexone [place] (Relistor Inj) 12 mg ONCE ONCE SQ Last administered on 08/18/16 15:36; Start 08/18/16 at 13:00; Stop 08/18/16 at 13:01; Status DC Miscellaneous Information Patient in critical care unit? Ass... Q361D .XX ; Start 08/19/16 at 06:30 Chlorhexidine Gluconate (Chlorhexidine 2% Cloth) 3 pack DAILY@04 TOPICAL ; Start 08/20/16 at 04:00; Stop 08/24/16 at 04:01 Chlorhexidine Gluconate (Chlorhexidine 2% Cloth) 3 pack UNSCH PRN TOPICAL HYGIENIC CARE; Start 08/19/16 at 06:30; Stop 08/24/16 at 06:20 Lorazepam 1 mg 1 mg Q15M PRN IV PUSH SEIZURE Last administered on 08/19/16 14: 09; Start 08/19/16 at 09:30 Valproate Sodium 500 mg/Sodium Chloride 105 ml @ 105 mls/hr Q8H IV Last administered on 08/19/16 12:00; Start 08/19/16 at 12:00; Stop 08/19/16 at 14:31 ; Status DC Sodium Chloride 1,000 ml @ 75 mls/hr [id number] IV Last administered on 06:20; Start 08/19/16 at 14:30 Valproate Sodium 500 mg/Sodium Chloride 105 ml @ 105 mls/hr Q8H IV ; Start at 15:00; Stop 08/19/16 at 15:00; Status DC Levetriacetam 500 mg/Sodium Chloride 105 ml @ 420 mls/hr Q12H IV Last administered on 08/20/16 02:31; Start 08/19/16 at 16:00 Valproate Sodium/ Sodium Chloride (Depacon Inj/NS Inj) 105 ml @ 105 mls/hr Q8H IV Last administered on 08/20/16 02:32; Start 08/19/16 at 20:00 Iohexol (Omnipaque 350 Inj) 90 ml STK-MED ONCE IV Last administered on 15:46; Start 08/19/16 at 15:46; Stop 08/19/16 at 15:47; Status DC A/P Assessment and Plan A/P Lung Cancer with Metastasis Brain Masses Chronic Pain Oncology and radiation oncology following Radiation planned; had radiation simulation . Brain mets are the likely etiology of her recent seizures continue with pain control and Decadron Seizure - had another episode of seizure on 08/18/[address] head on 08/19 ; stable EEG to be repeated. neurology reconsulted; started on Depakote and Keppra continue Decadron dilantin was discontinued seizure precautions abdominal pain-resolved s/p EGD with gastritis continue PPI Anxiety Reactive PRN Valium started Ativan discontinued constipation; laxatives as needed. transfer back oncology floor today if ok with neurology. d/w the RN. Lindsey Ferrer MD Aug 20, 2016 09:28 spoke with the case management; will consider short-term rehab vs [facility]. dc planning within the next 2-3 days if stable with no further seizures and when ok with oncology. Lindsey Ferrer MD Aug 20, 2016 09:28
[2016-08-20] MEDS: PANTOPRAZOLE SODIUM 40 MG VIAL IV PUSH SCH (16:33)
--- NOTE | 2016-08-20 18:50 | MG ---
cc: POLO CHUN MD Lab No: [id number] Date: 08/20/2016 Age: 51 Sex: F Race: DATE OF : 1965. 51-year-old history of headaches, numbness, brain lesions, seizure activity. 2-5 Hz posterior rhythm, 20-40 microvolts, noted to be asleep by the technicians, although poor sleep architecture. Limited driving with photic stimulation. During arousal persistent slowing noted in the background. INTERPRETATION: Predominantly sleep state with at least mild to moderate level of underlying encephalopathy. No active seizure activity noted. Clinical correlation. Polo Chun MD /NIXON /5:31 PM /6:49 PM
[2016-08-20] MEDS: SODIUM CHLORIDE 0.9% FLUSH 10 ML FLUSH IVF PRN (19:37)
[2016-08-21] VITALS (10 sets, daily range): BP systolic 119–171; BP diastolic 72–94; PULSE 98–123; RESP 16–20; TEMP 97.9–101; O2SAT 95–99
[2016-08-21] MEDS: ONDANSETRON HCL 4 MG/2 ML VIAL IV PUSH PRN ×3 (01:32→17:59)
[2016-08-21] MEDS: ACETAMINOPHEN/HYDROcodone 325 MG/7.5 MG TAB PO PRN (01:35)
[2016-08-21] MEDS: levETIRAcetam INJ 500 MG in SODIUM CHLORIDE 0.9% INJ 100 ML IV SCH ×2 (03:34→17:50)
[2016-08-21] MEDS: CHLORHEXIDINE GLUCONATE 2 % 1 PACK (2 CLOTHS)(taper/protocol) TOPICAL SCH (03:48)
[2016-08-21] MEDS: VALPROATE INJ 500 MG in SODIUM CHLORIDE 0.9% INJ 100 ML IV SCH ×3 (04:03→20:06)
[2016-08-21] MEDS: SODIUM CHLOR 0.9% 1000 ML INJ 1,000 ML IV SCH ×2 (05:02→19:50)
[2016-08-21] MEDS: HYDROmorphone HCL PF 1 MG/ML VIAL IV PUSH PRN ×5 (05:25→22:20)
[2016-08-21] MEDS: SUCRALFATE 1 GM/10 ML CUP PO SCH ×4 (06:45→23:26)
--- NOTE | 2016-08-21 08:53 | HHI.PR ---
Subjective Remarks in no acute distress. but complaining of abdominal pain. no BM yet. has some nausea. no seizures over night. Objective Vitals Vital Signs Date Time Temp Pulse Resp B/P Pulse Ox O2 Delivery O2 Flow Rate FiO2 08/21/16 08:08 96 21 08/21/16 08:04 98 08/21/16 04:00 98.5 108 18 119/72 99 08/21/16 00:07 98 21 08/21/16 00:00 98.2 108 18 143/83 97 08/20/16 20:26 114 08/20/16 20:05 111 153/93 99 08/20/16 20:00 97.5 112 20 135/95 100 08/20/16 18:37 99.3 103 15 142/99 98 08/20/16 18:27 94 08/20/16 17:25 20 08/20/16 16:49 97 08/20/16 16:22 98.0 95 22 140/70 98 08/20/16 10:00 93 08/20/16 09:14 20 I/O 08/20/16 08/20/16 08/20/16 08/21/16 08/21/16 08/21/16 07:00 15:00 23:00 07:00 15:00 23:00 Intake Total 931 ml 1395 ml 840 ml 750 ml Output Total 1150 ml 1400 ml Balance -219 ml -5 ml 840 ml 750 ml Intake Oral 480 ml 240 ml 240 ml 240 ml IV Total 451 ml 1155 ml 600 ml 510 ml Output Urine Total 1150 ml 1400 ml # Voids 3 # Bowel Movements 0 0 Result Diagram: 08/18/16 0512 Imaging Last Impressions Head CT 08/19/16 0000 Signed Impressions: Service Date/Time: Friday, August 19, 2016 15:19 - CONCLUSION: 8mm lesion enhancing at the area of the posterior third ventricle/quadrigeminal plate as seen on recent MRI on August 10. No significant change in size. No hydrocephalus. No other lesion seen on CT. Cerebellar vermis and lesion seen on MRI not definitely identified on CT. Erick Clifton MD Abdomen X-Ray 08/17/16 0000 Signed Impressions: Service Date/Time: August 01:01 - CONCLUSION: No bowel obstruction. Moe Moon MD Entire Spine MRI 08/12/16 0000 Signed Impressions: Service Date/Time: Thursday, August 11, 2016 13:40 - CONCLUSION: No evidence of metastatic disease. Jen Parry MD Chest CT 08/10/16 0000 Signed Impressions: Service Date/Time: August 12:10 - CONCLUSION: Stable chest appearance Michael Chaudhari MD Brain MRI 08/10/16 0000 Signed Impressions: Service Date/Time: August 15:05 - CONCLUSION: 1. 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 This appears to narrow the aqueduct of Sylvius, but there is no evidence of hydrocephalus. 2. The left cerebellar vermis enhancing nodule is stable in size at 4 mm. 3. The enhancing mass in the suprasellar cistern has resolved. No mass effect on the chiasm. Eusebio Meraz MD Abdomen/Pelvis CT 08/10/16 0000 Signed Impressions: Service Date/Time: August 12:10 - CONCLUSION: 1. There are changes consistent with radiation therapy at the left lung base. These are only partially visualized. There is a small left basilar effusion. 2. CT scan of the abdomen and pelvis is within normal limits. Rajesh Bhatia MD Chest X-Ray 08/09/16 1731 Signed Impressions: Service Date/Time: Tuesday, August 09, 2016 17:58 - CONCLUSION: Stable moderate left base parenchymal opacity and pleural effusion. Slight developing parenchymal opacity at the right lung base. Michael Chaudhari MD Objective Remarks GENERAL: This is a well-nourished, well-developed patient, in no apparent distress. CARDIOVASCULAR: Regular rate and regular rhythm without murmurs, gallops, or rubs. RESPIRATORY: Clear to auscultation. Breath sounds equal bilaterally. No wheezes , rales, or rhonchi. GASTROINTESTINAL: Abdomen soft, non-tender, nondistended. Normal, active bowel sounds MUSCULOSKELETAL: Extremities without clubbing, cyanosis, or edema. NEURO: Alert & Oriented x4 to person, place, time, situation. Moves all ext x4 Procedures EGD Medications and IVs Current Medications Sodium Chloride (NS 1000 ml Inj) 1,000 ml @ 999 mls/hr BOLUS ONCE IV Last administered on 08/09/16 09:22; Start 08/09/16 at 09:15; Stop 08/09/16 at 10:15; Status DC Hydromorphone HCl (Dilaudid Pf Inj) 2 mg ONCE ONCE IV PUSH Last administered on 08/09/16 09:22; Start 08/09/16 at 09:15; Stop 08/09/16 at 09:16; Status DC Ondansetron HCl 4 mg 4 mg ONCE ONCE IV PUSH Last administered on 08/09/16 09: 22; Start 08/09/16 at 09:15; Stop 08/09/16 at 09:16; Status DC Sodium Chloride (NS 1000 ml Inj) 1,000 ml @ 1,000 mls/hr Q1H ONCE IV Last administered on 08/09/16 10:22; Start 08/09/16 at 09:50; Stop 08/09/16 at 10:49; Status DC Sodium Chloride (NS Flush) 2 ml UNSCH PRN IVF FLUSH AFTER USING IV ACCESS Last administered on 08/20/16 19:37; Start 08/09/16 at 10:00 Prochlorperazine Edisylate (Compazine Inj) 10 mg ONCE ONCE IV PUSH Last administered on 08/09/16 11:06; Start 08/09/16 at 11:00; Stop 08/09/16 at 11:01; Status DC Diphenhydramine HCl 25 mg 25 mg ONCE ONCE IV PUSH Last administered on 11:04; Start 08/09/16 at 11:00; Stop 08/09/16 at 11:01; Status DC Sodium Chloride (NS 1000 ml Inj) 1,000 ml @ 999 mls/hr BOLUS ONCE IV Last administered on 08/09/16 13:02; Start 08/09/16 at 12:15; Stop 08/09/16 at 13:15; Status DC Hydromorphone HCl 2 mg 2 mg ONCE ONCE IV PUSH Last administered on 08/09/16 14 :03; Start 08/09/16 at 14:00; Stop 08/09/16 at 14:01; Status DC Potassium Chloride/Dextrose/ Sodium Chloride (KCl Inj/D5W-NS 1000 ml Inj) 1,005 ml @ 70 mls/hr [id number] IV Last administered on 08/19/16 05:32; Start 08/09/16 at 18:00; Stop 08/19/16 at 23:52; Status DC Pantoprazole Sodium (Protonix Inj) 40 mg Q24H IV PUSH Last administered on 08/20 16:33; Start 08/09/16 at 18:00 Ondansetron HCl (Zofran Inj) 4 mg Q6HR PRN IV PUSH NAUSEA OR VOMITING Last administered on 08/21/16 08:22; Start 08/09/16 at 17:30 Hydromorphone HCl (Dilaudid Pf Inj) 0.5 mg Q4H PRN IV PUSH PAIN SCALE 4 TO 10 Last administered on 08/10/16 04:10; Start 08/09/16 at 17:30; Stop 08/10/16 at 04: 26; Status DC Hydromorphone HCl (Dilaudid Pf Inj) 0.5 mg ONCE ONCE IV PUSH Last administered on 08/09/16 21:01; Start 08/09/16 at 20:15; Stop 08/09/16 at 20:19; Status DC Hydromorphone HCl (Dilaudid Pf Inj) 1 mg Q4H PRN IV PUSH PAIN SCALE 4 TO 10 Last administered on 08/10/16 09:25; Start 08/10/16 at 05:30; Stop 08/10/16 at 10: 47; Status DC Hydromorphone HCl (Dilaudid Pf Inj) 0.5 mg NOW ONCE IV Last administered on 05:13; Start 08/10/16 at 05:00; Stop 08/10/16 at 05:01; Status DC Diatrizoate Meglum/ Diatrizoate Sod ( Gastroview Liq) 18 ml ONCE ONCE PO Last administered on 08/10/16 09:57; Start 08/10/16 at 09:15; Stop 08/10/16 at 09: 16; Status DC Naloxone HCl (Narcan Inj) 0.4 mg STK-MED ONCE .ROUTE Last administered on 09:42; Start 08/10/16 at 09:37; Stop 08/10/16 at 09:38; Status DC Hydromorphone HCl (Dilaudid Pf Inj) 0.5 mg Q4H PRN IV PUSH PAIN SCALE 4 TO 10 Last administered on 08/21/16 05:25; Start 08/10/16 at 13:30 Acetaminophen/ Hydrocodone Bitart ([place] 7.5-325 Mg) 1 tab Q4H PRN PO PAIN SCALE 5 TO 7 Last administered on 08/21/16 01:35; Start 08/10/16 at 11:00 Iohexol (Omnipaque 350 Inj) 96 ml STK-MED ONCE IV Last administered on 12:21; Start 08/10/16 at 12:21; Stop 08/10/16 at 12:22; Status DC Heparin Sodium (Porcine) (Heparin Central Flush) 250 units STK-MED ONCE IV FLUSH Last administered on 08/10/16 12:22; Start 08/10/16 at 12:22; Stop at 14:15; Status DC Gadodiamide (Omniscan Pf Inj) 13 ml STK-MED ONCE IV Last administered on 15:16; Start 08/10/16 at 15:16; Stop 08/10/16 at 15:17; Status DC Sucralfate (Carafate Liq) 1 gm ACHS PO Last administered on 08/21/16 06:45; Start 08/11/16 at 11:00 Dexamethasone (Decadron) 4 mg Q12HR PO Last administered on 08/20/16 21:26; Start 08/11/16 at 10:30 Cyclobenzaprine HCl 10 mg 10 mg Q8HR PO ; Start 08/11/16 at 11:00; Stop 08/11/16 at 11:53; Status DC Phenytoin Sodium/ Sodium Chloride (Dilantin Inj/NS Inj) 120 ml @ 288 mls/hr ONCE ONCE IV Last administered on 08/11/16 12:45; Start 08/11/16 at 12:00; Stop 08/11/16 at 12:24; Status DC Phenytoin Sodium (Dilantin Inj) 100 mg Q8HR IV Last administered on 08/19/16 05:33; Start 08/11/16 at 22:00; Stop 08/19/16 at 14:13; Status DC Miscellaneous Information ALL NURSING DEPARTME... UNSCH PRN .XX SEE LABEL COMMENTS; Start 08/11/16 at 15:15; Stop 08/12/16 at 15:14; Status DC Miscellaneous Information ALL NURSING DEPARTME... UNSCH PRN .XX SEE LABEL COMMENTS; Start 08/11/16 at 15:15; Stop 08/12/16 at 15:14; Status DC Propofol (Diprivan 200 Mg/20 ml Inj) 100 mg STK-MED ONCE IV ; Start 08/11/16 at 09:14; Stop 08/11/16 at 17:41; Status DC Midazolam HCl (Versed Inj) 2 mg STK-MED ONCE IV ; Start 08/11/16 at 09:14; Stop 08/11/16 at 17:41; Status DC Fentanyl Citrate (fentaNYL INJ) 100 mcg STK-MED ONCE IV ; Start 08/11/16 at 09:14 ; Stop 08/11/16 at 17:41; Status DC Gadodiamide (Omniscan Pf Inj) 10 ml STK-MED ONCE IV Last administered on 12:22; Start 08/12/16 at 12:22; Stop 08/12/16 at 12:23; Status DC Lorazepam (Ativan) 0.5 mg Q8HR PRN PO Anxiety Last administered on 08/13/16 05: 51; Start 08/12/16 at 14:00; Stop 08/13/16 at 09:33; Status DC Morphine Sulfate (Oramorph Sr) 15 mg Q12HR PO Last administered on 08/20/16 21 :26; Start 08/13/16 at 11:00 Diazepam (Valium) 5 mg Q8H PRN PO anxiety Last administered on 08/18/16 23:55 ; Start 08/13/16 at 09:30 Sennosides (Senokot) 8.6 mg BID PO Last administered on 08/16/16 21:44; Start 08/14/16 at 12:00; Stop 08/17/16 at 01:49; Status DC Ondansetron HCl (Zofran Inj) 4 mg STK-MED ONCE IV PUSH ; Start 08/11/16 at 12:00 ; Stop 08/15/16 at 09:46; Status DC Bisacodyl (Dulcolax Supp) 10 mg ONCE ONCE RECTAL Last administered on 23:22; Start 08/15/16 at 23:00; Stop 08/15/16 at 23:03; Status DC Lactulose (Lactulose Liq) 30 ml ONCE ONCE PO Last administered on 08/16/16 00 :14; Start 08/15/16 at 23:00; Stop 08/15/16 at 23:03; Status DC Hydromorphone HCl (Dilaudid Pf Inj) 0.2 mg ONCE ONCE IV Last administered on 18:48; Start 08/16/16 at 18:45; Stop 08/16/16 at 18:46; Status DC Magnesium Citrate (Citroma Liq) 150 ml ONCE ONCE PO Last administered on 01:57; Start 08/17/16 at 02:00; Stop 08/17/16 at 02:01; Status DC Polyethylene Glycol (Miralax) 17 gm DAILY PO Last administered on 08/19/16 09: 00; Start 08/17/16 at 09:00 Senna/Docusate Sodium (Ellen-Colace) 2 tab BID PO Last administered on 21:27; Start 08/17/16 at 09:00 Sodium Biphosphate/ Sodium Phosphate (Fleets Enema (Adult)) 133 ml EVERY OTHER DAY PRN RECTAL CONSTIPATION; Start 08/17/16 at 10:45 Heparin Sodium (Porcine) (Heparin Central Flush) 500 units STK-MED ONCE IV FLUSH ; Start 08/17/16 at 13:25; Stop 08/17/16 at 13:26; Status DC Magnesium Hydroxide (Milk Of Magnesia Liq) 30 ml DAILY PRN PO CONSTIPATION Last administered on 08/18/16 12:25; Start 08/18/16 at 09:30 Methylnaltrexone [place] (Relistor Inj) 12 mg ONCE ONCE SQ Last administered on 08/18/16 15:36; Start 08/18/16 at 13:00; Stop 08/18/16 at 13:01; Status DC Miscellaneous Information Patient in critical care unit? Ass... [id number] .XX ; Start 08/19/16 at 06:30 Chlorhexidine Gluconate (Chlorhexidine 2% Cloth) 3 pack DAILY@04 TOPICAL ; Start 08/20/16 at 04:00; Stop 08/24/16 at 04:01 Chlorhexidine Gluconate (Chlorhexidine 2% Cloth) 3 pack UNSCH PRN TOPICAL HYGIENIC CARE; Start 08/19/16 at 06:30; Stop 08/24/16 at 06:20 Lorazepam 1 mg 1 mg Q15M PRN IV PUSH SEIZURE Last administered on 08/19/16 14: 09; Start 08/19/16 at 09:30 Valproate Sodium 500 mg/Sodium Chloride 105 ml @ 105 mls/hr Q8H IV Last administered on 08/19/16 12:00; Start 08/19/16 at 12:00; Stop 08/19/16 at 14:31 ; Status DC Sodium Chloride 1,000 ml @ 75 mls/hr [id number] IV Last administered on 17:10; Start 08/19/16 at 14:30 Valproate Sodium 500 mg/Sodium Chloride 105 ml @ 105 mls/hr Q8H IV ; Start at 15:00; Stop 08/19/16 at 15:00; Status DC Levetriacetam 500 mg/Sodium Chloride 105 ml @ 420 mls/hr Q12H IV Last administered on 08/21/16 03:34; Start 08/19/16 at 16:00 Valproate Sodium/ Sodium Chloride (Depacon Inj/NS Inj) 105 ml @ 105 mls/hr Q8H IV Last administered on 08/21/16 04:03; Start 08/19/16 at 20:00 Iohexol (Omnipaque 350 Inj) 90 ml STK-MED ONCE IV Last administered on 15:46; Start 08/19/16 at 15:46; Stop 08/19/16 at 15:47; Status DC A/P Assessment and Plan A/P Lung Cancer with Metastasis Brain Masses Chronic Pain Oncology and radiation oncology following Radiation planned; had radiation simulation . Brain mets are the likely etiology of her recent seizures continue with pain control and Decadron Seizure - had another episode of seizure on 08/18/[address] head on 08/19 ; stable repeated EEG with no active seizure activity. neurology reconsulted;dilantin was discontinued and started on Depakote and Keppra continue Decadron seizure precautions recurrent abdominal pain- s/p EGD with gastritis re check abdominal XR continue PPI Anxiety Reactive PRN Valium started Ativan discontinued constipation; laxatives as needed. Lindsey Ferrer MD Aug 21, 2016 08:53
[2016-08-21] MEDS: DEXAMETHASONE 4 MG TAB PO SCH ×2 (09:50→22:24)
[2016-08-21] MEDS: DOCUSATE SODIUM 50 MG/SENNA 8.6 MG TAB PO SCH ×2 (09:51→22:21)
[2016-08-21] MEDS: POLYETHYLENE GLYCOL 17 GM PKG PO SCH (09:51)
[2016-08-21] MEDS: MORPHINE SULFATE 15 MG CONTROLLED RELEASE TAB PO SCH ×2 (09:51→22:21)
--- NOTE | 2016-08-21 11:32 | RADRPT ---
EXAM DATE/TIME: 08/21/2016 10:44 [facility] COMPARISON: ABDOMEN KUB ONLY, August 17, 2016, 1:01. INDICATIONS : Disffuse abdominal pain, back pain and bilateral hip pain, nausea MEDICAL HISTORY : stage 4 lung cancer, seizures SURGICAL HISTORY : section. infusaport ENCOUNTER: Subsequent ACUITY: 4 - 6 days PAIN SCORE: 10/10 LOCATION: Bilateral abdomen FINDINGS: The bowel gas is nonspecific. There are no signs of obstruction or free air for technique. No defini te calcified stones are identified for technique. There is moderate amount of stool in the colon. IMPRESSION: Unremarkable study except for stool. Augustine Lyles MD on August 21, 2016 at 11:30 Board Certified Radiologist. This report was verified electronically.
--- NOTE | 2016-08-21 12:17 | PD.ONC.PN ---
Subjective Subjective Remarks Afebrile overnight. patient not feeling well. She has abdominal pain and back pain. She has not had a bowel movement in one week despite multiple laxatives and stool softeners. She continues to report seizure activity. Boyfriend at bedside. Objective Data Date Time Temp Pulse Resp B/P Pulse Ox O2 Delivery O2 Flow Rate FiO2 08/21/16 11:50 16 08/21/16 11:49 16 08/21/16 08:08 96 21 08/21/16 08:04 98 08/21/16 08:00 97.9 101 20 149/85 98 08/21/16 04:00 98.5 108 18 119/72 99 08/21/16 00:07 98 21 08/21/16 00:00 98.2 108 18 143/83 97 08/20/16 20:26 114 08/20/16 20:05 111 153/93 99 08/20/16 20:00 97.5 112 20 135/95 100 08/20/16 18:37 99.3 103 15 142/99 98 08/20/16 18:27 94 08/20/16 16:49 97 08/20/16 16:22 98.0 95 22 140/70 98 Result Diagram: 08/18/16 0512 Laboratory Results Laboratory Tests Test 08/21/16 03:30 Phenytoin (Dilantin) Level 11.7 MCG/ML Valproic Acid (Depakene) Level 39 MCG/ML Administered Medications Medications (Trade) Dose Ordered Sig/Benji Route PRN Reason Start Time Stop Time Status Last Admin Dose Admin Sodium Chloride (NS Flush) 2 ml UNSCH PRN IVF FLUSH AFTER USING IV ACCESS 08/09/16 10:00 08/20/16 19:37 Pantoprazole Sodium (Protonix Inj) 40 mg Q24H IV PUSH 08/09/16 18:00 08/20/16 16:33 Ondansetron HCl (Zofran Inj) 4 mg Q6HR PRN IV PUSH NAUSEA OR VOMITING 08/09/16 17:30 08/21/16 08:22 Hydromorphone HCl (Dilaudid Pf Inj) 0.5 mg Q4H PRN IV PUSH PAIN SCALE 4 TO 10 08/10/16 13:30 08/21/16 09:50 Acetaminophen/ Hydrocodone Bitart ([place] 7.5-325 Mg) 1 tab Q4H PRN PO PAIN SCALE 5 TO 7 08/10/16 11:00 08/21/16 01:35 Sucralfate (Carafate Liq) 1 gm ACHS PO 08/11/16 11:00 08/21/16 06:45 Dexamethasone (Decadron) 4 mg Q12HR PO 08/11/16 10:30 08/21/16 09:50 Morphine Sulfate (Oramorph Sr) 15 mg Q12HR PO 08/13/16 11:00 08/21/16 09:51 Diazepam (Valium) 5 mg Q8H PRN PO anxiety 08/13/16 09:30 08/18/16 23:55 Polyethylene Glycol (Miralax) 17 gm DAILY PO 08/17/16 09:00 08/21/16 09:51 Senna/Docusate Sodium (Ellen-Colace) 2 tab BID PO 08/17/16 09:00 08/21/16 09:51 Magnesium Hydroxide (Milk Of Magnesia Liq) 30 ml DAILY PRN PO CONSTIPATION 08/18/16 09:30 08/18/16 12:25 Lorazepam 1 mg 1 mg Q15M PRN IV PUSH SEIZURE 08/19/16 09:30 08/19/16 14:09 Sodium Chloride 1,000 ml @ 75 mls/hr [id number] IV 08/19/16 14:30 08/20/16 17:10 Levetriacetam 500 mg/Sodium Chloride 105 ml @ 420 mls/hr Q12H IV 08/19/16 16:00 08/21/16 03:34 Valproate Sodium/ Sodium Chloride (Depacon Inj/NS Inj) 105 ml @ 105 mls/hr Q8H IV 08/19/16 20:00 08/21/16 11:47 Objective Remarks GENERAL: Middle aged female, lethargic, lying on stretcher about to go down for xray SKIN: Warm and dry. HEAD: Normocephalic. EYES: No injection or drainage. NECK: Supple, trachea midline. CARDIOVASCULAR: Regular rate and rhythm RESPIRATORY: Breath sounds equal bilaterally. No accessory muscle use. GASTROINTESTINAL: Abdomen soft, mildly distended, TTP throughout EXTREMITIES: No cyanosis MUSCULOSKELETAL: Adequate muscle tone. NEUROLOGICAL: awake but lethargic, normal speech. able to move extremities. Assessment/Plan Problem List: (1) Non-small cell carcinoma of lung Status: Chronic Plan: 08/20: await SRS, per radiation oncology.xray for abdominal pain 08/16 for simulation today. SRS on sunday. ok to d/c from my standpoint. fu as outpt on sunday. sign off available prn 08/15: XRT simulation tomorrow. hopefully seizures will improve when XRT starts. continue dilantin, decadron 08/14: MRI spine shows no mets. continuing to have seizure. continue Dilantin. d/w Dr. Acevedo he plans to start XRT by next Sunday, will do simulation likely tomorrow 08/11: back pain + lower extremity weakness, will order MRI C/T/L spine to evaluate for spine mets. will start decadron 4mg PO BID. reviewed scans with patient, showed MRI brain images and discussed. patient was, understandably upset that there is a new brain lesion. emotional support provided. d/w Dr. Acevedo as well who will see the patient today and plans to start XRT outpatient. 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 --started on maintenance Alimta December 2015 --restaging CT chest showed progressive consolidation and volume loss and collapse of LLL with increasing left pleural effusion. --July 2016: started on ?Opdivo --met with [facility] in 07/2016, wanted to try Opdivo before pursuing further radiation Assessment 51y/o female with non-small cell lung cancer, admitted with nausea and vomiting , MRI showed new brain mets. Attending Statement The exam, history, and the medical decision-making described in the above note were completed with the assistance of the mid-level provider. I reviewed and agree with the findings presented. I attest that I had a [id number] encounter with the patient on the same day, and personally performed and documented my assessment and findings in the medical record. c/o neck and back pain. last sz on sat. feels miserable. did not get SRS today. again discuss with her and BF regarding hospice. consult palliative care Namrata Rene Aug 21, 2016 12:17 Ita Elizondo MD Aug 21, 2016 19:00
[2016-08-21] MEDS: PANTOPRAZOLE SODIUM 40 MG VIAL IV PUSH SCH (18:00)
[2016-08-21] MEDS: LACTULOSE SYRUP 20 GM/30 ML CUP PO SCH ×2 (18:00→22:21)
[2016-08-21] MEDS: ACETAMINOPHEN 325 MG TAB PO PRN (20:06)
[2016-08-21] MEDS: DIAZEPAM 5 MG TAB PO PRN (20:06)
[2016-08-21 20:23] LABS: AUTOMATED NEUTROPHIL # 4.4 TH/MM3 (1.8-7.7); BASOPHIL % 0.6 % (0.0-2.0); EOSINOPHIL # 0.2 TH/MM3 (0-0.4); EOSINOPHIL % 3.1 % (0.0-4.0); HEMATOCRIT 31.4 % (35.0-46.0); HEMO FLAGS DIFF FINAL; LYMPH % 12.8 % (9.0-44.0); LYMPHOCYTE # 0.8 TH/MM3 (1.0-4.8); MEAN CELL VOLUME 84.2 FL (80.0-100.0); MEAN CORPUSCULAR HEMOGLOBIN 26.9 PG (27.0-34.0); MEAN CORPUSCULAR HGB CONC 31.9 % (32.0-36.0); MONO % 10.7 % (0.0-8.0); NEUT % 72.8 % (16.0-70.0); PLATELET COUNT 473 TH/MM3 (150-450); RED BLOOD COUNT 3.72 MIL/MM3 (4.00-5.30); RED CELL DISTRIBUTION WIDTH 17.7 % (11.6-17.2)
--- NOTE | 2016-08-21 20:30 | RADRPT ---
EXAM DATE/TIME: 08/21/2016 20:04 [facility] COMPARISON: CHEST SINGLE AP, August 09, 2016, 17:58. INDICATIONS : Fever. MEDICAL HISTORY : Stage 4 lung cancer, seizures. SURGICAL HISTORY : Infusaport. ENCOUNTER: Subsequent ACUITY: 1 month PAIN SCORE: 0/10 LOCATION: Bilateral chest FINDINGS: Moderate left pleural effusion again noted, perhaps slightly smaller in the interim. Right lung remai ns clear. No pneumothorax seen. Heart size stable, within normal limits. Right IJ Cxabyd-d-Cgke catheter with tip in the right atrium again seen. CONCLUSION: Moderate left pleural effusion slightly smaller. Michael Quintana MD on August 21, 2016 at 20:27 Board Certified Radiologist. This report was verified electronically.
[2016-08-21 20:37] LABS: BICARBONATE 30.7 MEQ/L (21.0-32.0); POTASSIUM 3.4 MEQ/L (3.5-5.1)
[2016-08-21 22:12] LABS: BLOOD, URINE NEG (NEG); COMMENT (UR) CULT NOT INDICATED; CULTURE IF INDICATED CULT NOT INDICATED; GLUCOSE,URINE NEG (NEG); KETONE, URINE NEG (NEG); MUCUS URINE FEW /lpf (OCC); NITRITE,URINE NEG (NEG); SQUAMOUS EPITHELIAL CELL URINE 2 /hpf (0-5); URINE COLOR LIGHT-YELLOW (YELLW/STRAW)
[2016-08-21] MEDS ORDERED: POTASSIUM CHLORIDE 25 MEQ EFFERVESCENT TAB PO ONE (23:15)
[2016-08-22] VITALS (12 sets, daily range): BP systolic 128–177; BP diastolic 72–106; PULSE 103–137; RESP 17–20; TEMP 98.1–101.3; O2SAT 93–100
[2016-08-22] MEDS: CHLORHEXIDINE GLUCONATE 2 % 1 PACK (2 CLOTHS)(taper/protocol) TOPICAL SCH (02:06)
[2016-08-22] MEDS: HYDROmorphone HCL PF 1 MG/ML VIAL IV PUSH PRN ×5 (03:13→22:26)
[2016-08-22] MEDS: SODIUM CHLORIDE 0.9% FLUSH 10 ML FLUSH IVF PRN ×2 (03:13→22:26)
[2016-08-22] MEDS: levETIRAcetam INJ 500 MG in SODIUM CHLORIDE 0.9% INJ 100 ML IV SCH ×2 (03:23→16:38)
[2016-08-22] MEDS: VALPROATE INJ 500 MG in SODIUM CHLORIDE 0.9% INJ 100 ML IV SCH ×3 (03:54→19:29)
[2016-08-22] MEDS: DIAZEPAM 5 MG TAB PO PRN ×2 (05:45→17:09)
[2016-08-22] MEDS: SODIUM CHLOR 0.9% 1000 ML INJ 1,000 ML IV SCH ×2 (05:51→19:31)
[2016-08-22] MEDS: SUCRALFATE 1 GM/10 ML CUP PO SCH ×4 (06:53→19:28)
--- NOTE | 2016-08-22 07:40 | HHI.PR ---
Subjective Remarks Agitated, tachycardic, gets confused at times per nurse. She is however alert and oriented x3 during my interview. Patient says she has severe back pain . No n/v. No fevers or chills. Did not have a BM. Objective Vitals Vital Signs Date Time Temp Pulse Resp B/P Pulse Ox O2 Delivery O2 Flow Rate FiO2 08/22/16 06:08 131 177/96 08/22/16 06:01 130 08/22/16 04:00 98.9 112 18 128/78 96 08/22/16 00:00 99.7 110 18 131/72 94 08/21/16 20:39 118 08/21/16 20:00 101.0 123 16 123/84 96 08/21/16 16:00 100.3 116 20 137/79 95 08/21/16 12:00 99.6 120 20 171/94 95 08/21/16 11:50 16 08/21/16 11:49 16 08/21/16 08:08 96 21 08/21/16 08:04 98 08/21/16 08:00 97.9 101 20 149/85 98 I/O 08/21/16 08/21/16 08/21/16 08/22/16 08/22/16 08/22/16 07:00 15:00 23:00 07:00 15:00 23:00 Intake Total 750 ml 1258 ml 540 ml Output Total 1 ml Balance 750 ml 1257 ml 540 ml Intake Oral 240 ml IV Total 510 ml 1258 ml 540 ml Stool Total 1 ml # Voids 3 2 7 # Bowel Movements 1 Result Diagram: 08/21/16199908/21/161999 Imaging Last Impressions Chest X-Ray 08/21/16 0000 Signed Impressions: Service Date/Time: Sunday, August 21, 2016 20:04 - CONCLUSION: Moderate left pleural effusion slightly smaller. Michael Quintana MD Head CT 08/19/16 0000 Signed Impressions: Service Date/Time: Friday, August 19, 2016 15:19 - CONCLUSION: 8mm lesion enhancing at the area of the posterior third ventricle/quadrigeminal plate as seen on recent MRI on August 10. No significant change in size. No hydrocephalus. No other lesion seen on CT. Cerebellar vermis and lesion seen on MRI not definitely identified on CT. Erick Clifton MD Abdomen X-Ray 08/17/16 0000 Signed Impressions: Service Date/Time: August 01:01 - CONCLUSION: No bowel obstruction. Moe Moon MD Entire Spine MRI 08/12/16 0000 Signed Impressions: Service Date/Time: Thursday, August 11, 2016 13:40 - CONCLUSION: No evidence of metastatic disease. Jen Parry MD Chest CT 08/10/16 0000 Signed Impressions: Service Date/Time: August 12:10 - CONCLUSION: Stable chest appearance Michael Chaudhari MD Brain MRI 08/10/16 0000 Signed Impressions: Service Date/Time: August 15:05 - CONCLUSION: 1. 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 This appears to narrow the aqueduct of Sylvius, but there is no evidence of hydrocephalus. 2. The left cerebellar vermis enhancing nodule is stable in size at 4 mm. 3. The enhancing mass in the suprasellar cistern has resolved. No mass effect on the chiasm. Eusebio Meraz MD Abdomen/Pelvis CT 08/10/16 0000 Signed Impressions: Service Date/Time: August 12:10 - CONCLUSION: 1. There are changes consistent with radiation therapy at the left lung base. These are only partially visualized. There is a small left basilar effusion. 2. CT scan of the abdomen and pelvis is within normal limits. Rajesh Bhatia MD Objective Remarks GENERAL: This is a pleasant 51 yo F, well-nourished, well-developed patient, in no apparent distress. CARDIOVASCULAR: Regular rate and regular rhythm without murmurs, gallops, or rubs. RESPIRATORY: Clear to auscultation. Breath sounds equal bilaterally. No wheezes , rales, or rhonchi. GASTROINTESTINAL: Abdomen soft, non-tender, nondistended. Normal, active bowel sounds MUSCULOSKELETAL: Extremities without clubbing, cyanosis, or edema. NEURO: Alert & Oriented x4 to person, place, time, situation. Moves all ext x4 Procedures EGD A/P Assessment and Plan Lung Cancer with Metastasis Brain Masses Chronic Pain Oncology and radiation oncology following Radiation planned; had radiation simulation . Brain mets are the likely etiology of her recent seizures continue with pain control and Decadron Seizure - had another episode of seizure on 08/18/[address] head on 08/19 ; stable repeated EEG with no active seizure activity. neurology reconsulted;dilantin was discontinued and started on Depakote and Keppra continue Decadron seizure precautions Recurrent abdominal pain- s/p EGD with gastritis Will order abdominal XR continue PPI Anxiety Reactive PRN Valium started Ativan discontinued Constipation: laxatives as needed. Discussed with the patient, nurse. Brigitte Castaneda MD Aug 22, 2016 07:40
[2016-08-22] MEDS: METOPROLOL TARTRATE 25 MG TAB PO SCH ×2 (08:16→22:20)
[2016-08-22] MEDS: DOCUSATE SODIUM 50 MG/SENNA 8.6 MG TAB PO SCH ×3 (08:16→22:19)
[2016-08-22] MEDS: LACTULOSE SYRUP 20 GM/30 ML CUP PO SCH ×2 (08:17→09:00)
[2016-08-22] MEDS: MORPHINE SULFATE 15 MG CONTROLLED RELEASE TAB PO SCH ×2 (08:17→22:20)
[2016-08-22] MEDS: POLYETHYLENE GLYCOL 17 GM PKG PO SCH (08:17)
[2016-08-22] MEDS: DEXAMETHASONE 4 MG TAB PO SCH ×2 (08:17→22:20)
[2016-08-22] MEDS: HALOPERIDOL LACTATE 5 MG/ML AMP IV PUSH PRN (09:21)
[2016-08-22] MEDS ORDERED: LACTULOSE SYRUP 20 GM/30 ML CUP PO PRN (11:15)
--- NOTE | 2016-08-22 11:40 | PD.ONC.PN ---
Subjective Subjective Remarks Tmax 101F overnight. Patient has been acting inappropriately today, per nursing staff. She was given a dose of Haldol and improved somewhat, but still requires a sitter. Patient had a bowel movement last night and has had urgency to go several times today but has not gone. Objective Data Date Time Temp Pulse Resp B/P Pulse Ox O2 Delivery O2 Flow Rate FiO2 08/22/16 08:00 100.8 137 20 165/96 100 08/22/16 07:25 98.1 122 20 136/79 99 08/22/16 06:08 131 177/96 08/22/16 06:01 130 08/22/16 04:00 98.9 112 18 128/78 96 08/22/16 00:00 99.7 110 18 131/72 94 08/21/16 20:39 118 08/21/16 20:00 101.0 123 16 123/84 96 08/21/16 16:00 100.3 116 20 137/79 95 08/21/16 12:00 99.6 120 20 171/94 95 08/21/16 11:50 16 08/21/16 11:49 16 Result Diagram: 08/21/16199908/21/161999 Laboratory Results Laboratory Tests Test 08/21/16 08/21/16 08/22/16 20:00 21:41 03:30 White Blood Count 6.0 TH/MM3 Red Blood Count 3.72 MIL/MM3 Hemoglobin 10.0 GM/DL Hematocrit 31.4 % Mean Corpuscular Volume 84.2 FL Mean Corpuscular Hemoglobin 26.9 PG Mean Corpuscular Hemoglobin 31.9 % Concent Red Cell Distribution Width 17.7 % Platelet Count 473 TH/MM3 Mean Platelet Volume 7.0 FL Neutrophils (%) (Auto) 72.8 % Lymphocytes (%) (Auto) 12.8 % Monocytes (%) (Auto) 10.7 % Eosinophils (%) (Auto) 3.1 % Basophils (%) (Auto) 0.6 % Neutrophils # (Auto) 4.4 TH/MM3 Lymphocytes # (Auto) 0.8 TH/MM3 Monocytes # (Auto) 0.6 TH/MM3 Eosinophils # (Auto) 0.2 TH/MM3 Basophils # (Auto) 0.0 TH/MM3 CBC Comment DIFF FINAL Differential Comment Sodium Level 141 MEQ/L Potassium Level 3.4 MEQ/L Chloride Level 102 MEQ/L Carbon Dioxide Level 30.7 MEQ/L Anion Gap 8 MEQ/L Blood Urea Nitrogen 7 MG/DL Creatinine 0.94 MG/DL Estimat Glomerular Filtration 63 ML/MIN Rate Random Glucose 119 MG/DL Calcium Level 8.8 MG/DL Valproic Acid (Depakene) Level 45 MCG/ML 52 MCG/ML Urine Color LIGHT-YELLOW Urine Turbidity CLEAR Urine pH 7.0 Urine Specific [place] 1.005 Urine Protein NEG mg/dL Urine Glucose (UA) NEG mg/dL Urine Ketones NEG mg/dL Urine Occult Blood NEG Urine Nitrite NEG Urine Bilirubin NEG Urine Urobilinogen LESS THAN 2.0 MG/DL Urine Leukocyte Esterase NEG Urine RBC 1 /hpf Urine WBC 1 /hpf Urine Squamous Epithelial 2 /hpf Cells Urine Mucus FEW /lpf Microscopic Urinalysis Comment CULT NOT INDICATED Phenytoin (Dilantin) Level 8.2 MCG/ML Culture Results Microbiology Date/Time Procedure Status Source Growth 08/21/16 20:00 Aerobic Blood Culture - Preliminary Resulted Blood Peripheral NO GROWTH IN 1 DAY 08/21/16 20:00 Anaerobic Blood Culture - Preliminary Resulted Blood Peripheral NO GROWTH IN 1 DAY 08/22/16 00:55 Aerobic Blood Culture Received Blood Other Pending 08/22/16 00:55 Anaerobic Blood Culture Received Blood Other Pending Administered Medications Medications (Trade) Dose Ordered Sig/Benji Route PRN Reason Start Time Stop Time Status Last Admin Dose Admin Sodium Chloride (NS Flush) 2 ml UNSCH PRN IVF FLUSH AFTER USING IV ACCESS 08/09/16 10:00 08/22/16 03:13 Pantoprazole Sodium (Protonix Inj) 40 mg Q24H IV PUSH 08/09/16 18:00 08/21/16 18:00 Ondansetron HCl (Zofran Inj) 4 mg Q6HR PRN IV PUSH NAUSEA OR VOMITING 08/09/16 17:30 08/21/16 17:59 Hydromorphone HCl (Dilaudid Pf Inj) 0.5 mg Q4H PRN IV PUSH PAIN SCALE 4 TO 10 08/10/16 13:30 08/22/16 08:16 Acetaminophen/ Hydrocodone Bitart ([place] 7.5-325 Mg) 1 tab Q4H PRN PO PAIN SCALE 5 TO 7 08/10/16 11:00 08/21/16 01:35 Sucralfate (Carafate Liq) 1 gm ACHS PO 08/11/16 11:00 08/22/16 06:53 Dexamethasone (Decadron) 4 mg Q12HR PO 08/11/16 10:30 08/22/16 08:17 Morphine Sulfate (Oramorph Sr) 15 mg Q12HR PO 08/13/16 11:00 08/22/16 08:17 Diazepam (Valium) 5 mg Q8H PRN PO anxiety 08/13/16 09:30 08/22/16 05:45 Polyethylene Glycol (Miralax) 17 gm DAILY PO 08/17/16 09:00 08/22/16 08:17 Senna/Docusate Sodium (Ellen-Colace) 2 tab BID PO 08/17/16 09:00 08/21/16 22:21 Magnesium Hydroxide (Milk Of Magnjorge Liq) 30 ml DAILY PRN PO CONSTIPATION 08/18/16 09:30 08/18/16 12:25 Lorazepam 1 mg 1 mg Q15M PRN IV PUSH SEIZURE 08/19/16 09:30 08/19/16 14:09 Sodium Chloride 1,000 ml @ 75 mls/hr [id number] IV 08/19/16 14:30 08/22/16 05:51 Levetriacetam 500 mg/Sodium Chloride 105 ml @ 420 mls/hr Q12H IV 08/19/16 16:00 08/22/16 03:23 Valproate Sodium/ Sodium Chloride (Depacon Inj/NS Inj) 105 ml @ 105 mls/hr Q8H IV 08/19/16 20:00 08/22/16 03:54 Acetaminophen (Tylenol) 650 mg Q6HR PRN PO fever > 100.4 08/21/16 20:00 08/21/16 20:06 Haloperidol Lactate (Haldol Inj) 2 mg Q8HR PRN IV PUSH agitation 08/22/16 07:45 08/22/16 09:21 Metoprolol Tartrate (Lopressor) 25 mg Q12HR PO 08/22/16 09:00 08/22/16 08:16 Objective Remarks GENERAL: Middle aged female, lying in bed sleeping on approach, easily awakened. SKIN: Warm and dry. HEAD: Normocephalic. EYES: No injection or drainage. NECK: Supple, trachea midline. CARDIOVASCULAR: Regular rate and rhythm RESPIRATORY: Breath sounds equal bilaterally. No accessory muscle use. GASTROINTESTINAL: Abdomen soft, mild distension. generalized tenderness to palpation. EXTREMITIES: No cyanosis MUSCULOSKELETAL: Adequate muscle tone. NEUROLOGICAL: awake, lethargic. normal speech. confused Assessment/Plan Problem List: (1) Non-small cell carcinoma of lung Status: Chronic Plan: 08/22: radiation to start tomorrow, 08/23 at 2:30PM. will obtain labs today for altered mental status, await blood cultures for fever. 08/20: await SRS, per radiation oncology.xray for abdominal pain 08/16 for simulation today. SRS on sunday. ok to d/c from my standpoint. fu as outpt on sunday. sign off available prn 08/15: XRT simulation tomorrow. hopefully seizures will improve when XRT starts. continue dilantin, decadron 08/14: MRI spine shows no mets. continuing to have seizure. continue Dilantin. d/w Dr. Acevedo he plans to start XRT by next Sunday, will do simulation likely tomorrow 08/11: back pain + lower extremity weakness, will order MRI C/T/L spine to evaluate for spine mets. will start decadron 4mg PO BID. reviewed scans with patient, showed MRI brain images and discussed. patient was, understandably upset that there is a new brain lesion. emotional support provided. d/w Dr. Acevedo as well who will see the patient today and plans to start XRT outpatient. 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 --started on maintenance Alimta December 2015 --restaging CT chest showed progressive consolidation and volume loss and collapse of LLL with increasing left pleural effusion. --July 2016: started on ?Opdivo --met with Tawanda in 07/2016, wanted to try Opdivo before pursuing further radiation Assessment 51y/o female with non-small cell lung cancer, admitted with nausea and vomiting , MRI showed new brain mets. Attending Statement confuse , restless, c/o pain SRS tomorrow. appreciate palliative care input. prognosis is poor. Namrata Rene Aug 22, 2016 11:40 Ita Elizondo MD Aug 22, 2016 20:56
[2016-08-22] MEDS ORDERED: HYDROmorphone HCL PF 1 MG/ML VIAL IV PUSH PRN (11:45)
--- NOTE | 2016-08-22 11:51 | PD.CONS ---
Consult Service Palliative Care . Consult Requested By Dr. Elizondo . Primary Care Physician Laurie Mckinney MD . Reason for Consultation a. To assist with evaluation and management of symptoms including: pain, weakness, seizure. b. To assist medical decision maker(s) with: better understanding of current medical conditions; weighing benefits/burdens of medical treatment options; making medical treatment decisions. . HPI History of Present Illness Mrs. Lombardi is a 51 year old female with past medical history of Stage IV non- small cell lung cancer with mets to brain diagnosed in May 2015, COPD and arthritis. Patient has been followed by Dr. Elizondo, medical oncologist. At the time of diagnosis the patient underwent bronchoscopy which revealed a poorly differentiated adenocarcinoma. CT of the chest revealed a 6 cm perihilar mass encasing the left pulmonary artery and left mainstem bronchus. She was also found to have solitary brain metastasis at the time of diagnosis. She was treated with stereotactic radiosurgery to the isolated brain met, treated with concurrent radiation and chemotherapy (Taxol and Carboplatin) which she completed in September 2015. She was then treated with consolidative chemotherapy (Taxol and Carboplatin) which was stopped in October 2015 secondary to adverse side effects, fatigue, diarrhea and neuropathy. Patient was placed on maintenance Alimta in December 2015. She was found to have new brain metastasis in March 2016 while on maintenance treatment, brain mets were treated with radiation therapy by Dr. Acevedo. Recent CT chest revealed progressive consolidation and volume loss with increasing left pleural effusion consistent with progressive disease. The patient was started Opdivo chemotherapy 07/26/16. Patient [facility] emergency department on 08/09/16 with intractable nausea and vomiting. Unable to keep food, fluids or medications down. Initial evaluation revealed: * VS - 98.1, pulse 96, respiration 20, BP 149/91, oxygen saturation 100% on 2 L nasal cannula * WBC 9.6, hemoglobin 10.1, hematocrit 31.2, platelet count 592, neutrophil 75.1 % * sodium 135, potassium 3.6, chloride 101, carbon dioxide 20.8, BUN 12, creatinine 0.92, GFR 64, glucose 85, calcium 9.6 * total bilirubin 0.2, AST 19, ALT 7, alkaline phosphatase 111 * total protein 8.4, albumin 2.8 * EKG sinus tachycardia with ventricular rate 122, no ST segment elevation or depression. * urinalysis negative. * chest x-ray stable moderate left base parenchymal opacity and pleural effusion, slight developing parenchymal opacity in the right lung base. * CT head no acute intracranial findings. Patient is admitted with intractable nausea vomiting, anorexia, weakness and pain. Dr. Macias, gastroenterology was consulted. On 08/11/16, EGD was performed which revealed moderate erythematous gastritis, biopsy minimally active chronic intro gastritis with nonspecific features, no H. pylori. Recommendations to continue PPI and Carafate. Medical oncology, Dr. Elizondo was consulted with additional testing recommendations to reevaluate disease status. MRI of the brain revealed new metastatic lesion located in the quadrigeminal plate which measured up to 10 mm in size, appears to narrow the aqueduct of Sylvius, no evidence of hydrocephalus , left cerebral vermis enhancing nodule stable at 4 mm, enhancing mass in the suprasellar cistern has resolved. CT scan abdomen/pelvis/ chest revealed changes consistent with radiation therapy in the left lung base partially visualized, small left basilar effusion otherwise within normal limits. MRI of the spine revealed no evidence of metastatic disease. Notes indicate he discussed options regarding continuation of palliative chemotherapy versus transition to comfort focused care with hospice support, notes indicate the patient does not want hospice. On 08/10/16 patient reportedly had focal seizure noted as right upper extremity hyperextending of the neck and body went flaccid. Post surgery patient was loaded with Dilantin and placed on a maintenance dose. EEG revealed mild slowing due to mild encephalopathic state post ictal state, but no evidence of seizure like activity. Dr. Walker, neurology was consulted for seizures with recommendation to continue Dilantin, with target level between 10 and 15, continue to monitor, Ativan PRN if needed. On 08/17/16 repeat EEG revealed mild encephalopathy in sleep state. Dr. Acevedo, radiation oncology was consulted with recommendations for stereotactic radiosurgery. Notes indicate plan to start radiation therapy on . Since admission patient has had increased confusion, requiring Haldol and a sitter. Temp 101 overnight. No new labs. Blood cultures pending. Reports of diffuse abdominal pain, abdominal film reveals moderate amount of stool in the colon, otherwise unremarkable. Palliative care is consulted by medical oncologist, Dr. Elizondo for further clarification of treatment goals. Will attempt to discuss prognosis with Dr. Elizondo and Dr. Acevedo. . Function/Cognitive Trajectory Weakness, nausea and pain prior to admission. She was able to participate in household activities. Past Family Social History Coded Allergies: Lomotil (Verified Allergy, Severe, swollen lips, rash, 08/09/16) Past Medical History Stage IV non small cell lung cancer with metastases to brain COPD Arthritis . Past Surgical History section Right port placement chest wall Left wrist surgery Bilateral breast augmentation Thoracentesis . Reported Medications Reported Meds & Prescriptions Active Phenergan (Promethazine HCl) 25 Mg Tab 25 Mg PO Q6H PRN Zofran Odt (Ondansetron Odt) 8 Mg Tab 8 Mg SL Q8H PRN Percocet (Oxycodone-Acetaminophen) 5-325 mg Tab 1-2 Tab PO Q6H PRN Macrobid (Nitrofurantoin Monoh/Nitrofur Macro) 100 Mg Cap 100 Mg PO BID 10 Days Reported Ondansetron (Ondansetron HCl) 8 Mg Tab 8 Mg PO TID Prochlorperazine Maleate 10 Mg Tab 10 Mg PO Q6H PRN Omeprazole 40 Mg Cap 40 Mg PO DAILY Opdivo (Nivolumab) 100 Mg/10 Ml Inj 1 Injection IV EVERY OTHER WED . Current Medications Medications (Trade) Dose Ordered Sig/Benji Route Start Time Stop Time Status Last Admin (NS Flush) 2 ml UNSCH PRN IVF 08/09/16 10:00 08/22/16 03:13 (Protonix Inj) 40 mg Q24H IV PUSH 08/09/16 18:00 08/21/16 18:00 (Zofran Inj) 4 mg Q6HR PRN IV PUSH 08/09/16 17:30 08/21/16 17:59 (Sawyer 7.5-325 Mg) 1 tab Q4H PRN PO 08/10/16 11:00 08/21/16 01:35 (Carafate Liq) 1 gm ACHS PO 08/11/16 11:00 08/22/16 06:53 (Decadron) 4 mg Q12HR PO 08/11/16 10:30 08/22/16 08:17 (Oramorph Sr) 15 mg Q12HR PO 08/13/16 11:00 08/22/16 08:17 (Valium) 5 mg Q8H PRN PO 08/13/16 09:30 08/22/16 05:45 (Miralax) 17 gm DAILY PO 08/17/16 09:00 08/22/16 08:17 (Ellen-Colace) 2 tab BID PO 08/17/16 09:00 08/21/16 22:21 (Milk Of Magnesia Liq) 30 ml DAILY PRN PO 08/18/16 09:30 08/18/16 12:25 Miscellaneous Information Patient in critical care unit? Ass... [id number] .XX 08/19/16 06:30 (Chlorhexidine 2% Cloth) 3 pack DAILY@04 TOPICAL 08/20/16 04:00 08/24/16 04:01 (Chlorhexidine 2% Cloth) 3 pack UNSCH PRN TOPICAL 08/19/16 06:30 08/24/16 06:20 Lorazepam 1 mg 1 mg Q15M PRN IV PUSH 08/19/16 09:30 08/19/16 14:09 Sodium Chloride 1,000 ml @ 75 mls/hr [id number] IV 08/19/16 14:30 08/22/16 05:51 Levetriacetam 500 mg/Sodium Chloride 105 ml @ 420 mls/hr Q12H IV 08/19/16 16:00 08/22/16 03:23 (Depacon Inj/NS Inj) 105 ml @ 105 mls/hr Q8H IV 08/19/16 20:00 08/22/16 03:54 (Tylenol) 650 mg Q6HR PRN PO 08/21/16 20:00 08/21/16 20:06 (Haldol Inj) 2 mg Q8HR PRN IV PUSH 08/22/16 07:45 08/22/16 09:21 (Lopressor) 25 mg Q12HR PO 08/22/16 09:00 08/22/16 08:16 (Lactulose Liq) 30 ml QID PRN PO 08/22/16 11:15 (Dilaudid Pf Inj) 1 mg Q4H PRN IV PUSH 08/22/16 13:30 UNV (Dilaudid Pf Inj) 1 mg Q4H PRN IV PUSH 08/22/16 11:45 UNV . Family History Mother of breast cancer. Father from prostate cancer. . Substance Use Tobacco: Quit smoking May 2015, 1 PPD for 30 days. Alcohol: Drinks alcohol occasionally/ socially. Prescription med abuse: Denies. Illicits: Denies. . Psychosocial History Lives with significant other, Bandar. Has to sons (live with patient) and 2 daughters. Has 3 sisters, no brothers. Used to work as a channel manager. . Spiritual/Cultural Factors She tells me alevism is not an important part of her life. . Living Will: Never completed Health Care Surrogate: Copy in medical record Durable Power of License Registration Examiner: Completed, but not made available (son Danny indicates he has POA for financial. ) Date completed: 08/22/16 . Health Care Surrogate(s): She completed designation of healthcare surrogate form naming her son Danny Bowie as designated healthcare surrogate. She does not want to name and alternate surrogate. . Today's verbally stated goals: Patient desires continued aggressive care including palliative radiation and chemotherapy at this time. She is not yet ready to consider hospice services. She seems to understand limited life expectancy. . Family/friends goals: Spoke with son Danny via telephone. He supports his mother's wish for continued aggressive care at this time. He understands treatment options and prognosis. He also understands that he may be left in a position to make end-of-life decisions for this patient in the future. . Ethical and Legal Issues Called medical oncology office, no written advance directives on file. Patient is currently incapacitated to make her own decisions. She completed designation of healthcare surrogate form naming her son Danny Bowie as designated healthcare surrogate. She does not want to name and alternate surrogate. . Physical Exam Vital Signs Date Time Temp Pulse Resp B/P Pulse Ox O2 Delivery O2 Flow Rate FiO2 08/22/16 08:00 100.8 137 20 165/96 100 08/22/16 07:25 98.1 122 20 136/79 99 08/22/16 06:08 131 177/96 08/22/16 06:01 130 08/22/16 04:00 98.9 112 18 128/78 96 08/22/16 00:00 99.7 110 18 131/72 94 08/21/16 20:39 118 08/21/16 20:00 101.0 123 16 123/84 96 08/21/16 16:00 100.3 116 20 137/79 95 08/21/16 12:00 99.6 120 20 171/94 95 08/21/16 11:50 16 08/21/16 11:49 16 08/21/16 08/22/16 19:00 07:00 Intake Total 898 ml 900 ml Output Total 1 ml Balance 897 ml 900 ml IV Total 898 ml 900 ml Stool Total 1 ml # Voids 1 8 # Bowel Movements 1 Exam CONSTITUTIONAL/GENERAL: This is a lethargic patient, in no apparent distress. TUBES/LINES/DRAINS: right port. SKIN: No jaundice, rashes, or lesions. Ecchymoses on upper extremities. No wounds seen anteriorly. Skin temperature appropriate. Not diaphoretic. HEAD: Atraumatic. Normocephalic. EYES: Pupils equal and round. No scleral icterus. No injection or drainage. ENT: Hearing grossly normal. Nose without bleeding or purulent drainage. Dry lips noted. NECK: Trachea midline. CARDIOVASCULAR: tachycardic. RESPIRATORY/CHEST: Symmetric, unlabored respirations. Clear to auscultation. Diminished breath sounds. GASTROINTESTINAL: Abdomen soft, tender lower quadrants left > right, mildly distended. No guarding. Bowel sounds hypoactive. GENITOURINARY: Without palpable bladder distension. MUSCULOSKELETAL: Extremities without clubbing, cyanosis, or edema. No mottling or clubbing. LYMPHATICS: No palpable cervical or supraclavicular adenopathy. NEUROLOGICAL: Awakens easily, lethargic, falls off to sleep easily. Generalized weakness noted. Follows commands. Moves all extremities. PSYCHIATRIC: No obvious anxiety/depression. no apparent hallucinations or other psychotic thought process. . Diagnostic Tests Laboratory Laboratory Tests Test 08/19/16 08/20/16 08/21/16 08/21/16 17:40 05:00 03:30 20:00 Phenytoin (Dilantin) Level 18.5 MCG/ML 14.6 MCG/ML 11.7 MCG/ML (10.0-20.0) (10.0-20.0) (10.0-20.0) Valproic Acid (Depakene) Level 43 MCG/ML 38 MCG/ML 39 MCG/ML 45 MCG/ML (50-100) (50-100) (50-100) (50-100) White Blood Count 6.0 TH/MM3 (4.0-11.0) Red Blood Count 3.72 MIL/MM3 (4.00-5.30) Hemoglobin 10.0 GM/DL (11.6-15.3) Hematocrit 31.4 % (35.0-46.0) Mean Corpuscular Volume 84.2 FL (80.0-100.0) Mean Corpuscular Hemoglobin 26.9 PG (27.0-34.0) Mean Corpuscular Hemoglobin 31.9 % Concent (32.0-36.0) Red Cell Distribution Width 17.7 % (11.6-17.2) Platelet Count 473 TH/MM3 (150-450) Mean Platelet Volume 7.0 FL (7.0-11.0) Neutrophils (%) (Auto) 72.8 % (16.0-70.0) Lymphocytes (%) (Auto) 12.8 % (9.0-44.0) Monocytes (%) (Auto) 10.7 % (0.0-8.0) Eosinophils (%) (Auto) 3.1 % (0.0-4.0) Basophils (%) (Auto) 0.6 % (0.0-2.0) Neutrophils # (Auto) 4.4 TH/MM3 (1.8-7.7) Lymphocytes # (Auto) 0.8 TH/MM3 (1.0-4.8) Monocytes # (Auto) 0.6 TH/MM3 (0-0.9) Eosinophils # (Auto) 0.2 TH/MM3 (0-0.4) Basophils # (Auto) 0.0 TH/MM3 (0-0.2) CBC Comment DIFF FINAL Differential Comment Sodium Level 141 MEQ/L (136-145) Potassium Level 3.4 MEQ/L (3.5-5.1) Chloride Level 102 MEQ/L (98-107) Carbon Dioxide Level 30.7 MEQ/L (21.0-32.0) Anion Gap 8 MEQ/L (5-15) Blood Urea Nitrogen 7 MG/DL (7-18) Creatinine 0.94 MG/DL (0.50-1.00) Estimat Glomerular Filtration 63 ML/MIN (>89) Rate Random Glucose 119 MG/DL (74-106) Calcium Level 8.8 MG/DL (8.5-10.1) Test 08/21/16 08/22/16 21:41 03:30 Urine Color LIGHT-YELLOW (YELLW/STRAW) Urine Turbidity CLEAR (CLEAR) Urine pH 7.0 (5.0-8.5) Urine Specific [place] 1.005 (1.002-1.035) Urine Protein NEG mg/dL (NEG-TRACE) Urine Glucose (UA) NEG mg/dL (NEG) Urine Ketones NEG mg/dL (NEG) Urine Occult Blood NEG (NEG) Urine Nitrite NEG (NEG) Urine Bilirubin NEG (NEG) Urine Urobilinogen LESS THAN 2.0 MG/DL (LESS THAN 2.0) Urine Leukocyte Esterase NEG (NEG) Urine RBC 1 /hpf (0-3) Urine WBC 1 /hpf (0-5) Urine Squamous Epithelial 2 /hpf (0-5) Cells Urine Mucus FEW /lpf (OCC) Microscopic Urinalysis Comment CULT NOT INDICATED Phenytoin (Dilantin) Level 8.2 MCG/ML (10.0-20.0) Valproic Acid (Depakene) Level 52 MCG/ML (50-100) Result Diagram: 08/21/16199908/21/161999 Microbiology Microbiology Date/Time Procedure Status Source Growth 08/21/16 20:00 Aerobic Blood Culture - Preliminary Resulted Blood Peripheral NO GROWTH IN 1 DAY 08/21/16 20:00 Anaerobic Blood Culture - Preliminary Resulted Blood Peripheral NO GROWTH IN 1 DAY 08/22/16 00:55 Aerobic Blood Culture Received Blood Other Pending 08/22/16 00:55 Anaerobic Blood Culture Received Blood Other Pending . Imaging Last Impressions Chest X-Ray 08/21/16 0000 Signed Impressions: Service Date/Time: Sunday, August 21, 2016 20:04 - CONCLUSION: Moderate left pleural effusion slightly smaller. Michael Quintana MD Head CT 08/19/16 0000 Signed Impressions: Service Date/Time: Friday, August 19, 2016 15:19 - CONCLUSION: 8mm lesion enhancing at the area of the posterior third ventricle/quadrigeminal plate as seen on recent MRI on August 10. No significant change in size. No hydrocephalus. No other lesion seen on CT. Cerebellar vermis and lesion seen on MRI not definitely identified on CT. Erick Clifton MD Abdomen X-Ray 08/17/16 0000 Signed Impressions: Service Date/Time: August 01:01 - CONCLUSION: No bowel obstruction. Moe Moon MD Entire Spine MRI 08/12/16 0000 Signed Impressions: Service Date/Time: Thursday, August 11, 2016 13:40 - CONCLUSION: No evidence of metastatic disease. Jen Parry MD Chest CT 08/10/16 0000 Signed Impressions: Service Date/Time: August 12:10 - CONCLUSION: Stable chest appearance Michael Chaudhari MD Brain MRI 08/10/16 0000 Signed Impressions: Service Date/Time: August 15:05 - CONCLUSION: 1. 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 This appears to narrow the aqueduct of Sylvius, but there is no evidence of hydrocephalus. 2. The left cerebellar vermis enhancing nodule is stable in size at 4 mm. 3. The enhancing mass in the suprasellar cistern has resolved. No mass effect on the chiasm. Eusebio Meraz MD Abdomen/Pelvis CT 08/10/16 0000 Signed Impressions: Service Date/Time: August 12:10 - CONCLUSION: 1. There are changes consistent with radiation therapy at the left lung base. These are only partially visualized. There is a small left basilar effusion. 2. CT scan of the abdomen and pelvis is within normal limits. Rajesh Bhatia MD . Procedures * 08/11/16 EGD - revealed moderate erythematous gastritis, biopsy minimally active chronic intro gastritis with nonspecific features, no H. pylori. Patient/Family Conference Present at Family Conference: Met with patient at bedside. Sitter also present during this meeting. Spoke with sonDanny via telephone. Family Conference Time (mins): 70 Family Conference Location: Bedside, Telephone Issues Discussed: * Palliative care role, purpose, approach * Additional medical, psychosocial, and spiritual history * Patients general health, functional status, and cognitive changes in the months leading up to the current hospitalization * Patient/family understanding of the current medical problems * Patient/family understanding of prognosis * Patients goals of care as best understood from advance directives and/or conversations and/or values * Current medical treatment options and benefits/burdens of those options * Likely scenarios comparing ongoing aggressive care with a transition to comfort measures only * Questions answered to the best of my ability * Palliative care contact information provided Assessment and Plan Disease Oriented Problem List: (1) Non-small cell carcinoma of lung Comment: Recent treatment with Line 3/ Cycle 1 Opdivo 07/26/16. (2) Brain metastases Comment: plan for radiation 08/22/16 (3) Seizure Comment: secondary to brain mets, on Dilantin (4) Vomiting (5) Failure to thrive in adult (6) Chronic pain (7) Abdominal pain (8) Constipation (9) Anxiety Symptom Scale: (1) Anxiety 0-10 Scale: Unable to quantify Comment: lethargic today. (2) Abdominal pain 0-10 Scale: 6 (3) Chronic pain 0-10 Scale: 6 Comment: back pain (4) Constipation (5) Seizure (6) Shortness of breath 0-10 Scale: 0 (7) Weakness 0-10 Scale: Unable to quantify Pertinent Non-Medical Issues Psychosocial: Lives with significant other, Bandar and 2 sons. Also has 2 daughters. Spiritual: Not in important part of her life. Legal: Patient completed designation of healthcare surrogate form naming her son Danny Bowie as designated healthcare surrogate on 08/22/16. She does not want to name and alternate surrogate. Ethical issues impacting care: No known concerns at this time. . Important Contacts * Danny Bhandari, son/ [facility]: [phone] * Bandar Harden, significant other: [phone] . Prognosis Ms. Lombardi is a 51-year-old female with progressive metastatic non-small cell lung cancer to brain admitted with nausea / vomiting with new brain mets plan for palliative radiation to brain, patient was previously on palliative chemotherapy prior to admission. Overall prognosis appears poor with limited life expectancy with or without chemotherapy. She currently desires continued aggressive care. . Code Status: Full Code Plan * Called medical oncology office, no written advance directives on file. Patient is currently incapacitated to make her own decisions. She completed designation of healthcare surrogate form naming her son Danny Bowie as designated healthcare surrogate. She does not want to name and alternate surrogate. Original copy left in room, copy placed on chart and sent to HIM to be scanned into EMR. * FULL CODE - considering code status. * Spoke with patient at bedside. Patient is lethargic, answers questions appropriately, sometimes slow to respond. She tells me the doctor told her "without treatment she has 6 months to live" which shows insight to her illness. She is considering CODE Status. She designated her son, Danny Bowie as health care surrogate. Patient desires continued aggressive care at this time. * Spoke with son, Danny via telephone. He seems to have a good understanding of current medical condition, treatment options and prognosis. He appreciates completion of designated healthcare surrogate and is willing to serve as surrogate should she become incapacitated. Danny will attempt to speak with his mother regarding code status and limitations of continuing aggressive care. He is very appreciative of the time spent. I offered to assist in conversation with his mother regarding limits, he will let me know. He supports his mothers wish for continued aggressive care at this time, understanding this may leave him in a position to make end of life decisions for here. * SYMPTOMS:Anxiety: denies today, lethargic. Seizure: controlled currently on Dilantin. 08/22 - Dilantin level 8.2. Pain: reports pain in back and abdomen. Abdomen tender to touch. Pt unable to further qualify due to lethargy rates today. On Dexamethasone, On Oramorph 15mg PO every 12 hours ATC. Dilaudid 1mg every 4 hours PRN BTP (had 2 doses in 24 hours) or Hydrocodone 7.5/325mg PO every 4 hours PRN BTP (had 1 dose in 24 hours). Weakness: Likely multifactorial progressive cancer, new brain mets, seizures, meds etc. profound weakness, high fall risk. Decreased appetite: Likely multifactorial progressive cancer, new brain mets, seizures, meds etc. No new medication recommendations at this time. * Palliative care number provided. * Palliative care will continue to follow to assist with symptom management and clarification of treatment goals as needed. . Thank you for the opportunity to participate in the care of Ms. Lombardi. Attestation To help prompt me to consider important information that might be impacting today's encounter and assessment, information from prior notes written by myself or my colleagues may have been "brought forward" into today's note. My signature on this note, however, is an attestation that I personally performed the exam, history, and/or decision-making noted today, and, unless otherwise indicated, the interactions with patient, family, and staff as well as the review of records all occurred today. I also attest that the listed assessment and stated plan reflect my best clinical judgment today based on the combination of historical information, prior notes, and today's exam/ interactions. When time spent is documented, it refers only to time spent today by the signer, or if indicated, combined time spent today by collaborating physician/nurse practitioner. AMBERLY MADSEN Aug 22, 2016 11:51
[2016-08-22] MEDS: ACETAMINOPHEN 325 MG TAB PO PRN ×2 (12:18→23:26)
--- NOTE | 2016-08-22 14:31 | EKG ---
Date Performed: 08/22/2016 Time Performed: 11:18:19 PTAGE: 51 years EKG: SINUS TACHYCARDIA Nonspecific T wave changes ABNORMAL ECG COMPARED TO PRIOR ELECTROCARDIOGR AM, T wave changes are worse. PREVIOUS TRACING : 08/17/2016 13.27 DOCTOR: Win Christine Interpretating Date/Time 08/22/2016 14:29:53
--- NOTE | 2016-08-22 14:32 | RADRPT ---
EXAM DATE/TIME: 08/22/2016 13:19 [place] COMPARISON: ABDOMEN KUB ONLY, August 17, 2016, 1:01. ABDOMEN KUB ONLY, August 21, 2016, 10:44. INDICATIONS : Diffuse abdominal pain, chest and back pain MEDICAL HISTORY : stage 4 lung cancer, seizures SURGICAL HISTORY : infusaport ENCOUNTER: Subsequent ACUITY: 1 month PAIN SCORE: 10/10 LOCATION: Bilateral abdomen FINDINGS: There is persistent hyperdensity in the stool of the left transverse colon down to the rectum, presum ably from a CT scan performed on 08/10/16. No dilated loops of small bowel seen. Osseous structures a re grossly intact. CONCLUSION: Persistent contrast in the stool of the left colon. No dilated loops of bowel seen. Eusebio Meraz MD on August 22, 2016 at 14:28 Board Certified Radiologist. This report was verified electronically.
[2016-08-22] MEDS: PANTOPRAZOLE SODIUM 40 MG VIAL IV PUSH SCH (16:38)
[2016-08-22 17:26] LABS: AUTOMATED NEUTROPHIL # 4.3 TH/MM3 (1.8-7.7); BASOPHIL % 0.5 % (0.0-2.0); EOSINOPHIL # 0.1 TH/MM3 (0-0.4); EOSINOPHIL % 1.7 % (0.0-4.0); HEMATOCRIT 28.6 % (35.0-46.0); HEMO FLAGS DIFF FINAL; LYMPH % 15.4 % (9.0-44.0); LYMPHOCYTE # 0.9 TH/MM3 (1.0-4.8); MEAN CELL VOLUME 84.6 FL (80.0-100.0); MEAN CORPUSCULAR HEMOGLOBIN 28.4 PG (27.0-34.0); MEAN CORPUSCULAR HGB CONC 33.6 % (32.0-36.0); MONO % 11.4 % (0.0-8.0); PLATELET COUNT 428 TH/MM3 (150-450); RED BLOOD COUNT 3.39 MIL/MM3 (4.00-5.30); RED CELL DISTRIBUTION WIDTH 17.5 % (11.6-17.2); WHITE BLOOD COUNT 6.1 TH/MM3 (4.0-11.0)
[2016-08-22 17:49] LABS: ALT (GPT) 41 U/L (10-53); ANION GAP 8 MEQ/L (5-15); AST (GOT) 32 U/L (15-37); BICARBONATE 27.7 MEQ/L (21.0-32.0); BLOOD UREA NITROGEN 4 MG/DL (7-18); CHLORIDE 105 MEQ/L (98-107); GLOMERULAR FILTRATION RATE 81 ML/MIN (>89); POTASSIUM 3.7 MEQ/L (3.5-5.1); SODIUM (NA) 141 MEQ/L (136-145)
[2016-08-22 17:51] LABS: ALKALINE PHOSPHATASE 137 U/L (45-117); TOTAL BILIRUBIN ADULT 0.2 MG/DL (0.2-1.0)
[2016-08-23 00:42] VITALS: BP 144/85; PULSE 99; RESP 18; TEMP 99.7; O2SAT 93
[2016-08-23] MEDS: CHLORHEXIDINE GLUCONATE 2 % 1 PACK (2 CLOTHS)(taper/protocol) TOPICAL SCH (02:22)
[2016-08-23] MEDS: HYDROmorphone HCL PF 1 MG/ML VIAL IV PUSH PRN ×3 (03:11→16:17)
[2016-08-23] MEDS: SODIUM CHLORIDE 0.9% FLUSH 10 ML FLUSH IVF PRN ×2 (03:11→03:51)
[2016-08-23] MEDS: VALPROATE INJ 500 MG in SODIUM CHLORIDE 0.9% INJ 100 ML IV SCH ×2 (03:15→12:01)
[2016-08-23] MEDS: HALOPERIDOL LACTATE 5 MG/ML AMP IV PUSH PRN (03:51)
[2016-08-23 04:00] VITALS: BP 138/62; PULSE 74; RESP 18; TEMP 97.8; O2SAT 100
[2016-08-23] MEDS: levETIRAcetam INJ 500 MG in SODIUM CHLORIDE 0.9% INJ 100 ML IV SCH ×2 (04:19→15:54)
[2016-08-23] MEDS: SUCRALFATE 1 GM/10 ML CUP PO SCH ×3 (06:35→15:55)
[2016-08-23 09:00] VITALS: BP 135/75; PULSE 109; RESP 20; TEMP 99.5; O2SAT 99
[2016-08-23] MEDS: POLYETHYLENE GLYCOL 17 GM PKG PO SCH (09:00)
[2016-08-23 09:30] VITALS: PULSE 120
[2016-08-23 09:47] LABS: AUTOMATED NEUTROPHIL # 5.1 TH/MM3 (1.8-7.7); BASOPHIL # 0.1 TH/MM3 (0-0.2); BASOPHIL % 1.1 % (0.0-2.0); EOSINOPHIL # 0.1 TH/MM3 (0-0.4); EOSINOPHIL % 2.1 % (0.0-4.0); HEMATOCRIT 29.1 % (35.0-46.0); HEMO FLAGS DIFF FINAL; LYMPH % 8.5 % (9.0-44.0); LYMPHOCYTE # 0.5 TH/MM3 (1.0-4.8); MEAN CELL VOLUME 85.5 FL (80.0-100.0); MEAN CORPUSCULAR HEMOGLOBIN 27.2 PG (27.0-34.0); MEAN CORPUSCULAR HGB CONC 31.8 % (32.0-36.0); MONO % 10.3 % (0.0-8.0); PLATELET COUNT 443 TH/MM3 (150-450); RED BLOOD COUNT 3.41 MIL/MM3 (4.00-5.30); RED CELL DISTRIBUTION WIDTH 18.1 % (11.6-17.2); WHITE BLOOD COUNT 6.5 TH/MM3 (4.0-11.0)
[2016-08-23] MEDS: METOPROLOL TARTRATE 25 MG TAB PO SCH (09:48)
[2016-08-23] MEDS: DEXAMETHASONE 4 MG TAB PO SCH (09:48)
[2016-08-23] MEDS: MORPHINE SULFATE 15 MG CONTROLLED RELEASE TAB PO SCH (09:48)
[2016-08-23] MEDS: DOCUSATE SODIUM 50 MG/SENNA 8.6 MG TAB PO SCH (09:48)
[2016-08-23] MEDS: ACETAMINOPHEN 325 MG TAB PO PRN (09:49)
[2016-08-23 10:10] LABS: BICARBONATE 27.5 MEQ/L (21.0-32.0); POTASSIUM 3.3 MEQ/L (3.5-5.1)
--- NOTE | 2016-08-23 11:31 | PD.ONC.PN ---
Subjective Subjective Remarks Tmax 100.9 overnight. Patient lethargic. Per nurse she alternates between restlessness, complaining of pain in back and being lethargic. Objective Data Date Time Temp Pulse Resp B/P Pulse Ox O2 Delivery O2 Flow Rate FiO2 08/23/16 09:00 99.5 109 20 135/75 99 08/23/16 04:00 97.8 74 18 138/62 100 08/23/16 00:42 99.7 99 18 144/85 93 08/22/16 23:21 100.9 135 18 141/90 93 08/22/16 20:04 117 08/22/16 20:00 99.6 114 17 155/86 98 08/22/16 16:00 98.5 105 18 146/94 98 08/22/16 12:47 101.3 121 18 154/106 97 Result Diagram: 08/23/16 0320 08/23/16 0320 Laboratory Results Laboratory Tests Test 08/22/16 08/23/16 16:45 03:20 White Blood Count 6.1 TH/MM3 6.5 TH/MM3 Red Blood Count 3.39 MIL/MM3 3.41 MIL/MM3 Hemoglobin 9.6 GM/DL 9.3 GM/DL Hematocrit 28.6 % 29.1 % Mean Corpuscular Volume 84.6 FL 85.5 FL Mean Corpuscular Hemoglobin 28.4 PG 27.2 PG Mean Corpuscular Hemoglobin 33.6 % 31.8 % Concent Red Cell Distribution Width 17.5 % 18.1 % Platelet Count 428 TH/MM3 443 TH/MM3 Mean Platelet Volume 6.8 FL 7.5 FL Neutrophils (%) (Auto) 71.0 % 78.0 % Lymphocytes (%) (Auto) 15.4 % 8.5 % Monocytes (%) (Auto) 11.4 % 10.3 % Eosinophils (%) (Auto) 1.7 % 2.1 % Basophils (%) (Auto) 0.5 % 1.1 % Neutrophils # (Auto) 4.3 TH/MM3 5.1 TH/MM3 Lymphocytes # (Auto) 0.9 TH/MM3 0.5 TH/MM3 Monocytes # (Auto) 0.7 TH/MM3 0.7 TH/MM3 Eosinophils # (Auto) 0.1 TH/MM3 0.1 TH/MM3 Basophils # (Auto) 0.0 TH/MM3 0.1 TH/MM3 CBC Comment DIFF FINAL DIFF FINAL Differential Comment Sodium Level 141 MEQ/L 141 MEQ/L Potassium Level 3.7 MEQ/L 3.3 MEQ/L Chloride Level 105 MEQ/L 103 MEQ/L Carbon Dioxide Level 27.7 MEQ/L 27.5 MEQ/L Anion Gap 8 MEQ/L 11 MEQ/L Blood Urea Nitrogen 4 MG/DL 6 MG/DL Creatinine 0.75 MG/DL 0.71 MG/DL Estimat Glomerular Filtration 81 ML/MIN 86 ML/MIN Rate Random Glucose 96 MG/DL 65 MG/DL Lactic Acid Level 1.1 mmol/L Calcium Level 8.9 MG/DL 8.9 MG/DL Total Bilirubin 0.2 MG/DL Aspartate Amino Transf 32 U/L (AST/SGOT) Alanine Aminotransferase 41 U/L (ALT/SGPT) Alkaline Phosphatase 137 U/L Total Protein 7.6 GM/DL Albumin 2.8 GM/DL Valproic Acid (Depakene) Level 57 MCG/ML 46 MCG/ML Phenytoin (Dilantin) Level 5.9 MCG/ML Culture Results Microbiology Date/Time Procedure Status Source Growth 08/21/16 20:00 Aerobic Blood Culture - Preliminary Resulted Blood Peripheral NO GROWTH IN 2 DAYS 08/21/16 20:00 Anaerobic Blood Culture - Preliminary Resulted Blood Peripheral NO GROWTH IN 2 DAYS 08/22/16 00:55 Aerobic Blood Culture - Preliminary Resulted Blood Other NO GROWTH IN 1 DAY 08/22/16 00:55 Anaerobic Blood Culture - Preliminary Resulted Blood Other NO GROWTH IN 1 DAY Administered Medications Medications (Trade) Dose Ordered Sig/Benji Route PRN Reason Start Time Stop Time Status Last Admin Dose Admin Sodium Chloride (NS Flush) 2 ml UNSCH PRN IVF FLUSH AFTER USING IV ACCESS 08/09/16 10:00 08/23/16 03:51 Pantoprazole Sodium (Protonix Inj) 40 mg Q24H IV PUSH 08/09/16 18:00 08/22/16 16:38 Ondansetron HCl (Zofran Inj) 4 mg Q6HR PRN IV PUSH NAUSEA OR VOMITING 08/09/16 17:30 08/21/16 17:59 Acetaminophen/ Hydrocodone Bitart (Danevang 7.5-325 Mg) 1 tab Q4H PRN PO PAIN SCALE 5 TO 7 08/10/16 11:00 08/21/16 01:35 Sucralfate (Carafate Liq) 1 gm ACHS PO 08/11/16 11:00 08/23/16 09:48 Dexamethasone (Decadron) 4 mg Q12HR PO 08/11/16 10:30 08/23/16 09:48 Morphine Sulfate (Oramorph Sr) 15 mg Q12HR PO 08/13/16 11:00 08/23/16 09:48 Diazepam (Valium) 5 mg Q8H PRN PO anxiety 08/13/16 09:30 08/22/16 17:09 Polyethylene Glycol (Miralax) 17 gm DAILY PO 08/17/16 09:00 08/22/16 08:17 Senna/Docusate Sodium (Ellen-Colace) 2 tab BID PO 08/17/16 09:00 08/23/16 09:48 Magnesium Hydroxide (Milk Of Magnesia Liq) 30 ml DAILY PRN PO CONSTIPATION 08/18/16 09:30 08/18/16 12:25 Lorazepam 1 mg 1 mg Q15M PRN IV PUSH SEIZURE 08/19/16 09:30 08/19/16 14:09 Sodium Chloride 1,000 ml @ 75 mls/hr [id number] IV 08/19/16 14:30 08/22/16 19:31 Levetriacetam 500 mg/Sodium Chloride 105 ml @ 420 mls/hr Q12H IV 08/19/16 16:00 08/23/16 04:19 Valproate Sodium/ Sodium Chloride (Depacon Inj/NS Inj) 105 ml @ 105 mls/hr Q8H IV 08/19/16 20:00 08/23/16 03:15 Acetaminophen (Tylenol) 650 mg Q6HR PRN PO fever > 100.4 08/21/16 20:00 08/23/16 09:49 Haloperidol Lactate (Haldol Inj) 2 mg Q8HR PRN IV PUSH agitation 08/22/16 07:45 08/23/16 03:51 Metoprolol Tartrate (Lopressor) 25 mg Q12HR PO 08/22/16 09:00 08/23/16 09:48 Hydromorphone HCl (Dilaudid Pf Inj) 1 mg Q4H PRN IV PUSH PAIN SCALE 4 TO 10 08/22/16 13:30 08/23/16 09:49 Objective Remarks GENERAL: chronically ill appearing female, lethargic. SKIN: Warm and dry. HEAD: Normocephalic. EYES: No injection or drainage. NECK: Supple, trachea midline. CARDIOVASCULAR: Regular rate and rhythm RESPIRATORY: Breath sounds equal bilaterally. No accessory muscle use. GASTROINTESTINAL: Abdomen soft, mildly tender. EXTREMITIES: No cyanosis MUSCULOSKELETAL: Adequate muscle tone. NEUROLOGICAL: awake, lethargic. Assessment/Plan Problem List: (1) Non-small cell carcinoma of lung Status: Acute Plan: 08/23: XRT to start today. DD for altered mental status includes meningeal carcinomatosis vs sepsis vs metabolic encephalopathy. 08/22: radiation to start tomorrow, 08/23 at 2:30PM. will obtain labs today for altered mental status, await blood cultures for fever. 08/20: await SRS, per radiation oncology.xray for abdominal pain 08/16 for simulation today. SRS on sunday. ok to d/c from my standpoint. fu as outpt on sunday. sign off available prn 08/15: XRT simulation tomorrow. hopefully seizures will improve when XRT starts. continue dilantin, decadron 08/14: MRI spine shows no mets. continuing to have seizure. continue Dilantin. d/w Dr. Acevedo he plans to start XRT by next Sunday, will do simulation likely tomorrow 08/11: back pain + lower extremity weakness, will order MRI C/T/L spine to evaluate for spine mets. will start decadron 4mg PO BID. reviewed scans with patient, showed MRI brain images and discussed. patient was, understandably upset that there is a new brain lesion. emotional support provided. d/w Dr. Acevedo as well who will see the patient today and plans to start XRT outpatient. 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 --started on maintenance Alimta December 2015 --restaging CT chest showed progressive consolidation and volume loss and collapse of LLL with increasing left pleural effusion. --July 2016: started on ?Opdivo --met with Tawanda in 07/2016, wanted to try Opdivo before pursuing further radiation Assessment 51y/o female with non-small cell lung cancer, admitted with nausea and vomiting , MRI showed new brain mets. Attending Statement restless, painful. pt now has elected for hospice. Appreciate palliative care input. ok to d/c when arrangements made. 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 Namrata Rene Aug 23, 2016 11:31 Ita Elizondo MD Aug 23, 2016 22:57
--- NOTE | 2016-08-23 14:53 | HHI.PR ---
Subjective Remarks Patient with pain, not able to eat much today, deteriorating. he is also refusing treatments. Will have hospice meeting today. Objective Vitals Vital Signs Date Time Temp Pulse Resp B/P Pulse Ox O2 Delivery O2 Flow Rate FiO2 08/23/16 09:30 120 08/23/16 09:00 99.5 109 20 135/75 99 08/23/16 04:00 97.8 74 18 138/62 100 08/23/16 00:42 99.7 99 18 144/85 93 08/22/16 23:21 100.9 135 18 141/90 93 08/22/16 20:04 117 08/22/16 20:00 99.6 114 17 155/86 98 08/22/16 16:00 98.5 105 18 146/94 98 I/O 08/22/16 08/22/16 08/22/16 08/23/16 08/23/16 08/23/16 07:00 15:00 23:00 07:00 15:00 23:00 Intake Total 540 ml 240 ml 1325 ml 610 ml Balance 540 ml 240 ml 1325 ml 610 ml Intake Oral 240 ml IV Total 540 ml 1325 ml 610 ml # Voids 7 5 # Bowel Movements 1 Result Diagram: 08/23/16 0320 08/23/16 0320 Imaging Last Impressions Abdomen X-Ray 08/22/16 0000 Signed Impressions: Service Date/Time: Monday, August 22, 2016 13:19 - CONCLUSION: Persistent contrast in the stool of the left colon. No dilated loops of bowel seen. Eusebio Meraz MD Chest X-Ray 08/21/16 0000 Signed Impressions: Service Date/Time: Sunday, August 21, 2016 20:04 - CONCLUSION: Moderate left pleural effusion slightly smaller. Michael Quintana MD Head CT 08/19/16 0000 Signed Impressions: Service Date/Time: Friday, August 19, 2016 15:19 - CONCLUSION: 8mm lesion enhancing at the area of the posterior third ventricle/quadrigeminal plate as seen on recent MRI on August 10. No significant change in size. No hydrocephalus. No other lesion seen on CT. Cerebellar vermis and lesion seen on MRI not definitely identified on CT. Erick Clifton MD Entire Spine MRI 08/12/16 0000 Signed Impressions: Service Date/Time: Thursday, August 11, 2016 13:40 - CONCLUSION: No evidence of metastatic disease. Jen Parry MD Chest CT 08/10/16 0000 Signed Impressions: Service Date/Time: August 12:10 - CONCLUSION: Stable chest appearance Michael Chaudhari MD Brain MRI 08/10/16 0000 Signed Impressions: Service Date/Time: August 15:05 - CONCLUSION: 1. 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 This appears to narrow the aqueduct of Sylvius, but there is no evidence of hydrocephalus. 2. The left cerebellar vermis enhancing nodule is stable in size at 4 mm. 3. The enhancing mass in the suprasellar cistern has resolved. No mass effect on the chiasm. Eusebio Meraz MD Abdomen/Pelvis CT 08/10/16 0000 Signed Impressions: Service Date/Time: August 12:10 - CONCLUSION: 1. There are changes consistent with radiation therapy at the left lung base. These are only partially visualized. There is a small left basilar effusion. 2. CT scan of the abdomen and pelvis is within normal limits. Rajesh Bhatia MD Objective Remarks GENERAL: This is a pleasant 51 yo F, well-nourished, well-developed patient, in no apparent distress. CARDIOVASCULAR: Regular rate and regular rhythm without murmurs, gallops, or rubs. RESPIRATORY: Clear to auscultation. Breath sounds equal bilaterally. No wheezes , rales, or rhonchi. GASTROINTESTINAL: Abdomen soft, non-tender, nondistended. Normal, active bowel sounds MUSCULOSKELETAL: Extremities without clubbing, cyanosis, or edema. NEURO: Alert & Oriented x4 to person, place, time, situation. Moves all ext x4 Procedures EGD A/P Assessment and Plan Lung Cancer with Metastasis Brain Masses Chronic Pain Oncology and radiation oncology following Radiation planned; had radiation simulation . Brain mets are the likely etiology of her recent seizures continue with pain control and Decadron Seizure - had another episode of seizure on 08/18/[address] head on 08/19 ; stable repeated EEG with no active seizure activity. neurology reconsulted;dilantin was discontinued and started on Depakote and Keppra continue Decadron seizure precautions Recurrent abdominal pain- s/p EGD with gastritis Will order abdominal XR continue PPI Anxiety Reactive PRN Valium started Ativan discontinued Constipation: laxatives as needed. Discussed with the patient, nurse, family at bedside. Discussed with hospice, plan to DC to hospice. Brigitte Castaneda MD Aug 23, 2016 14:53
--- NOTE | 2016-08-23 15:35 | HHI.HCPN ---
Reason for visit a. To assist with evaluation and management of symptoms including: pain, weakness. b. To assist medical decision maker(s) with: better understanding of current medical conditions; weighing benefits/burdens of medical treatment options; making medical treatment decisions. . Subjective/Interval History Patient seen and examined in room. BoyfriendBandar at bedside. Patient is awake and restless. She reports pain in back, legs and abdomen. She is nauseated , vomits a small amount during my visit. She indicates she does not want radiation therapy, Bandar is appropriately tearful. She desires comfort measures. Discussed options of continued aggressive care with radiation therapy vs transition to comfort measures with hospice support. She wants comfort and hospice. She wants me to talk with her son, Danny and tells me he was not ready to hear my conversation last night. 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 He feels transition to comfort measures is appropriate at this time. Tmax 100.9. Tachycardic. . Family/friend interactions Met with patient, son (Danny) and boyfriend (Bandar) at bedside. Patient again reiterates her desire for comfort measures, she does not want radiation or additional treatment. She wants to meet with hospice. We talked about hospice care center placement for management of pain, anxiety, restlessness and high risk seizure. Family supports patient decisions. She also requests boyfriend Bandar be added as alternate HCS to Designation of HCS, complete. . Advance Directives Living Will: Never completed Health Care Surrogate: Copy in medical record Durable Power of Machinist Outside: Completed, but not made available (son Danny indicates he has POA for financial. ) Advance Directive Specifics Date completed: 08/22/16 . Health Care Surrogate(s): She completed designation of healthcare surrogate form naming her son Danny Bowie as designated healthcare surrogate. She does not want to name and alternate surrogate. . Significant change in goals: NO CODE. Desires hospice consult with comfort measures. Does not want radiation. . Objective Vital Signs Date Time Temp Pulse Resp B/P Pulse Ox O2 Delivery O2 Flow Rate FiO2 08/23/16 09:30 120 08/23/16 09:00 99.5 109 20 135/75 99 08/23/16 04:00 97.8 74 18 138/62 100 08/23/16 00:42 99.7 99 18 144/85 93 08/22/16 23:21 100.9 135 18 141/90 93 08/22/16 20:04 117 08/22/16 20:00 99.6 114 17 155/86 98 08/22/16 16:00 98.5 105 18 146/94 98 Physical Exam CONSTITUTIONAL/GENERAL: This is a lethargic patient, in no apparent distress. TUBES/LINES/DRAINS: right port. SKIN: No jaundice, rashes, or lesions. Ecchymoses on upper extremities. No wounds seen anteriorly. Skin temperature appropriate. Not diaphoretic. EYES: Pupils equal and round. No scleral icterus. No injection or drainage. ENT: Hearing grossly normal. Nose without bleeding or purulent drainage. Dry lips noted. CARDIOVASCULAR: tachycardic. RESPIRATORY/CHEST: Symmetric, unlabored respirations. Clear to auscultation. Diminished breath sounds. GASTROINTESTINAL: Abdomen soft, tender lower quadrants left > right, mildly distended. No guarding. Bowel sounds hypoactive. GENITOURINARY: Without palpable bladder distension. MUSCULOSKELETAL: Extremities without clubbing, cyanosis, or edema. No mottling or clubbing. NEUROLOGICAL: Awakens easily, lethargic, falls off to sleep easily. Generalized weakness noted. Follows commands. Moves all extremities. PSYCHIATRIC: No apparent hallucinations or other psychotic thought process. . Diagnostic Tests Laboratory Laboratory Tests Test 08/21/16 08/21/16 08/21/16 08/22/16 03:30 20:00 21:41 03:30 Phenytoin (Dilantin) Level 11.7 MCG/ML 8.2 MCG/ML (10.0-20.0) (10.0-20.0) Valproic Acid (Depakene) Level 39 MCG/ML 45 MCG/ML 52 MCG/ML (50-100) (50-100) (50-100) White Blood Count 6.0 TH/MM3 (4.0-11.0) Red Blood Count 3.72 MIL/MM3 (4.00-5.30) Hemoglobin 10.0 GM/DL (11.6-15.3) Hematocrit 31.4 % (35.0-46.0) Mean Corpuscular Volume 84.2 FL (80.0-100.0) Mean Corpuscular Hemoglobin 26.9 PG (27.0-34.0) Mean Corpuscular Hemoglobin 31.9 % Concent (32.0-36.0) Red Cell Distribution Width 17.7 % (11.6-17.2) Platelet Count 473 TH/MM3 (150-450) Mean Platelet Volume 7.0 FL (7.0-11.0) Neutrophils (%) (Auto) 72.8 % (16.0-70.0) Lymphocytes (%) (Auto) 12.8 % (9.0-44.0) Monocytes (%) (Auto) 10.7 % (0.0-8.0) Eosinophils (%) (Auto) 3.1 % (0.0-4.0) Basophils (%) (Auto) 0.6 % (0.0-2.0) Neutrophils # (Auto) 4.4 TH/MM3 (1.8-7.7) Lymphocytes # (Auto) 0.8 TH/MM3 (1.0-4.8) Monocytes # (Auto) 0.6 TH/MM3 (0-0.9) Eosinophils # (Auto) 0.2 TH/MM3 (0-0.4) Basophils # (Auto) 0.0 TH/MM3 (0-0.2) CBC Comment DIFF FINAL Differential Comment Sodium Level 141 MEQ/L (136-145) Potassium Level 3.4 MEQ/L (3.5-5.1) Chloride Level 102 MEQ/L (98-107) Carbon Dioxide Level 30.7 MEQ/L (21.0-32.0) Anion Gap 8 MEQ/L (5-15) Blood Urea Nitrogen 7 MG/DL (7-18) Creatinine 0.94 MG/DL (0.50-1.00) Estimat Glomerular Filtration 63 ML/MIN (>89) Rate Random Glucose 119 MG/DL (74-106) Calcium Level 8.8 MG/DL (8.5-10.1) Urine Color LIGHT-YELLOW (YELLW/STRAW) Urine Turbidity CLEAR (CLEAR) Urine pH 7.0 (5.0-8.5) Urine Specific [place] 1.005 (1.002-1.035) Urine Protein NEG mg/dL (NEG-TRACE) Urine Glucose (UA) NEG mg/dL (NEG) Urine Ketones NEG mg/dL (NEG) Urine Occult Blood NEG (NEG) Urine Nitrite NEG (NEG) Urine Bilirubin NEG (NEG) Urine Urobilinogen LESS THAN 2.0 MG/DL (LESS THAN 2.0) Urine Leukocyte Esterase NEG (NEG) Urine RBC 1 /hpf (0-3) Urine WBC 1 /hpf (0-5) Urine Squamous Epithelial 2 /hpf (0-5) Cells Urine Mucus FEW /lpf (OCC) Microscopic Urinalysis Comment CULT NOT INDICATED Test 08/22/16 08/23/16 16:45 03:20 White Blood Count 6.1 TH/MM3 6.5 TH/MM3 (4.0-11.0) (4.0-11.0) Red Blood Count 3.39 MIL/MM3 3.41 MIL/MM3 (4.00-5.30) (4.00-5.30) Hemoglobin 9.6 GM/DL 9.3 GM/DL (11.6-15.3) (11.6-15.3) Hematocrit 28.6 % 29.1 % (35.0-46.0) (35.0-46.0) Mean Corpuscular Volume 84.6 FL 85.5 FL (80.0-100.0) (80.0-100.0) Mean Corpuscular Hemoglobin 28.4 PG 27.2 PG (27.0-34.0) (27.0-34.0) Mean Corpuscular Hemoglobin 33.6 % 31.8 % Concent (32.0-36.0) (32.0-36.0) Red Cell Distribution Width 17.5 % 18.1 % (11.6-17.2) (11.6-17.2) Platelet Count 428 TH/MM3 443 TH/MM3 (150-450) (150-450) Mean Platelet Volume 6.8 FL 7.5 FL (7.0-11.0) (7.0-11.0) Neutrophils (%) (Auto) 71.0 % 78.0 % (16.0-70.0) (16.0-70.0) Lymphocytes (%) (Auto) 15.4 % 8.5 % (9.0-44.0) (9.0-44.0) Monocytes (%) (Auto) 11.4 % 10.3 % (0.0-8.0) (0.0-8.0) Eosinophils (%) (Auto) 1.7 % (0.0-4.0) 2.1 % (0.0-4.0) Basophils (%) (Auto) 0.5 % (0.0-2.0) 1.1 % (0.0-2.0) Neutrophils # (Auto) 4.3 TH/MM3 5.1 TH/MM3 (1.8-7.7) (1.8-7.7) Lymphocytes # (Auto) 0.9 TH/MM3 0.5 TH/MM3 (1.0-4.8) (1.0-4.8) Monocytes # (Auto) 0.7 TH/MM3 0.7 TH/MM3 (0-0.9) (0-0.9) Eosinophils # (Auto) 0.1 TH/MM3 0.1 TH/MM3 (0-0.4) (0-0.4) Basophils # (Auto) 0.0 TH/MM3 0.1 TH/MM3 (0-0.2) (0-0.2) CBC Comment DIFF FINAL DIFF FINAL Differential Comment Sodium Level 141 MEQ/L 141 MEQ/L (136-145) (136-145) Potassium Level 3.7 MEQ/L 3.3 MEQ/L (3.5-5.1) (3.5-5.1) Chloride Level 105 MEQ/L 103 MEQ/L (98-107) (98-107) Carbon Dioxide Level 27.7 MEQ/L 27.5 MEQ/L (21.0-32.0) (21.0-32.0) Anion Gap 8 MEQ/L (5-15) 11 MEQ/L (5-15) Blood Urea Nitrogen 4 MG/DL (7-18) 6 MG/DL (7-18) Creatinine 0.75 MG/DL 0.71 MG/DL (0.50-1.00) (0.50-1.00) Estimat Glomerular Filtration 81 ML/MIN (>89) 86 ML/MIN (>89) Rate Random Glucose 96 MG/DL 65 MG/DL (74-106) (74-106) Lactic Acid Level 1.1 mmol/L (0.4-2.0) Calcium Level 8.9 MG/DL 8.9 MG/DL (8.5-10.1) (8.5-10.1) Total Bilirubin 0.2 MG/DL (0.2-1.0) Aspartate Amino Transf 32 U/L (15-37) (AST/SGOT) Alanine Aminotransferase 41 U/L (10-53) (ALT/SGPT) Alkaline Phosphatase 137 U/L (45-117) Total Protein 7.6 GM/DL (6.4-8.2) Albumin 2.8 GM/DL (3.4-5.0) Valproic Acid (Depakene) Level 57 MCG/ML 46 MCG/ML (50-100) (50-100) Phenytoin (Dilantin) Level 5.9 MCG/ML (10.0-20.0) Result Diagram: 08/23/1631908/23/16319 Microbiology Microbiology Date/Time Procedure Status Source Growth 08/21/16 20:00 Aerobic Blood Culture - Preliminary Resulted Blood Peripheral NO GROWTH IN 2 DAYS 08/21/16 20:00 Anaerobic Blood Culture - Preliminary Resulted Blood Peripheral NO GROWTH IN 2 DAYS 08/22/16 00:55 Aerobic Blood Culture - Preliminary Resulted Blood Other NO GROWTH IN 1 DAY 08/22/16 00:55 Anaerobic Blood Culture - Preliminary Resulted Blood Other NO GROWTH IN 1 DAY . Imaging Last Impressions Abdomen X-Ray 08/22/16 0000 Signed Impressions: Service Date/Time: Monday, August 22, 2016 13:19 - CONCLUSION: Persistent contrast in the stool of the left colon. No dilated loops of bowel seen. Eusebio Meraz MD Chest X-Ray 08/21/16 0000 Signed Impressions: Service Date/Time: Sunday, August 21, 2016 20:04 - CONCLUSION: Moderate left pleural effusion slightly smaller. Michael Quintana MD Head CT 08/19/16 0000 Signed Impressions: Service Date/Time: Friday, August 19, 2016 15:19 - CONCLUSION: 8mm lesion enhancing at the area of the posterior third ventricle/quadrigeminal plate as seen on recent MRI on August 10. No significant change in size. No hydrocephalus. No other lesion seen on CT. Cerebellar vermis and lesion seen on MRI not definitely identified on CT. Erick Clifton MD Entire Spine MRI 08/12/16 0000 Signed Impressions: Service Date/Time: Thursday, August 11, 2016 13:40 - CONCLUSION: No evidence of metastatic disease. Jen Parry MD Chest CT 08/10/16 0000 Signed Impressions: Service Date/Time: August 12:10 - CONCLUSION: Stable chest appearance Michael Chaudhari MD Brain MRI 08/10/16 0000 Signed Impressions: Service Date/Time: August 15:05 - CONCLUSION: 1. 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 This appears to narrow the aqueduct of Sylvius, but there is no evidence of hydrocephalus. 2. The left cerebellar vermis enhancing nodule is stable in size at 4 mm. 3. The enhancing mass in the suprasellar cistern has resolved. No mass effect on the chiasm. Eusebio Mearz MD Abdomen/Pelvis CT 08/10/16 0000 Signed Impressions: Service Date/Time: August 12:10 - CONCLUSION: 1. There are changes consistent with radiation therapy at the left lung base. These are only partially visualized. There is a small left basilar effusion. 2. CT scan of the abdomen and pelvis is within normal limits. Rajesh Bhatia MD . Procedures * 08/11/16 EGD - revealed moderate erythematous gastritis, biopsy minimally active chronic intro gastritis with nonspecific features, no H. pylori. Assessment and Plan Disease Oriented Problem List: (1) Non-small cell carcinoma of lung Comment: Recent treatment with Line 3/ Cycle 1 Opdivo 07/26/16. (2) Brain metastases Comment: plan for radiation 08/22/16 (3) Seizure Comment: secondary to brain mets, on Dilantin (4) Vomiting (5) Failure to thrive in adult (6) Chronic pain (7) Abdominal pain (8) Constipation (9) Anxiety Symptom Scale: (1) Anxiety 0-10 Scale: Unable to quantify Comment: lethargic today. (2) Abdominal pain 0-10 Scale: 6 (3) Chronic pain 0-10 Scale: 6 Comment: back pain (4) Constipation 0-10 Scale: Unable to quantify (5) Seizure 0-10 Scale: Unable to quantify (6) Shortness of breath 0-10 Scale: 0 (7) Weakness 0-10 Scale: Unable to quantify Pertinent Non-Medical Issues Psychosocial: Lives with significant other, Bandar and 2 sons. Also has 2 daughters. Spiritual: Not in important part of her life. Legal: Patient completed designation of healthcare surrogate form naming her son Danny Bowie as designated healthcare surrogate on 08/22/16. She does not want to name and alternate surrogate. Ethical issues impacting care: No known concerns at this time. . Important Contacts * Danny Bhandari, trang/ [facility]: [phone] * Bandar Harden, significant other: [phone] . Prognosis Ms. Lombardi is a 51-year-old female with progressive metastatic non-small cell lung cancer to brain admitted with nausea / vomiting with new brain mets plan for palliative radiation to brain, patient was previously on palliative chemotherapy prior to admission. Overall prognosis appears poor with limited life expectancy with or without chemotherapy. She currently desires continued aggressive care. . Code Status: No Code Plan * Called medical oncology office, no written advance directives on file. Patient is currently incapacitated to make her own decisions. She completed designation of healthcare surrogate form naming her son Danny Bowie as designated healthcare surrogate. Alternate HCS, Bandar Dereck (boyfriend). Original copy left in room. * NO CODE * 08/23/16 - Met with patient, son (Danny) and boyfriend (Bandar) at bedside. Patient again reiterates her desire for comfort measures, she does not want radiation or additional treatment. She wants to meet with hospice. We talked about hospice care center placement for management of pain, anxiety, restlessness and high risk seizure. Family supports patient decisions. * Hospice consulted. Discussed with admission nurse, Fidelia. * SYMPTOMS:Anxiety: denies today, lethargic. Seizure: controlled currently on Dilantin. 08/22 - Dilantin level 8.2. Pain: reports pain in back and abdomen. Abdomen tender to touch. Pt unable to further qualify due to lethargy rates 6/ 10 today. On Dexamethasone, On Oramorph 15mg PO every 12 hours ATC. Dilaudid 1mg every 4 hours PRN BTP (had 2 doses in 24 hours) or Hydrocodone 7.5/325mg PO every 4 hours PRN BTP (had 1 dose in 24 hours). Weakness: Likely multifactorial progressive cancer, new brain mets, seizures, meds etc. profound weakness, high fall risk. Decreased appetite: Likely multifactorial progressive cancer, new brain mets, seizures, meds etc. No new medication recommendations at this time. * Palliative care will continue to follow to assist with symptom management and clarification of treatment goals as needed. . Attestation To help prompt me to consider important information that might be impacting today's encounter and assessment, information from prior notes written by myself or my colleagues may have been "brought forward" into today's note. My signature on this note, however, is an attestation that I personally performed the exam, history, and/or decision-making noted today, and, unless otherwise indicated, the interactions with patient, family, and staff as well as the review of records all occurred today. I also attest that the listed assessment and stated plan reflect my best clinical judgment today based on the combination of historical information, prior notes, and today's exam/ interactions. When time spent is documented, it refers only to time spent today by the signer, or if indicated, combined time spent today by collaborating physician/nurse practitioner. AMBERLY MADSEN Aug 23, 2016 15:35
--- NOTE | 2016-08-23 15:49 | HHI.DS ---
Discharge Summary Admission Date Aug 11, 2016 at 11:50 Discharge Date: Aug 23, 2016 Admitting Diagnosis CANCER WITH PAIN N/V AND ANOREXIA (1) Cancer related pain ICD Code: G89.3 Diagnosis: Principal (2) Failure to thrive in adult ICD Code: R62.7 Diagnosis: Principal (3) Metastatic lung cancer (metastasis from lung to other site) ICD Code: C34.90 Diagnosis: Secondary (4) Non-small cell carcinoma of lung ICD Code: C34.90 Diagnosis: Secondary (5) Brain metastases ICD Code: C79.31 Diagnosis: Secondary (6) Weakness ICD Code: R53.1 Diagnosis: Secondary (7) Appetite loss ICD Code: R63.0 Diagnosis: Secondary (8) Constipation ICD Code: K59.00 Diagnosis: Secondary Procedures EGD Brief History - From Admission Patient is a very pleasant 50-year-old female diagnosed with non-small cell lung carcinoma in May 2015 stage IV with pleural effusion and brain metastases. Patient is followed closely by our oncologist Dr. Elizondo and radiation oncology Dr. Acevedo. Patient underwent radiation treatment as well as chemotherapy with Alimta. Patient states that she just had chemotherapy about 3 weeks ago and was due for another session this Sunday. Patient had thoracentesis done at one point 1 and had 500 cc out. Since then patient has been complaining of rib cage pain and some abdominal discomfort. Patient has been complaining of poor by mouth intake constant nausea" I'm unable to hold down any food" . Patient for the past 2 weeks now complained of pain during swallowing and occasionally when she can swallow food comes up hours later. With easy fatigability, and shortness of breath.with moderate exertion Persistence of above signs and symptoms and weakness and prompted consult to ER and was admitted for further evaluation. CBC/BMP: 08/23/16 0320 08/23/16 0320 Significant Findings Laboratory Tests Test 08/21/16 08/21/16 08/21/16 08/22/16 03:30 20:00 21:41 03:30 Valproic Acid (Depakene) Level 39 MCG/ML 45 MCG/ML (50-100) (50-100) Red Blood Count 3.72 MIL/MM3 (4.00-5.30) Hemoglobin 10.0 GM/DL (11.6-15.3) Hematocrit 31.4 % (35.0-46.0) Mean Corpuscular Hemoglobin 26.9 PG (27.0-34.0) Mean Corpuscular Hemoglobin 31.9 % Concent (32.0-36.0) Red Cell Distribution Width 17.7 % (11.6-17.2) Platelet Count 473 TH/MM3 (150-450) Neutrophils (%) (Auto) 72.8 % (16.0-70.0) Monocytes (%) (Auto) 10.7 % (0.0-8.0) Lymphocytes # (Auto) 0.8 TH/MM3 (1.0-4.8) Potassium Level 3.4 MEQ/L (3.5-5.1) Estimat Glomerular Filtration 63 ML/MIN (>89) Rate Random Glucose 119 MG/DL (74-106) Urine Mucus FEW /lpf (OCC) Phenytoin (Dilantin) Level 8.2 MCG/ML (10.0-20.0) Test 08/22/16 08/23/16 16:45 03:20 Red Blood Count 3.39 MIL/MM3 3.41 MIL/MM3 (4.00-5.30) (4.00-5.30) Hemoglobin 9.6 GM/DL 9.3 GM/DL (11.6-15.3) (11.6-15.3) Hematocrit 28.6 % 29.1 % (35.0-46.0) (35.0-46.0) Red Cell Distribution Width 17.5 % 18.1 % (11.6-17.2) (11.6-17.2) Mean Platelet Volume 6.8 FL (7.0-11.0) Neutrophils (%) (Auto) 71.0 % 78.0 % (16.0-70.0) (16.0-70.0) Monocytes (%) (Auto) 11.4 % 10.3 % (0.0-8.0) (0.0-8.0) Lymphocytes # (Auto) 0.9 TH/MM3 0.5 TH/MM3 (1.0-4.8) (1.0-4.8) Blood Urea Nitrogen 4 MG/DL (7-18) 6 MG/DL (7-18) Estimat Glomerular Filtration 81 ML/MIN (>89) 86 ML/MIN (>89) Rate Alkaline Phosphatase 137 U/L (45-117) Albumin 2.8 GM/DL (3.4-5.0) Mean Corpuscular Hemoglobin 31.8 % Concent (32.0-36.0) Lymphocytes (%) (Auto) 8.5 % (9.0-44.0) Potassium Level 3.3 MEQ/L (3.5-5.1) Random Glucose 65 MG/DL (74-106) Phenytoin (Dilantin) Level 5.9 MCG/ML (10.0-20.0) Valproic Acid (Depakene) Level 46 MCG/ML (50-100) PE at Discharge GENERAL: This is a pleasant cachectic 51 yo F, well-nourished, well-developed patient, sleepy. CARDIOVASCULAR: Regular rate and regular rhythm without murmurs, gallops, or rubs. RESPIRATORY: Clear to auscultation. Breath sounds equal bilaterally. No wheezes , rales, or rhonchi. GASTROINTESTINAL: Abdomen soft, non-tender, nondistended. Normal, active bowel sounds MUSCULOSKELETAL: Extremities without clubbing, cyanosis, or edema. NEURO: Alert & Oriented x4 to person, place, time, situation. Moves all ext x4 Hospital Course Lung Cancer with Metastasis Brain Masses Chronic Pain Oncology and radiation oncology following Radiation planned; had radiation simulation . Brain mets are the likely etiology of her recent seizures continue with pain control and Decadron Seizure - had another episode of seizure on 08/18/[address] head on 08/19 ; stable repeated EEG with no active seizure activity. neurology reconsulted;dilantin was discontinued and started on Depakote and Keppra continue Decadron seizure precautions Recurrent abdominal pain- s/p EGD with gastritis Will order abdominal XR continue PPI Anxiety Reactive PRN Valium started Ativan discontinued Constipation: laxatives as needed. Poor prognosis. Patient is G0 reading, she is refusing treatments. Palliative care was following, seen by hospice, patient's family decided for hospice care. Patient was discussed chart to hospice pain deteriorating condition. Pt Condition on Discharge: Deteriorating Discharge Disposition: Hospice/Med Facility Discharge Time: > 30 minutes Discharge Instructions DIET: Follow Instructions for: As Tolerated, No Restrictions Activities you can perform: Regular-No Restrictions Follow up Referrals: PCP Follow-up - 1 Week New Medications: Hospital Bed - Manual (Hospital Bed - Manual) 1 Ea Ea 1 EA .ROUTE DIRECTED #1 EA Continued Medications: Nitrofurantoin Monohydrate Macrocrystals (Macrobid) 100 Mg Cap 100 MG PO BID Infection Days 10 Ref 0 CAP Nivolumab (Opdivo) 100 Mg/10 Ml Inj 1 INJECTION IV every other wed Omeprazole (Omeprazole) 40 Mg Cap 40 MG PO DAILY #30 Ref 0 CAP Ondansetron (Ondansetron) 8 Mg Tab 8 MG PO TID Nausea/Vomiting Ref 0 TAB Ondansetron Odt (Zofran Odt) 8 Mg Tab 8 MG SL Q8H PRN NAUSEA OR VOMITING #30 Ref 0 TAB Oxycodone-Acetaminophen (Percocet) 5-325 mg Tab 1-2 TAB PO Q6H PRN PAIN #30 Ref 0 TAB Prochlorperazine Maleate (Prochlorperazine Maleate) 10 Mg Tab 10 MG PO Q6H PRN NAUSEA OR VOMITING Ref 0 TAB Promethazine (Phenergan) 25 Mg Tab 25 MG PO Q6H PRN NAUSEA OR VOMITING #15 TAB Brigitte Castaneda MD Aug 23, 2016 15:49
== END 2016-08-23 16:36 | disposition hospice, inpatient (51) | DRG 55 ==
LOC: NEPC 08:32 → NEDA 14:57 → NEPHCDU 17:01 → OBSVTOIN 08-11 11:50 → HOCB 08-11 14:47 → HIMW 08-18 18:10 → HOCB 08-20 18:26
PROVIDERS: ADMIT Hospitalist; ATTEND Hospitalist
PROC: 0DB68ZX Excision of Stomach, Via Natural or Artificial Opening Endoscopic, Diagnostic (ICD-10-PCS; principal; 2016-08-11 09:07)
DX: C79.31 Secondary malignant neoplasm of brain (principal); J90 Pleural effusion, not elsewhere classified; G93.89 Other specified disorders of brain; C34.90 Malignant neoplasm of unspecified part of unspecified bronchus or lung; G62.9 Polyneuropathy, unspecified; R63.0 Anorexia; R62.7 Adult failure to thrive; J44.9 Chronic obstructive pulmonary disease, unspecified; G40.89 Other seizures; G89.3 Neoplasm related pain (acute) (chronic); Z92.3 Personal history of irradiation; M19.042 Primary osteoarthritis, left hand; M19.041 Primary osteoarthritis, right hand; Z87.442 Personal history of urinary calculi; F41.9 Anxiety disorder, unspecified; R00.0 Tachycardia, unspecified; K29.70 Gastritis, unspecified, without bleeding; Z88.8 Allergy status to other drugs, medicaments and biological substances; Z87.891 Personal history of nicotine dependence; K21.9 Gastro-esophageal reflux disease without esophagitis; R19.7 Diarrhea, unspecified; Z80.3 Family history of malignant neoplasm of breast; Z80.42 Family history of malignant neoplasm of prostate; Z51.5 Encounter for palliative care; K59.00 Constipation, unspecified; R51 Headache; R45.1 Restlessness and agitation
CPT/HCPCS: 36600; 70450; 70470; 70553; 71010; 71260; 72156; 72158; 74000; 74177; 80048; 80053; 80164; 80185; 81001; 82805; 82948; 83605; 85025; 87040; 87641; 88305; 88307; 88312; 93005; 95819; 96361; 96374; 96375; 96376; A9579; C9113; G0378; G8996-GN; G8997-GN; G8998-GN; J0780; J1165; J1170; J1200; J1630; J1642; J1953; J2060; J2212; J2250; J2310; J2405; J3010; J3480; J7030; J7042; J8540; Q9963; Q9967